=== PATIENT | male | born 1965 | race Caucasian/White ===

== ENCOUNTER 2017-12-11 09:34 | Day surgery (SDC) | payer OTHER, SELFPAY ==
[2017-12-10 17:15] VITALS: BP 102/72; PULSE 84; RESP 22; O2SAT 97
[2017-12-11] VITALS (7 sets, daily range): BP systolic 86–136; BP diastolic 58–89; PULSE 81–88; RESP 18–20; TEMP 36.6; O2SAT 94–97; BMI 26.8
[2017-12-11 11:23] LABS: POC Glucose,Bedside 164 mg/dL
--- NOTE | 2017-12-11 17:07 | XR_ITS ---
XR chest portable HISTORY: ITS.REASON: AICD placement ORDERING PHYSICIAN: Joby Gilman MD PATIENT AGE: 52 years COMPARISON: None available FINDINGS: Status post AICD placement from the left subclavian approach with right atrial lead also present. No evidence of pneumothorax. Lungs are clear of acute infiltrate. There is a small nodular opacity overlying the fourth interspace anteriorly could be due to granuloma or even nipple shadow.. Unremarkable heart size. No acute bony anomalies. IMPRESSION: Status post pacemaker placement as described above with no acute finding
--- NOTE | 2018-01-28 11:21 | HMH.CRT-D ---
[facility] FOOD SERVICE AMBASSADOR-D - FOOD SERVICE AMBASSADOR-D Date of Procedure:: 12/11/17 Procedures:: 1. Pocket formation for biventricular pacemaker generator with cardiac resynchronization/defibrillator therapy. 2. Placement atrial sensing and pacing lead into the right atrial appendage. 3. Placement of right ventricular sensing pacing and shocking lead in the right ventricular apex. 4. Placement of left ventricular sensing pacing lead via the coronary sinus. 5. Permanent cardiac resynchronization therapy with AICD implantation/biventricular pacemaker. Indication for test:: Systolic Congestive Heart Failure, ejection less than 35% Wide QRS greater than 120 ms [place] Heart Association Class 3-4 Congestion heart failure. Informed consent:: Obtained prior to procedure. Complications:: None EBL:: Less than 10 ml. Technique:: 1% Lidocaine with epinephrine used to anesthetize the left anterior aspect of the chest.Scalpel was used to make the initial cutaneous incision while electrocautery was used to dissect down into the fascia. The fascia was lifted off the pectoralis muscle and digitally manipulated creating a pocket for the pacemaker. The patient was then placed in Trendelenburg position and the subclavian vein was accessed via the Selinger technique on 3 separate occasions. 3 wires were left into the subclavian vein. The right ventricular pacing shocking coil sheath was placed into the subclavian vein and under fluoroscopic guidance the right ventricular sensing pacing shocking lead was placed into the right ventricular apex and secured into place with a distal screw. After achieving excellent numbers the lead was then secured into place using 3-0 silk. The lead was secured to the fascia also with a heavy silk. Prior to the right ventricular lead being secured into place, the sheath was pealed away from the subclavian vein. Under fluoroscopic guidance the coronary sinus was cannulated and confirmed with an injection of contrast. An .014 wire was then placed distally in the inferior posterior swgment of the left ventricle via the coronary sinus and the left ventricular lead was advanced. After achieving eexcellent thresholds and interrogation numbers the sheath was then peeled away and the lead was then secured into place using silk suture. Following this, the left ventricular coil was secured in place using heavy silk and also secured to the fascia. An additional 7 [place] sheath was then placed over the existing wire and an atrial sensing placing coil was placed in the right atrial appendage. After achieving excellent thresholds the sheath was peeled away and the lead was secured to the fascia using heavy silk. After achieving hemostasis, Ancef was used to flush the pocket and the 3 leads were attached to the FOOD SERVICE AMBASSADOR-D generator. The generator was then secured into place via heavy silk suture. Monocryl was used to close the subcutaneous layers while fartun were used to close the cutaneous layer. A pressure dressing was placed and the patient was transferred to the post-op holding area in stable condition. Impression:: 1. Successful pocket formation for biventricular pacemaker generator with cardiac resynchronization/defibrillator therapy. 2. Successful placement of right atrial sensing and pacing lead into the right atrial appendage. 3. Successful placement of a right ventricular sensing, pacing, and shocking lead in the right ventricular apex. 4. Successful placement of left ventricular sensing pacing lead via the coronary sinus. 5. Successful permanent cardiac resynchronization plus AICD generator device. Interrogation:: Generator model number [id number] serial number [id number] Atrial lead model number serial number [id number] model number [id number] Right Ventricular lead model number [id number] serial number [id number] Left Ventricular lead model number 1458QL/86 serial number [id number] RA: P wave 3.5 mV Threshold .75 V Impedance 480 ohms pulse width .5 ms RVA: R wav
--- NOTE | 2018-01-28 11:25 | P.PCN_ITS ---
[facility] USED CAR MAKE READY WORKER-D - USED CAR MAKE READY WORKER-D Date of Procedure:: 12/11/17 Procedures:: 1. Pocket formation for biventricular pacemaker generator with cardiac resynchronization/defibrillator therapy. 2. Placement atrial sensing and pacing lead into the right atrial appendage. 3. Placement of right ventricular sensing pacing and shocking lead in the right ventricular apex. 4. Placement of left ventricular sensing pacing lead via the coronary sinus. 5. Permanent cardiac resynchronization therapy with AICD implantation/ biventricular pacemaker. Indication for test:: Systolic Congestive Heart Failure, ejection less than 35% Wide QRS greater than 120 ms [place] Heart Association Class 3-4 Congestion heart failure. Informed consent:: Obtained prior to procedure. Complications:: None EBL:: Less than 10 ml. Technique:: 1% Lidocaine with epinephrine used to anesthetize the left anterior aspect of the chest.Scalpel was used to make the initial cutaneous incision while electrocautery was used to dissect down into the fascia. The fascia was lifted off the pectoralis muscle and digitally manipulated creating a pocket for the pacemaker. The patient was then placed in Trendelenburg position and the subclavian vein was accessed via the Selinger technique on 3 separate occasions. 3 wires were left into the subclavian vein. The right ventricular pacing shocking coil sheath was placed into the subclavian vein and under fluoroscopic guidance the right ventricular sensing pacing shocking lead was placed into the right ventricular apex and secured into place with a distal screw. After achieving excellent numbers the lead was then secured into place using 3-0 silk. The lead was secured to the fascia also with a heavy silk. Prior to the right ventricular lead being secured into place, the sheath was pealed away from the subclavian vein. Under fluoroscopic guidance the coronary sinus was cannulated and confirmed with an injection of contrast. An .014 wire was then placed distally in the inferior posterior swgment of the left ventricle via the coronary sinus and the left ventricular lead was advanced. After achieving eexcellent thresholds and interrogation numbers the sheath was then peeled away and the lead was then secured into place using silk suture. Following this, the left ventricular coil was secured in place using heavy silk and also secured to the fascia. An additional 7 Vincentian sheath was then placed over the existing wire and an atrial sensing placing coil was placed in the right atrial appendage. After achieving excellent thresholds the sheath was peeled away and the lead was secured to the fascia using heavy silk. After achieving hemostasis, Ancef was used to flush the pocket and the 3 leads were attached to the USED CAR MAKE READY WORKER-D generator. The generator was then secured into place via heavy silk suture. Monocryl was used to close the subcutaneous layers while fartun were used to close the cutaneous layer. A pressure dressing was placed and the patient was transferred to the post-op holding area in stable condition. Impression:: 1. Successful pocket formation for biventricular pacemaker generator with cardiac resynchronization/defibrillator therapy. 2. Successful placement of right atrial sensing and pacing lead into the right atrial appendage. 3. Successful placement of a right ventricular sensing, pacing, and shocking lead in the right ventricular apex. 4. Successful placement of left ventricular sensing pacing lead via the coronary sinus. 5. Successful permanent cardiac resynchronization plus AICD generator device. Interrogation:: Generator model number [id number] serial number [id number] Atrial lead model carlos
== END 2017-12-11 18:30 | disposition home or self-care (01) ==
LOC: OR 09:36
PROVIDERS: PCP Family Medicine; Visit Provider Internal Medicine
PROC: 0JH608Z Insertion of Defibrillator Generator into Chest Subcutaneous Tissue and Fascia, Open Approach (ICD-10-PCS; CPT 33249; principal; 2017-12-11 13:15)
DX: Z45.02 Encounter for adjustment and management of automatic implantable cardiac defibrillator (principal); I50.20 Unspecified systolic (congestive) heart failure
CPT/HCPCS: 33225; 33249; 71045; 82962; 96374; C1769; C1777; C1882; C1894; C1898; J2704

== ENCOUNTER → 2018-02-01 14:31 | Outpatient (POV) | payer OTHER, SELFPAY ==
[2018-02-01 14:39] VITALS: BP 120/66; PULSE 90; RESP 18; TEMP 36.6; O2SAT 100; BMI 28.0
--- NOTE | 2018-02-01 16:27 | HMH.PMCON ---
Assessment and Plan (1) Diabetic neuropathy Current visit: Yes Status: Chronic Category: Medical Code(s): E11.40 - Type 2 diabetes mellitus with diabetic neuropathy, unspecified - Assessment and plan all Dx Assessment and Plan for all problems:: I discussed with the patient our options of Neurontin and Lyrica. Patient had side effects to the gabapentin. We will start him on a trial dose of Lyrica 75 mg 1 p.o. twice daily for 2 weeks and see if this is helped with his symptoms. I discussed with the patient that Percocet was not the treatment indicated for his type of pain. We also discussed and neurostimulator he uninterested in this. I will follow-up with this patient in 1 month and discuss options. This note was dictated using voice recognition software and may contain errors or omissions HPI - Data of Consult Consult date: 02/01/18 Requesting Physician: Anastasia Young APRN Primary Care Provider: Hannah Merritt Family Provider: Rocio velasco - Consult Narrative Reason for consult: Leg pain bilaterally History of present illness: Mr. Milian is a 52 year old male who presents today to discuss his bilateral leg pain. Patient stated the pain started 3 years ago after he was diagnosed with diabetes. Patient states that he stands on a concrete floor while working and this makes the pain worse patient tried and failed gabapentin due to side effects. Patient is currently on a blood thinner after a recent cardiac workup with intervention. Patient is currently not interested in any spinal cord stimulation. Patient is concerned about Lyrica due to cost and his insurance. Patient rates his pain an 8 out of 10 today. Patient states that nothing decreases his pain. He states that he did receive Percocet from his cardiac physician and this dulled the pain. He states that numbness and tingling and shocking all the way from his bilateral hips to the toes on both feet. he does not have any MRI or imaging of his back. CC: Anastasia Young APRN [facility] History I have reviewed the patient's past medical history: Yes Medical History: Reports:: Congestive Heart Failure, Diabetes Mellitus Type 2, Hyperlipidemia, Hypertension, Internal Pacemaker Denies:: Cancer, Diabetes Mellitus Type 1, MRSA, Seizures Other Medical History: Denies: Blood Transfusion Reaction Other Surgeries: Yes: Pacemaker Amputation: No Fractures: No - *Social History Educational Level: Attended Grade School Smoking Status: Former smoker Tobacco Type: cigarettes Alcohol Intake: former Alcohol Intake Frequency:: a few times a week Occupational Status: employed, other Housing: house Household Members: family - Psychiatric History Expresses thoughts of harming self/others: None Suicide Plan Description: No Plan *Family Hx:: Cancer, Coronary Artery Disease, Diabetes, Heart Attack, Hyperlipidemia, Hypertension, Kidney Disease, Stroke Review of Systems - Review of Systems ROS General: no recent weight change, no fever, no sleep disturbances Respiratory: no cough, no shortness of air, no recurring pulmonary infections Cardiovascular/Peripheral Vascular: No chest pain, No palpitations, no edema, no shortness of breath. Gastrointestinal: no incontinence, normal bowel movements reported Genitourinary: no incontinence Musculoskeletal: Bilateral leg pain Psychiatric: normal mood/ affect, Neurological: [denies weakness in extremities], [denies balance issues] Meds Home Medications Medication Instructions Recorded Confirmed Type aspirin 81 mg tablet,delayed 81 mg PO QDAY 12/04/17 02/01/18 History release atorvastatin 20 mg tablet 20 mg PO QDAY 12/04/17 02/01/18 History carvedilol 12.5 mg tablet 6.25 mg PO BID 12/04/17 02/01/18 History clopidogrel 75 mg tablet 75 mg PO QDAY 12/04/17 02/01/18 History famotidine 40 mg tablet 40 mg PO BID 12/04/17 02/01/18 History furosemide 80 mg tablet 80 mg PO BID tab 12/04/17 02/01/18 History
--- NOTE | 2018-02-01 16:32 | P.CONS_ITS ---
Assessment and Plan (1) Diabetic neuropathy Current visit: Yes Status: Chronic Category: Medical Code(s): E11.40 - Type 2 diabetes mellitus with diabetic neuropathy, unspecified - Assessment and plan all Dx Assessment and Plan for all problems:: I discussed with the patient our options of Neurontin and Lyrica. Patient had side effects to the gabapentin. We will start him on a trial dose of Lyrica 75 mg 1 p.o. twice daily for 2 weeks and see if this is helped with his symptoms. I discussed with the patient that Percocet was not the treatment indicated for his type of pain. We also discussed and neurostimulator he uninterested in this. I will follow-up with this patient in 1 month and discuss options. This note was dictated using voice recognition software and may contain errors or omissions HPI - Data of Consult Consult date: 02/01/18 Requesting Physician: Anastasia Young APRN Primary Care Provider: Hannah Merritt Family Provider: Rocio velasco - Consult Narrative Reason for consult: Leg pain bilaterally History of present illness: Mr. Milian is a 52 year old male who presents today to discuss his bilateral leg pain. Patient stated the pain started 3 years ago after he was diagnosed with diabetes. Patient states that he stands on a concrete floor while working and this makes the pain worse patient tried and failed gabapentin due to side effects. Patient is currently on a blood thinner after a recent cardiac workup with intervention. Patient is currently not interested in any spinal cord stimulation. Patient is concerned about Lyrica due to cost and his insurance. Patient rates his pain an 8 out of 10 today. Patient states that nothing decreases his pain. He states that he did receive Percocet from his cardiac physician and this dulled the pain. He states that numbness and tingling and shocking all the way from his bilateral hips to the toes on both feet. he does not have any MRI or imaging of his back. CC: Anastasia Young APRN [facility] History I have reviewed the patient's past medical history: Yes Medical History: Reports:: Congestive Heart Failure, Diabetes Mellitus Type 2, Hyperlipidemia, Hypertension, Internal Pacemaker Denies:: Cancer, Diabetes Mellitus Type 1, MRSA, Seizures Other Medical History: Denies: Blood Transfusion Reaction Other Surgeries: Yes: Pacemaker Amputation: No Fractures: No - *Social History Educational Level: Attended Grade School Smoking Status: Former smoker Tobacco Type: cigarettes Alcohol Intake: former Alcohol Intake Frequency:: a few times a week Occupational Status: employed, other Housing: house Household Members: family - Psychiatric History Expresses thoughts of harming self/others: None Suicide Plan Description: No Plan *Family Hx:: Cancer, Coronary Artery Disease, Diabetes, Heart Attack, Hyperlipidemia, Hypertension, Kidney Disease, Stroke Review of Systems - Review of Systems ROS General: no recent weight change, no fever, no sleep disturbances Respiratory: no cough, no shortness of air, no recurring pulmonary infections Cardiovascular/Peripheral Vascular: No chest pain, No palpitations, no edema, no shortness of breath. Gastrointestinal: no incontinence, normal bowel movements reported Genitourinary: no incontinence Musculoskeletal: Bilateral leg pain Psychiatric: normal mood/ affect, Neurological: [denies weakness in extremities], [denies balance issues] Meds Home Medications Medication Instructions Recorded Con
--- NOTE | 2018-02-01 16:36 | PC.PHONENOTE ---
called in Rx for Lyrica 75mg BID #14 with no refills to [facility] pharmacy in [place]
== END ==
PROVIDERS: PCP Family Medicine; Visit Provider Clinical Nurse Specialist Family Health
DX: E11.40 Type 2 diabetes mellitus with diabetic neuropathy, unspecified (principal)
CPT/HCPCS: 99202

== ENCOUNTER → 2018-03-08 08:43 | Outpatient (POV) | payer OTHER, SELFPAY ==
[2018-03-08 08:57] VITALS: BP 126/75; PULSE 73; RESP 20; O2SAT 98; BMI 29.8
--- NOTE | 2018-03-08 09:44 | HMH.PAINSOAP ---
[facility] Pain Management SOAP Note Subjective:: This patient is a 52-year-old white male who presents today for follow-up. Patient had tried Lyrica for his diabetic neuropathy. Patient states it was too expensive and it did not work. Patient is unable to take Neurontin due to side effects. Patient states most of his pain is in his back and bilateral legs however he has a new onset of neck pain along with lateral arm weakness. Patient does have a pacemaker and a defibrillator. Patient is unable have an MRI. 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 Patient rates his pain a 7 out of 10 today. Patient has taken some Tylenol once in a while to help with the pain. Patient has a history of alcoholism. We have discussed the neurostimulator at his last visit. Patient states he did not look into the information that was given to him. Patient and I had a long discussion about not utilizing narcotic pain medication due to the patient's age, symptomology, history. Patient does want to discuss alternative options like nerve stimulation at this visit. ROS General: no recent weight change, no fever, no sleep disturbances Respiratory: no cough, no shortness of air, no recurring pulmonary infections Cardiovascular/Peripheral Vascular: No chest pain, No palpitations, no edema, no shortness of breath. Gastrointestinal: no incontinence, normal bowel movements reported Genitourinary: no incontinence Musculoskeletal: Back pain, bilateral leg pain, neck pain, bilateral arm pain Psychiatric: normal mood/ affect, Neurological: New weakness in bilateral arms, [denies balance issues] Objective:: Physical Exam General: Alert and oriented x3, no acute distress, pleasant and cooperative, [on room air] Lungs: Resps E/U, Symmetrical chest expansion, Eyes: PERRL Musculoskeletal: Flexion and extension of cervical and lumbar spine somewhat guarded secondary to pain, deep tendon reflexes normal, strength in upper and lower extremities [5/5], normal gait noted Neurological: speech clear, 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 I believe that this would be good in distinguishing pathology of pain. We will also start the patient on Cymbalta 30 mg 1 p.o. daily. Patient states he has no allergies. I explain to the patient that we do not prescribe opioid medications for his symptomology. We will follow-up with the patient after his CT scans. Patient and I did have a longer discussion on neuro stimulation and he may be interested in pursuing this. This note was dictated using voice recognition software and may contain errors or omissions
--- NOTE | 2018-03-08 09:47 | P.CONS_ITS ---
[facility] Pain Management SOAP Note Subjective:: This patient is a 52-year-old white male who presents today for follow-up. Patient had tried Lyrica for his diabetic neuropathy. Patient states it was too expensive and it did not work. Patient is unable to take Neurontin due to side effects. Patient states most of his pain is in his back and bilateral legs however he has a new onset of neck pain along with lateral arm weakness. Patient does have a pacemaker and a defibrillator. Patient is unable have an MRI. 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 Patient rates his pain a 7 out of 10 today. Patient has taken some Tylenol once in a while to help with the pain. Patient has a history of alcoholism. We have discussed the neurostimulator at his last visit. Patient states he did not look into the information that was given to him. Patient and I had a long discussion about not utilizing narcotic pain medication due to the patient's age, symptomology, history. Patient does want to discuss alternative options like nerve stimulation at this visit. ROS General: no recent weight change, no fever, no sleep disturbances Respiratory: no cough, no shortness of air, no recurring pulmonary infections Cardiovascular/Peripheral Vascular: No chest pain, No palpitations, no edema, no shortness of breath. Gastrointestinal: no incontinence, normal bowel movements reported Genitourinary: no incontinence Musculoskeletal: Back pain, bilateral leg pain, neck pain, bilateral arm pain Psychiatric: normal mood/ affect, Neurological: New weakness in bilateral arms, [denies balance issues] Objective:: Physical Exam General: Alert and oriented x3, no acute distress, pleasant and cooperative, [ on room air] Lungs: Resps E/U, Symmetrical chest expansion, Eyes: PERRL Musculoskeletal: Flexion and extension of cervical and lumbar spine somewhat guarded secondary to pain, deep tendon reflexes normal, strength in upper and lower extremities [5/5], normal gait noted 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 I believe that this would be good in distinguishing pathology of pain. We will also start the patient on Cymbalta 30 mg 1 p.o. daily. Patient states he has no allergies. I explain to the patient that we do not prescribe opioid medications for his symptomology. We will follow-up with the patient after his CT scans. Patient and I did have a longer discussion on neuro stimulation and he may be interested in pursuing this. This note was dictated using voice recognition software and may contain errors or omissions
--- NOTE | 2018-03-09 12:52 | PC.PHONENOTE ---
03/08/18-called in RX for Cymbalta 30mg daily with 1 refill to pt's pharmacy
== END ==
PROVIDERS: PCP Family Medicine; Visit Provider Clinical Nurse Specialist Family Health
DX: E11.40 Type 2 diabetes mellitus with diabetic neuropathy, unspecified (principal)
CPT/HCPCS: 99212

== ENCOUNTER → 2018-03-22 14:08 | Outpatient (CLI) | payer OTHER, SELFPAY ==
--- NOTE | 2018-03-22 14:26 | CT_ITS ---
CT lumbar spine wo con INDICATION: Low back pain radiating bilaterally, recent injury ITS.REASON: NECK AND BACK PAIN ORDERING PHYSICIAN: Estuardo Vo MD PATIENT AGE: 52 years TECHNIQUE: Axial images are obtained without contrast. Sagittal and coronal reformatted images are reviewed as well. All CT scans at the facility use one or more dose reduction, viz: automated exposure control; ma/kV adjustment per patient size (including targeted exams where dose is matched to indication; i.e. head); or iterative reconstruction technique. FINDINGS: There is normal alignment. No fracture or dislocation is evident. The disc spaces are well-preserved. No lytic or blastic change Minimal bulging disc L2-L3. L3-L4: Unremarkable. L4-5: Mild concentric bulging disc. L5-S1 mild concentric bulging disc. Mild bilateral foraminal narrowing. IMPRESSION: Mild lumbar spondylosis with mild bulging disc at L2-L3 L4-L5 and L5-S1 with mild bilateral foraminal narrowing at L5-S1. No fracture apparent. No bony canal stenosis
--- NOTE | 2018-03-22 14:26 | CT_ITS ---
CT cervical spine wo con Ordering Physician: Estuardo Vo MD Patient Age: 52 years: Male HISTORY: ITS.REASON: NECK AND BACK PAINthe posterior neck pain. Pain radiates bilateral. Fell 2 weeks ago TECHNIQUE: helical CT scanning performed through the cervical spine with sagittal axial and coronal reconstructions on CT workstation. Dose reduction techniques utilized including CT software exposure reduction COMPARISON :No prior neck studies. Prior FINDINGS No fracture nor subluxation at C-spine. C1-C2 relationships appear normal.. Odontoid intact. The cervical vertebral bodies are intact and the disc spaces are fairly well maintained with only questionable borderline narrowing C5-C6 disc The facets intact with normal relationships. Minor degenerative facet changes to the right before meals to/3 noted mild subchondral cyst here. Very minor degenerative facet changes at other levels for example C6/7 bilateral. Nonspecific straightening cervical spine is likely positional but can be associated with neck pain or neck spasm Prevertebral soft tissues appear normal. Minimal calcification left vertebral artery at C3/4 level. Minimal carotid bifurcation calcification bilaterally [place] of lung no significant findings. Only dense benign calcified granuloma left apex. Pacemaker maker leads noted entering from left IMPRESSION Cervical spine intact with no fracture nor subluxation. Nonspecific straightening. Mild degenerative facet changes noted.
== END ==
PROVIDERS: PCP Family Medicine; Visit Provider Anesthesiology
DX: M54.2 Cervicalgia (principal); M54.5 Low back pain
CPT/HCPCS: 72125; 72131

== ENCOUNTER → 2018-03-30 10:48 | Outpatient (POV) | payer OTHER, SELFPAY ==
[2018-03-30 12:16] VITALS: BP 104/74; PULSE 80; RESP 18; TEMP 36.6; O2SAT 96; BMI 29.4
--- NOTE | 2018-03-30 12:41 | P.CONS_ITS ---
[facility] Pain Management SOAP Note Subjective:: Is a pleasant 52-year-old white male who presents today for follow-up. Patient had a CT scan of his lumbar spine which was fairly benign. Patient is being treated for pain secondary to diabetic neuropathy, neck pain, back pain. Patient and I discussed at last visit how we do not prescribe opioid medications for his symptomology. Patient was started on Cymbalta 30 mg 1 p.o. daily. He states that he did not have any results from this. Patient has tried and failed gabapentin and Lyrica. Patient and I had discussed and neurostimulator in the past however he is not interested in pursuing this at this time. Patient has never tried amitriptyline or any compounding creams. Patient rates his pain a 9 out of 10 today. Patient states that it is worse when he works. Patient states it is burning shooting into both of his legs. ROS General: no recent weight change, no fever, no sleep disturbances Respiratory: no cough, no shortness of air, no recurring pulmonary infections Cardiovascular/Peripheral Vascular: No chest pain, No palpitations, no edema, no shortness of breath. Gastrointestinal: no incontinence, normal bowel movements reported Genitourinary: no incontinence Musculoskeletal: Back pain, bilateral leg pain Psychiatric: normal mood/ affect Neurological: [denies weakness in extremities], [denies balance issues] Objective:: Physical Exam General: Alert and oriented x3, no acute distress, pleasant and cooperative, [ on room air] Lungs: Resps E/U, Symmetrical chest expansion, Eyes: PERRL Musculoskeletal: Flexion and extension of lumbar spine somewhat guarded secondary to pain, deep tendon reflexes normal, strength in upper and lower extremities [5/5], [abnormal gait noted] Neurological: speech clear, 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 We will also start him on amitriptyline 25 mg 1 p.o. nightly. Patient is going to discontinue his Cymbalta. I encouraged the patient to continue to think about a neurostimulator. I will see him back in 1 month and we will see if this combination of medication helps his symptoms. Patient has been told to call the office if he has any side effects to the medications. This note was dictated using voice recognition software and may contain errors or omissions
--- NOTE | 2018-03-30 14:08 | PC.PHONENOTE ---
called in Rx for Amitripyline 25mg po qhs with 1 refill per provider order
== END ==
PROVIDERS: PCP Family Medicine; Visit Provider Clinical Nurse Specialist Family Health
DX: E11.40 Type 2 diabetes mellitus with diabetic neuropathy, unspecified (principal); M51.36 Other intervertebral disc degeneration, lumbar region
CPT/HCPCS: 99212

== ENCOUNTER → 2018-11-03 11:26 | Outpatient (CLI) | payer OTHER, SELFPAY ==
[2018-11-03 14:23] LABS: Anion Gap 14.2 mEq/L (5-15); Blood Urea Nitrogen 29 mg/dL (7-18); Calcium 8.3 mg/dL (8.5-10.1); Carbon Dioxide 26 mmol/L (21.0-32.0); Chloride 97 mmol/L (98-107); Creatinine,Serum 1.78 mg/dL (0.70-1.30); Estimated Glomerular Filt Rate 40 ml/min (>60); GFR (African American) 48 ML/MIN (>60); Glucose 125 mg/dL (74-106); Potassium 4.2 mmoL/L (3.5-5.1); Sodium 133 mmol/L (136-145)
== END ==
PROVIDERS: Nurse Practitioner Family; Visit Provider Internal Medicine
DX: I42.6 Alcoholic cardiomyopathy (principal); I25.10 Atherosclerotic heart disease of native coronary artery without angina pectoris; Z95.810 Presence of automatic (implantable) cardiac defibrillator; R94.31 Abnormal electrocardiogram [ECG] [EKG]; R06.02 Shortness of breath; I50.9 Heart failure, unspecified; I42.8 Other cardiomyopathies
CPT/HCPCS: 36415; 80048; 83880

== ENCOUNTER → 2018-11-24 11:45 | Outpatient (CLI) | payer OTHER, SELFPAY ==
[2018-11-24 12:58] LABS: Blood Urea Nitrogen 25 mg/dL (7-18); Calcium 9.9 mg/dL (8.5-10.1); Carbon Dioxide 33 mmol/L (21.0-32.0); Chloride 92 mmol/L (98-107); Creatinine,Serum 1.83 mg/dL (0.70-1.30); Estimated Glomerular Filt Rate 39 ml/min (>60); GFR (African American) 47 ML/MIN (>60); Glucose 280 mg/dL (74-106); Sodium 134 mmol/L (136-145)
== END ==
PROVIDERS: Visit Provider Urology
DX: I42.6 Alcoholic cardiomyopathy (principal); I25.10 Atherosclerotic heart disease of native coronary artery without angina pectoris; E11.9 Type 2 diabetes mellitus without complications; E78.5 Hyperlipidemia, unspecified; I50.9 Heart failure, unspecified; R00.0 Tachycardia, unspecified; R06.02 Shortness of breath; R42 Dizziness and giddiness; R53.83 Other fatigue; R60.9 Edema, unspecified; R94.31 Abnormal electrocardiogram [ECG] [EKG]; Z95.810 Presence of automatic (implantable) cardiac defibrillator
CPT/HCPCS: 36415; 80048; 83880

== ENCOUNTER → 2019-01-31 10:46 | Outpatient (CLI) | payer OTHER, SELFPAY ==
--- NOTE | 2019-01-31 10:49 | CI_ITS ---
Cerebrovascular Exam Indications: Follow-up carotid 433.10. IMPRESSIONS 1. The bilateral vertebral arteries are patent with normal antegrade flow. 2. Study suggests 50-69% stenosis involving the right internal carotid artery. 3. Study suggests less than 20% stenosis involving the left internal carotid artery. History: Coronary artery disease. Risk factors: Ex tobacco use. Hypertension. Diabetes mellitus. Carotid duplex study. Complete study and Doppler flow study including spectral analysis, color and cooley scale imaging. Height: Height: 182.9cm. Height: 72in. Weight: Weight: 117.9kg. Weight: 259.5lb. Body mass index: BMI: 35.3kg/m^2. Body surface area: BSA: 2.49m^2. Location: Vascular laboratory. Patient status: Outpatient. Tables: Arterial flow: + +--------+--------+ Location V sys V ed + +--------+--------+ Right CCA - proximal 86.4cm/s 18.9cm/s + +--------+--------+ Right CCA - distal 84.9cm/s 24.4cm/s + +--------+--------+ Right ECA 117cm/s 19.9cm/s + +--------+--------+ Right ICA - proximal 204cm/s 64.8cm/s + +--------+--------+ Right ICA - mid 160cm/s 50cm/s + +--------+--------+ Right ICA - distal 158cm/s 42.9cm/s + +--------+--------+ Right vertebral 55.7cm/s 17.8cm/s + +--------+--------+ Left CCA - proximal 136cm/s 35.6cm/s + +--------+--------+ Left CCA - distal 86.6cm/s 24.9cm/s + +--------+--------+ Left ECA 105cm/s 20.8cm/s + +--------+--------+ Left ICA - proximal 72.4cm/s 20.8cm/s + +--------+--------+ Left ICA - mid 64.2cm/s 29cm/s + +--------+--------+ Left ICA - distal 79.6cm/s 29.9cm/s + +--------+--------+ Left vertebral 64.1cm/s 29.7cm/s + +--------+--------+ Velocity ratios: + + + + + + Right, V sys Right, V ed Left, V sys Left, V ed + + + + + + Max ICA/dist CCA 2.4 2.66 0.92 1.2 + + + + + + (Report amended ) Electronically signed by: Bobby Wright [id number]
== END ==
PROVIDERS: PCP Family Medicine; Visit Provider Internal Medicine
DX: I65.23 Occlusion and stenosis of bilateral carotid arteries (principal); E11.42 Type 2 diabetes mellitus with diabetic polyneuropathy; E78.49 Other hyperlipidemia; I11.0 Hypertensive heart disease with heart failure; I25.10 Atherosclerotic heart disease of native coronary artery without angina pectoris; I42.6 Alcoholic cardiomyopathy; I42.8 Other cardiomyopathies; I50.23 Acute on chronic systolic (congestive) heart failure; I50.9 Heart failure, unspecified; R06.02 Shortness of breath; R53.83 Other fatigue; R60.0 Localized edema; R94.31 Abnormal electrocardiogram [ECG] [EKG]; Z95.810 Presence of automatic (implantable) cardiac defibrillator; Z79.4 Long term (current) use of insulin
CPT/HCPCS: 93880

== ENCOUNTER → 2019-02-21 10:42 | Outpatient (CLI) | payer OTHER, SELFPAY ==
--- NOTE | 2019-02-21 10:43 | CA_ITS ---
CA echo doppler complete PROCEDURE: INDICATIONS FOR THE TEST: Chest pain COPD Heart Murmur Tobacco Smoking Palpitations Fatigue Syncope Edema HypertensionXDiabetes MellitusX Rheumatic Fever SOB LANDIS Obesity Hyperlipidemia Family History HD Additional History AICD,CM,CHF,CKD PATIENT INFORMATION HEIGHT: 72 WEIGHT:266 GENDER: Male B/P:136/83 2-D/M-MODE INTERPRETATION: 2-D MEASUREMENTS OBSERVED VALUES IN CMS Right Ventricular Dimension (RVDd) 4.0 Interventricular Septum (Thickness)(IVsd) .9 Left Ventricular Internal Dimensions(LVIDd) 5.6 Left Ventricular Posterior Wall (Thickness)(LVPWd) 1.0 Aortic Root 3.5 Aortic Cusp Separation 2.3 Left Atrial Dimensions (LAD) 4.0 2D 1. Left atrium is mildly enlarged, left ventricle is normal size, mild concentric left ventricular hypertrophy, visually estimated ejection fraction 50% with no regional wall motion abnormality. 2. The right atrium and right ventricle are mildly enlarged with normal contractility, there is an AICD lead seen in the right atrium and right ventricle. 3. The aortic valve is thickened and gastritis leaflet continue to display good mobility. 4. The mitral and tricuspid valvular grossly normal. 5. The pulmonic valve is poorly visualized. 6. No significant pericardial effusion noted. DOPPLER INTERROGATION: Doppler interrogation of the aortic, mitral and tricuspid valvular presence of mild mitral and tricuspid regurgitation, tricuspid regurgitation jet velocity is inadequate for calculation of the right ventricular systolic pressure, grade 1 diastolic dysfunction seen with tissue Doppler evidence of raised left atrial pressure. Inferior vena cava is mildly dilated without significant inspiratory collapse. CONCLUSION: 1. Biatrial enlargement, normal left ventricular size, mild concentric left ventricular hypertrophy, visually estimated ejection fraction of 50% with no regional wall motion abnormality, grade 1 diastolic dysfunction seen with tissue Doppler evidence of raised left atrial pressure. 2. Mildly enlarged right ventricle with normal contractility. 3. Mild mitral and tricuspid regurgitation, inferior vena cava is mildly dilated without significant inspiratory collapse. 4. No significant pericardial effusion noted.
== END ==
PROVIDERS: PCP Family Medicine; Visit Provider Internal Medicine
DX: I11.0 Hypertensive heart disease with heart failure (principal); I25.10 Atherosclerotic heart disease of native coronary artery without angina pectoris; I42.8 Other cardiomyopathies; Z95.810 Presence of automatic (implantable) cardiac defibrillator
CPT/HCPCS: 93306

== ENCOUNTER → 2019-08-15 14:00 | Outpatient (CLI) | payer OTHER, SELFPAY ==
[2019-08-15 15:17] LABS: Anion Gap 13.3 mEq/L (5-15); Blood Urea Nitrogen 15 mg/dL (7-18); Calcium 9.2 mg/dL (8.5-10.1); Carbon Dioxide 32 mmol/L (21.0-32.0); Chloride 96 mmol/L (98-107); Creatinine,Serum 1.19 mg/dL (0.70-1.30); Estimated Glomerular Filt Rate 64 ml/min (>60); GFR (African American) 77 ML/MIN (>60); Glucose 214 mg/dL (74-106); Potassium 4.3 mmoL/L (3.5-5.1); Sodium 137 mmol/L (136-145)
== END ==
PROVIDERS: Visit Provider Urology
DX: E78.5 Hyperlipidemia, unspecified (principal); I11.9 Hypertensive heart disease without heart failure; I25.10 Atherosclerotic heart disease of native coronary artery without angina pectoris; I50.9 Heart failure, unspecified; R06.02 Shortness of breath; R60.9 Edema, unspecified; Z95.810 Presence of automatic (implantable) cardiac defibrillator
CPT/HCPCS: 36415; 80048; 83880

== ENCOUNTER 2019-09-27 12:58 | Outpatient (RCR) | payer OTHER, SELFPAY | END 2019-09-27 12:59 | disposition home or self-care (01) | LOC: PT 12:58 | PROVIDERS: Visit Provider Urology | DX: I25.10 Atherosclerotic heart disease of native coronary artery without angina pectoris (principal); R06.02 Shortness of breath; I50.9 Heart failure, unspecified; Z95.810 Presence of automatic (implantable) cardiac defibrillator | CPT/HCPCS: 93798 ==

== ENCOUNTER → 2020-09-03 11:08 | Outpatient (CLI) | payer MEDICARE, MEDICAID, SELFPAY ==
[2020-09-03 11:26] LABS: Basophils # 0.1 K/mm3 (0-0.2); Basophils % 0.5 % (0.1-2.0); Eosinophils # 0.1 K/mm3 (0.0-0.4); Hematocrit 28.3 % (42.0-52.0); Hemoglobin 8.8 g/dL (14.1-18.0); Lymphocytes # 2.3 K/mm3 (0.7-4.5); Lymphocytes % 18.8 % (10-50); Mean Corpuscular HGB Conc 31.2 g/dL (31.8-35.4); Mean Platelet Volume 7.3 fl (7.4-10.4); Monocytes # 0.9 K/mm3 (0.1-1.0); Monocytes % 7.3 % (1.7-9.3); Neutrophils # 8.7 K/mm3 (1.8-7.8); Neutrophils % 72.3 % (37.0-80.0); Platelet Count 439 K/mm3 (142-424); Red Blood Count 3.05 M/mm3 (4.60-6.20); Red Cell Distribution Width 13.1 % (11.5-17.5); White Blood Count 12.1 K/mm3 (4.8-10.8)
[2020-09-03 11:27] LABS: Chloride 93 mmol/L (98-107)
[2020-09-03 11:28] LABS: Sodium 129 mmol/L (136-145)
[2020-09-03 11:30] LABS: Blood Urea Nitrogen 18 mg/dl (9-20); Estimated Glomerular Filt Rate 35 ml/min (>60); GFR (African American) 42 ML/MIN (>60)
[2020-09-03 11:31] LABS: Calcium 9.3 mg/dl (8.4-10.2); Carbon Dioxide 30 mmol/L (22.0-30.0); Glucose 109 mg/dl (74-100)
== END ==
PROVIDERS: Visit Provider Physician Assistant
DX: E11.9 Type 2 diabetes mellitus without complications (principal); E78.5 Hyperlipidemia, unspecified; I25.10 Atherosclerotic heart disease of native coronary artery without angina pectoris; I42.6 Alcoholic cardiomyopathy; I50.9 Heart failure, unspecified; R06.02 Shortness of breath; R53.83 Other fatigue; R55 Syncope and collapse; R60.9 Edema, unspecified; R94.31 Abnormal electrocardiogram [ECG] [EKG]; Z95.810 Presence of automatic (implantable) cardiac defibrillator
CPT/HCPCS: 36415; 80048; 80162; 85025

== ENCOUNTER 2020-09-04 08:21 | Outpatient (CLI) | payer MEDICARE, MEDICAID, SELFPAY ==
[2020-09-04] VITALS (12 sets, daily range): BP systolic 76–106; BP diastolic 37–71; PULSE 69–76; RESP 20; TEMP 36.2–36.6; O2SAT 96–97; BMI 30.2
[2020-09-04 09:20] LABS: POC Glucose,Bedside 100 (70-110)
[2020-09-04 10:05] LABS: Hematocrit 30.4 % (42.0-52.0); Hemoglobin 9.5 g/dL (14.1-18.0)
--- NOTE | 2020-09-04 10:10 | PC.NURSE ---
lab staff at pt chairside to perform confirmation stick.
--- NOTE | 2020-09-04 14:33 | PC.NURSE ---
lab at pt chairside to draw post h/h.
[2020-09-04 14:37] LABS: Hemoglobin 9.6 g/dL (14.1-18.0)
== END 2020-09-04 14:39 | disposition home or self-care (01) ==
LOC: INF 08:22
PROVIDERS: Visit Provider Internal Medicine
DX: D64.9 Anemia, unspecified (principal); E11.9 Type 2 diabetes mellitus without complications; Z79.4 Long term (current) use of insulin
CPT/HCPCS: 36415; 36430; 82962; 85014; 85018; 86850; P9016

== ENCOUNTER → 2022-12-02 11:46 | Outpatient (CLI) | payer MEDICARE, MEDICAID, SELFPAY ==
--- NOTE | 2022-12-02 11:46 | NM_ITS ---
APPROVED REPORT Exam: Nuclear Stress Test Indication: CAD, H/O VA, HTN, DM, HYPERLIPIDEMIA, TOB USE, FM HX., SOB, SYNCOPE, FATIGUE Patient Location: Outpatient Stress Tech: [facility] Tech:Lizeth Ochoa, ARRT RT (R)(N)(M) Ht: 6 ft 0 in Wt: 230 lbs HR: 70 bpm BP: 128/80 mmHg BSA: 2.26 m2 TID: 1.09 History: CAD, H/O VA, HTN, DM, HYPERLIPIDEMIA, TOB USE, FM HX., SOB, SYNCOPE, FATIGUE Procedure: Patient received a 0.4 mg of intravenous Lexiscan, resting heart rate 70 bpm, resting blood pressure 128/80 mmHg, with Lexiscan maximum heart rate achived was 78 bpm which is Less than 85 % of the maximum predicted heart rate and blood pressure was 135/76 mmHg. With Lexiscan, patient denied any complaint of chest pain. Electrocardiogram Resting electrocardiogram shows electronically paced rhythm, with Lexiscan there is less than 1.[address] segment depression noted from the baseline EKG. The EKG portion of the Lexiscan is nondiagnostic. Cardiac Stress and Resting SPECT Images: Cardiac Stress and Resting SPECT images were obtained using technetium 99m Myoview 31.5 mCi stress and 10.34 mCi at rest. Gated SPECT analysis of segmental wall motion and calculation of the ejection fraction also done. Prone images were also obtained. Cardiac stress and rest SPECT images show partial reversible defect involving the inferolateral wall consistent with mixed ischemia and scar, in addition there is reversible ischemia involving the anterior, apex and anteroseptal wall. Computer derived ejection fraction is 41% with moderate inferolateral wall hypokinesis, right ventricle is normal size and contractility. Conclusion: 1. The EKG portion of the Lexiscan is nondiagnostic. 2. Scintigraphic evidence of mixed ischemia and scar involving the inferolateral wall, in addition there is reversible ischemia involving the anterior, apex and anteroseptal wall, computer derived ejection fraction 41% with segmental wall motion abnormality described above, right ventricle is normal size and contractility. 3. Abnormal Lexiscan Myoview study suggestive of multivessel coronary artery disease. Electronically signed by : Clyde Walker MD 12/03/2022:11:03
--- NOTE | 2022-12-02 11:46 | CA_ITS ---
APPROVED REPORT Exam: Pharmacologic Technologist: Alana James Ht: 6 ft 0 in Wt: 231 lbs BSA: 2.27 m2 HR: 70 bpm BP: 128/80 mmHg Indications: Shortness of Air Medical History Medications: Omeprazole,,,,, Aspirin,,,,, Gabapentin,,,,, Digoxin,,,,, Famotidine,,,,, Centrum Silver,,,,, DulOXETINE,,,,, Magnesium,,,,, BisOPROLOL,,,,, Nitroglycerin,,,,, Vitamin B 12,,,,, MeLATONIN,,,,, Stress Test Details Test: LEXISCAN HR Resting HR: 70 bpm Max Heart Rate (APMHR): 162.059855 bpm Max HR Achieved: 78 bpm Target HR (85% APMHR): 137.231066 bpm % of APMHR: 48.15 Recovery HR: 72 bpm BP Resting BP: 128.0/80.0 mmHg Max BP: 135.0/76.0 mmHg Recovery BP: 135.0/76.0 mmHg ECG Resting ECG: AV sequential paced rhythm. Clinical Exercise duration: 04:00 min Highest Stage Achieved: Exercise capacity: 1.0 METs Stress ECG Conclusion Symptoms: Brief shortness of air, mild nausea, mild head discomfort. No chest pain. Arrhythmias/Ectopy: Transient periods of ione atrial rhythm. ST-T Changes: No significant changes. Conclusion: Non-diagnostic Lexiscan stress. Myoview images reported separately. Test Summary REST . . . . . . . Resting REST 02:54 . . 70 . 128/ 80 . . Stage 1 . . . . . . . Myoview Injected Stage 1 01:00 . . 70 . . . . Stage 2 01:00 . . 74 . 113/ 69 . . Stage 3 01:00 . . 73 . 130/ 75 . . Stage 4 01:00 . . 70 . 124/ 75 . Stop exercise at 04:00 RECOVERY 01:00 . . 73 . . . . RECOVERY 02:00 . . 74 . 127/ 76 . . RECOVERY 03:00 . . 74 . 135/ 76 . . RECOVERY 03:20 . . 70 . 135/ 76 . . Electronically signed by : Clyde Walker MD 12/03/2022 11:07:43
--- NOTE | 2022-12-02 11:48 | CA_ITS ---
APPROVED REPORT EXAM: Comprehensive 2D, Doppler, and color-flow Echocardiogram Carbonator: Delma Dixon RVT Ht: 6 ft 0 in Wt: 231lbs BSA: 2.27 BP: 141/79 mmHg Indications: SOA,A-FLUTTER,TACHYCARDIA,HC CM,CHF,AICD,ETOH USE,HLD,DM,EX SMOKER 2D Dimensions LVOT 2.55 cm (M/F) 1.5-2.5 LA Volume 46.80 mL LA Volume Index 20.62 mL/m2 (M/F) 16-34 M-Mode Dimensions RVDd 3.82 cm (0.9-2.6) LA Diam 4.47 cm (1.9-4.0) LVDd 4.45 cm (3.5-5.7) Ao Diam 3.15 cm (2.0-3.7) LVDs 3.14 cm (3.5-5.7) IVSd 1.78 cm (0.6-1.1) PWd 0.76 cm (0.6-1.1) EF (Teich) 56.60% FS 29.40% EDV (Teich) 90.10 mL TAPSE 2.39 (<1.7) ESV (Teich) 39.10 mL LV Diastology E Decel Time 323.00 (160-240 msec) E/A Ratio 0.9 MED E' 5.30 (< 7 cm/sec) E'/MED E' Ratio 16.60 (>14) LAT E' 4.80 (<10 cm/sec) E/LAT E' Ratio 18.33 (>14) Aortic Valve AO Peak GR. 3.90 mmHg Mitral Valve MV E Max Serg. 88.00 (40-130 cm/s) MV A Velocity 93.00 (40-130 cm/s) E/A Ratio 0.94 MV Decel. Time 323.00 (160-240 ms) MV PHT 95.00 ms Pulmonary Valve PV Peak Velocity 81.00 (50-150 cm/s) Tricuspid Valve TR P. Velocity 166.00 cm/s RAP Estimate 10.00 mmHg RVSP 21.10 mmHg Left Ventricle Left atrium is mildly enlarged, left ventricle is normal size mild concentric left ventricular hypertrophy, estimated ejection fraction 50% with no regional wall motion abnormality, grade 1 diastolic dysfunction seen with tissue Doppler evidence of raise left atrial pressure. Right Ventricle Right atrium and right ventricle are mildly enlarged with normal contractility, and AICD lead seen in right ventricle. Aortic Valve Aortic valve is minimally thickened and fibrosed there is no aortic stenosis aortic insufficiency. Mitral Valve Mitral valve grossly normal, there is trace mitral regurgitation. Tricuspid Valve There is mild tricuspid regurgitation, tricuspid valve is grossly normal, tricuspid regurgitation jet velocity is inadequate for calculation of the right ventricular systolic pressure. Pulmonic Valve Pulmonic valve is poorly visualized. Great Vessels Aortic root is normal size. No significant pericardial effusion. Inferior vena cava is poorly visualized. Conclusion 1. Biatrial enlargement, normal left ventricular size, estimated ejection fraction 50% with no regional wall motion abnormality, grade 1 diastolic dysfunction seen with tissue Doppler evidence of raise left atrial pressure. 2. Mildly enlarged right ventricle with normal contractility. 3. Trace mitral and tricuspid regurgitation. 4. No significant pericardial effusion. 5. Inferior vena cava is poorly visualized. Electronically signed by : Clyde Walker MD 12/03/2022 12:42:20
--- NOTE | 2022-12-02 13:38 | HMH.ITSHM ---
Current Home Medications as stated by this patient Guerrero Milian or escrow representative. []SILDENAFIL SACUBITRIL ROPINIROLE OMEPRAZOLE BISOPROLOL ASA NITRO MULTIVITAMIN METHOCARBAMOL MELATONIN MAGNESIUM LEVOFLOXACIN HYDROCODONE FUROSEMIDE FAMOTIDINE DULOXETINE DOXYCYCLINE DIGOXIN VITAMIN B12
== END ==
PROVIDERS: PCP Family Medicine; Visit Provider Internal Medicine
DX: I25.10 Atherosclerotic heart disease of native coronary artery without angina pectoris (principal); I48.92 Unspecified atrial flutter; I95.9 Hypotension, unspecified; N52.2 Drug-induced erectile dysfunction; R06.00 Dyspnea, unspecified; E78.2 Mixed hyperlipidemia; I42.6 Alcoholic cardiomyopathy; I42.8 Other cardiomyopathies; I50.32 Chronic diastolic (congestive) heart failure
CPT/HCPCS: 78452; 93017; 93306; A9502; J2785

== ENCOUNTER 2022-12-16 08:53 | Day surgery (SDC) | payer MEDICARE, MEDICAID, SELFPAY ==
[2022-12-16] VITALS (11 sets, daily range): BP systolic 123–189; BP diastolic 76–98; PULSE 70–77; RESP 18–19; TEMP 36.8; O2SAT 93–96; BMI 31.3
--- NOTE | 2022-12-16 07:16 | IR_ITS ---
APPROVED REPORT Patient Location: Outpatient Senior Control Systems Engineer: SHARIF Thompson RT (R) PROCEDURES Left heart catheterization Left ventriculogram Selective coronary angiogram INDICATION Abnormal Myoview, Cardiomyopathy, Angina pectoris, Informed consent was obtained prior to the procedure. COMPLICATIONS None Estimated Blood Loss: Less than 10 mls TECHNIQUE One percent lidocaine used to anesthetize the right anterior aspect of the wrist. The right radial artery was accessed via the Seldinger technique. A 6 [place] sheath was placed in the right radial artery. 2.5 mg of verapamil, 800 mcg of nitroglycerin, 1mg Lidocaine and 5000 U Heparin were given through the arterial sheath. The papa catheter was also used to perform left heart catheterization, left ventriculogram and selective coronary angiogram. At the end of the procedure the sheath was removed good hemostasis was achieved using Traclet band, patient was transferred to the postop holding area in stable condition. ANGIOGRAPHIC RESULTS The left main artery Normal The left anterior descending artery Normal The circumflex artery Dominant normal The right coronary artery Normal The MEJIA ventriculogram reveals Dilated ejection fraction 35 to 40% The left ventricular end-diastolic pressure 20 mmHg IMPRESSION Normal coronary arteries Dilated cardiomyopathy with mildly elevated LVEDP PLAN 1. Standard therapy for systolic heart failure Electronically signed by : Joby Gilman MD 12/16/2022 13:18:03
--- NOTE | 2022-12-16 09:19 | CA_ITS ---
FINAL REPORT CLINICAL HISTORY: Rt ICA [id number]%, smoker, ASCVD FINDINGS: RIGHT CAROTID: CCA PSV -63-15 cm/sec ICA PSV 299-122 cm/sec ICA/CCA PSV ratio 4.83 . Comments: Mild plaque disease is noted. LEFTCAROTID: CCA PSV 101 - 28. cm/sec ICA PSV 98- 39. cm/sec ICA/CCA PSV ratio 1.18 . Comments: Plaque disease is noted. Antegrade flow is seen within the vertebral arteries. IMPRESSION: 70-99% right carotid stenosis. Recommend CTA or MRA. Less than 50% left carotid stenosis. Reviewed, Interpreted and Dictated by Merlin Sanchez MD Transcribed by Zay Hernnádez Authenticated and [facility]
[2022-12-16 09:31] LABS: Basophils # 0.1 K/mm3 (0-0.2); Eosinophils # 0.4 K/mm3 (0.0-0.4); Eosinophils % 6.1 % (0.1-12.0); Hematocrit 39.6 % (42.0-52.0); Hemoglobin 12.7 g/dL (14.1-18.0); Lymphocytes # 2.6 K/mm3 (0.7-4.5); Lymphocytes % 43.1 % (10-50); Mean Corpuscular HGB Conc 32.1 g/dL (31.8-35.4); Mean Corpuscular Hemoglobin 30.4 pg (27.0-31.2); Mean Corpuscular Volume 94.8 fl (80-94); Mean Platelet Volume 9.5 fl (7.4-10.4); Monocytes # 0.4 K/mm3 (0.1-1.0); Monocytes % 6.4 % (1.7-9.3); Neutrophils # 2.7 K/mm3 (1.8-7.8); Neutrophils % 43.3 % (37.0-80.0); Platelet Count 173 K/mm3 (142-424); Red Blood Count 4.18 M/mm3 (4.60-6.20); Red Cell Distribution Width 14.9 % (11.5-17.5); White Blood Count 6.1 K/mm3 (4.8-10.8)
[2022-12-16 09:39] LABS: Anion Gap 11.8 mEq/L (5-15); Blood Urea Nitrogen 17 mg/dl (9-20); Calcium 8.6 mg/dl (8.4-10.2); Carbon Dioxide 28 mmol/L (22.0-30.0); Chloride 104 mmol/L (98-107); Creatinine Clearance Estimated 149 mL/min (50-200); Estimated Glomerular Filt Rate 99 ml/min (>60); GFR (African American) 120 ML/MIN (>60); Glucose 121 mg/dl (74-100); Potassium 3.8 mmoL/L (3.5-5.1); Sodium 140 mmol/L (136-145)
== END 2022-12-16 15:03 | disposition home or self-care (01) ==
PROVIDERS: Nurse Practitioner; PCP Family Medicine; Visit Provider Internal Medicine
DX: E11.42 Type 2 diabetes mellitus with diabetic polyneuropathy (principal); E78.2 Mixed hyperlipidemia; I25.118 Atherosclerotic heart disease of native coronary artery with other forms of angina pectoris; I42.6 Alcoholic cardiomyopathy; I48.92 Unspecified atrial flutter; I50.32 Chronic diastolic (congestive) heart failure; Z79.4 Long term (current) use of insulin; I65.23 Occlusion and stenosis of bilateral carotid arteries; Z79.899 Other long term (current) drug therapy; I11.0 Hypertensive heart disease with heart failure
CPT/HCPCS: 36415; 80048; 85025; 93458; 93880; 99152; C1725; C1769; J1644; Q9967

== ENCOUNTER → 2023-01-13 13:11 | Outpatient (CLI) | payer MEDICARE, MEDICAID, SELFPAY ==
--- NOTE | 2023-01-13 13:15 | CT_ITS ---
FINAL REPORT TECHNIQUE: Thin section axial CT with IV contrast supplemented with multiplanar reconstruction under CT angiogram protocol. This study was performed with techniques to keep radiation doses as low as reasonably achievable (ALARA). Individualized dose reduction techniques using automated exposure control or adjustment of mA and/or kV according to the patient's size were employed. NASCET criteria was utilized during interpretation. CLINICAL HISTORY: carotid disease FINDINGS: Aortic arch: Arch shows no significant narrowing. Great vessel origins are widely patent. Right carotid: The common carotid artery is normal. There is a focal stenosis at the level of the right carotid bulb with approximately 60% focal stenosis. The more distal right internal carotid artery is patent without significant stenosis. The external carotid artery is patent. Left carotid: There is mild stenosis in the common carotid artery measuring approximately 30% narrowing. There is calcified plaque at the left carotid bulb without stenosis. Vertebral: Left vertebral artery is dominant. No significant stenosis is present. IMPRESSION: 60% stenosis at the level of the right carotid bulb. 30% stenosis of the left common carotid artery. Reviewed, Interpreted and Dictated by Rob Diggs III, MD Transcribed by Sena Sood Authenticated and . [facility]
== END ==
PROVIDERS: PCP Family Medicine; Visit Provider Nurse Practitioner
DX: I77.9 Disorder of arteries and arterioles, unspecified; I65.23 Occlusion and stenosis of bilateral carotid arteries
CPT/HCPCS: 70498; Q9967

== ENCOUNTER 2023-03-03 23:20 | Emergency (ER) | payer MEDICARE, MEDICAID, SELFPAY ==
[2023-03-03 23:28] VITALS: BP 131/74; PULSE 89; RESP 15; TEMP 37.4; O2SAT 96; BMI 31.8
[2023-03-03 23:30] VITALS: BP 126/76; PULSE 83; O2SAT 98
--- NOTE | 2023-03-03 23:33 | XR_ITS ---
PROCEDURE INFORMATION: Exam: XR Chest Exam date and time: 03/03/2023 11:44 PM Age: 57 years old Clinical indication: Shortness of breath; Additional info: Chest tightness/soa/influenza TECHNIQUE: Imaging protocol: Radiologic exam of the chest. Views: 2 views. COMPARISON: CR [id number] XR chest portable 12/11/2017 5:10 PM FINDINGS: Lungs: Unremarkable. No consolidation. Mild atelectasis in the lung bases. Pleural spaces: Unremarkable. No pleural effusion. No pneumothorax. Heart/Mediastinum: Unremarkable. No cardiomegaly. Dual lead left-sided cardiac pacemaker. Bones/joints: Unremarkable. IMPRESSION: No acute findings.
--- NOTE | 2023-03-03 23:33 | ECG_ITS ---
APPROVED REPORT Exam: Resting ECG HR:81 bpm ECG Measurements Heart Rate 81 AXES GA 147 P 40 QRSd 124 QRS -75 QT 352 T 79 QTc 389 Conclusion ELECTRONIC VENTRICULAR PACEMAKER ABNORMAL RHYTHM ECG UNCONFIRMED REPORT Electronically signed by : Jose Mckee MD 03/06/2023 09:37:15
[2023-03-03 23:49] LABS: Basophils % 0.2 % (0.1-2.0); Eosinophils # 0.1 K/mm3 (0.0-0.4); Eosinophils % 0.9 % (0.1-12.0); Hematocrit 39.5 % (42.0-52.0); Hemoglobin 12.6 g/dL (14.1-18.0); Lymphocytes % 10.2 % (10-50); Mean Corpuscular HGB Conc 31.8 g/dL (31.8-35.4); Mean Corpuscular Volume 97.6 fl (80-94); Mean Platelet Volume 8.7 fl (7.4-10.4); Monocytes # 0.5 K/mm3 (0.1-1.0); Monocytes % 5.2 % (1.7-9.3); Neutrophils # 8.3 K/mm3 (1.8-7.8); Neutrophils % 83.4 % (37.0-80.0); Platelet Count 211 K/mm3 (142-424); Red Blood Count 4.05 M/mm3 (4.60-6.20); Red Cell Distribution Width 13.6 % (11.5-17.5); White Blood Count 9.9 K/mm3 (4.8-10.8)
[2023-03-03 23:53] LABS: Alanine Aminotransferase 19 U/L (12-78); Albumin Level 3.8 g/dl (3.5-5.0); Albumin/Globulin Ratio 1.1 (1.1-1.8); Alkaline Phosphatase 87 U/L (38-126); Anion Gap 5.4 mEq/L (5-15); Aspartate Amino Transferase 28 U/L (17-59); Bilirubin,Total 0.3 mg/dl (0.2-1.3); Blood Urea Nitrogen 13 mg/dl (9-20); Calcium 8.2 mg/dl (8.4-10.2); Carbon Dioxide 34 mmol/L (22.0-30.0); Chloride 94 mmol/L (98-107); Creatinine Clearance Estimated 152 mL/min (50-200); Estimated Glomerular Filt Rate 99 ml/min (>60); GFR (African American) 120 ML/MIN (>60); Globulin 3.5 g/dL (1.3-3.2); Glucose 103 mg/dl (74-100); Potassium 4.4 mmoL/L (3.5-5.1); Sodium 129 mmol/L (136-145); Total Protein,Serum 7.3 g/dl (6.3-8.2)
[2023-03-03 23:58] LABS: C-Reactive Protein 128.3 mg/L (0-4)
[2023-03-04 00:01] VITALS: BP 146/90; PULSE 79; O2SAT 96
[2023-03-04 00:07] LABS: Troponin I 0.02 ng/ml (0.00-0.034)
--- NOTE | 2023-03-04 00:07 | HMH.EDSOB ---
Discharge Plan Disposition Patient Disposition: Home, Self-Care Chief Complaint: Shortness of Breath/Dyspnea Prescriptions Prescriptions: No Action magnesium oxide 400 mg tablet 400 mg PO DAILY famotidine 40 mg tablet 40 mg PO BID cyanocobalamin (vitamin B-12) 1,000 mcg capsule 1,000 mcg PO DAILY Centrum Silver Men 300-600-300 mcg tablet 1 tab PO DAILY gabapentin 300 mg capsule 800 mg PO TID furosemide 40 mg tablet 40 mg PO DAILY PRN (Reason: Fluid) Qty: 30 4RF bisoprolol fumarate 5 mg tablet 2.5 mg PO DAILY Qty: 30 5RF aspirin [Adult Low Dose Aspirin] 81 mg tablet,delayed release (DR/EC) 81 mg PO QDAY Qty: 90 3RF duloxetine 60 mg capsule,delayed release(DR/EC) 60 mg PO DAILY methocarbamol 750 mg tablet 750 mg PO Q8H PRN (Reason: .) nitroglycerin 0.4 mg tablet, sublingual 0.4 mg SUBLINGUAL Q5M PRN (Reason: Chest Pain) Qty: 20 0RF omeprazole 20 mg capsule,delayed release(DR/EC) 20 mg PO DAILY levofloxacin 750 mg tablet 750 mg PO Q12H doxycycline monohydrate 100 mg tablet 100 mg PO DAILY hydrocodone-acetaminophen 7.5-325 mg tablet 1 tab PO DAILY trazodone 50 mg tablet 50 mg PO HS sildenafil 50 mg tablet See Rx Instructions .ROUTE .COMPLEX Qty: 30 1RF Rx Instructions: TAKE 1 TABLET BY MOUTH EVERY 6 HOURS NEEDED FOR SEXUAL ACTIVITY. digoxin 125 mcg (0.125 mg) tablet 125 mcg PO DAILY Entresto 24-26 mg tablet See Rx Instructions .ROUTE .COMPLEX Rx Instructions: TAKE 1 TABLET BY MOUTH 2 TIMES DAILY melatonin 1 mg tablet 5 mg PO HS ropinirole [Requip] 1 mg tablet 1 mg PO TID Rx Instructions: administer 1-3 hours before bedtime Referrals Follow up/Referrals: Hannah Merritt [Primary Care Provider] - See instructions Clinical Impressions Clinical Impression: Reactive airway disease Instructions Patient Instructions: DI for Shortness of Breath Discharge ED Provider: Bryce (ED)Antonio Resp/SOB HPI General Chief Complaint: Shortness of Breath/Dyspnea Stated Complaint: flu positive; chest tightness Time Seen by Provider: 03/04/23 00:08 Mode of Arrival: Family Vehicle Source of Information: Patient and Medical Record Limitations: No Limitations Description of Symptoms (Recalled from ER Triage Doc. by RN): 57 yo male presents on day 3 following flu diagnosis. According to him, he became concerned with increasing inability to 'cough anything up and that his chest felt tight and the only relief he was getting was when he got into a hot shower earlier'. Patient is a&ox4; no audible wheezing/coughing at time of triage. VSS. Afebrile at time of triage but reported an elevated temp from earlier along with some noted tachycardia @ 115-120bpm. History of Present Illness recent flu dx and has cough and chest pain MD Complaint: shortness of breath and pain with inspiration Onset (ago): day(s) Context: recent illness Severity: moderate Associated symptoms: denies other symptoms Related Data Home oxygen amount: none Home Medications Medication Instructions Recorded Confirmed magnesium oxide 400 mg (241.3 mg 400 mg PO DAILY Supplement 12/04/17 12/31/22 magnesium) tablet cyanocobalamin (vitamin B-12) 1,000 mcg PO DAILY Supplement 09/29/18 12/31/22 1,000 mcg capsule famotidine 40 mg tablet 40 mg PO BID GERD 09/29/18 12/31/22 [id number] acid 300 1 tab PO DAILY Supplement 09/29/18 12/31/22 mcg-lycopene 600 mcg-lutein 300 mcg tablet (Centrum Silver Men) duloxetine 60 mg capsule,delayed 60 mg PO DAILY Depression 05/14/20 12/31/22 release gabapentin 300 mg capsule 800 mg PO TID nerve pain 12/31/20 12/31/22 melatonin 1 mg tablet 5 mg PO HS sleep 12/31/20 12/31/22 methocarbamol 750 mg tablet 750 mg PO Q8H PRN . 12/31/20 12/31/22 ropinirole 1 mg tablet (Requip) 1 mg PO TID restless legs 12/31/20 12/31/22 doxycycline monohydrate 100 mg 100 mg PO DAILY
--- NOTE | 2023-03-04 00:11 | CT_ITS ---
PROCEDURE INFORMATION: Exam: CTA Chest With Contrast Exam date and time: 03/04/2023 12:40 AM Age: 57 years old Clinical indication: Shortness of breath; Prior surgery; Additional info: SOA TECHNIQUE: Imaging protocol: Computed tomographic angiography of the chest with contrast. 3D rendering (Not supervised by radiologist): MIP and/or 3D reconstructed images were created by the technologist. Radiation optimization: All CT scans at this facility use at least one of these dose optimization techniques: automated exposure control; mA and/or kV adjustment per patient size (includes targeted exams where dose is matched to clinical indication); or iterative reconstruction. Contrast material: ISOVUE; Contrast volume: 70 ml; Contrast route: INTRAVENOUS (IV); REPORTING DATA: Count of CT and Cardiac NM exams in prior 12 months: This patient has received [address] and 0 known cardiac nuclear medicine studies in the 12 months prior to the current study. COMPARISON: CR XR CHEST 2V 03/03/2023 11:44 PM FINDINGS: Pulmonary arteries: Normal. No pulmonary emboli. Aorta: Unremarkable. No aortic aneurysm. No aortic dissection. Lungs: Unremarkable. No consolidation. No masses. Pleural spaces: Unremarkable. No pneumothorax. No pleural effusion. Heart: Unremarkable. No cardiomegaly. No pericardial effusion. Lymph nodes: Unremarkable. No enlarged lymph nodes. Bones/joints: Unremarkable. No acute fracture. Soft tissues: Unremarkable. IMPRESSION: No acute findings.
[2023-03-04 00:18] LABS: Erythrocyte Sedimentation Rate 98 mm/hr (0-20)
[2023-03-04 01:27] VITALS: BP 138/91; PULSE 82; RESP 16; TEMP 36.5; O2SAT 98
== END 2023-03-04 01:34 | disposition home or self-care (01) ==
PROVIDERS: Emergency Provider Emergency Medicine; PCP Family Medicine
DX: J45.909 Unspecified asthma, uncomplicated (principal); R07.81 Pleurodynia
CPT/HCPCS: 71046; 71275; 80053; 84484; 85025; 85651; 86140; 93005; 96360; 96374; 96375; 99285; J0131; Q9967

== ENCOUNTER 2023-03-11 20:42 | Emergency (ER) | payer MEDICARE, MEDICAID, SELFPAY ==
[2023-03-11 20:53] VITALS: BP 129/77; PULSE 82; RESP 19; TEMP 36.6; O2SAT 99; BMI 31.1
--- NOTE | 2023-03-11 21:54 | ECG_ITS ---
APPROVED REPORT Exam: Resting ECG HR:73 bpm ECG Measurements Heart Rate 73 AXES VA 127 P 72 QRSd 134 QRS -70 QT 375 T 77 QTc 400 Conclusion ELECTRONIC VENTRICULAR PACEMAKER ABNORMAL RHYTHM ECG UNCONFIRMED REPORT Electronically signed by : Jose Mckee MD 03/13/2023 14:23:12
[2023-03-11 22:03] LABS: Basophils # 0.1 K/mm3 (0-0.2); Basophils % 0.4 % (0.1-2.0); Eosinophils # 0.1 K/mm3 (0.0-0.4); Eosinophils % 0.5 % (0.1-12.0); Hematocrit 44.7 % (42.0-52.0); Hemoglobin 14.5 g/dL (14.1-18.0); Lymphocytes # 2.4 K/mm3 (0.7-4.5); Lymphocytes % 12.6 % (10-50); Mean Corpuscular HGB Conc 32.5 g/dL (31.8-35.4); Mean Corpuscular Hemoglobin 30.8 pg (27.0-31.2); Mean Corpuscular Volume 94.9 fl (80-94); Mean Platelet Volume 7.8 fl (7.4-10.4); Monocytes # 1.1 K/mm3 (0.1-1.0); Monocytes % 5.9 % (1.7-9.3); Neutrophils # 15.3 K/mm3 (1.8-7.8); Neutrophils % 80.7 % (37.0-80.0); Platelet Count 366 K/mm3 (142-424); Red Blood Count 4.71 M/mm3 (4.60-6.20); Red Cell Distribution Width 13.3 % (11.5-17.5)
[2023-03-11 22:12] LABS: Alanine Aminotransferase 43 U/L (12-78); Albumin Level 4.4 g/dl (3.5-5.0); Alkaline Phosphatase 147 U/L (38-126); Amylase 79 U/L (30-110); Anion Gap 15.1 mEq/L (5-15); Aspartate Amino Transferase 44 U/L (17-59); Bilirubin,Total 0.5 mg/dl (0.2-1.3); Blood Urea Nitrogen 18 mg/dl (9-20); Calcium 9.3 mg/dl (8.4-10.2); Carbon Dioxide 34 mmol/L (22.0-30.0); Chloride 91 mmol/L (98-107); Creatinine Clearance Estimated 149 mL/min (50-200); Estimated Glomerular Filt Rate 99 ml/min (>60); GFR (African American) 120 ML/MIN (>60); Globulin 4.3 g/dL (1.3-3.2); Glucose 261 mg/dl (74-100); Lipase 183 U/L (23-300); Potassium 4.1 mmoL/L (3.5-5.1); Sodium 136 mmol/L (136-145); Total Protein,Serum 8.7 g/dl (6.3-8.2)
[2023-03-11 22:23] LABS: Troponin I 0.06 ng/ml (0.00-0.034)
[2023-03-11 22:31] LABS: MANUAL DIFFERENTIAL MANUAL DIFFERENTIAL (MANUAL DIFF)
[2023-03-11 22:51] LABS: Lymphocytes % 20 % (10-50); Monocytes % 7 % (2-9); Neutrophils % 73 % (42-76); Total Cells Counted 100
--- NOTE | 2023-03-11 22:52 | HMH.EDBACK ---
Discharge Plan Disposition Patient Disposition: Home, Self-Care Prescriptions Prescriptions: New ketorolac 10 mg tablet 10 mg PO Q8H PRN (Reason: pain) 2 Days Qty: 7 0RF No Action furosemide 40 mg tablet 40 mg PO DAILY ropinirole 1 mg tablet 1 mg PO HS trazodone 50 mg tablet 50 mg PO HS Label Comments: TAKE 1 TABLET BY MOUTH DAILY. pravastatin 40 mg tablet 40 mg PO DAILY Label Comments: TAKE 1 TABLET BY MOUTH DAILY. famotidine 40 mg tablet 40 mg PO BID Label Comments: TAKE 1 TABLET BY MOUTH TWICE DAILY. potassium chloride 10 mEq tablet extended release 10 meq PO BID Label Comments: TAKE 1 TABLET BY MOUTH TWICE DAILY. glimepiride 2 mg tablet 2 mg PO DAILY bisoprolol fumarate 5 mg tablet 2.5 mg PO DAILY Label Comments: TAKE 1/2 TABLET BY MOUTH ONCE DAILY. gabapentin 800 mg tablet 800 mg PO Q8 Label Comments: TAKE 1 TABLET BY MOUTH EVERY 8 HOURS DO NOT FILL BEFORE 01/24/23 baclofen 10 mg tablet 10 mg PO TID Label Comments: TAKE 1 TABLET BY MOUTH THREE TIMES DAILY. hydrocodone-acetaminophen 7.5-325 mg tablet 1 tab PO TIDP PRN (Reason: Pain) Label Comments: TAKE 1 TABLET BY MOUTH 3 TO 4 TIMES A DAY NEEDED FOR SEVERE PAIN DO NOT FILL BEFORE 02/21/23 digoxin 125 mcg (0.125 mg) tablet 125 mcg PO DAILY albuterol sulfate 90 mcg/actuation HFA aerosol inhaler 2 inh INHALATION Q4HP PRN (Reason: Breathing Problems) Label Comments: INHALE 2 PUFFS EVERY 4 HOURS NEEDED. duloxetine 60 mg capsule,delayed release(DR/EC) 60 mg PO DAILY Label Comments: TAKE 1 CAPSULE BY MOUTH DAILY Entresto 24-26 mg tablet 1 tab PO DAILY Referrals Follow up/Referrals: Hannah Merritt [Primary Care Provider] - See instructions Clinical Impressions Clinical Impression: Thoracic back pain Instructions Patient Instructions: DI for Low Back Pain Discharge ED Provider: Bryce MINA)Antonio Back Pain HPI General Chief Complaint: Back Pain/Injury Stated Complaint: RIB PAIN Time Seen by Provider: 03/11/23 22:52 Mode of Arrival: Family Vehicle Source of Information: Patient, Relative and Medical Record Limitations: No Limitations Description of Symptoms (Recalled from ER Triage Doc. by RN): exacerbation of chronic back pain -(3 rd ER visit between [facility] and here); EMS reports he received toradol from them History of Present Illness HPI Narrative: has ongoing rib and back pain w/o rash/fever or trauma - hx of flu illness - MD Complaint: back pain Onset (ago): day(s) Duration: intermittent Similar Symptoms Previously: Yes Location: thoracic spine Severity: moderate Quality: sharp Associated symptoms: denies other symptoms Related Data Home Medications Medication Instructions Recorded Confirmed albuterol sulfate 90 mcg/actuation 2 inh inhalation Q4HP PRN 03/11/23 03/11/23 aerosol inhaler Breathing Problems baclofen 10 mg tablet 10 mg PO TID Pain 03/11/23 03/11/23 bisoprolol fumarate 5 mg tablet 2.5 mg PO DAILY High blood pressure 03/11/23 03/11/23 digoxin 125 mcg (0.125 mg) tablet 125 mcg PO DAILY Heart failure 03/11/23 03/11/23 duloxetine 60 mg capsule,delayed 60 mg PO DAILY Mood 03/11/23 03/11/23 release famotidine 40 mg tablet 40 mg PO BID Acid reflux 03/11/23 03/11/23 furosemide 40 mg tablet 40 mg PO DAILY Edema 03/11/23 03/11/23 gabapentin 800 mg tablet 800 mg PO Q8 Pain 03/11/23 03/11/23 glimepiride 2 mg tablet 2 mg PO DAILY Diabetes 03/11/23 03/11/23 hydrocodone 7.5 mg-acetaminophen 1 tab PO TIDP PRN Pain 03/11/23 03/11/23 325 mg tablet potassium chloride 10 mEq 10 meq PO BID Supplement 03/11/23 03/11/23 tablet,extended release pravastatin 40 mg tablet 40 mg PO DAILY Cholesterol 03/11/23 03/11/23 ropinirole 1 mg tablet 1 mg PO HS Restless legs 03/11/23 03/11/23 sacubitril 24 mg-valsartan 26 mg 1 tab PO DAILY Heart failure 03/11/23 03/11/23 tablet (Entre
--- NOTE | 2023-03-11 22:53 | CT_ITS ---
PROCEDURE INFORMATION: Exam: CT Thoracic Spine With Contrast Exam date and time: 03/11/2023 11:28 PM Age: 57 years old Clinical indication: Pain in thoracic spine TECHNIQUE: Imaging protocol: Computed tomography of the thoracic spine with contrast. Radiation optimization: All CT scans at this facility use at least one of these dose optimization techniques: automated exposure control; mA and/or kV adjustment per patient size (includes targeted exams where dose is matched to clinical indication); or iterative reconstruction. Contrast material: ISOVUE; Contrast volume: 50 ml; Contrast route: IV; REPORTING DATA: Count of CT and Cardiac NM exams in prior 12 months: This patient has received 2 known CTs and 0 known cardiac nuclear medicine studies in the 12 months prior to the current study. COMPARISON: CT CERVICAL SPINE W CON 03/11/2023 11:25 PM FINDINGS: Bones/joints: No acute fracture. Normal alignment. No significant disc bulge or herniation. No severe spinal canal stenosis. No significant neural foraminal narrowing. Multilevel degenerative disc and joint space changes most pronounced T7/T8. Soft tissues: Unremarkable. IMPRESSION: Unremarkable CT Spine. Degenerative changes.
--- NOTE | 2023-03-11 22:53 | CT_ITS ---
PROCEDURE INFORMATION: Exam: CT Cervical Spine With Contrast Exam date and time: 03/11/2023 11:25 PM Age: 57 years old Clinical indication: Neck pain TECHNIQUE: Imaging protocol: Computed tomography of the cervical spine with contrast. Radiation optimization: All CT scans at this facility use at least one of these dose optimization techniques: automated exposure control; mA and/or kV adjustment per patient size (includes targeted exams where dose is matched to clinical indication); or iterative reconstruction. Contrast material: ISOVUE; Contrast volume: 50 ml; Contrast route: IV; REPORTING DATA: Count of CT and Cardiac NM exams in prior 12 months: This patient has received 2 known CTs and 0 known cardiac nuclear medicine studies in the 12 months prior to the current study. COMPARISON: [facility] CT cervical spine wo con 03/22/2018 2:48 PM FINDINGS: Bones/joints: No acute fracture. Normal alignment. No significant disc bulge or herniation. No severe spinal canal stenosis. No significant neural foraminal narrowing. Lungs: Lung apices are normal. Soft tissues: Unremarkable. IMPRESSION: No acute findings.
--- NOTE | 2023-03-11 22:53 | XR_ITS ---
PROCEDURE INFORMATION: Exam: XR Chest Exam date and time: 03/11/2023 11:04 PM Age: 57 years old Clinical indication: Pain; Other: Upper abd TECHNIQUE: Imaging protocol: Radiologic exam of the chest. Views: 2 views. COMPARISON: CR XR CHEST 2V 03/03/2023 11:44 PM FINDINGS: Tubes, catheters and devices: Lead pacemaker grossly in place. Lungs: Unremarkable. No consolidation. Pleural spaces: Unremarkable. No pleural effusion. No pneumothorax. Heart/Mediastinum: Unremarkable. No cardiomegaly. Bones/joints: Unremarkable. IMPRESSION: No acute radiographic findings identified.
--- NOTE | 2023-03-11 22:53 | CT_ITS ---
PROCEDURE INFORMATION: Exam: CT Chest With Contrast; Diagnostic Exam date and time: 03/11/2023 11:20 PM Age: 57 years old Clinical indication: Pain; Other: Upper abd TECHNIQUE: Imaging protocol: Diagnostic computed tomography of the chest with contrast. Radiation optimization: All CT scans at this facility use at least one of these dose optimization techniques: automated exposure control; mA and/or kV adjustment per patient size (includes targeted exams where dose is matched to clinical indication); or iterative reconstruction. Contrast material: ISOVUE; Contrast volume: 75 ml; Contrast route: IV; REPORTING DATA: Count of CT and Cardiac NM exams in prior 12 months: This patient has received 2 known CTs and 0 known cardiac nuclear medicine studies in the 12 months prior to the current study. COMPARISON: CT ANGIO CHEST PE PROTOCOL 03/04/2023 12:40 AM FINDINGS: Tubes, catheters and devices: [address] place. Lungs: Unremarkable. No consolidation. No masses. Pleural spaces: Unremarkable. No pneumothorax. No pleural effusion. Heart: Unremarkable. No cardiomegaly. No pericardial effusion. Lymph nodes: Unremarkable. No enlarged lymph nodes. Vasculature: Mild atherosclerotic calcification of thoracic aorta and coronary arteries. Bones/joints: Unremarkable. No acute fracture. Soft tissues: Unremarkable. IMPRESSION: Unremarkable study.
--- NOTE | 2023-03-11 22:53 | CT_ITS ---
PROCEDURE INFORMATION: Exam: CT Lumbar Spine With Contrast Exam date and time: 03/11/2023 11:32 PM Age: 57 years old Clinical indication: Low back pain TECHNIQUE: Imaging protocol: Computed tomography of the lumbar spine with contrast. Radiation optimization: All CT scans at this facility use at least one of these dose optimization techniques: automated exposure control; mA and/or kV adjustment per patient size (includes targeted exams where dose is matched to clinical indication); or iterative reconstruction. Contrast material: ISOVUE; Contrast volume: 50 ml; Contrast route: IV; REPORTING DATA: Count of CT and Cardiac NM exams in prior 12 months: This patient has received 2 known CTs and 0 known cardiac nuclear medicine studies in the 12 months prior to the current study. COMPARISON: SPL[facility] CT lumbar spine wo con 03/22/2018 2:51 PM FINDINGS: Bones/joints: No acute fracture. Normal alignment. No significant disc bulge or herniation. No severe spinal canal stenosis. No significant neural foraminal narrowing. Soft tissues: Unremarkable. IMPRESSION: No acute findings.
--- NOTE | 2023-03-11 22:55 | CT_ITS ---
PROCEDURE INFORMATION: Exam: CT Abdomen And Pelvis With Contrast Exam date and time: 03/11/2023 11:20 PM Age: 57 years old Clinical indication: Abdominal pain TECHNIQUE: Imaging protocol: Computed tomography of the abdomen and pelvis with contrast. Radiation optimization: All CT scans at this facility use at least one of these dose optimization techniques: automated exposure control; mA and/or kV adjustment per patient size (includes targeted exams where dose is matched to clinical indication); or iterative reconstruction. Contrast material: ISOVUE; Contrast volume: 75 ml; Contrast route: IV; REPORTING DATA: Count of CT and Cardiac NM exams in prior 12 months: This patient has received 2 known CTs and 0 known cardiac nuclear medicine studies in the 12 months prior to the current study. COMPARISON: CT ANGIO CHEST PE PROTOCOL 03/04/2023 12:40 AM FINDINGS: Liver: Normal. No mass. Gallbladder and bile ducts: Normal. No calcified stones. No ductal dilation. Pancreas: Normal. No ductal dilation. Spleen: Normal. No splenomegaly. Adrenal glands: Normal. No mass. Kidneys and ureters: Normal. No hydronephrosis. Stomach and bowel: Least moderate to moderately large amount of retained colonic stool. Nonobstructive bowel gas pattern. Sigmoid colonic diverticula without pericolonic fat stranding. Appendix: No evidence of appendicitis. Intraperitoneal space: Unremarkable. No free air. No significant fluid collection. Vasculature: Mild atherosclerotic calcification of aortoiliac arteries. Lymph nodes: Unremarkable. No enlarged lymph nodes. Urinary bladder: Unremarkable as visualized. Reproductive: Unremarkable as visualized. Bones/joints: Unremarkable. No acute fracture. Soft tissues: Unremarkable. IMPRESSION: 1. Moderate to moderately large colonic stool burden. 2. Colonic diverticulosis.
[2023-03-11 22:56] LABS: Platelet Estimate Normal; RBC Morphology Normal
--- NOTE | 2023-03-11 22:58 | PC.NURSE ---
MEDICAL RECORDS REQUESTED FROM [facility]
[2023-03-11 23:19] LABS: C-Reactive Protein 11.5 mg/L (0-4)
[2023-03-11 23:25] LABS: NT Pro Brain Natriuretic Pep. 680 pg/mL (0-125)
[2023-03-11 23:33] LABS: Procalcitonin 0.079 ng/mL (0.0-2.0)
[2023-03-12 01:08] LABS: Erythrocyte Sedimentation Rate 22 mm/hr (0-20)
[2023-03-12 01:17] VITALS: BP 160/90; PULSE 87; RESP 19; TEMP 36.8; O2SAT 97
[2023-03-12 01:31] LABS: Acetone, Serum (Rapid) None Detected (None Detect)
== END 2023-03-12 01:30 | disposition home or self-care (01) ==
PROVIDERS: Emergency Provider Emergency Medicine; PCP Family Medicine
DX: R07.81 Pleurodynia (principal); M54.6 Pain in thoracic spine; F17.210 Nicotine dependence, cigarettes, uncomplicated
CPT/HCPCS: 71046; 71260; 72126; 72129; 72132; 74177; 80053; 80162; 82009; 82150; 83690; 83880; 84145; 84484; 85007; 85025; 85651; 86140; 93005; 96374; 96375; 99285; J0131; Q9967

== ENCOUNTER 2023-12-02 12:26 | Day surgery (SDC) | payer MEDICARE, MEDICAID, SELFPAY ==
--- NOTE | 2023-12-02 | IR_ITS ---
APPROVED REPORT Patient Location: Outpatient Head Machine Feeder: SHARIF Thompson RT (R) PROCEDURES Pocket Revision Removal of old Cardiac Resynchronization Therapy Device Implant of Cardiac Resynchronization Therapy Devicer INDICATION End of battery life Informed consent was obtained prior to the procedure. COMPLICATIONS None Estimated Blood Loss: Less than 10 mls TECHNIQUE 1% lidocaine with epinephrine used to anesthetize the left anterior aspect of the chest. Scalpel was used to make the initial cutaneous incision and then used to dissect down to the existing pacemaker generator. The generator was removed from the existing pocket. Digital manipulation was required along with intermittent usage of scalpel in order to revise the pocket. The leads were removed from the old generator. The new generator was screwed to the existing leads and secured into place. Electronic interrogation proved acceptable thresholds and voltage within the lead. Antibiotics were used to flush the pocket and the pacemaker was secured using 3-0 silk into the newly revised pocket. Monocryl was used to close the subcutaneous tissue and then fartun were placed on the cutaneous area in order to approximate the incision. Patient was transferred to the postop holding area in stable condition. INTERROGATION Generator Model number: [id number] Generator Serial number: [id number] Atrial lead P-wave: >0.5ms Impedence: 440 OHMS Threshold: 0.75V@0.5MS Right Ventricular R-wave: 11.2mV Impedence: 460 OHMS Threshold: 0.75V@0.5ms Left Ventricular Impedence: 800 ohms Threshold: 1.625@0.5 ms Pacing Parameters: Mode: DDDR Base/Max Track:60 ppm / 130 ppm No diaphragmatic stimulation at 10 volts. IMPRESSION Successful Pocket Revision Successful Removal of old Cardiac Resynchronization Therapy Device Successful Implant of Cardiac Resynchronization Therapy Device PLAN 1. post op wound care, follow up office visit Electronically signed by : Joby Gilman MD 12/07/2023 12:27:03
[2023-12-02 12:31] VITALS: BMI 29.7
[2023-12-02 12:50] VITALS: PULSE 80
[2023-12-02 13:11] LABS: Chloride 107 mmol/L (98-107)
[2023-12-02 13:12] LABS: Potassium 5.3 mmoL/L (3.5-5.1); Sodium 136 mmol/L (136-145)
[2023-12-02 13:15] LABS: Blood Urea Nitrogen 17 mg/dl (9-20); Calcium 8.2 mg/dl (8.4-10.2); Carbon Dioxide 25 mmol/L (22.0-30.0); Creatinine Clearance Estimated 160 mL/min (50-200); Estimated Glomerular Filt Rate 115 ml/min (>60); GFR (African American) 140 ML/MIN (>60); Glucose 110 mg/dl (74-100)
[2023-12-02 13:18] LABS: Anion Gap 9.3 mEq/L (5-15)
[2023-12-02] MEDS: CEFAZOLIN 1GM VIAL 1 GM TP (13:38)
[2023-12-02] MEDS: LIDOCAINE 1% W/EPI 1:100,000 20ML VIAL 20 ML SQ (13:38)
[2023-12-02] MEDS: CEFAZOLIN SODIUM 1 GM in 0.9 % SODIUM CHLORIDE 50 ML IV (13:38)
[2023-12-02] MEDS: 0.9 % SODIUM CHLORIDE 1000ML 1,000 ML 25 ML IV (13:39)
[2023-12-02] MEDS: diphenhydrAMINE 50MG/ML VIAL 50 MG IV (13:39)
[2023-12-02 13:42] LABS: Basophils % 0.8 % (0.1-2.0); Eosinophils # 0.2 K/mm3 (0.0-0.4); Eosinophils % 4.6 % (0.1-12.0); Hematocrit 36.3 % (42.0-52.0); Lymphocytes # 1.8 K/mm3 (0.7-4.5); Lymphocytes % 35.3 % (10-50); Mean Corpuscular HGB Conc 33.1 g/dL (31.8-35.4); Mean Corpuscular Hemoglobin 32.3 pg (27.0-31.2); Mean Corpuscular Volume 97.4 fl (80-94); Mean Platelet Volume 8.9 fl (7.4-10.4); Monocytes # 0.3 K/mm3 (0.1-1.0); Monocytes % 6.6 % (1.7-9.3); Neutrophils # 2.7 K/mm3 (1.8-7.8); Neutrophils % 52.6 % (37.0-80.0); Platelet Count 189 K/mm3 (142-424); Red Blood Count 3.73 M/mm3 (4.60-6.20); Red Cell Distribution Width 13.4 % (11.5-17.5); White Blood Count 5.1 K/mm3 (4.8-10.8)
[2023-12-02] MEDS: MIDAZOLAM HCL 1MG/1ML 5ML VIAL 1 MG IV (14:31)
[2023-12-02] MEDS: FENTANYL 100MCG/2ML VIAL 50 MCG IV (14:32)
[2023-12-02 14:40] VITALS: BP 197/92; PULSE 67; RESP 18; O2SAT 98
[2023-12-02 14:46] VITALS: PULSE 60
[2023-12-02 15:00] VITALS: BP 171/87; PULSE 66; RESP 18; O2SAT 98
[2023-12-02 15:15] VITALS: BP 161/91; PULSE 63; RESP 18; O2SAT 98
[2023-12-02 15:41] VITALS: BP 153/70; PULSE 73; RESP 16; O2SAT 97
== END 2023-12-02 15:50 | disposition home or self-care (01) ==
PROVIDERS: PCP Family Medicine; Visit Provider Internal Medicine
PROC: 0JH609Z Insertion of Cardiac Resynchronization Defibrillator Pulse Generator into Chest Subcutaneous Tissue and Fascia, Open Approach (ICD-10-PCS; CPT 33249; principal; 2023-12-02 13:30)
DX: T82.111A Breakdown (mechanical) of cardiac pulse generator (battery), initial encounter (principal); Z45.02 Encounter for adjustment and management of automatic implantable cardiac defibrillator; I65.23 Occlusion and stenosis of bilateral carotid arteries; F17.210 Nicotine dependence, cigarettes, uncomplicated; Z79.899 Other long term (current) drug therapy; I25.10 Atherosclerotic heart disease of native coronary artery without angina pectoris; I50.32 Chronic diastolic (congestive) heart failure; E11.42 Type 2 diabetes mellitus with diabetic polyneuropathy; I42.6 Alcoholic cardiomyopathy; N18.9 Chronic kidney disease, unspecified; E11.22 Type 2 diabetes mellitus with diabetic chronic kidney disease; I13.0 Hypertensive heart and chronic kidney disease with heart failure and stage 1 through stage 4 chronic kidney disease, or unspecified chronic kidney disease
CPT/HCPCS: 33264; 80048; 85025; 99152; C1882

== ENCOUNTER 2025-07-11 06:34 | Outpatient (CLI) | payer MEDICARE, SELFPAY ==
--- OUTSIDE RECORDS SUMMARY | 2025-05-18 08:16 | XMS_ITS | Encounter Summary ---
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 Humiliation, Afraid, Rape, and Kick questionnair e Answer Date Recorded Within the last year, have y ou been afraid of your partner or ex-partner? No 03/15/2025 Within the last year, have y ou been humiliated or emotionally abused in other ways by your partner or ex-partner? No Within the last year, have y ou been kicked, hit, slapped, or otherwise physically hurt by your partner or ex-partner? No 03/15/2025 Within the last year, have y ou been raped or forced to have any kind of sexual activity by your partner or ex-partner? No 03/15/2025 Social Connection and Isolation Panel Answer Date Recorded Frequency of Communication with Friends and Fami ly Not on file 03/15/2025 Frequency of Social Gatherings with Friends and Family Not on file 03/15/2025 Attends Faith Services Not on file 03/15 Active Member of Clubs or Organizations Not on f ile 03/15/2025 Attends Club or Organization Meetings Not on fox e 03/15/2025 Are you , , di vorced, , never , or living with a partner? 03/15/2025 AUDIT-C Answer Date Recorded Q1: How often do you have a drink containing alc ohol? 2-4 times a month 03/15/2025 Q2: How many drinks containi ng alcohol do you have on a typical day when you are drinking? 1 or 2 03/15/2025 Q3: How often do you have si x or more drinks on one occasion? Never 03/15/2025 PHQ-2 Answer Date Recorded Patient Health Questionnaire-2 Score 0 05/25/2025 Hunger Vital Sign Answer Date Recorded Within the past 12 months, y ou worried that your food would run out before you got the money to buy more. Never true 03/15/20 25 Within the past 12 months, t he food you bought just didn't last and you didn't have money to get more. Never true 03/15/2025 PRAPARE - Transportation Answer Date Re corded In the past 12 months, has l ack of transportation kept you from medical appointments or from getting medications? No 02/22 In the past 12 months, has l ack of transportation kept you from meetings, work, or from getting things needed for daily living? No 03/15/2025 Housing Stability Vital Sign Answer Marcus e Recorded In the last 12 months, was t here a time when you were not able to pay the mortgage or rent on time? No 09/13/2024 In the last 12 months, how many places have you lived? 1 09/13/2024 In the last 12 months, was t here a time when you did not have a steady place to sleep or slept in a senior care (including now)? No 09/13/2024 PHQ-9 Answer Date Recorded Patient Health Questionnaire-9 Score 3 01/26/2025 Housing Stability Vital Sign Answer Marcus e Recorded In the last 12 months, was t here a time when you were not able to pay the mortgage or rent on time? No 03/15/2025 In the past 12 months, how m any times have you moved where you were living? 0 03/15/2025 At any time in the past [address] [facility], were you homeless or living in a senior care (including now)? No 03/15/2025 CAGE ASSESSMENT Answer Date Recorded Cage unable to access Not on file 06/12/2024 Cage max number of drinks Not on file 2023 Cage Beverages a week Not on file 06/12/2024 Have you ever felt you should CUT down on your d rinking? 0 06/12/2024 Have you been ANNOYED by people criticizing your drinking? 0 06/12/2024 Have you felt GUILTY about your drinking? 0 06/12/2024 Have you had a drink first t alyssa in the morning (EYE-DERMATOLOGICAL SURGEON) to steady your nerves or to get rid of a hangover? 0 06/12/2024 CAGE Questionnaire Score 0 024 Utilities Answer Date Recorded In the past 12 months has th e electric, gas, oil, or water company threatened to shut off services in your home? No 03/15/2025 PHQ-2A Answer Date Recorded Depression Risk 0 04/20/2025 PHQ-9A Answer Date Recorded Depression Risk Score 0 04/20/2025 Sex and Gender Information Value Date Recorded Sex Assigned at Male 09/07/2022 10:00 PM EDT Legal Sex Male 7:31 PM EDT Gender Identity Male 09/07/2022 10:00 PM EDT Sexual Orientation Straight 09/07/2022 10 :00 PM EDT documented as of this encounter Medications at Time of Discharge acetaminophen (Tylenol) 500 MG tablet Take 2 tablets by mouth every 6 hours. 04/13/2025 albuterol 108 (90 Base) MCG/ACT inhaler Inhale 2 puffs every 6 (six) hours if needed for wheezing or shortness of breath. 2024 aspirin (Dilip Aspirin EC Low Dose) 81 MG EC tablet Take 1 tablet by mouth. bisoprolol (Zebeta) 5 MG tablet Take 0.5 tablets (2.5 mg) by mouth 1 (one) time each day. 2024 cefepime (Maxipime) 2 g injection 05/17/2025 clopidogrel (Plavix) 75 MG tabletIndication s:Stenosis of right carotid artery without cerebral infarction Take 1 tablet by mouth daily. 04/13/2025 cyanocobalamin (Vitamin B-12) 1000 MCG tablet Take 1 tablet (1,000 mcg) by mouth 1 (one) time each day. 2024 cyclobenzaprine (Flexeril) 10 MG tablet Take 1 tablet (10 mg) by mouth 2 (two) times a day if needed for muscle spasms. 2024 DULoxetine (Cymbalta) [address] capsule Take 1 capsule (60 mg) by mouth 1 (one) time each day. 2024 famotidine (Pepcid) 40 MG tablet Take 1 tablet (40 mg) by mouth 2 (two) times a day. 2024 ferrous sulfate 324 MG tablet delayed-release Take 1 tablet by mouth every other day. Do not crush, chew, or split. 04/14/2025 fluticasone-salm eterol (Advair Diskus) 250-50 MCG/ACT diskus inhaler Inhale 1 puff 2 (two) times a day. Rinse mouth with water after use to reduce aftertaste and incidence of candidiasis. Do not swallow. 2024 furosemide (Lasix) 40 MG tablet Take 1 tablet (40 mg) by mouth 1 (one) time each day. 2024 gabapentin (Neurontin) 800 MG tablet Take 1 tablet (800 mg) by mouth every 6 (six) hours. 42 tablet 12/17/2024 glimepiride (Amaryl) 2 MG tablet Take 1 tablet (2 mg) by mouth 2 (two) times a day. 2024 HYDROcodone-acet aminophen ([place]) 10-325 MG tablet Take 1 tablet by mouth every 4 hours as needed for severe pain. 30 tablet 04/13/2025 ipratropium-albu terol (Duo-Neb) 0.5-2.5 mg/3 mL nebulizer solution Take 3 mL by nebulization every 6 (six) hours if needed for wheezing or shortness of breath. 10/19/2024 magnesium oxide (Mag-Ox) 400 (240 Mg) MG tablet Take 1 tablet (400 mg) by mouth 1 (one) time each day. 2024 multivitamin (Theragran-M) tablet Take 1 tablet by mouth 1 (one) time each day. 2024 mupirocin (Bactroban) 2 % ointment Apply 1 Application topically in the morning and 1 Application before bedtime. Apply to each nostril twice daily for 5 days before surgery. 15 g 02/23/2025 naloxone (Narcan) 4 mg/0.1 mL nasal spray 1. Give 1 spray in nostril for no/slow breathing or cannot wake after opioid use 2. Call 911 3. Repeat in other nostril if symptoms continue 1 each 12/17/2024 omeprazole (PriLOSEC) [address] capsule Take 1 capsule (20 mg) by mouth 1 (one) time each day. 2024 pantoprazole (Protonix) 40 MG EC tablet Take 1 tablet by mouth daily. potassium chloride CR (Klor-Con) 10 MEQ ER tablet every 12 hours. rOPINIRole (Requip) 1 MG tablet Take 1 tablet by mouth in the morning and 1 tablet at noon then take 2 tablets at bedtime 2024 senna-docusate (Natali-Colace) 8.6-50 MG tablet Take 2 tablets by mouth 2 times a day. 04/13/2025 sildenafil (Viagra) 100 MG tablet Take 1 tablet (100 mg) by mouth 1 (one) time each day if needed for erectile dysfunction. 2024 valsartan (Diovan) 160 MG tablet Take 1 tablet by mouth daily. 04/13/2025 White Petrolatum-Bee Raiser al Oil (artificial tears) ophthalmic ointment Apply 1 Application to both eyes every 2 (two) hours as needed for dry eyes. DAPTOmycin (Cubicin) injectionIndicat ions: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, right Infuse 17 mL into a venous catheter 1 (one) time each day at the same time for 24 days. Patient at facility, coordinate delivery once approved / admixed / patient ready for discharge. Mix and deliver per institution/facili ty policy. Through 05/21/25 1 each 04/27/2025 documented as of this encounter Plan of Treatment Upcoming Encounters Date Type Department Care Team (Late st Contact Info) Description 07/27/2025 1:30 PM EDT Office Visit [facility] [address] [facility] [place] [address] Aleksandr Lee MD [address] [place] [address] 08/24/2025 2:30 PM EDT Office Visit [facility] Orthopaedic Surgery & Sports Medicine [address], [address] [place] [address] Eliazar Simmons MD [address] [place] [address] documented as of this encounter Procedures Procedure Name Priority Date/Time Associated Diagnosis Comments XR TIBIA FIBULA RIGHT 2+ VIEWS Routine 05/18/2025 8:36 AM EDT 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 Decreased soft tissue swelling and edema. CRITICAL RESULT: No. COMMUNICATION: Per this written report. By electronically signing this report, I, the attending physician, attest that I have personally reviewed the images/data for the above examination(s) and agree with the final edited report. Drafted by Wayne Roberts MD on 05/18/2025 9:10 AM Final report signed by Daryl Glaser MD on 05/18/2025 11:53 AM Narrative 05/18/2025 11:53 AM EDT CLINICAL INDICATION: pain TECHNIQUE: XR TIBIA FIBULA RIGHT 2+ VIEWS COMPARISON: 04/07/2025, 04/05/2025, 03/30/2025, 12/09/2024, 10/06/2024 radiographs FINDINGS: Redemonstrated intramedullary [place] and nail fixation hardware spanning the tibia with similar appearing proximal tibial osteoplasty and distal tibial docking site. Progression of healing at proximal tibial osteoplasty site. Grossly unchanged distal tibial osteotomy appears. No evidence of hardware malfunction. Similar-appearing old segmental fractures of the fibula. Similar-appearing knee osteoarthrosis and degenerative changes of the ankle. No acute osseous finding. Interval decrease in surrounding soft tissue swelling and edema. Procedure Note Daryl De La Fuente MD - 05/18/2025 CLINICAL INDICATION: pain TECHNIQUE: XR TIBIA FIBULA RIGHT 2+ VIEWS COMPARISON: 04/07/2025, 04/05/2025, 03/30/2025, 12/09/2024, 10/06/2024 radiographs FINDINGS: Redemonstrated intramedullary [place] and nail fixation hardware spanning thetibia with similar appearing proximal tibial osteoplasty and distal tibialdocking site. Progression of healing at proximal tibial osteoplasty site.Grossly unchanged distal tibial osteotomy appears. No evidence of hardwaremalfunction. Similar-appearing old segmental fractures of the fibula.Similar-appearing knee osteoarthrosis and degenerative changes of theankle. No acute osseous finding. Interval decrease in surrounding softtissue swelling and edema. IMPRESSION: No evidence of hardware malfunction or acute osseous findings. Decreasedsoft tissue swelling and edema. CRITICAL RESULT: No. COMMUNICATION: Per this written report. By electronically signing this report, I, the attending physician, rachael I have personally reviewed the images/data for the aboveexamination(s) and agree with the final edited report. 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 documented in this encounter Additional Health Concerns Infection Onset Date Last Indicated Resolved Time MRSA Comment:Positive wound culture 05/21/2020 03/10/2025 Assessment Noted Time PHQ-9 Depression Total Score: 3 01/27/20 10:59 AM EST A fall risk assessment has been complete d for the patient 05/18/2025 8:58 AM EDT A Body Mass Index follow-up plan has been documented for the patient 05/18/2025 10:03 AM EDT documented as of this encounter Care Teams Tap Builder Relationship Specialty Start Date End Date Emmy Houser APRN [address] [place] [phone] PCP - General 02/07/25 Aleksandr Lee MD [address] [place] [phone] Consulting Physician Infectious Diseases 01/06/24 documented as of this encounter
--- OUTSIDE RECORDS SUMMARY | 2025-05-18 08:50 | XMS_ITS | Encounter Summary ---
Author Organization Healthcare Address [address] 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 No 09/13/2024 PHQ-9 Answer Date [...] any time in the past 12 m [facility], were you homeless or living in a custodial (including now)? No 03/15/2025 CAGE ASSESSMENT Answer [...] drink first t alyssa in the morning (EYE-HUMAN RESOURCES TEAM MEMBER) to steady your nerves or to get rid of a hangover? 0 06/12/2024 CAGE Questionnaire Score 0 024 Utilities Answer Date Recorded In the past 12 months has e [employer], gas, oil, or water [employer] threatened to shut off services in your [...] PM EDT documented as of this encounter Last Filed Vital Signs Vital Sign Reading Time Taken Comments Blood Pressure 121/70 05/18/2025 8:58 AM EDT Pulse 93 05/18/2025 8:58 AM EDT Temperature 37.1 C (98.8 F) 05/18/2025 8:58 AM EDT Respiratory Rate - - Oxygen Saturation 97% 05/18/2025 8:58 AM EDT Inhaled Oxygen Concentration - - Weight 107 kg (235 lb) 05/18/2025 8:58 AM EDT Height 182.9 cm (6') 05/18/2025 8:58 AM EDT Body Mass Index 31.87 05/18/2025 8:58 AM EDT documented in this encounter Miscellaneous Notes * Progress Notes - Flor Ram PA - 05/18/2025 8:50 AM EDT Chief complaint: s/p removal of frame with placement of IMN and placement of antibiotic cement DOS:04/07/2025 HPI: Guerrero Milian is a 59 year old male who presents to clinic for follow up 6 weeks s/p the above stated procedure. He has been doing well since his last visit. He is fully weightbearing in the CAM boot, using a cane for ambulation. States that his leg is feeling better overall. Remains on IV abx at this time. He follows up with ID on 05/25. Physical Assessment: Right lower extremity: Well-healed surgical incisions Anterior reveles wounds healing with dry scab and small amount of fibrinous tissue No erythema, ecchymosis Mild edema lower leg Knee ROM 0-90 Ankle ROM 10 dorsiflexion, 20 plantarflexion Strength 5/5 EHL/FHL/GSC/TA SILT s/s/sp/dp/t +2 dp/pt pulses XRAY: 2 views right tib/fib were ordered, reviewed, and interpreted by us, showing interval consolidation of new bone with slight separation at docking site with small amount of interval consolidation, hardware in place, no signs of loosening or failure Assessment: 59 year old male doing well Status Post removal of frame with placement of IMN and placement of antibiotic cement. Patient progressing well and wound healing well at this time. Plan: -Continue WBAT RLE in CAM boot -Continue abx per ID -FU with ID as scheduled -FU 8 weeks with imaging The patients images were discussed with them. The patient was given an opportunity to ask questionsand all their questions were answered to their satisfaction. The patient was seen and evaluated by Dr. Simmons. Flor Ram PA-C Department of Orthopaedic Surgery and Sports Medicine Consult Pager: [phone] Service Pager:[phone] Cosigned by Eliazar Simmons MD at 05/18/2025 10:03 AM EDT Associated attestation - Eliazar Simmons MD - 05/18/2025 10:03 AM EDT I saw the patient with the MALKA and performed and documented the exam. I discussed the case with the MALKA and agree with the findings and plan as documented in the final note. Eliazar Simmons MD documented in this encounter Plan of Treatment Upcoming Encounters Date Type Department Care Team (Late st Contact Info) Description 07/27/2025 1:30 PM EDT Office Visit [facility] [address] [place] [phone] Aleksandr Lee MD [facility] [facility] [address] [place] [phone] 08/24/2025 2:30 PM EDT Office Visit [facility] Orthopaedic Surgery & Sports Medicine [address] [place] [address] Eliazar Simmons MD [address] [place] [phone] Scheduled Orders Name Type Priority Associated Diagnoses Orde r Schedule XR Tibia Fibula Right 2+ Views Imaging Routine 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
--- OUTSIDE RECORDS SUMMARY | 2025-05-25 13:00 | XMS_ITS | Encounter Summary ---
Author Organization Healthcare Address [address] [place] [address] Care Team Providers Care Signal Engineer Name Role Phone Aleksandr Lee MD Unavailable [phone] Emmy Houser APRN Primary Care Provider + Reason for Referral * Consultation (Routine) - Authorized Specialty Diagnoses / Procedures Referred By Angela madden Referred To Contact Diagnoses Chronic osteomyelitis of right tibia (CMS/HCC) 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 (CMS/HCC) Aleksandr Lee MD [address] [place] [phone] Phone: tel: fax: Referral ID Status Reason Start Date Expiration Date V isits Requested Visits Authorized [id number] Authorized 05/25/2025 11/24/2026 1 1 * Consultation (Routine) - Closed Specialty Diagnoses / Procedures Referred By Contkeli madden Referred To Contact Diagnoses Chronic osteomyelitis of right tibia (CMS/HCC) 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 (CMS/HCC) Aleksandr Lee MD [address] [place] [phone] Phone: tel: fax: Referral ID Status Reason Start Date Expiration Date Visits Re quested Visits Authorized [id number] Closed 05/25/2025 11/24/2026 1 1 Reason for Visit * Consultation (Routine) - Closed Specialty Diagnoses / Procedures Referred By Contac t Referred To Contact Diagnoses 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 (CMS/HCC) Chronic osteomyelitis of right tibia (CMS/HCC) Aleksandr Lee MD [address] [place] [phone] Phone: tel: fax: Referral ID Status Reason Start Date Expiration Date Visits Re quested Visits Authorized [id number] Closed 04/20/2025 10/20/2026 1 1 Encounter Details Date Type Department Care Team (Late st Contact Info) Description 05/25/2025 1:00 PM EDT Office Visit [address] [phone] Aleksandr Lee MD [address] [place] [phone] Chronic osteomyelitis of right tibia (CMS/HCC) (Primary Dx); 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 (CMS/HCC) Social History Tobacco Use Types Packs/Day Years [...] and Family Not on file 03/15/2025 Attends [employer] Not on file 03/15 Active Member [...] place to sleep or slept in a mcc (including now)? No 09/13/2024 PHQ-9 Answer Date Recorded Patient Health Questionnaire-9 Score 3 01/26/2025 Housing Stability Vital Sign Answer Marcsu e Recorded In the last 12 months, was t here a time when you were not able to pay the mortgage or rent on time? No 03/15/2025 In the past 12 months, how m any times have you moved where you were living? 0 03/15/2025 At any time in the past 12 m [facility], were you homeless or living in a mcc (including now)? No 03/15/2025 CAGE ASSESSMENT Answer [...] drink first t alyssa in the morning (EYE-ACQUISITIONS ANALYST) to steady your nerves or to get [...] Sign Reading Time Taken Comments Blood Pressure 106/67 05/25/2025 12:43 PM EDT Pulse 75 05/25/2025 12:43 PM EDT Temperature 36.6 C (97.9 F) 05/25/2025 12:43 PM EDT Respiratory Rate - - Oxygen Saturation 97% 05/25/2025 12:43 PM EDT Inhaled Oxygen Concentration - - Weight 101 kg (222 lb 3.6 oz) 05/25/2025 12:43 P M EDT Height 182.9 cm (6') 05/25/2025 12:43 PM EDT Body Mass Index 30.14 05/25/2025 12:43 PM EDT documented in this encounter Functional Status * Over the past 2 weeks, how often have you been bothered by any of the following problems? Question Answer Date of Assessment Author Little interest or pleasure in doing things Not at all 05/25/2025 12:44 PM EDT Yuni Brown Feeling down, depressed, or hopeless Not at all 05/25/2025 12:44 PM EDT Yuni Brown Patient Health Questionnaire -2 Score 0 05/25/2025 12:44 PM EDT Yuni Brown documented as of this encounter Miscellaneous Notes * Karmen Maradiaga RN - 05/25/2025 1:31 PM EDT Images from the original note were not included. 810 After PICC Line Removal How do I care for myself at home? Before you go home. When the PICC is out, we will put pressure at the insertion site. This helps prevent bleeding. We may put antibiotic ointment on the site. We will tape dry, sterile gauze over thesite. Leave this dressing on for 24 hours. Cleaning the site. After the 24 hours is up, you may remove the dressing. The PICC site is very small. A small scab may form at the site. It is okay to wash the site gently with soap and water. Do not remove or pick the scab off. After washing, gently pat the site dry. You do not need to put another dressing on after you wash it. Activity. Avoid hard physical activity for 24 hours. This includes things like: ?? Weight lifting ?? Hard yard work ?? Any physical activity with repeated arm movements When do I call my doctor? Call or see your caregiver if you have any of these problems in the arm that had the PICC: ?? Swelling or puffiness ?? Tenderness or pain that gets worse When should I go to the Emergency Room? Go to the nearest ER if you have any of these problems in the arm that had the PICC: ?? Numbness or tingling in your fingers, hand, or arm ?? Arm has a blue color and feels cold to the touch ?? Redness around the insertion site or a red-streak goes up your arm ?? Any type of drainage from the PICC insertion site - including: o Bleeding - (If so, use a clean towel to put firm, direct pressure to the site.) o Drainage that is yellow or khan in color ?? You have temperature by mouth above 102??F (38.9?? C) that is not helped by medicine * Salome Ladonna - Karmen Morel RN - 05/25/2025 1:31 PM EDT Images from the original note were not included. 810 After PICC Line Removal How do I care for myself at home? Before you go home. When the PICC is out, we will put pressure at the insertion site. This helps prevent bleeding. We may put antibiotic ointment on the site. We will tape dry, sterile gauze over thesite. Leave this dressing on for 24 hours. Cleaning the site. After the 24 hours is up, you may remove the dressing. The PICC site is very small. A small scab may form at the site. It is okay to wash the site gently with soap and water. Do not remove or pick the scab off. After washing, gently pat the site dry. You do not need to put another dressing on after you wash it. Activity. Avoid hard physical activity for 24 hours. This includes things like: ?? Weight lifting ?? Hard yard work ?? Any physical activity with repeated arm movements When do I call my doctor? Call or see your caregiver if you have any of these problems in the arm that had the PICC: ?? Swelling or puffiness ?? Tenderness or pain that gets worse When should I go to the Emergency Room? Go to the nearest ER if you have any of these problems in the arm that had the PICC: ?? Numbness or tingling in your fingers, hand, or arm ?? Arm has a blue color and feels cold to the touch ?? Redness around the insertion site or a red-streak goes up your arm ?? Any type of drainage from the PICC insertion site - including: o Bleeding - (If so, use a clean towel to put firm, direct pressure to the site.) o Drainage that is yellow or khan in color ?? You have temperature by mouth above 102??F (38.9?? C) that is not helped by medicine * Progress Notes - Aleksandr Lee MD - 05/25/2025 1:00 PM EDT INFECTIOUS DISEASE CLINIC FOLLOWUP NOTE Reason for visit: follow up evaluation of chronic osteomyelitis/implant infection of Right tibia HPI : 59 year old male with PMH of DM, CAD s/p CO and stent, a a fib, AICD placement in 2018, chronic osteomyelitis of right tibia s/p multiple I and D's in the past, several course of IV and oral antibiotics who is initially had removal of deep implant, drug implant device, saucerization and diaphysectomy of tibia for chronic osteomyelitis on 10/06/23, cultures with MRSA, s/p treatment with IV and oral antibiotics. 06/14/24: transphalangeal amputation of right great toe for possible osteomyelitis , cultures polymicrobial including MRSA, E coli, Klebsiella, pathology was not sent. He was on Zosyn and Vancomycin , switched to oral Levaquin 750 mg po daily and Linezolid 600 mg po BID for 2-3 weeks from 06/14/24. 07/07/24: seen in clinic, he had some RLE swelling, completed 3 weeks of oral Levaquin 750 mg po daily and Linezolid 600 mg po BID for 3 weeks from 06/14/24- 07/05/24 with close monitoring of Qtc given AICD and cardiac history. Admitted to [facility] from 10/14/24-10/22/24 for scheduled surgery. 10/14/24: Saucerization/Excision of right tibia, placement of antibiotic spacer, intramedullary, application of uniplanar external fixator. Cultures with polymicrobial growth including Klebsiella aerogenes, Enterobacter cloacea, Enterococcus fecalis, Proteus vulgaris, Bacteroides, seen by ID and after discussing risks/versus benefits of IV antibiotics in the setting of chronic right tibial osteomyelitis, recommended Cefepime 6 grams IV continuous, Daptomycin 1 gram daily, and Flagyl 500 mg PO q8 hours for 4 weeks from 10/14/24-11/13/24. 11/02/24: seen by Ortho, Right lower extremity: Well-healing surgical incisions with mid-incision wound 3 cm x 2 cm, with exposed bone,2nd toe with loss of nail plate, exposed nail bed , sutures removed. 11/10/24: seen here follow up evaluation, was getting IV antibiotics at [facility], extended for 2 more weeks until 11/27/24 to complete 6 weeks. 11/30/24: evaluated by , still had some serous drainage, no redness, no purulence. 12/09/24: Removal of ex fix Removal of intramedullary drug delivery device Saucerization of the tibia Application of intramedullary handmixed antibiotic bead delivery device Placement of cable transport external fixator Osteotomy of the tibia, no cultures sent. He was given antibiotics for 1 week prior to surgery Levaquin and Linezolid. 12/21/24: evaluated by , plan was to observe off antibiotics unless any changes in clinical course. Seen in ortho clinic 02/23/25 - anterior pin site with small amt of purulent drainage, prescribed Bactrim x 14 days (end date 03/09/25). 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 03/10/25: Repair of nonunion Adjustment of external fixator Placement of intramedullary antibiotic beads Cultures with MRSA and Enterobacter. 04/07/2025: Removal of external fixator Prophylactic Stabilization of tibia Placement of handmixed antibiotic delivery device No cultures sent. Seen by ID and recommended Daptomycin 10mg/kg IV q24h + Cefepime 6g/day IV continuous infusion therapy + Flagyl 500mg PO TID as Induction therapy x 6-8+ weeks (until 05/02/2025)(may need a longer course of therapy based on clinical response.) He is here for follow up evaluation and states Interval history: released from therapy, Drainage from RLE, dressing changes once a day 04/19/25: seen by Ortho, noted to have well healing surgical incisions with sutures in place, anterior reveles wounds with serous drainage and visible granulation tissue, drainage likely due to antibiotic cement and expected to last 8-10 weeks post-op. He was initially at [facility] in [place] , then discharged home for standard OPAT on 05/05/25. 04/20/25: seen here for follow up, extended IV Cefepime and Daptomycin antibiotics until 05/25 when hewould be seen here with the plan to transition to oral Levaquin and Doxycycline with close monitoring for 2-3 months 05/18/25: seen by Ortho, fully weight bearing on CAM boot, using cane for ambulation, well healed surgical incisions and anterior reveles wounds healing with dry scab and small amount of fibrinous tissue, progressing well. States he is doing well, no issues with IV antibiotics, right leg is getting better, he has some scabs in the surgical site. He has some swelling in RLE and some tenderness but overall improved. No fever or chills, no cough or SOB, no headache, nausea, vomiting, diarrhea, no urinary symptoms or other complaints. ROS: as per HPI, otherwise 14 point ROS negative. PMH, PSH, FH and SH reviewed and unchanged except as per HPI. Allergies: NKDA MEDICATIONS: Current Outpatient Medications Medication Instructions acetaminophen (TYLENOL) 1,000 mg, Oral, Every 6 hours albuterol 108 (90 Base) MCG/ACT inhaler 2 puffs, Inhalation, Every 6 hours PRN aspirin (SUSANA ASPIRIN EC LOW DOSE) 81 mg bisoprolol (ZEBETA) 2.5 mg, Oral, Daily cefepime (Maxipime) 2 g injection clopidogrel (PLAVIX) 75 mg, Oral, Daily cyanocobalamin (VITAMIN B-12) 1,000 mcg, Oral, Daily cyclobenzaprine (FLEXERIL) 10 mg, Oral, 2 times daily PRN DULoxetine (CYMBALTA) 60 mg, Oral, Daily famotidine (PEPCID) 40 mg, Oral, 2 times daily ferrous sulfate 324 mg, Oral, Every other day, Do not crush, chew, or split. fluticasone-salmeterol (Advair Diskus) 250-50 MCG/ACT diskus inhaler 1 puff, Inhalation, 2 times daily, Rinse mouth with water after use to reduce aftertaste and incidence of candidiasis. Do not swallow. furosemide (LASIX) 40 mg, Oral, Daily gabapentin (NEURONTIN) 800 mg, Oral, Every 6 hours glimepiride (AMARYL) 2 mg, Oral, 2 times daily HYDROcodone-acetaminophen (Suffolk) 10-325 MG tablet 10 mg of hydrocodone, Oral, Every 4 hours PRN ipratropium-albuterol (Duo-Neb) 0.5-2.5 mg/3 mL nebulizer solution 3 mL, Nebulization, Every 6 hours PRN magnesium oxide (MAG-OX) 400 mg, Oral, Daily multivitamin (Theragran-M) tablet 1 tablet, Oral, Daily mupirocin (Bactroban) 2 % ointment 1 Application, Topical, 2 times daily, Apply to each nostril twice daily for 5 days before surgery. naloxone (NARCAN) 4 mg, Nasal, As needed omeprazole (PRILOSEC) 20 mg, Oral, Daily pantoprazole (PROTONIX) 40 mg, Daily potassium chloride CR (Klor-Con) 10 MEQ ER tablet Every 12 hours pravastatin (PRAVACHOL) 40 mg, Oral, Nightly, Hold while on daptomycin rOPINIRole (Requip) 1 MG tablet Take 1 tablet by mouth in the morning and 1 tablet at noon then take 2 tablets at bedtime senna-docusate (Natali-Colace) 8.6-50 MG tablet 2 tablets, Oral, 2 times daily sildenafil (VIAGRA) 100 mg, Oral, Daily PRN valsartan (DIOVAN) 160 mg, Oral, Daily White Petrolatum-Mineral Oil (artificial tears) ophthalmic ointment 1 Application, Every 2 hour PRN Vitals: 05/25/25 1243 BP: 106/67 Pulse: 75 Temp: 36.6 ??C (97.9 ??F) SpO2: 97% PHYSICAL EXAM: HEENT: No pallor. Sclera non-icteric. No oral lesions. CVS: S1, S2 present. Pulm: Lungs clear to auscultation bilaterally. Abd: Soft, non-tender, BS present. Musc: RLE with some edema and tenderness laterally, scabs around lower leg surgical incision, no active drainage noted. LABS: reviewed with the patient. 05/22/25 CK 46, creatinine 0.8, CRP 0.54 mg/dl , WBC 7 MICRO: 03/10/25 right leg tissue cultures with MRSA and Enterobacter cloacea 10/14/24: Bone cultures with Klebsiella aerogenes, Enterobacter cloacea, Enterococcus fecalis, Proteus vulgaris, Bacteroides IMAGING: Xray right tib/fib 05/18/25 Redemonstrated intramedullary [place] and nail fixation hardware [...] in surrounding soft tissue swelling and edema. IMPRESSION: No evidence of hardware malfunction or acute osseous findings. Decreased soft tissue swelling and edema. ASSESSMENT/PLAN: 58 year old male with PMH of DM, CAD s/p CO and stent, a a fib, AICD placement in 2018, chronic osteomyelitis of right tibia s/p multiple I and D's in the past, several course of IV and oral antibiotics , initially removal of deep implant, drug implant device, saucerization and diaphysectomy of tibia for chronic osteomyelitis on 10/06/23, cultures with MRSA, s/p treatment with IV and oral antibiotics s/p 10/14/24: Saucerization/Excision of right tibia, placement of antibiotic spacer, intramedullary, application of uniplanar external fixator. S/p 12/09/24: Removal of ex fix, Removal of intramedullary drug delivery device, Saucerization of the tibia, Application of intramedullary handmixed antibiotic bead delivery device, Placement of cabletransport external fixator, Osteotomy of the tibia, no cultures sent. 03/10/25: Repair of nonunion Adjustment of external fixator Placement of intramedullary antibiotic beads Cultures with MRSA and Enterobacter. 04/07/2025: Removal of external fixator Prophylactic Stabilization of tibia Placement of handmixed antibiotic delivery device No cultures sent. 1. Chronic osteomyelitis/implant infection right tibia: s/p 03/10/25: Repair of nonunion Adjustment of external fixator Placement of intramedullary antibiotic beads Cultures with MRSA and Enterobacter and s/p removal of external fixator, prophylactic stabilizationof tibia, placement of handmixed antibiotic delivery device on 04/07/25. He has been on Daptomycin 10mg/kg IV q24h + Cefepime 6g/day IV continuous infusion therapy( 2 gm ivq 8hrs at the [facility]) + Flagyl 500mg PO TID for 6-8 weeks as induction initially until 05/02/25, extended to 05/24/25 to complete. 6 weeks from last surgery on 04/07/25 and . Clinically doing well and CRP trending down, will stop and remove PICC and transition to oral Levaquin 750 mg po daily and Doxycycline 100 mg po bid with close monitoring for 2-3 months. 2. DM: managed by PCP. 3. Dental caries: recommended he see dental, referred to dental. Plan discussed with the patient who stated understanding and was in agreement, he will call with any problems, TH follow up in 1 month Aleksandr Aragon MD * Progress Notes - Karmen Morel RN - 05/25/2025 1:00 PM EDTAssociated Order(s): PICC Removal (Clinic-Performed) Patient ID: Guerrero Milian is a 59 y.o. male. Encounter Diagnoses Name Primary? Chronic osteomyelitis of right tibia (CMS/HCC) Yes 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 (CMS/HCC) PICC Removal (Clinic-Performed) Date/Time: 05/25/2025 1:20 PM Performed by: Karmen Morel RN Authorized by: Aleksandr Lee MD Indications: vascular access Patient position: flat Catheter type: single lumen Post-procedure: dressing applied Patient tolerance: patient tolerated the procedure well with no immediate complications Comments: After 30 minutes, no complaints of pain, dizziness or shortness of air. BP 110/69 HR 72 O2 sats 92%. Patient ambulated independently. documented in this encounter Plan of Treatment Upcoming Encounters Date Type Department Care Team (Late st Contact Info) Description 07/27/2025 1:30 PM EDT Office Visit [facility] [address] [facility] [place] [address] Aleksandr Lee MD [address] [place] [phone] 08/24/2025 2:30 PM EDT Office Visit [facility] Orthopaedic Surgery & Sports Medicine [address] [place] [address] Eliazar Simmons MD [address] [place] [address] Scheduled Referrals Name Type Priority Associated Diagnoses Orde r Schedule Follow Up ID Outpatient Referral Routine Chronic osteomyelitis of right tibia (CMS/HCC) 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 (CMS/HCC) Expected: 06/22/2025, Expires: 06/25/2026 Follow Up ID Outpatient Referral Routine Chronic osteomyelitis of right tibia (CMS/HCC) 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 (CMS/HCC) Expected: 07/26/2025, Expires: 06/25/2026 documented as of this encounter Procedures Procedure Name Priority Date/Time Associated Diagnosis Comments PICC REMOVAL (CLINIC-PERFORMED) Routine 05/25/2025 1:20 PM EDT Chronic osteomyelitis of right tibia (CMS/HCC) 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 (CMS/HCC) C-REACTIVE PROTEIN, PLASMA Routine 05/25/2025 1:14 PM EDT Chronic osteomyelitis of right tibia (CMS/HCC) 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 (CMS/HCC) documented in this encounter Results * Discontinue PICC (05/25/2025 1:36 PM EDT) Narrative Karmen Morel RN - 05/25/2025 1:36 PM EDT Karmen Morel RN 05/25/2025 1:37 PM Discontinue PICC Performed by: Karmen Morel RN Authorized by: Aleksandr Lee MD Aleksandr Aragon MD IV THERAPY ORDERABLES Final Result * PICC Removal (Clinic-Performed) (05/25/2025 1:20 PM EDT) Narrative Karmen Morel RN - 05/25/2025 1:20 PM EDT Karmen Morel RN 05/25/2025 2:05 PM PICC Removal (Clinic-Performed) Date/Time: 05/25/2025 1:20 PM Performed by: Karmen Morel RN Authorized by: Aleksandr Lee MD Indications: vascular access Patient position: flat Catheter type: single lumen Post-procedure: dressing applied Patient tolerance: patient tolerated the procedure well with no immediate complications Comments: After 30 minutes, no complaints of pain, dizziness or shortness of air. BP 110/69 HR 72 O2 sats 92%. Patient ambulated independently. Aleksandr Aragon MD IN CLINIC/BEDSIDE ORDERABLE S Final Result * (ABNORMAL) C-reactive protein (05/25/2025 1:14 PM EDT) CRP, Plasma 14.5(H) <=8.0 mg/L 05/25/2025 3:31 PM EDT [facility] Blood Venous blood specimen / Unknown Venipuncture / Unknown 05/25/2025 1:14 PM EDT 05/25/2025 1:30 PM EDT Narrative [facility] - 05/25/2025 3:31 PM EDT This CRP test is appropriate for assessment of infection, systemic inflammation and/or tissue injury. To assess cardiovascular disease risk order high sensitivity CRP (CRPH). 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 (CMS/HCC) documented in this encounter Additional Health Concerns Infection Onset Date Last Indicated Resolved Time MRSA Comment:Positive wound culture 05/21/2020 03/10/2025 Assessment Noted Time PHQ-9 Depression Total Score: 3 01/27/20 25 10:59 AM EST A fall risk assessment has been complete d for the patient 05/25/2025 12:44 PM EDT A Body Mass Index follow-up plan has been documented for the patient 05/25/2025 2:05 PM EDT documented as of this encounter Care Teams Signal Engineer Relationship Specialty Start Date End Date Emmy Houser APRN [address] [place] [address] PCP - General 02/07/25 Aleksandr Lee MD [address] [place] [address] [address] [place] [address] Consulting Physician Infectious Diseases 01/06/24 documented as of this encounter
--- OUTSIDE RECORDS SUMMARY | 2025-06-22 13:30 | XMS_ITS | Encounter Summary ---
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 (CMS/HCC) Aleksandr Lee MD [address] [place] [phone] Phone: tel: fax: Referral ID Status Reason Start Date Expiration Date Visits Re quested Visits Authorized [id number] Closed 05/25/2025 11/24/2026 1 1 Encounter Details Date Type Department Care Team (Late st Contact Info) Description 06/22/2025 1:30 PM EDT Office Visit [address] [address] Aleksandr Lee MD [address] [place] [phone] Chronic osteomyelitis of right tibia (CMS/HCC) (Primary Dx) Social History Tobacco Use Types [...] and Family Not on file 03/15/2025 Attends [employer] Not on file 03/15 Active Member [...] place to sleep or slept in a [place] facility (including now)? No 09/13/2024 PHQ-9 Answer Date [...] any time in the past 12 m [facility], were you homeless or living in a [place] health [place] facility (including now)? No 03/15/2025 CAGE ASSESSMENT Answer [...] drink first t alyssa in the morning (EYE-CYBER REVERSE ENGINEER) to steady your nerves or to get [...] PM EDT documented as of this encounter Miscellaneous Notes * Progress Notes - Aleksandr Lee MD - 06/22/2025 1:30 PM EDT INFECTIOUS DISEASE CLINIC FOLLOWUP NOTE Telehealth Statement Patient Verification Patient identity has been confirmed using name and date of ? Yes Authorizations and Agreements/Telemedicine Consent sent and consent confirmed? Yes Patient Location: Home/Other Patient confirms they are physically located in [place]? Yes If the patient is not physically located in [place], the provider has confirmed with [facility] thatthe provider is authorized to provide services in patient's stated location? N/A Provider Location: [facility] facility Audio and video or audio only? Audio and video Total visit time: 35 minutes Reason for visit: follow up evaluation of chronic osteomyelitis/implant infection of Right tibia HPI : 59 year old male with PMH of DM, CAD s/p TX and stent, a a fib, AICD placement [...] given AICD and cardiac history. Admitted to [facility] from 10/14/24-10/22/24 for scheduled surgery. 10/14/24: Saucerization/Excision [...] up evaluation, was getting IV antibiotics at [facility], extended for 2 more weeks until 11/27/24 to complete 6 weeks. 11/30/24: evaluated by TH, still had some serous drainage, no redness, [...] (end date 03/09/25). He was admitted to [facility] from 03/10/25-04/13/25 for scheduled surgical intervention for [...] 8-10 weeks post-op. He was initially at [facility] in [place] , then discharged home for standard OPAT [...] small amount of fibrinous tissue, progressing well. 05/25/25: seen in ID clinic for follow up, was doing well, switched to oral Levaquin 750 mg po daily and Doxycycline 100 mg po bid with close monitoring for 2-3 months. He is being evaluated by this afternoon, states he is weight bearing as tolerated in RLE but he has trouble weight bearing, pain when he puts it down and right knee gives away, he has an appointment with Ortho coming up. No fever or chills, no cough or [...] 10 mg, Oral, 2 times daily PRN doxycycline (ADOXA) 100 mg, Oral, 2 times daily, Take with a full glass of water and do not lie down for at least 30 minutes after DULoxetine (CYMBALTA) 60 mg, Oral, Daily famotidine [...] 2 mg, Oral, 2 times daily HYDROcodone-acetaminophen (Kathleen) 10-325 MG tablet 10 mg of hydrocodone, Oral, Every 4 hours PRN ipratropium-albuterol (Duo-Neb) 0.5-2.5 mg/3 mL nebulizer solution 3 mL, Nebulization, Every 6 hours PRN levoFLOXacin (LEVAQUIN) 750 mg, Oral, Daily magnesium oxide (MAG-OX) 400 mg, Oral, Daily [...] ointment 1 Application, Every 2 hour PRN There were no vitals filed for this visit. PHYSICAL EXAM: limited as TH. Gen: Comfortable. Well-appearing Voice: normal. Pulm/Resp: bilateral equal chest rise, unlabored respiration. Psych: Mood and affect appropriate for setting LABS: 05/25/25 CRP 14.5 mg/L 05/22/25 CK 46, creatinine 0.8, CRP 0.54 [...] Decreased soft tissue swelling and edema. ASSESSMENT/PLAN: 59 year old male with PMH of DM, CAD s/p TX and stent, a a fib, AICD placement [...] handmixed antibiotic delivery device on 04/07/25. He was treated with Daptomycin 10mg/kg IV q24h + Cefepime 6g/day IV continuous infusion therapy( 2 gm iv q 8hrs at the [facility]) + Flagyl 500mg PO TID for 6-8 weeks as induction initially until 05/02/25, extended until 05/25/25 and now on oral Levaquin 750 mg po daily and Doxycycline 100 mg po bid with close monitoring for 2-3 months. He will follow with Ortho on 07/10/25 regarding issues with right knee giving our and weight bearingin RLE, labs ordered for that visit. 2. DM: managed by PCP. 3. Dental caries: recommended he see dental, referred to dental. Plan discussed with the patient who stated understanding and was in agreement, he will call with any problems, follow up in 1 month. Aleksandr Aragon MD documented in this encounter Plan of Treatment Upcoming Encounters Date Type Department Care Team (Late st Contact Info) Description 07/27/2025 1:30 PM EDT Office Visit [address] [phone] Aleksandr Lee MD [address] [place] [phone] 08/24/2025 2:30 PM EDT Office Visit [facility] Orthopaedic Surgery & Sports Medicine [address], [address] [place] [phone] Eliazar Simmons MD [address] [place] [address] Scheduled Orders Name Type Priority Associated Diagnoses Orde r Schedule CBC and Differential Lab Routine Chronic osteomyelitis of right tibia (CMS/HCC) Expected: 07/10/2025 (Approximate), Expires: 12/24/2026 Comprehensive Metabolic Panel, Plasma Lab Routine Chronic osteomyelitis of right tibia (CMS/HCC) Expected: 07/10/2025 (Approximate), Expires: 12/24/2026 C-reactive protein Lab Routine Chronic osteomyelitis of right tibia (CMS/HCC) Expected: 07/10/2025 (Approximate), Expires: 12/24/2026 documented as of this encounter Visit Diagnoses Diagnosis Chronic osteomyelitis of right tibia (CMS/HCC)- Primary documented in this encounter Additional Health Concerns Infection Onset Date Last Indicated Resolved Time MRSA Comment:Positive wound culture 05/21/2020 03/10/2025 Assessment Noted Time PHQ-9 Depression Total Score: 3 01/27/20 25 10:59 AM EST A fall risk assessment has been complete d for the patient 05/25/2025 12:44 PM EDT A Body Mass Index follow-up plan has been documented for the patient 06/22/2025 2:07 PM EDT documented as of this encounter Care Teams Reverse Unit Operator Relationship Specialty Start Date End Date Emmy Houser APRN [address] [place] [address] PCP - General 02/07/25 Aleksandr Lee MD [address] [place] [address] [address] [place] [phone] Consulting Physician Infectious Diseases 01/06/24 documented as of this encounter
--- NOTE | 2025-07-11 | CA_ITS ---
APPROVED REPORT Exam: Pharmacologic Technologist: Alana James Ht: 6 ft 0 in Wt: 240 lbs BSA: 2.30 m2 HR: 65 bpm BP: 102/66 mmHg Stress Test Details Test: Lexiscan HR Resting HR: 65 bpm Max Heart Rate (APMHR): 160.149363 bpm Max HR Achieved: 76 bpm Target HR (85% APMHR): 136.575966 bpm % of APMHR: 47.50 Recovery HR: 70 bpm BP Resting BP: 102.0/66.0 mmHg Max BP: 104.0/62.0 mmHg Recovery BP: 119.0/71.0 mmHg ECG Resting ECG: Paced Stress ECG Conclusion Symptoms: Hypotension. Arrhythmias/Ectopy: PVC/ventricular ectopy. ST-T Changes: None observed -paced- Electronically signed by : Phoebe Sargent MD 07/11/2025 13:15:10
--- OUTSIDE RECORDS SUMMARY | 2025-07-11 06:38 | XMS_ITS | Encounter Summary ---
Author Organization Healthcare Address [address] [place] [address] Care Team Providers Care Senior Marketing Associate Name Role Phone Aleksandr Lee MD Unavailable [phone] Emmy Houser APRN Primary Care Provider + Encounter Details Date Type Department Care Team (Latest Contact Info) Description 05/25/2025 Travel Social History Tobacco Use Types Packs/Day Years [...] and Family Not on file 03/15/2025 Attends [employer] Not on file 03/15 Active Member [...] place to sleep or slept in a nursing home (including now)? No 09/13/2024 PHQ-9 Answer Date [...] any time in the past 12 m [facility], were you homeless or living in a nursing home (including now)? No 03/15/2025 CAGE ASSESSMENT Answer [...] drink first t alyssa in the morning (EYE-FEDERAL DISTRICT CLERK) to steady your nerves or to get rid of a hangover? 0 06/12/2024 CAGE Questionnaire Score 0 024 Utilities Answer Date Recorded In the past 12 months has th [employer], gas, oil, or water [employer] threatened to shut off services in your [...] PM EDT documented as of this encounter Functional Status * Over the [...] Yuni Brown documented as of this encounter Plan of Treatment Upcoming Encounters Date Type Department Care Team (Late st Contact Info) Description 07/27/2025 1:30 PM EDT Office Visit [facility] [address] [place] [address] Aleksandr Lee MD [address] [facility] [address] [place] [address] 08/24/2025 2:30 PM EDT Office Visit [facility] Orthopaedic Surgery & Sports Medicine [address], [address] [place] [address] Eliazar Simmons MD [address] [place] [address] documented as of this encounter Visit Diagnoses Not on filedocumented in this encounter Additional Health Concerns Infection [...] documented as of this encounter Care Teams Senior Marketing Associate Relationship Specialty Start Date End Date Emmy Houser APRN [address] [place] [id number] PCP - General 02/07/25 Aleksandr Lee MD [address] [place] [address] [address] [place] [address] Consulting Physician Infectious Diseases 01/06/24 documented as of this encounter
--- OUTSIDE RECORDS SUMMARY | 2025-07-11 06:38 | XMS_ITS | Patient Health Record ---
Author Organization [facility] [place] Address [address] [place] [address] Care Team Providers Care Laboratory Equipment Installer Name Role Phone Hannah Merritt M.D. Primary Care Provider Unavail able Reason For Referral No Information Medications Medication SIG (Take, Route, Frequency, Duration) Notes Start Date End Date Status Magnesium Oxide 400 (241.3 Mg) MG 1 tablet with food Orally Twice a day; Duration: 30 day(s) Active Centrum Silver - 1 tablet Orally Once a day Active Clopidogrel Bisulfate 75 MG 1 tablet Orally Once a day; Duration: 30 day(s) Active rOPINIRole HCl 1 mg 1 tablet orally Thre e times a day; Duration: 30 day(s) Active Vitamin B12 1000 MCG 1 tablet Orally Onc e a day; Duration: 30 day(s) 5000 MG Active Potassium Chloride ER 10 MEQ 1 tablet with food Orally Twice a day; Duration: 30 day(s) Active Melatonin 5 MG 1 tablet in the evening Orally Once a day; Duration: 30 day(s) Active Gabapentin 300 MG 1 to 2 capsules Oral ly Three times a day as needed; Duration: 30 day(s) Active Digoxin 125 MCG 1 tablet Orally Once a day Active Glimepiride 1 MG 1 tablet Orally Twic e a day; Duration: 30 day(s) Active Amitriptyline HCl 50 MG 1 to 2 tablets a t bedtime Orally Once a day; Duration: 30 day(s) Active Dilip Aspirin EC Low Dose 81 MG 1 tablet Orally Once a day; Duration: 30 day(s) Active Azithromycin 500 MG 1 tablet Orally as directed; Duration: 10 day(s) Not-Taking Famotidine 40 MG 1 tablet Orally Twic e a day; Duration: 30 day(s) Active Furosemide 40 MG 1 tablet Orally Twic e a day; Duration: 30 day(s) Active Diclofenac Sodium 1 % 2 grams to affecte d area Transdermal Four times a day Active Bisoprolol Fumarate 10 MG 1 tablet Orally Once a day; Duration: 30 day(s) Active Cetirizine HCl 10 MG 1 tablet Orally Onc e a day; Duration: 30 day(s) Active Mupirocin 2 % 1 application Externally Once a day to left heal; Duration: 5 day(s) Active Entresto 49-51 MG 1 tablet Orally Twic e a day; Duration: 30 day(s) Active Basaglar KwikPen 100 UNIT/ML 40 units Subcutaneous Once a day Active Problems Problem Type SNOMED Code ICD Code Onset Dates Problem Status W/U Status Risk Notes Problem Essential hypertension (31689722) Essential (primary) hypertension (I10) Active confirmed Problem Chronic combined systolic and diastolic heart failure (610033786268993 ) Chronic combined systolic (congestive) and diastolic (congestive) heart failure (I50.42) Active confirmed Problem Vitamin D deficiency (77776711) Vitamin D deficiency (E55.9) Active confirmed Problem Chronic kidney disease due to hypertension (223948732503879 ) Nephrosclerosis, stage 1 through stage 4 or unspecified chronic kidney disease (I12.9) Active confirmed Problem 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 Metabolic Panel (14) 01/09/2020 Insurance Providers Payer Name Payer Address Payer Phone Subscriber Number Group Number Insured Name Patient Relationship to Insured Coverage Start Date Coverage End Date [employer] [place] [address] [address] [place] [address] [id number] MARY ANN POOLE Self - patient is the insured Medical (General) History Medical History History ICD Code Diabetes Renal Failure Congestive Heart Failure Hypertension AFib Pacemaker Surgical History Surgery Date(Month/Year) 2 stints 2017 & 2018 Pacemaker DeFib 2018 Boil on neck 2019 Kidney Stones/Surgery
--- OUTSIDE RECORDS SUMMARY | 2025-07-11 06:38 | XMS_ITS | Encounter Summary ---
Author Organization Healthcare Address [address] [place] [address] Care Team Providers Care Materials Clerk Name Role Phone Aleksandr Lee MD Unavailable [phone] Emmy Houser APRN Primary Care Provider + Encounter Details Date Type Department Care Team (Latest Contact Info) Description 06/22/2025 Travel Social History Tobacco Use Types Packs/Day [...] and Family Not on file 03/15/2025 Attends [employer] Not on file 03/15 Active Member [...] place to sleep or slept in a halfway (including now)? No 09/13/2024 PHQ-9 Answer Date [...] any time in the past 12 m [facility], were you homeless or living in a halfway (including now)? No 03/15/2025 CAGE ASSESSMENT Answer [...] drink first t alyssa in the morning (EYE-BENZOL STILL OPERATOR) to steady your nerves or to get rid of a hangover? 0 06/12/2024 CAGE Questionnaire Score 0 024 Utilities Answer Date Recorded In the past 12 months has th [employer], gas, oil, or water [employer] threatened to shut off services in your [...] PM EDT documented as of this encounter Plan of Treatment Upcoming Encounters Date Type Department Care Team (Late st Contact Info) Description 07/27/2025 1:30 PM EDT Office Visit [address] [phone] Aleksandr Lee MD [address] [place] [address] [address] [place] [address] 08/24/2025 2:30 PM EDT Office Visit [facility] Orthopaedic Surgery & Sports Medicine [address], [address] [place] [phone] Eliazar Simmons MD [address] [place] [address] documented as of this encounter [...] documented as of this encounter Care Teams Materials Clerk Relationship Specialty Start Date End Date Emmy Houser APRN [address] [place] [id number] PCP - General 02/07/25 Aleksandr Lee MD [address] [place] [address] [address] [place] [address] Consulting Physician Infectious Diseases 01/06/24 documented as of this encounter
--- OUTSIDE RECORDS SUMMARY | 2025-07-11 06:38 | XMS_ITS | Encounter Summary ---
Author Organization Healthcare Address [address] [place] [address] Care Team Providers Care Electronic Imager Name Role Phone Aleksandr Lee MD Unavailable Emmy Houser APRN Primary Care Provider + Encounter Details Date Type Department Care Team (Late st Contact Info) Description 06/12/2025 Telephone [facility] Orthopaedic Surgery & Sports Medicine [address], [address] [place] [address] Eliazar Simmons MD [address] [place] [address] Social History Tobacco Use Types Packs/Day Years [...] and Family Not on file 03/15/2025 Attends [employer] Not on file 03/15 Active Member [...] place to sleep or slept in a residential (including now)? No 09/13/2024 PHQ-9 Answer Date [...] any time in the past 12 m [facility], were you homeless or living in a residential (including now)? No 03/15/2025 CAGE ASSESSMENT Answer [...] drink first t alyssa in the morning (EYE-RDA) to steady your nerves or to get rid of a hangover? 0 06/12/2024 CAGE Questionnaire Score 0 024 Utilities Answer Date Recorded In the past 12 months has e electric, gas, oil, or water company [...] as of this encounter Miscellaneous Notes * Telephone Encounter - Sandra Aguirre - 06/12/2025 11:26 AM EDT Left a voicemail about appt 07/10/25 at 1030 documented in this encounter Plan of Treatment Upcoming Encounters Date Type Department Care Team (Late st Contact Info) Description 07/27/2025 1:30 PM EDT Office Visit [facility] [address] [place] [address] Aleksandr Lee MD [address] [place] [address] [address] [place] [address] 08/24/2025 2:30 PM EDT Office Visit [facility] Orthopaedic Surgery & Sports Medicine [address], [address] [place] [address] Eliazar Simmons MD [address] [place] [address] documented as of this encounter [...] documented as of this encounter Care Teams Electronic Imager Relationship Specialty Start Date End Date Emmy Houser APRN [address] [place] [address] PCP - General 02/07/25 Aleksandr Lee MD [address] [place] [address] [address] [place] [address] Consulting Physician Infectious Diseases 01/06/24 documented as of this encounter
--- OUTSIDE RECORDS SUMMARY | 2025-07-11 06:38 | XMS_ITS | Clinical Summary ---
Author Organization Healthcare Address [address] [place] [address] Care Team Providers Care Accounting Manager Controller Name Role Phone Aleksandr Lee MD Unavailable [phone] Emmy Houser APRN Primary Care Provider + Allergies Active Allergy Reactions Criticality Noted Date Comments Trazodone Other - please document in the comment field Low 03/14/2025 Dizzy drowsy and sleep hangover Also noted caused him to have ticks where he would jerk his limbs and could accidentally throw things across the room Medications * This document contains information received from the source organization and may not represent a complete record from that organization. ipratropium-albut colin (Duo-Neb) 0.5-2.5 mg/3 mL nebulizer solution Take 3 mL by nebulization every 6 (six) hours if needed for wheezing or shortness of breath. 10/19/20 24 Active cyanocobalamin (Vitamin B-12) 1000 MCG tablet Take 1 tablet (1,000 mcg) by mouth 1 (one) time each day. 10/22/20 24 Active cyclobenzaprine (Flexeril) 10 MG tablet Take 1 tablet (10 mg) by mouth 2 (two) times a day if needed for muscle spasms. 10/22/20 24 Active glimepiride (Amaryl) 2 MG tablet Take 1 tablet (2 mg) by mouth 2 (two) times a day. 10/22/20 24 Active magnesium oxide (Mag-Ox) 400 (240 Mg) MG tablet Take 1 tablet (400 mg) by mouth 1 (one) time each day. 10/22/20 Active omeprazole (PriLOSEC) [address] capsule Take 1 capsule (20 mg) by mouth 1 (one) time each day. 10/22/20 Active sildenafil (Viagra) 100 MG tablet Take 1 tablet (100 mg) by mouth 1 (one) time each day if needed for erectile dysfunction. 10/22/20 Active albuterol 108 (90 Base) MCG/ACT inhaler Inhale 2 puffs every 6 (six) hours if needed for wheezing or shortness of breath. 10/22/20 Active bisoprolol (Zebeta) 5 MG tablet Take 0.5 tablets (2.5 mg) by mouth 1 (one) time each day. 10/22/20 Active DULoxetine (Cymbalta) [address] capsule Take 1 capsule (60 mg) by mouth 1 (one) time each day. 10/22/20 Active famotidine (Pepcid) 40 MG tablet Take 1 tablet (40 mg) by mouth 2 (two) times a day. 10/22/20 Active fluticasone-salme terol (Advair Diskus) 250-50 MCG/ACT diskus inhaler Inhale 1 puff 2 (two) times a day. Rinse mouth with water after use to reduce aftertaste and incidence of candidiasis. Do not swallow. 10/22/20 Active furosemide (Lasix) 40 MG tablet Take 1 tablet (40 mg) by mouth 1 (one) time each day. 10/22/20 Active multivitamin (Theragran-M) tablet Take 1 tablet by mouth 1 (one) time each day. 10/22/20 Active pravastatin (Pravachol) 40 MG tablet Take 1 tablet (40 mg) by mouth every night. Hold while on daptomycin 10/22/20 Active rOPINIRole (Requip) 1 MG tablet Take 1 tablet by mouth in the morning and 1 tablet at noon then take 2 tablets at bedtime 10/22/20 Active gabapentin (Neurontin) 800 MG tablet Take 1 tablet (800 mg) by mouth every 6 (six) hours. 42 tablet 12/17/19 Active naloxone (Narcan) 4 mg/0.1 mL nasal spray 1. Give 1 spray in nostril for no/slow breathing or cannot wake after opioid use 2. Call 911 3. Repeat in other nostril if symptoms continue 1 each 12/17/19 25 Active Additional Information Patient not taking.Reported on 05/18/2025 mupirocin (Bactroban) 2 % ointment Apply 1 Application topically in the morning and 1 Application before bedtime. Apply to each nostril twice daily for 5 days before surgery. 15 g 02/24/20 25 Active White Petrolatum-Minera l Oil (artificial tears) ophthalmic ointment Apply 1 Application to both eyes every 2 (two) hours as needed for dry eyes. Active HYDROcodone-aceta minophen (Newbury) 10-325 MG tablet Take 1 tablet by mouth every 4 hours as needed for severe pain. 30 tablet 04/13/20 25 Active acetaminophen (Tylenol) 500 MG tablet Take 2 tablets by mouth every 6 hours. 04/13/20 25 Active senna-docusate (Natali-Colace) 8.6-50 MG tablet Take 2 tablets by mouth 2 times a day. 04/13/20 25 Active clopidogrel (Plavix) 75 MG tabletIndications :Stenosis of right carotid artery without cerebral infarction Take 1 tablet by mouth daily. 04/13/20 25 Active ferrous sulfate 324 MG tablet delayed-release Take 1 tablet by mouth every other day. Do not crush, chew, or split. 04/14/20 25 Active valsartan (Diovan) 160 MG tablet Take 1 tablet by mouth daily. 04/13/20 25 Active aspirin (Dilip Aspirin EC Low Dose) 81 MG EC tablet Take 1 tablet by mouth. Active cefepime (Maxipime) 2 g injection 05/17/20 25 Active potassium chloride CR (Klor-Con) 10 MEQ ER tablet every 12 hours. Acti ve pantoprazole (Protonix) 40 MG EC tablet Take 1 tablet by mouth daily. Active levoFLOXacin (Levaquin) 750 MG tabletIndications :Chronic osteomyelitis of right tibia (CMS/HCC),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 (CMS/HCC) Take 1 tablet by mouth daily. 30 tablet 2 05/25/20 25 Active doxycycline (Adoxa) 100 MG tabletIndications :Chronic osteomyelitis of right tibia (CMS/HCC),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 (CMS/HCC) Take 1 tablet by mouth 2 times a day. 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, right 12/09/2024 Closed disp comminuted fract ure of shaft of right tibia with nonunion 12/01/2024 Acute kidney injury 11/29/2024 Open fracture of right tibia and fibula, type I or II, with nonunion, subsequent encounter 10/14/2024 Chronic osteomyelitis of right tibia with draini ng sinus 10/06/2024 Acute osteomyelitis of right lower leg Complication of toe amputation stump 07/13/2024 Cellulitis of toe 07/06/2024 Cellulitis of great toe of right foot 06/12/2024 Spasm of back muscles 05/03/2024 Influenza A 12/23/2023 Overview (12/23/2023): Positive for influenza A 12/23; POD 2 Symptoms include cough, low grade temp (100F max) Continue to monitor while inpatient Education regarding when to seek urgent/emergent care after discharge Restless legs 12/22/2023 Overview (12/22/2023): Continue home ropinorole HLD (hyperlipidemia) 12/22/2023 Overview (12/22/2023): Continue statin Follow up PCP Smoker 12/22/2023 Overview (12/22/2023): Admits to smoking 1 pack per 3 days Complicates all aspects of care and recovery Tobacco cessation education and counseling provided Postoperative pain 12/22/2023 Overview (12/22/2023): Continue oxycodone Hold home Newbury Continue acetaminophen 1 g q6h Continue methocarbamol 500 mg TID PRN Anemia 12/22/2023 Overview (12/22/2023): H/H = Secondary to acute blood loss from surgery Hemodynamically stable Continue serial lab assessment. May require iron, folate, B12 supplementation as appropriate. Transfuse as appropriate to target hgb > 7 Stenosis of right carotid ar paige without cerebral infarction 01/30/2023 Overview (12/23/2023): Carotid duplex: September 2023 Right: Severe, irregular, calcific and homogenous plaque is demonstrated in the proximal ICA. Flow is present in the CCA, ICA, and ECA. ICA velocities are elevated and turbulent with an ICA/CCA ratio of 4.9 demonstrating evidence of a hemodynamically significant stenosis (>70%). Patient s/p elective right TCAR on 12/21/[address] Covington Continue ASA and Plavix Continue statin Right neck incision and left groin perc surgical site: Wash with soap and water daily. Pat to dry. Keep wound dry. Do not place any creams/ ointments/ oils/ lotions on surgical incisions. No heavy lifting >10 lbs x 2 weeks Please shower daily. No tub baths, do not submerge incisions in water Follow up with Dr Covington in 1 month with carotid duplex Pain of right tibia 02/19/2022 Overview (02/19/2022): Added automatically from request for surgery [id number] Diabetes mellitus, type 2 01/31/2022 Overview (12/23/2023): A1c 6.4 > 1 year ago A1c 12/22/23 pending SSI while inpatient if necessary Plan to resume glimepiride PO at discharge and follow up with PCP CHF (congestive heart failure) 01/31/2022 Overview (12/23/2023): (hx Alcoholic cardiomyopathy s/p AICD, [place], PCI x 2 in 2017) ECHO 11/2022 (media): Biatrial enlargement, normal left ventricular size, estimated EF 50% with no regional wall motion abnormalities. Grade 1 diastolic dysfunction. Mild enlarged right ventricle with normal contractility. Trace mitral and tricuspid regurgitation. No pericardial effusion. Continue home bisoprolol 2.5 mg BID, continue home Entresto, continue home digoxin, continue home ASA and PLAVIX POD 2 resume furosemide 40 mg PO daily Follow up with racecourse barrier attendant CAD (coronary artery disease) 01/31/2022 Overview (12/23/2023): Hx CAD s/p coronary stent x2 in 11/2016, On ASA, plavix), (hx Alcoholic cardiomyopathy s/p AICD. last echo 11/2022 with EF 50%.), hyperlipidemia, pacemaker (Abbjosephine AICD, placed 2017. No fires. Generator change 12/09/2023, last interrogated early 12/09/2023 at Cardiology office (in media).) and past [place]. ECHO 11/2022 (media): Biatrial enlargement, normal left ventricular size, estimated EF 50% with no regional wall motion abnormalities. Grade 1 diastolic dysfunction. Mild enlarged right ventricle with normal contractility. Trace mitral and tricuspid regurgitation. No pericardial effusion. Continue home bisoprolol 2.5 mg BID, continue home Entresto, continue home digoxin, continue home ASA and PLAVIX Resumed home furosemide 40 mg daily Follow up with racecourse barrier attendant Atrial fibrillation 01/31/2022 Overview (12/23/2023): Hx AFIB 100 % V paced this admission Continue home bisoprolol and follow up with home racecourse barrier attendant Pacemaker 01/31/2022 Overview (12/23/2023): ( AICD, placed 2017. No fires. Generator change 12/09/2023, last interrogated early 12/09/2023 at Cardiology office (in media). HTN (hypertension) 01/31/2022 Overview (12/23/2023): SBP goal <140 s/p right TCAR Continue home bisoprolol 2.5 mg BID, continue home Entresto, continue home digoxin, continue home ASA and PLAVIX Resumed furosemide 40 mg daily (home dose) on POD 2 Follow up with racecourse barrier attendant [place] (myocardial infarction) 01/31/2022 Overview (12/22/2023): See CAD Chronic obstructive pulmonary disease 01/31/2022 Overview (12/23/2023): No recent PFTs, per medical chart review, patient with hx COPD SPO2 appropriate on room air Hold home advair diskus Continue Dulera inhaler Antiplatelet or antithrombotic long-term use 09/2022 Overview (12/22/2023): Continue ASA and Plavix at discharge Follow up with Dr Covington in Vascular Clinic Alcoholic cardiomyopathy 01/31/2022 Overview (12/22/2023): See CHF Chronic osteomyelit w draining sinus, unsp tibia and fibula 01/30/2022 Overview (12/22/2023): History of right tibia traumatic fracture, now with chronic osteo s/p Ortho procedure 10/06/2023 Removal of deep implant (medullary nail) 2. Removal of drug implant device (cement spacer) 3. Saucerization and diaphysectomy of tibia for chronic osteomyelitis Surgeons: * Bryon Kumar - Primary ID following patient with October 2023 visit recs including: - completed Daptomycin 1000 mg q 24 hrs for 6 weeks from 10/06/23-11/20/23 - start Doxycycline 100 mg po bid for atleast 6 weeks and will re-evaluate given the mind ongoing drainage from - follow back on 01/06/24. Aleksandr Aragon MD Rheumatoid arthritis 10/11/2021 Overview (12/23/2023): Per medical chart review Diabetic peripheral neuropathy 05/21/2020 Overview (12/23/2023): Continue home gabapentin See T2DM Alcoholism 10/26/2017 Overview (12/22/2023): History of per medical chart review No c/f alcohol withdrawals postoperatively Continue to montior Resolved Problems Problem Noted Date Diagnosed Date Resolved Date Abnormal cardiovascular stress test 12/22/2023 12/22/2023 Osteomyelitis of right ankle 12/22/2023 12/22/2023 Atrial flutter, paroxysmal 12/22/2023 0 12/22/2023 Open fracture of shaft of fi bula with tibia, right, type I or II, with nonunion, subsequent encounter 10/06/2023 12/22/2023 Infection and inflammatory r eaction due to internal fixation device of right tibia, initial encounter 10/06/2023 12/22/2023 Open fracture of right tibia and fibula, type I or II, with nonunion, subsequent encounter 09/16/2023 12/23/2023 Overview (12/22/2023): Per medical chart review, patient with history of open fx right tibia and fibula Occlusion and stenosis of ri ght carotid artery 01/30/2023 12/22/2023 Atherosclerosis of coronary artery without angina pectoris 08/07/2022 12/22/2023 Thyroid antibody positive 06/16/2022 Chronic fatigue 06/16/2022 12/22/2023 Dry mouth 06/16/2022 12/22/2023 Pharyngoesophageal dysphagia 06/16/2022 12/22/2023 Anastacia's disease 06/16/2022 12/23/19 24 Sleep disturbance 06/16/2022 12/22/2023 Nocturia 06/16/2022 12/22/2023 Chronic renal insufficiency 01/31/2022 12/22/2023 Fair tolerance for activity 01/31/2022 12/22/2023 Acute osteomyelitis of tibia 01/15/2022 12/22/2023 Overview (01/15/2022): Added automatically from request for surgery [id number] Hardware complicating wound infection 10/31/2020 12/22/2023 Chronic ulcer of toe of left foot with necrosis of muscle 08/20/2020 12/22/2023 Tibia/fibula fracture 07/27/20202023 Open wound of foot excluding toes without complication, left, initial encounter 07/02/2020 Acute osteomyelitis involvin g ankle and foot, right 06/04/2020 12/22/2023 Diabetic foot ulcer 05/21/2020 12/22/19 24 Chronic foot ulcer 05/21/2020 Pulmonary hypertension 10/26/201712/22 Encounters Date Type Department Care Team Description 06/22/2025 1:30 PM EDT Office Visit [address] [address] Aleksandr Lee MD Chronic osteomyelitis of right tibia (CMS/HCC) (Primary Dx) 06/22/2025 Travel 06/12/2025 Telephone [facility] Orthopaedic Surgery & Sports Medicine [address] [place] [address] Eliazar Simmons MD 05/25/2025 1:00 PM EDT Office Visit [address] [address] Aleksandr Lee MD Chronic osteomyelitis of right tibia (CMS/HCC) (Primary Dx); 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 (CMS/HCC) 05/25/2025 Travel 05/22/2025 Clinical Support [address] [address] Ugo Santiago, PharmD 05/18/2025 8:50 AM EDT Office Visit [facility] Orthopaedic Surgery & Sports Medicine [address] [place] [address] Eliazar Simmons MD 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 (Primary Dx) 05/18/2025 8:16 AM EDT - 05/18/2025 11:59 PM EDT Hospital Encounter [facility] Radiology [address] [place] [address] 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 Discharge Disposition: Home or Self Care 05/18/2025 Travel 05/05/2025 Clinical Support [address] [address] Ugo Santiago, PharmD 04/27/2025 Clinical [place] [address] Ugo Santiago, PharmD Chronic osteomyelitis of right tibia ([facility]/HCC) (Primary Dx); 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, right 04/27/2025 [place] [address] Johanna Richard, RN 04/26/2025 [place] [address] Johanna Richard, RN 04/26/[address] [address] Smita Trivedi RN 04/25/[address] [address] Smita Trivedi RN 04/21/2025 Telephone [facility] Orthopaedic Surgery & Sports Medicine [address] [place] [address] Eliazar Simmons MD [facility] Status Update Call #2 04/20/2025 1:30 PM EDT Office Visit [address] [address] Aleksandr Lee MD 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 ([facility]/HCC) (Primary Dx); Chronic osteomyelitis of right tibia (CMS/HCC) 04/20/2025 Travel 04/19/2025 11:50 AM EDT Office Visit [facility] Orthopaedic Surgery & Sports Medicine [address] [place] [address] Flor Ram PA 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 (Primary Dx) 04/19/2025 Travel 04/14/2025 Clinical Support [address] [place] [address] Lindsay Rome, PharmD 04/10/2025 Travel 03/10/2025 7:26 AM EDT - 04/13/2025 11:43 AM EDT Hospital Encounter [facility] [address] [place] [address] Eliazar Simmons MD 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, right (Primary Dx); 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; Stenosis of right carotid artery without cerebral infarction Discharge Disposition: [facility] from Last 3 Months Immunizations Immunization Administration Dates Next Due Influenza, injectable, quadrivalent 09/08/2023,1 12/11/2020,08/23/2018 Influenza, injectable, quadr ivalent, preservative free 09/30/2020,09/05/2019 Influenza, seasonal, injectable 12/22/2024 Moderna COVID-19 Vaccine (Re d Cap) 12+ years 03/07/2021,02/07/2021 Pneumococcal Conjugate PCV 13 03/02/2018 Pneumococcal Polysaccharide PPV23 09/05/2019 Tdap 03/02/2018 Family History Medical History Relation Name Comments Alcohol abuse Brother NA Arthritis Brother NA defects Brother NA Diabetes Brother NA Heart disease Brother NA MRSA Brother NA Recurrent Infections Brother NA Vision loss Brother NA Diabetes Father NA Hearing loss Father NA Heart disease Father NA Vision loss Father NA Conversions - Other Mother NA cardiac pacemaker Diabetes Mother NA Diabetes type II Mother NA Hearing loss Mother NA Vision loss Mother NA Cancer Sister NA Depression Sister NA Diabetes Sister NA Hearing loss Sister NA Kidney disease Sister NA Miscarriages / Stillbirths Sister NA Obesity Sister NA Skin Infections Sister NA Stroke Sister NA Vision loss Sister NA Anesthesia problems Neg Hx Malig Hyperthermia Neg Hx Relation Name Status Comments Brother NA Father NA Mother NA Sister NA Social History Tobacco Use Types Packs/Day Years Used Date Smoking Tobacco: Some Days Cigarettes 0.3 30 Last attempted to quit: 11/23/2017 Passive Smoke Exposure: Past Smokeless Tobacco: Never Tobacco Cessation:Ready to Q uit: Not Asked; Counseling Given: Not Answered Comments:1 pack every 4 days Alcohol Use [...] and Family Not on file 03/15/2025 Attends [employer] Services Not on file 03/15 Active Member [...] place to sleep or slept in a penitentiary (including now)? No 09/13/2024 PHQ-9 Answer Date [...] were you homeless or living in a penitentiary (including now)? No 03/15/2025 CAGE ASSESSMENT Answer [...] drink first t alyssa in the morning ([employer]ER) to steady your nerves or to get [...] Orientation Straight 09/07/2022 10 :00 PM EDT Last Filed Vital Signs Vital Sign Reading Time Taken Comments Blood Pressure 106/67 05/25/2025 12:43 PM EDT Pulse 75 05/25/2025 12:43 PM EDT Temperature 36.6 C (97.9 F) 05/25/2025 12:43 PM EDT Respiratory Rate 18 04/13/2025 8:50 AM EDT Oxygen Saturation 97% 05/25/2025 12:43 PM EDT Inhaled Oxygen Concentration - - Weight 101 kg (222 lb 3.6 oz) 05/25/2025 12:43 P M EDT Height 182.9 cm (6') 05/25/2025 12:43 PM EDT Body Mass Index 30.14 05/25/2025 12:43 PM EDT Plan of Treatment Upcoming Encounters Date Type Department Care Team (Late st Contact Info) Description 07/27/2025 1:30 PM EDT Office Visit [facility] [address] [place] [address] Aleksandr Lee MD [address] [facility] [address] [place] [address] 08/24/2025 2:30 PM EDT Office Visit [facility] Orthopaedic Surgery & Sports Medicine [address] [place] [address] Eliazar Simmons MD [address] [place] [address] Health Maintenance Due Date Last Done Comments [facility]-Medicare Annual Wellness (AWV) 1965 [facility]-/Child/Adol SDOH Screenings 1965 Diabetes: Dental Exam 1974 [facility]-Zoster Vaccines (1 of 2) 2014 [id number] Vaccine ( season) 2024 03/20/2022, 03/07/2021, 02/07/2021 [facility]-Pneumococcal Vaccine: 50+ Years (3 of 3 - PCV20 or PCV21) 09/05/2024 09/05/2019, 03/02/2018 [facility]-RSV Vaccine: 60+ Years or (1 - Risk 60-74 years 1-dose series) 2024 [facility]-Influenza Vaccine (#1) 07/24/202512/22, 09/08/2023, 10/11/2021, Additional history exists [facility]- SDOH Screenings 09/14/2025 [facility]-Adult SDOH Screenings 09/14/2025 03/15/2025 [facility]-Diabetes: Hemoglobin A1C 09/25/2025 03/28/2025, 09/15/2024, 06/12/2024, Additional history exists [facility]-Depression Screening 05/25/2026 025, 04/20/2025, 04/20/2025, Additional history exists [facility]-DTaP,Tdap,and Td Vaccines (2 - Td or Tdap) 03/02/2028 03/02/2018 [facility]-HIV Screening Completed 06/11/2024 [facility]-Hepatitis C Screening Completed 06/11/2024 [facility]-Obesity Intervention Completed 025, 05/25/2025, 05/22/2025, Additional history exists HPV Vaccines Aged Out No longer eligi ble based on patient's age to complete this topic [facility]-HIB Vaccines Aged Out No longer e ligible based on patient's age to complete this topic [facility]-Hepatitis A Vaccines Aged Out No longer eligible based on patient's age to complete this topic [facility]-IPV Vaccines Aged Out No longer e ligible based on patient's age to complete this topic [facility]-Rotavirus Vaccines Aged Out No lo nger eligible based on patient's age to complete this topic Medical Devices Implanted Type Area Fulfillment Associate Device Identifier Shelf Expiration Date Model / Serial / Lot Cable Iliamyrov 1.8 X 1200mm - [id number] Implanted:Qty: 1 on 12/09/2024 by Eliazar Simmons MD at [facility] Cable Right: [id number] 12/09/2025 [id number] / / Cement Bone Simplex - [id number] Implanted:Qty: 2 on 02/04/2022 by Bryon Kumar MD at [facility] Cement [place] [facility]169658 05/22/2024 6191-1-010 / / [id number] Description:Given to sterile field with 160mg/4mL gentamycin, 2.4 g Tobramycin and 4 g Vancomycin methylene blue to make cement antibiotic beads and Given to sterile field with 160mg/4mL gentamycin, 2.4 g Tobramycin and 4 g Vancomycin and methylene blue to make an antibiotic coated jhon Cement Bone Simplex - [id number] Implanted:Qty: 3 on 02/04/2022 by Bryon Kumar MD at [facility] Cement [id number] 01/21/2024 6191-1-010 / / [id number] Description:Given to sterile field with 160mg/4mL gentamycin, 2.4 g Tobramycin and 4 g Vancomycin methylene blue to make cement antibiotic beads and Given to sterile field with 160mg/4mL gentamycin, 2.4 g Tobramycin and 4 g Vancomycin and methylene blue to make an antibiotic coated jhon Cement With Tobramycin - [id number] Implanted:Qty: 1 on 02/04/2022 by Bryon Kumar MD at [facility] Cement [place] [id number] 03/22/2023 [id number] / / [id number] Description:Given to sterile field with 160mg/4mL gentamycin, 2.4 g Tobramycin and 4 g Vancomycin methylene blue to make cement antibiotic beads and Given to sterile field with 160mg/4mL gentamycin, 2.4 g Tobramycin and 4 g Vancomycin and methylene blue to make an antibiotic coated jhon Cement With Tobramycin - [id number] Implanted:Qty: 1 on 02/04/2022 by Bryon Kumar MD at [facility] Cement [id number] 04/22/2023 [id number] / / [id number] Description:Given to sterile field with 160mg/4mL gentamycin, 2.4 g Tobramycin and 4 g Vancomycin methylene blue to make cement antibiotic beads AND Given to sterile field with 160mg/4mL gentamycin, 2.4 g Tobramycin and 4 g Vancomycin and methylene blue to make an antibiotic coated jhon Synthecure Synthetic Calcium Sulfate 10cc - S. - [id number] Implanted:Qty: 2 on 10/06/2023 by Bryon Kumar MD at [facility] Cement Right: Leg [facility]-[id number] 07/07/2025 50-010 / . / [id number] Synthecure Synthetic Calcium Sulfate 10cc - [id number] Implanted:Qty: 1 on 04/07/2025 by Eliazar Simmons MD at [facility] Cement Right: Tibia De[employer] [facility]-[id number] 10/31/2027 50-010 / / [id number] Synthecure Synthetic Calcium Sulfate 10cc - [id number] Implanted:Qty: 1 on 04/07/2025 by Eliazar Simmons MD at [facility] Cement Right: Tibia DeYapa [facility]-[id number] 12/28/2027 50-010 / / [id number] Synthecure Synthetic Calcium Sulfate 10cc - [id number] Implanted:Qty: 1 on 04/07/2025 by Eliazar Simmons MD at [facility] Cement Right: Tibia DeYapa [facility]-614507 08/10/2026 50-010 / / [id number] Pellets, 2 Bead 25cc - [id number] Implanted:Qty: 1 on 02/04/2022 by Bryon Kumar MD at [facility] Implant Semetric-1 85945 10/14/2029 6692-1040 / / [id number] Pellets, 2 Bead 25cc - [id number] Implanted:Qty: 1 on 02/04/2022 by Bryon Kumar MD at [facility] Implant Semetric-1 55441 02/25/2029 6043-6090 / / [id number] Pellets, 2 Bead 25cc - [id number] Implanted:Qty: 1 on 02/04/2022 by Bryon Kumar MD at [facility] Implantable Loop Recorder Semetric-1 63562 01/15/2029 9846-3293 / / [id number] Nail 10mm Ti Saul Tbl Ex W/Prx Bnd 360mm - [id number] Implanted:Qty: 1 on 02/25/2022 by Bryon Kumar MD at [facility] Nail Right: Tibia [employer] [facility]-487920 2030 04.034.452 S / / [id number] Icd Implanted:12/02 (Quantity not on file) Pacemaker Left: Chest [employer] [id number] / / Description:Generator: CDHFA 500Q (Implanted on 12/02/2023) RA Lead: [id number] (All leads implanted on 12/11/2017) RV Lead: [id number] LV Lead: [id number] Per Rep - 1.5T Full Body Conditional Pin, Tip Threaded Guide - [id number] Implanted:Qty: 1 on 02/04/2022 by Bryon Kumar MD at [facility] Pin [employer]-261034 12/13/2031 [id number] / / [id number] Pin Twisted 65 X 150mm - [id number] Implanted:Qty: 1 on 03/10/2025 by Eliazar Simmons MD at [facility] Pin [employer] 06/18/2032 [id number] / / Pin Twisted 65 X 150mm - [id number] Implanted:Qty: 1 on 03/10/2025 by Eliazar Simmons MD at [facility] Pin [employer] 03/10/2026 [id number] / / Jhon X-Fix Circ Thrd 350mm - [id number] Implanted:Qty: 5 on 12/09/2024 by Eliazar Simmons MD at [facility] Jhon Right: Tibia [employer]-397189 12/09/2025 [id number] / / Screw 5.0mm Ti T25 Star Lock For Im Nail 46mm - [id number] Implanted:Qty: 3 on 02/25/2022 by Bryon Kumar MD at [facility] Screw Right: Tibia [employer] [facility]-568755 02/25/2023 04.005.536 / / Screw 5.0mm Ti T25 Star Lock For Im Nail 50mm - [id number] Implanted:Qty: 1 on 02/25/2022 by Bryon Kumar MD at [facility] Screw Right: Tibia [employer]-081053 02/25/2023 04.005.540 / / Screw 5.0mm Ti T25 Star Lock For Im Nail 62mm - [id number] Implanted:Qty: 1 on 02/25/2022 by Bryon Kumar MD at [facility] Screw Right: Tibia [employer] [facility]-528965 02/25/2023 04.005.552 / / Screw 5.0mm Ti T25 Star Lock For Im Nail 54mm - [id number] Implanted:Qty: 1 on 02/25/2022 by Bryon Kumar MD at [facility] Screw Right: Tibia [employer] [facility]-545164 02/25/2023 04.005.544 / / Screw 5.0mm Ti Dual Core Lock 75mm - [id number] Implanted:Qty: 2 on 02/25/2022 by Bryon Kumar MD at [facility] Screw Right: Tibia [employer] [facility]-358385 02/25/2023 04.015.565 / / Screw Trigen 5.0mm Internal Capture 35mm - [id number] Implanted:Qty: 1 on 12/09/2024 by Eliazar Simmons MD at [facility] Screw Right: Tibia [employer]-351139 09/15/2033 [id number] / / Screw Trigen 5.0mm Internal Capture 60mm - [id number] Implanted:Qty: 1 on 04/07/2025 by Eliazar Simmons MD at [facility] Screw Right: Tibia [employer]-723471 05/15/2034 [id number] / / [id number] Screw Trigen 5.0mm Internal Capture 60mm - [id number] Implanted:Qty: 1 on 04/07/2025 by Eliazar Simmons MD at [facility] Screw Right: Tibia [employer]-432779 10/20/2033 [id number] / / [id number] Screw Cortex 3.5mm 34mm Implanted:Qty: 1 on 04/07/2025 by Eliazar Simmons MD at [facility] Screw Right: Tibia [employer] 04/07/2026 204.034 / / Screw Trigen 5.0mm For Metanail 52.5mm - [id number] Implanted:Qty: 1 on 04/07/2025 by Eliazar Simmons MD at [facility] Screw Right: Tibia [employer]-027839 07/27/2032 [id number] / / [id number] Screw Trigen 5.0mm Internal Capture 70mm - [id number] Implanted:Qty: 1 on 04/07/2025 by Eliazar Simmons MD at [facility] Screw Right: Tibia [employer]-378822 07/03/2034 [id number] / / [id number] Screw Trigen 5.0mm Internal Capture 55mm - [id number] Implanted:Qty: 1 on 04/07/2025 by Eliazar Simmons MD at [facility] Screw Right: Tibia [employer]-928309 06/28/2034 [id number] / / [id number] Wire X-Fix Cmp 1.5mm X 300mm - [id number] Implanted:Qty: 4 on 04/07/2025 by Eliazar Simmons MD at [facility] Wire Right: Tibia [employer]-299463 04/07/2026 459311 / / Wire X-Fix Cmp With Stop 1.5mm X 300mm - [id number] Implanted:Qty: 2 on 04/07/2025 by Eliazar Simmons MD at [facility] Wire Right: Tibia [employer]-482078 04/07/2026 784681 / / Cement Bone Simplex - [id number] Implanted:Qty: 1 on 02/25/2022 by Bryon Kumar MD at [facility] Right: Tibia [facility] [place]-564606 04/22/2024 6191-1-010 / / [id number] Cement With Tobramycin - [id number] Implanted:Qty: 1 on 02/25/2022 by Bryon Kumar MD at [facility] Right: Tibia [facility] [place]-996260 05/22/2023 [id number] / / [id number] Cement With Tobramycin - [id number] Implanted:Qty: 1 on 02/25/2022 by Bryon Kumar MD at [facility] Right: Tibia [facility] [place]-396578 05/22/2023 [id number] / / [id number] Pin, Tip Threaded Guide - [id number] Implanted:Qty: 1 on 02/25/2022 by Bryon Kumar MD at [facility] Right: Tibia [employer]-086204 12/05/2031 [id number] / / [id number] Stent Transcarotid System 9mm X 40mm - [id number] Implanted:Qty: 1 on 12/21/2023 by Mio Covington MD at [facility] [employer] [facility]-423960 05/22/2026 -0940-CS / / [id number] Pin 0h456is Blunt - [id number] Implanted:Qty: 4 on 10/14/2024 by Eliazar Simmons MD at [facility] [employer] ([employer])-13 9168 5020-3-150 / / Synthecure Synthetic Calcium Sulfate 10cc - [id number] Implanted:Qty: 3 on 10/14/2024 by Eliazar Simmons MD at [facility] [employer] [facility]753012 08/10/2026 50-010 / / Cement With Tobramycin - [id number] Implanted:Qty: 1 on 10/14/2024 by Eliazar Simmons MD at [facility] [employer] [place] [facility]967627 02/20/2025 [id number] / / [id number] Synthecure Synthetic Calcium Sulfate 10cc - [id number] Implanted:Qty: 1 on 12/09/2024 by Eliazar Simmons MD at [facility] Right: Tibia DeYapa [facility]-781044 08/10/2026 50-010 / / [id number] Cap Half Pin 6mm - [id number] Implanted:Qty: 12 on 12/09/2024 by Eliazar Simmons MD at [facility] Right: Tibia [employer]-336820 [id number] / / Sponge Ilizarov - S. - [id number] Implanted:Qty: 60 on 12/09/2024 by Eliazar Simmons MD at [facility] Right: Tibia [employer]-120083 [id number] / . / Pin Twisted 65 X 150mm - [id number] Implanted:Qty: 3 on 12/09/2024 by Eliazar Simmons MD at [facility] Right: Tibia [employer]-822742 07/13/2029 [id number] / / Jhon X-Fix Circ Thrd 400mm - [id number] Implanted:Qty: 2 on 12/09/2024 by Eliazar Simmons MD at [facility] Right: Tibia [employer]-170294 [id number] / / Hinge X-Fix Cmp Hi Prof Circ - [id number] Implanted:Qty: 2 on 12/09/2024 by Eliazar Simmons MD at [facility] Right: Tibia [employer]-167933 585248 / / Plate Conn Sh 3h 45mm - [id number] Implanted:Qty: 2 on 12/09/2024 by Eliazar Simmons MD at [facility] Right: Tibia [employer]-155973 993751 / / Pully Ilizarov 20mm - [id number] Implanted:Qty: 2 on 12/09/2024 by Eliazar Simmons MD at [facility] Right: Tibia [employer]-633498 12/09/2025 [id number] / / Post Male 2 Hole - [id number] Implanted:Qty: 2 on 12/09/2024 by Eliazar Simmons MD at [facility] Right: Tibia [employer]-755412 557053 / / Ring 2/3 Smart Tsf 180mm Blue - [id number] Implanted:Qty: 1 on 12/09/2024 by Eliazar Simmons MD at [facility] Right: Tibia [employer]-782789 12/09/2025 [id number] / / Ring Full Smart Tsf 180mm Blue - [id number] Implanted:Qty: 3 on 12/09/2024 by Eliazar Simmons MD at [facility] Right: Tibia [employer] [facility]-824408 [id number] / / Wire X-Fix Cmp 1.8mm X 370mm - [id number] Implanted:Qty: 4 on 12/09/2024 by Eliazar Simmons MD at [facility] [employer] [facility]773277 523897 / / Wire With Stopper 1.8mm X 400mm - [id number] Implanted:Qty: 2 on 12/09/2024 by Eliazar Simmons MD at [facility] [employer] [facility]874986 991551 / / Washer Slot 4mm - [id number] Implanted:Qty: 2 on 12/09/2024 by Eliazar Simmons MD at [facility] [employer] [facility]711630 [id number] / / Washer Fix Paradise 2mm - [id number] Implanted:Qty: 2 on 12/09/2024 by Eliazar Simmons MD at [facility] [employer] [facility]980409 976300 / / Strut Smart Tsf Long Transport 0-108mm - [id number] Implanted:Qty: 2 on 12/09/2024 by Eliazar Simmons MD at [facility] [employer] [facility]128493 [id number] / / Sleeve Centering 6mm - [id number] Implanted:Qty: 3 on 12/09/2024 by Eliazar Simmons MD at [facility] [employer]ke[employer] [facility]613192 295755 / / Nut 6 X 10mm - [id number] Implanted:Qty: 50 on 12/09/2024 by Eliazar Simmons MD at [facility] [employer] [facility]510618 564138 / / Cube Cmpnt Rancho Sys 3h - [id number] Implanted:Qty: 1 on 12/09/2024 by Eliazar Simmons MD at [facility] - [id number] 691159 / / Cube Cmpnt Rancho Sys 2h - [id number] Implanted:Qty: 3 on 12/09/2024 by Eliazar Simmons MD at [facility] - [id number] 950599 / / Paradise X-Fix Wire Circ Slotted - [id number] Implanted:Qty: 7 on 12/09/2024 by Eliazar Simmons MD at [facility] - Powell786938 077034 / / Paradise X-Fix Conctn 20mm - [id number] Implanted:Qty: 4 on 12/09/2024 by Eliazar Simmons MD at [facility] - [id number] 430529 / / Paradise X-Fix Circ 16mm - [id number] Implanted:Qty: 7 on 12/09/2024 by Eliazar Simmons MD at [facility] - [id number] / / Paradise Tsf Smart Wire Combi Slot/Saul 5/Pk - [id number] Implanted:Qty: 4 on 12/09/2024 by Eliazar Simmons MD at [facility] - [id number] / / Paradise Conctn 8mm - [id number] Implanted:Qty: 4 on 12/09/2024 by Eliazar Simmons MD at [facility] - [id number] 269429 / / Ankle Foot Iliz Paradise 30mm - [id number] Implanted:Qty: 4 on 12/09/2024 by Eliazar Simmons MD at [facility] - [id number] / / Ankle Foot Iliz Paradise 10mm Nylon Ins - [id number] Implanted:Qty: 2 on 12/09/2024 by Eliazar Simmons MD at [facility] - [id number] 034072 / / Washer Star Paradise - [id number] Implanted:Qty: 2 on 12/09/2024 by Eliazar Simmons MD at [facility] Right: Tibia [employer]ancock [employer]-554044 051769 / / Washer Split Lock 2mm - [id number] Implanted:Qty: 2 on 12/09/2024 by Eliazar Simmons MD at [facility] Right: Tibia [employer]ancock [employer] Ne[employer]Star[employer] Inc-938092 371098 / / Pin Half Fixation Paradise 6 Mm - [id number] Implanted:Qty: 1 on 12/09/2024 by Eliazar Simmons MD at [facility] Right: Tibia Hancock [employer] Inc-213448 12/07/2025 [id number] / / Synthecure Synthetic Calcium Sulfate 10cc - [id number] Implanted:Qty: 1 on 03/10/2025 by Eliazar Simmons MD at [facility] [employer]-010746 10/31/2027 50-010 / / Pin Twisted 65 X 150mm - [id number] Implanted:Qty: 1 on 03/10/2025 by Eliazar Simmons MD at [facility] 08/21/2031 [id number] / / Nut 6 X 10mm - [id number] Implanted:Qty: 10 on 03/10/2025 by Eliazar Simmons MD at [facility] & [employer] [facility]-486781 03/10/2026 [id number] / / Paradise Conctn 8mm - [id number] Implanted:Qty: 3 on 03/10/2025 by Eliazar Simmons MD at [facility] [employer] [facility]-483231 03/10/2026 535180 / / Paradise X-Fix Wire Circ Slotted - [id number] Implanted:Qty: 4 on 03/10/2025 by Eliazar Simmons MD at [facility] [employer] Fritz [facility]-298605 03/10/2026 521925 / / Wire X-Fix Cmp 1.8mm X 370mm - [id number] Implanted:Qty: 2 on 03/10/2025 by Eliazar Simmons MD at [facility] [employer]-758555 03/10/2026 368139 / / Wire With Stopper 1.8mm X 400mm - [id number] Implanted:Qty: 1 on 03/10/2025 by Eliazar Simmons MD at [facility] [employer]-570159 03/10/2026 610449 / / Cube Cmpnt Rancho Sys 3h - [id number] Implanted:Qty: 1 on 03/10/2025 by Eliazar Simmons MD at [facility] [employer]-861362 03/10/2026 933948 / / Cube Twisted 1w 1hole - [id number] Implanted:Qty: 1 on 03/10/2025 by Eliazar Simmons MD at [facility] [employer]-076603 03/10/2026 [id number] / / Cube Twisted 2w 2hole - [id number] Implanted:Qty: 1 on 03/10/2025 by Eliazar Simmons MD at [facility] [employer]-091084 03/10/2026 [id number] / / Cap Half Pin 6mm - [id number] Implanted:Qty: 12 on 03/10/2025 by Eliazar Simmons MD at [facility] [employer]-946546 03/10/2026 [id number] / / Sleeve Centering 6mm - [id number] Implanted:Qty: 3 on 03/10/2025 by Eliazar Simmons MD at [facility] [employer]-719918 03/10/2026 772292 / / Christiana-Nail Tibial 10mm X 35cm - [id number] Implanted:Qty: 1 on 04/07/2025 by Eliazar Simmons MD at [facility] Right: Tibia [employer]ancock & [employer]-639735 10/03/2032 [id number] / / [id number] Paradise X-Fix Wire Circ Slotted - [id number] Implanted:Qty: 8 on 04/07/2025 by Eliazar Simmons MD at [facility] Right: Tibia [employer]-155704 [id number] / / Paradise Tsf Smart Wire Combi Slot/Saul 5/Pk - [id number] Implanted:Qty: 1 on 04/07/2025 by Eliazar Simmons MD at [facility] Right: Tibia [employer]-713182 [id number] / / Nut 6 X 10mm - [id number] Implanted:Qty: 8 on 04/07/2025 by Eliazar Simmons MD at [facility] Right: Tibia [employer]-913251 449397 / / Post Male 2 Hole - [id number] Implanted:Qty: 1 on 04/07/2025 by Eliazar Simmons MD at [facility] Right: Tibia [employer]-809613 573419 / / Pin Fixation Threaded Post X-Fix Cmp Circ 3h - [id number] Implanted:Qty: 1 on 04/07/2025 by Elaizar Simmons MD at [facility] Right: Tibia [employer]-563582 800133 / / Procedures Procedure Name Priority Date/Time Associated Diagnosis Comments DISCONTINUE PICC Routine 05/25/2025 1:36 PM EDT Chronic osteomyelitis of right tibia (CMS/HCC) 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 (CMS/HCC) PICC REMOVAL (CLINIC-PERFORMED) Routine 05/25/2025 1:20 PM EDT Chronic osteomyelitis of right tibia (CMS/HCC) 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 (CMS/HCC) C-REACTIVE PROTEIN, PLASMA Routine 05/25/2025 1:14 PM EDT Chronic osteomyelitis of right tibia (CMS/HCC) 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 (CMS/HCC) HEPATIC FUNCTION PANEL Routine 05/22/2025 CK Routine 05/22/2025 CBC WITH AUTO DIFFERENTIAL Routine 05/22/2025 C-REACTIVE PROTEIN, PLASMA Routine 05/22/2025 UREA NITROGEN, PLASMA Routine 05/22/2025 CREATININE, PLASMA Routine 05/22/2025 XR TIBIA FIBULA RIGHT 2+ VIEWS Routine 05/18/2025 8:36 AM EDT 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 CK Routine 05/15/2025 CBC WITH AUTO DIFFERENTIAL Routine 05/15/2025 C-REACTIVE PROTEIN, PLASMA Routine 05/15/2025 UREA NITROGEN, PLASMA Routine 05/15/2025 CREATININE, PLASMA Routine 05/15/2025 CK Routine 05/08/2025 CBC WITH AUTO DIFFERENTIAL Routine 05/08/2025 C-REACTIVE PROTEIN, PLASMA Routine 05/08/2025 UREA NITROGEN, PLASMA Routine 05/08/2025 CREATININE, PLASMA Routine 05/08/2025 CK Routine 05/01/2025 COMPREHENSIVE METABOLIC PANEL, PLASMA Routine 05/01/2025 C-REACTIVE PROTEIN, PLASMA Routine 05/01/2025 CBC WITH AUTO DIFFERENTIAL Routine 05/01/2025 CK Routine 05/01/2025 CBC WITH AUTO DIFFERENTIAL Routine 05/01/2025 C-REACTIVE PROTEIN, PLASMA Routine 05/01/2025 UREA NITROGEN, PLASMA Routine 05/01/2025 CREATININE, PLASMA Routine 05/01/2025 HEPATIC FUNCTION PANEL Routine 05/01/2025 CK Routine 04/18/2025 CBC WITH AUTO DIFFERENTIAL Routine 04/18/2025 C-REACTIVE PROTEIN, PLASMA Routine 04/18/2025 UREA NITROGEN, PLASMA Routine 04/18/2025 CREATININE, PLASMA Routine 04/18/2025 HEPATIC FUNCTION PANEL Routine 04/18/2025 POCT GLUCOSE METER UNSOLICITED RESULTS Routine 04/13/2025 8:46 AM EDT C-REACTIVE PROTEIN, PLASMA Timed 04/13/2025 2:09 AM EDT COMPREHENSIVE METABOLIC PANEL, PLASMA Timed 04/13/2025 2:09 AM EDT CBC WITH AUTO DIFFERENTIAL Timed 04/13/2025 2:09 AM EDT POCT GLUCOSE METER UNSOLICITED RESULTS Routine 04/12/2025 8:49 PM EDT POCT GLUCOSE METER UNSOLICITED RESULTS Routine 04/12/2025 5:33 PM EDT POCT GLUCOSE METER UNSOLICITED RESULTS Routine 04/12/2025 11:45 AM EDT POCT GLUCOSE METER UNSOLICITED RESULTS Routine 04/12/2025 7:32 AM EDT POCT GLUCOSE METER UNSOLICITED RESULTS Routine 04/11/2025 8:08 PM EDT POCT GLUCOSE METER UNSOLICITED RESULTS Routine 04/11/2025 5:57 PM EDT POCT GLUCOSE METER UNSOLICITED RESULTS Routine 04/11/2025 11:36 AM EDT POCT GLUCOSE METER UNSOLICITED RESULTS Routine 04/11/2025 7:46 AM EDT POCT GLUCOSE METER UNSOLICITED RESULTS Routine 04/10/2025 8:32 PM EDT POCT GLUCOSE METER UNSOLICITED RESULTS Routine 04/10/2025 4:47 PM EDT XR CHEST 1 VIEW STAT 04/10/2025 3:43 PM EDT POCT GLUCOSE METER UNSOLICITED RESULTS Routine 04/10/2025 11:44 AM EDT POCT GLUCOSE METER UNSOLICITED RESULTS Routine 04/10/2025 7:23 AM EDT C-REACTIVE PROTEIN, PLASMA Timed 04/10/2025 6:21 AM EDT COMPREHENSIVE METABOLIC PANEL, PLASMA Timed 04/10/2025 6:21 AM EDT CBC WITH AUTO DIFFERENTIAL Timed 04/10/2025 6:21 AM EDT POCT GLUCOSE METER UNSOLICITED RESULTS Routine 04/10/2025 5:07 AM EDT POCT GLUCOSE METER UNSOLICITED RESULTS Routine 04/10/2025 12:44 AM EDT HEMOGLOBIN A1C Routine 03/28/2025 2:28 AM EDT HEPATITIS C ANTIBODY - ED W/REFLEX TO HCV QUANT PCR STAT 06/11/2024 10:54 PM EDT ED HIV 1/2 ANTIBODY/ANTIGEN SCREEN WITH REFLEX TO HIV I/II DIFFERENTIATION STAT 06/11/2024 10:54 PM EDT from Last 3 Months or Most Recently Relevant to Health Maintenance Results * Discontinue PICC (05/25/2025 1:36 PM EDT) Karmen Osman RN - 05/25/2025 1:36 PM EDT Karmen Morel RN 05/25/2025 1:37 PM Discontinue PICC Performed by: Karmen Morel RN Authorized by: Aleksandr Lee MD Aleksandr Aragon MD IV THERAPY ORDERABLES Final Result * PICC Removal (Clinic-Performed) (05/25/2025 1:20 PM EDT) Karmen Osman RN - 05/25/2025 1:20 PM EDT Karmen [...] (ABNORMAL) C-reactive protein (05/25/2025 1:14 PM EDT) Only the most recent of9 resultswithin the time period is included. CRP, Plasma 14.5(H) <=8.0 mg/L 05/25/2025 3:31 PM EDT [facility] Blood Venous blood specimen / Unknown Venipuncture / Unknown 05/25/2025 1:14 PM EDT 05/25/2025 1:30 PM EDT [facility] - 05/25/2025 3:31 PM EDT This CRP test is appropriate for assessment of infection, systemic inflammation and/or tissue injury. To assess cardiovascular disease risk order high sensitivity CRP (CRPH). Mitu Sandra Maskey MD LAB BLOOD ORDERABLES Final Result [facility] [address] [place] [address] * Creatinine, Plasma (05/22/2025) Only the most recent of5 resultswithin the time period is included. External Creatinine Blood 0.8 mg/dL Blood Venous blood specimen / Unknown [facility]2025 [facility] BLOOD ORDERABLES F inal Result * CBC and Differential (05/22/2025) Only the most recent of8 resultswithin the time period is included. External WBC 7.0 4.5 - 11.5 10^3/uL External Red Blood Cell (RBC) 4.06 External Hemoglobin (Hgb) 11.00 External Hematocrit (Hct) 35.0 External Platelet Count (Plt) 226 External Neutrophil Abs 3.8 External Lymphocyte-Absol chiquis 2.2 External Monocyte Absolute 0.7 External Eos-Absolute 0.2 0.0 - 0.7 K/uL Blood Venous blood specimen / Unknown 05/22/2025 [facility] Provider LAB BLOOD ORDERABLES F inal Result * Urea Nitrogen, Plasma (05/22/2025) Only the most recent of5 resultswithin the time period is included. Pathologist [facility] External BUN 12 Blood Venous blood specimen / Unknown [facility]/22/2025 [facility] BLOOD ORDERABLES F inal Result * CK (05/22/2025) Only the most recent of6 resultswithin the time period is included. External Creatine Kinase 46 26 - 308 U/L Blood Venous blood specimen / Unknown 05/22/2025 [facility] Provider MD LAB BLOOD ORDERABLES E dited Result - Final * Hepatic Function Panel (05/22/2025) Only the most recent of3 resultswithin the time period is included. External Alkaline Phosphatase 189 External Bilirubin Total 0.2 mg/dL External ALT (SGPT) 22 External AST (SGOT) 19 Blood Venous blood specimen / Unknown 05/22/2025 [facility] Provider LAB BLOOD ORDERABLES F inal Result * XR Tibia Fibula Right 2+ Views [...] 03/30/2025, 12/09/2024, 10/06/2024 radiographs FINDINGS: Redemonstrated intramedullary jhon and nail fixation hardware spanning the tibia [...] and edema. Procedure Note Daryl De La Feunte MD - 05/18/2025 CLINICAL INDICATION: pain TECHNIQUE: XR TIBIA FIBULA RIGHT 2+ VIEWS COMPARISON: 04/07/2025, 04/05/2025, 03/30/2025, 12/09/2024, 10/06/2024 radiographs FINDINGS: Redemonstrated intramedullary jhon and nail fixation hardware spanning thetibia with [...] signing this report, I, the attending physician, attyanetthat I have personally reviewed the images/data for the aboveexamination(s) and agree with the final edited report. Drafted by Wayne Roberts MD on 05/18/2025 9:10 AM Final report signed by Daryl Glaser MD on 511:53 AM Flor [facility] XR PROCEDURES Final Resul t * Comprehensive Metabolic Panel, Plasma (05/01/2025) Only the most recent of3 resultswithin the time period is included. External BUN 18 External Creatinine Blood 0.76 mg/dL External AST (SGOT) 14 External ALT (SGPT) 8 External Alkaline Phosphatase 152 External Bilirubin Total <0.2 mg/dL Blood Venous blood specimen / Unknown 05/01/2025 [facility] Provider LAB BLOOD ORDERABLES F inal Result * (ABNORMAL) POCT glucose meter (04/13/2025 8:46 AM EDT) Only the most recent of15 resultswithin the time period is included. POCT Glucose 203(H) 74 - 99 mg/dL 04/13/2025 8:49 AM EDT [facility] Comment:Accuracy of a glucos e result obtained from a capillary whole blood specimen relies upon adequate, non-compromised capillary blood flow. If the capillary glucose result is not consistent with the patient's clinical signs and symptoms, glucose testing should be repeated with either an arterial or venous sample on the glucometer or sent to the main labortory for testing. Comment 04/13/2025 8:49 AM EDT [facility] Coremaking Machine Setter ID Miguelito Ash 04/13/2025 8:49 AM EDT [facility] Device ID [id number] 04/13/2025 8:49 AM EDT [facility] Specimen Type POC Capillary 04/13/2025 8:49 AM EDT [facility] Blood Capillary blood specimen / Unknown 04/13/2025 8:46 AM EDT 04/13/2025 8:49 AM EDT Eliazar Simmons MD LAB POINT OF CARE TEST DOCKED DEVICE UNSOLICITED RESULTS Final Result Performing Organization Address City/State/[facility] Co de Phone Number [facility] [address] [place] [address] * XR Chest 1 View (04/10/2025 3:43 PM EDT) Anatomical Region Laterality Modality Chest Digital Radiogra phy Impressions 04/10/2025 4:07 PM EDT Right upper extremity PICC tip overlies superior vena cava. CRITICAL RESULT: No COMMUNICATION: Per this written report. Drafted by Joe Jones MD on 04/10/2025 4:07 PM Final report signed by Joe Jones MD on 04/10/2025 4:07 PM Narrative 04/10/2025 4:07 PM EDT CLINICAL INDICATION: PICC line placement TECHNIQUE: XR CHEST 1 VIEW COMPARISON: 10/19/2024 FINDINGS: The cardiomediastinal silhouette is stable. Right upper extremity PICC tip overlies superior vena cava. Stable position of the left chest ICD. The lungs are clear focal consolidation or pleural effusion. No pneumothorax. The visualized osseous structures are intact. Degenerative change in the spine. Procedure Note Joe Jones MD - 04/10/2025 CLINICAL INDICATION: PICC line placement TECHNIQUE: XR CHEST 1 VIEW COMPARISON: 10/19/2024 FINDINGS: The cardiomediastinal silhouette is stable. Right upper extremity PICC tipoverlies superior vena cava. Stable position of the left chest ICD. Thelungs are clear focal consolidation or pleural effusion. No pneumothorax.The visualized osseous structures are intact. Degenerative change in thespine. IMPRESSION: Right upper extremity PICC tip overlies superior vena cava. CRITICAL RESULT: No COMMUNICATION: Per this written report. Drafted by Joe Jones MD on 04/10/2025 4:07 PM Final report signed by Joe Jones MD on 04/10/2025 4:07 PM us Eliazar Simmons MD IMG XR PROCEDURES Final Re sult * (ABNORMAL) Hemoglobin A1c (03/28/2025 2:28 AM EDT) Hemoglobin A1c 6.8(H) <5.7 % 03/28/2025 6:09 AM EDT [facility] Blood Venous blood specimen / Unknown Venipuncture / Unknown 03/28/2025 2:28 AM EDT 03/28/2025 2:45 AM EDT Narrative [facility] - 03/28/2025 6:09 AM EDT HA1C Interpretive Data: Diagnosis of Diabetes: Diabetic > or = 6.5% Pre-diabetic 5.7 to 6.4% Non-diabetic < or = 5.6% Glycemic Targets for Type I and Type II Diabetics: Non- Adults <7.0% Adults <6.0% Children and Adolescents <7.5% Source: [place] [employer]. Standards of medical care in diabetes,2017. Diabetes Care.2017:40 (suppl 1):S1-S135. us Kandace Mckinley APRN, DNP LAB BLOOD ORDERABLES Final Result [facility] [address] [place] [address] * ED HIV 1/2 Antibody/Antigen Screen w/Reflex to HIV 1/2 Differentiation (06/11/2024 10:54 PM EDT) HIV 1 & 2 Antibody/Antigen Screen Non Reactive Non Reactive 06/11/2024 11:36 PM EDT [facility] Comment:Screening for HIV 1 & 2 antibodies, and P24 antigen is NONREACTIVE. No confirmatory testing is required. Blood Venous blood specimen / Unknown Venipuncture / Unknown 06/11/2024 10:54 PM EDT 06/11/2024 11:00 PM EDT us Chuy Ridley MD LAB BLOOD ORDERABLES Final Re sult Performing Organization Address City/[facility]/ZIP Co de Phone Number HEALTHCARE [facility] [address] [place] [address] * Hepatitis C Antibody - ED (06/11/2024 10:54 PM EDT) Pathologist [facility] Hepatitis C Antibody Negative Negative 06/11/2024 11:31 PM EDT [facility] Blood Venous blood specimen / Unknown Venipuncture / Unknown 06/11/2024 10:54 PM EDT 06/11/2024 10:59 PM EDT us Chuy Ridley MD LAB BLOOD ORDERABLES Final Re sult Performing Organization Address City/[facility] Co de Phone Number HEALTHCARE LAB [address] [place] [address] from Last 3 Months or Most Recently Relevant to Health Maintenance Additional Health Concerns Infection Onset Date Last Indicated MRSA Comment:Positive wound culture 05/21/2020 03/10/2025 Insurance [facility] MEDICARE Advance Directives * Full Code (Latest Code Status on File) Date Activated Date Inactivated Comments 04/07/2025 12:06 PM 04/13/2025 1:49 PM Question Answer Comments I have reviewed the capacity from the link above and, if needed, have updated to appropriate status: Yes * Full Code Date Activated Date Inactivated Comments 03/10/2025 6:15 PM 04/07/2025 12:06 PM Question Answer Comments I have reviewed the capacity from the link above and, if needed, have updated to appropriate status: Yes * Full Code Date Activated Date Inactivated Comments 12/09/2024 8:16 PM 12/18/2024 2:39 PM Question Answer Comments Patient has decision-making capacity? Yes * Full Code Date Activated Date Inactivated Comments 10/21/2024 1:53 PM 2024 12:58 PM Question Answer Comments Patient has decision-making capacity? Yes * Full Code Date Activated Date Inactivated Comments 09/13/2024 5:47 AM 09/22/2024 4:36 PM Question Answer Comments Patient has decision-making capacity? Yes Care Teams Accounting Manager Controller Relationship Specialty Start Date End Date Emmy Houser APRN [address] [place] [id number] PCP - General 02/07/25 Aleksandr Lee MD [address] [place] [address] [address] [place] [address] Consulting Physician Infectious Diseases 01/06/24
--- OUTSIDE RECORDS SUMMARY | 2025-07-11 06:39 | XMS_ITS | Encounter Summary ---
Author Organization Healthcare Address [address] [place] [address] Care Team Providers Care L Tacker Name Role Phone Aleksandr Lee MD Unavailable [phone] Emmy Houser APRN Primary Care Provider + Encounter Details Date Type Department Care Team (Latest Contact Info) Description 05/18/2025 Travel Social History Tobacco Use Types Packs/Day [...] and Family Not on file 03/15/2025 Attends Jehovah'S Witness Services Not on file 03/15 Active Member [...] place to sleep or slept in a intermediate (including now)? No 09/13/2024 PHQ-9 Answer Date [...] any time in the past 12 m [facility], were you homeless or living in a intermediate (including now)? No 03/15/2025 CAGE ASSESSMENT Answer [...] drink first t alyssa in the morning (EYE-HELP DESK SUPPORT) to steady your nerves or to get rid of a hangover? 0 06/12/2024 CAGE Questionnaire Score 0 024 Utilities Answer Date Recorded In the past 12 months has th [employer], gas, oil, or water [employer] threatened to shut off services in your [...] 07/27/2025 1:30 PM EDT Office Visit [address] [address] Aleksandr Lee MD [address] [place] [address] [address] [place] [address] 08/24/2025 2:30 PM EDT Office Visit [facility] Orthopaedic Surgery & Sports Medicine [address] [place] [phone] Eliazar Simmons MD [address] [place] [address] documented as of this encounter [...] documented as of this encounter Care Teams L Tacker Relationship Specialty Start Date End Date Emmy Houser APRN [address] [place] [id number] PCP - General 02/07/25 Aleksandr Lee MD [address] [place] [address] [address] [place] [address] Consulting Physician Infectious Diseases 01/06/24 documented as of this encounter
--- OUTSIDE RECORDS SUMMARY | 2025-07-11 06:39 | XMS_ITS | Encounter Summary ---
Author Organization Healthcare Address [address] [place] [address] Care Team Providers Care Attending Pathologist Name Role Phone Aleksandr Lee MD Unavailable [phone] Emmy Houser APRN Primary Care Provider + Encounter Details Date Type Department Care Team (Late st Contact Info) Description 05/22/2025 Clinical Support [facility] [address] [place] [address] Ugo Santiago, PharmD [address] [facility] [address] [place] [address] Social History Tobacco Use Types Packs/Day Years [...] and Family Not on file 03/15/2025 Attends [employer] Services Not on file 03/15 Active Member [...] place to sleep or slept in a snf (including now)? No 09/13/2024 PHQ-9 Answer Date [...] any time in the past 12 m [facility], were you homeless or living in a snf (including now)? 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 Orthopaedic Surgery & Sports Medicine [address] [place] [address] Eliazar Simmons MD [address] [place] [address] documented as of this encounter [...] plan has been documented for the patient 05/22/2025 9:16 AM EDT documented as of this encounter Care Teams Attending Pathologist Relationship Specialty Start Date End Date Emmy Houser APRN [address] [place] [id number] PCP - General 02/07/25 Aleksandr Lee MD [address] [place] [address] [address] [place] [address] Consulting Physician Infectious Diseases 01/06/24 documented as of this encounter
--- OUTSIDE RECORDS SUMMARY | 2025-07-11 06:39 | XMS_ITS | Encounter Summary ---
Author Organization Healthcare Address [address] [place] [address] Care Team Providers Care Tire Repairer Name Role Phone Aleksandr Lee MD Unavailable [phone] Emmy Houser APRN Primary Care Provider + Reason for Visit * Reason Onset Date Comments HCN Status Update Call #2 04/21/2025 Encounter Details Date Type Department Care Team (Late st Contact Info) Description 04/21/2025 Telephone [facility] Orthopaedic Surgery & Sports Medicine [address] [place] [address] Eliazar Simmons MD [address] [place] [address] HCN Status Update Call #2 Social History Tobacco Use Types Packs/Day Years Used Date Smoking Tobacco: Some Days Cigarettes 0.3 30 Last attempted to quit: 11/23/2017 Passive Smoke Exposure: Past Smokeless Tobacco: Never Comments:1 pack every 4 days Alcohol Use Standard Drinks/Week Comments Not Currently 0 (1 standard drink = 0.6 oz [...] and Family Not on file 03/15/2025 Attends [employer] Not on file 03/15 Active Member [...] place to sleep or slept in a mcfp (including now)? No 09/13/2024 PHQ-9 Answer Date [...] any time in the past 12 m [facility], were you homeless or living in a mcfp (including now)? No 03/15/2025 CAGE ASSESSMENT Answer [...] drink first t alyssa in the morning (EYE-MANAGER MASSAGE DEPARTMENT) to steady your nerves or to get rid of a hangover? 0 06/12/2024 CAGE Questionnaire Score 0 024 Utilities Answer Date Recorded In the past 12 months has th e [employer], gas, oil, or water company threatened to [...] encounter Miscellaneous Notes * Telephone Encounter - Pennie Thomas - 04/25/2025 9:54 AM EDT Status Update Call #2 2nd call regarding the status of the initial request. Best contact number: [phone] ext [phone] Optimal time of day to reach caller: anytime Additional comments/information from caller: Linda Ojeda is requesting call back regarding prescription Daptomycin and cefepime please call Note: Please do not reply to this message. Follow-up communication and further actions as a result of this message need to be communicated with the patient directly, if the patient is not active onMyChart. If the patient is active on MyChart, they will receive notification of the communication/outcome via MyChart. * Telephone Encounter - Fanta Kamara - 04/24/2025 12:14 PM EDT Clinical Concern/Question Reason for Call: Linda with [facility] is calling back stating she did not receive anything and would like us to fax it to [phone] Best contact number: Other: [phone] Optimal time of day to reach caller: ANYTIME Additional comments/information from caller: None Note: Please do not reply to this message. Follow-up communication and further actions as a result of this message need to be communicated with the patient directly, if the patient is not active onMyChart. If the patient is active on MyChart, they will receive notification of the communication/outcome via MyChart. * Telephone Encounter - Delma Gómez LPN - 04/21/2025 3:55 PM EDT Faxed [facility] NN note and Dr Aragon office note to [facility]. -confirmation page received. * Telephone Encounter - Pennie Thomas - 04/21/2025 1:29 PM EDT Clinical Concern/Question Reason for Call: Linda Ojeda is calling from [facility] is requesting call back regarding antibiotics please call to advise Best contact number: [phone] A side Optimal time of day to reach caller: ANYTIME Additional comments/information from caller: None Note: Please do not reply to this message. Follow-up communication and further actions as a result of this message need to be communicated with the patient directly, if the patient is not active onMyChart. If the patient is active on MyChart, they will receive notification of the communication/outcome via [facility]. documented in this encounter Plan of Treatment Upcoming Encounters Date Type Department Care Team (Late st Contact Info) Description 07/27/2025 1:30 PM EDT Office Visit [facility] [address] [place] [address] Aleksandr Lee MD [address] [facility] [address] [place] [address] 08/24/2025 2:30 PM EDT Office Visit [facility] Orthopaedic Surgery & Sports Medicine [address] [place] [address] Eliazar Simmons MD [address] [place] [address] documented as of this encounter Visit Diagnoses Not on filedocumented in this encounter Additional Health Concerns Infection Onset Date Last Indicated Resolved Time MRSA Comment:Positive wound culture 05/21/2020 03/10/2025 Assessment Noted Time PHQ-9 Depression Total Score: 3 01/27/20 25 10:59 AM EST A fall risk assessment has been complete d for the patient 04/19/2025 11:33 AM EDT A Body Mass Index follow-up plan has been documented for the patient 04/20/2025 4:11 PM EDT documented as of this encounter Care Teams Tire Repairer Relationship Specialty Start Date End Date Emmy Houser APRN [address] [place] [address] PCP - General 02/07/25 Aleksandr Lee MD [address] [place] [address] Consulting Physician Infectious Diseases 01/06/24 documented as of this encounter
--- NOTE | 2025-07-11 07:00 | NM_ITS ---
APPROVED REPORT Exam: Nuclear Stress Test Indication: soa Patient Location: Outpatient Stress Tech: Alana James [place] Tech:Hilary Roberts MYAAndres RT(R)(N) Ht: 6 ft 0 in Wt: 235 lbs HR: 65 bpm BP: 102/66 mmHg BSA: 2.28 m2 TID: 1.33 History: soa Procedure: Patient received 0.4 mg of intravenous Lexiscan, resting heart rate 65 bpm, resting blood pressure 102/66 mmHg, with Lexiscan maximum heart rate achieved was 74 bpm which is 85 % of the maximum predicted heart rate and blood pressure was 91/51 mmHg. With Lexiscan, patient denied any complaint of chest pain. The patient was not able to lay on his belly for prone images. Cardiac Stress and Resting SPECT Images: Cardiac Stress and Resting SPECT images were obtained using technetium 99m Myoview 28.9 mCi stress and 9.97 mCi at rest. Resting and stress imaging in supine positions demonstrate medium sized, moderate, predominantly reversible perfusion defect in the inferior and lateral LV stratton. There is also increase in transient ischemic dilatation ratio (TID 1.33), which may be suggestive of possible multivessel disease or balanced ischemia. Gated imaging demonstrates mild reduction global LV systolic function. LVEF is calculated at 43%. Conclusion: Medium sized, moderate, predominantly reversible perfusion defect in the inferior and lateral LV stratton. Findings are suggestive of reversible ischemia. There is also increase in transient ischemic dilatation ratio (TID 1.33), which may be suggestive of possible multivessel disease or balanced ischemia. Gated imaging demonstrates mild reduction global LV systolic function. LVEF is calculated at 43%. Electronically signed by : Phoebe Sargent MD 07/11/2025 13:13:31
--- NOTE | 2025-07-11 09:30 | CA_ITS ---
APPROVED REPORT EXAM: Comprehensive 2D, Doppler, and color-flow Echocardiogram Broach Operator: July Coleman, RCS, RVS Ht: 6 ft 0 in Wt: 240lbs BSA: 2.30 BP: 98/55 mmHg Indications: LVF,AICD,CM 2D Dimensions Left Atrium 3.41 cm LA Volume 44.30 mL LA Volume Index 19.353596 mL/m2 (M/F) 16-34 M-Mode Dimensions RVDd 2.78 cm (0.9-2.6) LA Diam 3.91 cm (1.9-4.0) LVDd 5.81 cm (3.5-5.7) LVDs 4.12 cm (3.5-5.7) IVSd 1.17 cm (0.6-1.1) PWd 1.21 cm (0.6-1.1) EF (Teich) 55.10% EPSs 1.17 cm FS 29.10% EDV (Teich) 167.20 mL ESV (Teich) 75.10 mL LV Diastology E Decel Time 397 (160-240 msec) E/A Ratio 0.78 MED A' 10.00 cm/s LAT A' 10.20 cm/s Aortic Valve ZEB Index 1.25 cm2/m2 AoV Peak Serg. 129.0 (50-130 cm/s) AO Peak GR. 6.70 mmHg AO Mean GR. 3.40 (<5 mmHg) AO VTI 23.3 (18-25 cm) ZEB (VTI) 2.95 (2.5-4.5 cm2) Mitral Valve MV A Velocity 78.0 (40-130 cm/s) E/A Ratio 0.78 Left Ventricle The left ventricle is normal size. Left ventricular systolic function is normal. The left ventricular ejection fraction is within the normal range. There is increased left ventricular wall thickness. There is normal LV segmental wall motion. Transmitral Doppler flow pattern suggests impaired LV relaxation. LVEF is 55% Right Ventricle The right ventricle is normal size. The right ventricular systolic function is normal. A device lead is present in the right ventricle. Atria The left atrium size is normal. The right atrium size is normal. There is no color Doppler evidence of interatrial shunt. Aortic Valve The aortic valve is mildly thickened. There is no hemodynamically significant aortic valvular stenosis. No aortic regurgitation is present. Mitral Valve The mitral valve is normal in structure. No evidence of mitral valve stenosis. Trace mitral regurgitation is present. Tricuspid Valve The tricuspid valve leaflets are thin and pliable. Trace tricuspid regurgitation. There is insufficient TR jet to estimate RVSP. Pulmonic Valve The pulmonary valve is grossly normal in structure. Trace pulmonic valve regurgitation is present. Great Vessels The aortic root is normal in size. IVC is normal in size and collapses >50% with inspiration. Pericardium There is no pericardial effusion. Other Information Study Quality: Fair Conclusion Normal biventricular systolic function. No significant valvular stenosis or regurgitation. Electronically signed by : Phoebe Sargent MD 07/12/2025 13:42:49
[2025-07-11] MEDS: SODIUM CHLORIDE 0.9% 10ML SYR (RAD ONLY) 10 ML IV ×2 (09:44)
[2025-07-11] MEDS: ISOTOPE MYOVIEW (PER STUDY) 1 DOSE IV (09:44)
== END 2025-07-11 23:59 | disposition home or self-care (01) ==
LOC: RAD 06:36
PROVIDERS: Visit Provider Nurse Practitioner Family
DX: I49.3 Ventricular premature depolarization (principal); I25.119 Atherosclerotic heart disease of native coronary artery with unspecified angina pectoris; I48.92 Unspecified atrial flutter; I42.9 Cardiomyopathy, unspecified; Z95.810 Presence of automatic (implantable) cardiac defibrillator; R94.39 Abnormal result of other cardiovascular function study
CPT/HCPCS: 78452; 93016; 93017; 93018; 93306; A9502; J2785

== ENCOUNTER 2025-07-25 08:09 | Outpatient (CLI) | payer MEDICARE, SELFPAY ==
--- NOTE | 2025-07-25 08:45 | CA_ITS ---
FINAL REPORT TECHNIQUE: Ortiz scale, color and spectral doppler images of the bilateral carotid arteries were obtained. CLINICAL HISTORY: VAISHALI,HX RIGHT CARTOID STENTING,SMOKER FINDINGS: A stent is present in the right carotid artery. Peak systolic velocity in the right internal carotid artery is 82 cm/sec. The internal carotid to common carotid artery ratio is 1.0. There is no significant carotid artery stenosis and minimal plaque formation. The right vertebral artery is normal in direction. Peak systolic velocity in the left internal carotid artery is 100 cm/sec. The internal carotid to common carotid artery ratio is 1.1. There is no significant carotid artery stenosis and minimal plaque formation. The left vertebral artery is normal in direction. IMPRESSION: No ultrasound evidence of hemodynamically significant carotid artery stenosis. The right carotid artery stent is patent without evidence of significant stenosis. Normal peak systolic velocities and normal internal to common carotid artery ratios bilaterally. Reviewed, Interpreted and Dictated by Ashkan Hutton MD Transcribed by Jolynn Queen Authenticated and [facility]
== END 2025-07-25 23:59 | disposition home or self-care (01) ==
LOC: RT 08:10
PROVIDERS: PCP Nurse Practitioner Adult Health; Visit Provider Nurse Practitioner Family
DX: I65.23 Occlusion and stenosis of bilateral carotid arteries (principal); R94.39 Abnormal result of other cardiovascular function study; I48.92 Unspecified atrial flutter; I42.6 Alcoholic cardiomyopathy; I25.118 Atherosclerotic heart disease of native coronary artery with other forms of angina pectoris; E78.5 Hyperlipidemia, unspecified; I11.9 Hypertensive heart disease without heart failure; F17.200 Nicotine dependence, unspecified, uncomplicated; Z95.828 Presence of other vascular implants and grafts
CPT/HCPCS: 93880

== ENCOUNTER 2025-07-28 08:25 | Day surgery (SDC) | payer MEDICARE, SELFPAY ==
[2025-07-28] VITALS (11 sets, daily range): BP systolic 105–141; BP diastolic 60–83; PULSE 67–89; RESP 16–20; TEMP 36.6; O2SAT 94–97; BMI 30.5
--- NOTE | 2025-07-28 07:07 | IR_ITS ---
APPROVED REPORT Patient Location: Outpatient PROCEDURES Left heart catheterization Left ventriculogram Selective coronary angiogram Drug-eluting stent deployment to the mid LAD INDICATION Coronary artery disease, Angina pectoris, Normal Myoview Informed consent was obtained prior to the procedure. COMPLICATIONS NONE Estimated Blood Loss: LESS THAN 10 ML TECHNIQUE One percent lidocaine used to anesthetize the right anterior aspect of the wrist. The right radial artery was accessed via the Seldinger technique. A 6 Tuvaluan sheath was placed in the right radial artery. 2.5 mg of Verapamil, 800 mcg of nitroglycerin, 1mg Lidocaine and 5000 U Heparin were given through the arterial sheath. The JL3 catheter was also used to perform left heart catheterization, left ventriculogram and selective coronary angiogram. At the end the diagnostic angiogram therapeutic heparin was administered giving a therapeutic ACT and the guide catheter was placed in left main artery followed by Choice PT extra-support wire. A 3.5 x 22 mm Alex frontier stent was deployed at 20 joaquin reducing the severe stenosis to 0%. RONAK-3 flow was present before and after the procedure. At the end the procedure the apparatus was removed the sheath was removed and hemostasis was achieved using TR banding patient was transferred to the postop boarding in stable condition ANGIOGRAPHIC RESULTS The left main artery Short and normal The left anterior descending artery Is proximally normal followed by concentric 70% stenosis immediately distal to the large first diagonal artery and septal hospice nurse practitioner. There are additional 30% mid vessel stenoses. The first diagonal artery is large and has an ostial 20% stenosis The circumflex artery Large dominant with mild 10% luminal regularities The right coronary artery Nondominant with diffuse 20 and 30% stenosis The MEJIA ventriculogram reveals Reduced at 40 to 45% The left ventricular end-diastolic pressure 15 mmHg IMPRESSION Severe mid LAD disease as described above Successful stenting the mid LAD severe disease distally 0% with 1 drug-eluting stent Reduced ejection fraction PLAN 1. Dual antiplatelet therapy 2. Cardiac rehabilitation 3. Avoidance of tobacco products 4. Risk factor modification 5. LDL less than 55 to be achieved with high intensity statin Electronically signed by : Joby Gilman MD 07/28/2025 16:31:35
[2025-07-28 09:16] LABS: Hematocrit 36.7 % (42.0-52.0); Hemoglobin 12.0 g/dL (14.1-18.0); Immature Granulocytes % 0.9 %; Mean Corpuscular HGB Conc 32.7 g/dL (31.8-35.4); Mean Corpuscular Hemoglobin 29.7 pg (27.0-31.2); Mean Corpuscular Volume 90.8 fl (80-94); Nucleated Red Blood Cells % 0 %; Platelet Count 182 K/mm3 (142-424); Red Blood Count 4.04 M/mm3 (4.60-6.20); Red Cell Distribution Width-SD 51.3 fL; White Blood Count 7.5 K/mm3 (4.8-10.8)
[2025-07-28 09:26] LABS: Anion Gap 11.6 mEq/L (5-15); Blood Urea Nitrogen 12 mg/dl (9-20); Calcium 8.8 mg/dl (8.4-10.2); Carbon Dioxide 27 mmol/L (22.0-30.0); Chloride 105 mmol/L (98-107); Creatinine Clearance Estimated 162 mL/min (50-200); Creatinine,Serum 0.70 mg/dl (0.66-1.25); Estimated Glomerular Filt Rate 115 ml/min (>60); GFR (African American) 139 ML/MIN (>60); Glucose 136 mg/dl (74-100); Potassium 3.6 mmoL/L (3.5-5.1); Sodium 140 mmol/L (136-145)
[2025-07-28] MEDS: HEPARIN 1,000 UNITS/500ML NS (CATH LAB) 3000 UNIT IV (11:16)
[2025-07-28] MEDS: NITROGLYCERIN 800MCG/8ML SYR (CATH LAB) 800 MCG IA (11:16)
[2025-07-28] MEDS: VERAPAMIL 2.5MG/ML 2ML VIAL 2.5 MG IV (11:17)
[2025-07-28] MEDS: HEPARIN 1,000 UNITS/ML 10ML VIAL (CATH LAB) 5000 UNIT IV (11:17)
[2025-07-28] MEDS: LIDOCAINE 1% 10ML MDV 10 ML IJ (11:17)
[2025-07-28] MEDS: 0.9 % SODIUM CHLORIDE 500 ML 25 ML IV (11:17)
[2025-07-28] MEDS: MIDAZOLAM HCL 1MG/ML 5ML VIAL 1 MG IV (11:51)
[2025-07-28] MEDS: FENTANYL 100MCG/2ML VIAL 50 MCG IV (11:52)
[2025-07-28] MEDS: CLOPIDOGREL 75MG TAB 75 MG PO (11:52)
[2025-07-28] MEDS: IOPAMIDOL-370 (76%);100ML BOTTLE 90 ML IV (13:36)
[2025-07-28 13:38] LABS: CATHL Activated Clotting Time 297 SEC (74-125)
== END 2025-07-28 15:00 | disposition home or self-care (01) ==
PROVIDERS: PCP Nurse Practitioner Adult Health; Visit Provider Internal Medicine
PROC: 4A023N7 Measurement of Cardiac Sampling and Pressure, Left Heart, Percutaneous Approach (ICD-10-PCS; CPT 93452; principal; 2025-07-28 09:30)
DX: I25.118 Atherosclerotic heart disease of native coronary artery with other forms of angina pectoris (principal); I65.23 Occlusion and stenosis of bilateral carotid arteries; R94.39 Abnormal result of other cardiovascular function study; R94.31 Abnormal electrocardiogram [ECG] [EKG]; I48.92 Unspecified atrial flutter; E78.2 Mixed hyperlipidemia; I42.6 Alcoholic cardiomyopathy; I13.0 Hypertensive heart and chronic kidney disease with heart failure and stage 1 through stage 4 chronic kidney disease, or unspecified chronic kidney disease; I50.32 Chronic diastolic (congestive) heart failure; N18.9 Chronic kidney disease, unspecified; E11.40 Type 2 diabetes mellitus with diabetic neuropathy, unspecified; F17.210 Nicotine dependence, cigarettes, uncomplicated; Z79.899 Other long term (current) drug therapy; Z79.82 Long term (current) use of aspirin; Z79.02 Long term (current) use of antithrombotics/antiplatelets; Z79.4 Long term (current) use of insulin; Z79.84 Long term (current) use of oral hypoglycemic drugs; Z95.828 Presence of other vascular implants and grafts; Z95.810 Presence of automatic (implantable) cardiac defibrillator; Z95.5 Presence of coronary angioplasty implant and graft
CPT/HCPCS: 80048; 85025; 85347; 92928; 93458; 99152; C1725; C1769; C1874; C9600; J1200; J1644; J2003; J3010; J7040; Q9967

== ENCOUNTER 2025-11-21 14:14 | Outpatient (CLI) | payer MEDICARE, SELFPAY ==
--- OUTSIDE RECORDS SUMMARY | 2025-09-28 13:00 | XMS_ITS | Encounter Summary ---
Author Organization Healthcare Address [address] 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 Aleksandr Lee MD [address] [place] [phone] Phone: tel: fax: Referral ID Status Reason Start Date Expiration Date Visits Re quested Visits Authorized [id number] Closed 07/27/2025 01/26/2027 1 1 Encounter Details Date Type Department Care Team (Late st Contact Info) Description 09/28/2025 1:00 PM EST Office Visit [address] [phone] Aleksandr Lee MD [address] [place] [phone] Chronic osteomyelitis of right tibia (CMS/HCC) (Primary Dx) Social History Tobacco Use Types Packs/Day Years Used Date Smoking Tobacco: Every Day Cigarettes 0.3 30.2 Started: 08/24/1995 Passive Smoke Exposure: Past Smokeless Tobacco: Never Comments:1 pack every 4 days Alcohol Use Standard Drinks/Week Comments Not Currently 0 (1 standard drink = 0.6 oz pure alcohol) last use of beer 2 weeks, former heavy etoh use Social Connection and Isolation Panel Answer Date Recorded Frequency of Communication with Friends and Fami ly Not on file 03/15/2025 Frequency of Social Gatherings with Friends and Family Not on file 03/15/2025 Attends Taoism Services Not on file 03/15 Active Member [...] Date Recorded Patient Health Questionnaire-2 Score 0 07/27/2025 PHQ-9 Answer Date Recorded Patient Health Questionnaire-9 Score 3 01/26/2025 Humiliation, Afraid, Rape, and Kick questionnair e Answer Date Recorded Within the last year, have y ou been afraid of your partner or ex-partner? No 09/02/2025 Within the last year, have y ou been humiliated or emotionally abused in other ways by your partner or ex-partner? No Within the last year, have y ou been kicked, hit, slapped, or otherwise physically hurt by your partner or ex-partner? No 09/02/2025 Within the last year, have y ou been raped or forced to have any kind of sexual activity by your partner or ex-partner? No 09/02/2025 Hunger Vital Sign Answer Date Recorded Within the past 12 months, y ou worried that your food would run out before you got the money to buy more. Never true 09/02/20 25 Within the past 12 months, t he food you bought just didn't last and you didn't have money to get more. Never true 09/02/2025 PRAPARE - Transportation Answer Date Re corded In the past 12 months, has l ack of transportation kept you from medical appointments or from getting medications? No 08/23 In the past 12 months, has l ack of transportation kept you from meetings, work, or from getting things needed for daily living? No 09/02/2025 Housing Stability Vital Sign Answer Marcus e Recorded In the last 12 months, was t here a time when you were not able to pay the mortgage or rent on time? No 09/02/2025 Number of Times Moved in the Last Year Not on fi le 09/02/2025 At any time in the past [address] [facility], were you homeless or living in a skilled nursing (including now)? No 09/02/2025 [facility] Utilities Answer Date Recorded In the past 12 months has th e electric, gas, oil, or water company threatened to shut off services in your home? No 09/02/2025 CAGE ASSESSMENT Answer Date Recorded Cage unable [...] drink first t alyssa in the morning ([employer]PLICATION[employer] SPECIALIST) to steady your nerves or to get rid of a hangover? 0 06/12/2024 CAGE Questionnaire Score 0 024 PHQ-2A Answer Date Recorded Depression Risk 0 [...] encounter Miscellaneous Notes * Progress Notes - Brneda Cannon MD - 09/28/2025 1:00 PM EST INFECTIOUS DISEASE CLINIC FOLLOWUP NOTE Telehealth Statement Patient Verification Patient identity has been confirmed using name and date of ? Yes Authorizations and Agreements/Telemedicine Consent sent and consent confirmed? Yes Patient Location: Home/Other- rehab Patient confirms they are physically located in [place]? Yes If the patient is not physically located in [place], the provider has confirmed with [facility] thatthe provider is authorized to provide services in patient's stated location? N/A Provider Location: [facility] facility Audio and video or audio only? Audio and video Total visit time: 35 minutes Reason for visit: follow up evaluation of Right tibia chronic osteomyelitis on OPAT HPI: Guerrero Milian is a 59 y.o. male with history of non-insulin dependent T2DM, dental caries, and chronic osteomyelitis of the right tibia s/p multiple I&D's as well as courses of PO/IV antibiotic therapy. He presents for a follow-up visit today via TeleHealth and his last visit with Dr. Aragon was on 07/27/25. In the interim, he underwent removal of right knee hardware and insertion of intramedullary [place] with placement of antibiotic cement in August with the Orthopedic Surgery service. Prior to this procedure, he was on a PO regimen of levofloxacin and doxycycline. After the procedure, he has been receiving IV ertepenem and daptomycin through a PICC line at a subacute rehab facility. Today, he is on TeleHealth and accompanied by one of his nurses at the rehab facility. He endorses that he feels well but still experiences intermittent swelling of his RLE that improves with elevation. He notes leaking of serous fluid particularly at his right ankle and has been applying dailybandages to the affected site. He feels that working with physical therapy at the rehab facility has been beneficial in regaining his LE strength. He notes that he has not yet scheduled a dentist appointment for his dental caries discussed in previous ID clinic visit given his recent surgical procedure with the Orthopedics service. Summary of Pt's Chronic Osteomyelitis Course Per Chart Review: -06/14/24: transphalangeal amputation of right great toe for possible osteomyelitis , cultures polymicrobial including MRSA, E coli, Klebsiella, pathology was not sent. -He was on Zosyn and Vancomycin , switched to oral Levaquin 750 mg po daily and Linezolid 600 mg poBID for 2-3 weeks from 06/14/24. 07/07/24: seen in clinic, he had some RLE swelling, completed 3 weeks of oral Levaquin 750 mg po daily and Linezolid 600 mg po BID for 3 weeks from 06/14/24- 07/05/24 with close monitoring of Qtc given AICD and cardiac history. -Admitted to [facility] from 10/14/24-10/22/24 for scheduled surgery. 10/14/24: Saucerization/Excision [...] q8 hours for 4 weeks from 10/14/24-11/13/24. -11/02/24: seen by Ortho, Right lower extremity: Well-healing surgical incisions with mid-incision wound 3 cm x 2 cm, with exposed bone,2nd toe with loss of nail plate, exposed nail bed , sutures removed. -11/10/24: seen here follow up evaluation, was getting IV antibiotics at [facility], extended for 2 more weeks until 11/27/24 to complete 6 weeks. -11/30/24: evaluated by , still had some serous drainage, no redness, no purulence. -12/09/24: Removal of ex fix Removal of intramedullary drug delivery device Saucerization of the tibia Application of intramedullary handmixed antibiotic bead delivery device Placement of cable transport external fixator Osteotomy of the tibia, no cultures sent. He was given antibiotics for 1 week prior to surgery Levaquin and Linezolid. -12/21/24: evaluated by , plan was to observe off antibiotics unless any changes in clinical course. Seen in ortho clinic 02/23/25 - anterior pin site with small amt of purulent drainage, prescribed Bactrim x 14 days (end date 03/09/25). He was admitted to [facility] from 03/10/25-04/13/25 for scheduled surgical intervention for management of right tibial nonunion s/p cable transport frame for limb slavage. -03/10/25: Repair of nonunion Adjustment of external fixator Placement of intramedullary antibiotic beads Cultures with MRSA and Enterobacter. -04/07/2025: Removal of external fixator Prophylactic Stabilization of tibia Placement of handmixed antibiotic delivery device No cultures sent. Seen by ID and recommended Daptomycin 10mg/kg IV q24h + Cefepime 6g/day IV continuous infusion therapy + Flagyl 500mg PO TID as Induction therapy x 6-8+ weeks (until 05/02/2025)(may need a longer course of therapy based on clinical response.) -04/19/25: seen by Ortho, noted to have well healing surgical incisions with sutures in place, anterior reveles wounds with serous drainage and visible granulation tissue, drainage likely due to antibiotic cement and expected to last 8-10 weeks post-op. He was initially at [facility] in [place] , then discharged home for standard OPAT on 05/05/25. -04/20/25: seen here for follow up, extended IV Cefepime and Daptomycin antibiotics until 05/25 when he would be seen here with the plan to transition to oral Levaquin and Doxycycline with close monitoring for 2-3 months -05/18/25: seen by Ortho, fully weight bearing on CAM boot, using cane for ambulation, well healed surgical incisions and anterior reveles wounds healing with dry scab and small amount of fibrinous tissue, progressing well. -05/25/25: seen in ID clinic for follow up, was doing well, switched to oral Levaquin 750 mg po dailyand Doxycycline 100 mg po bid with close monitoring for 2-3 months. -06/22/25: seen for TH evaluation, had issues with weight bearing in RLE and right knee sometimes giving away, was supposed to see Ortho but could not get to the appointment and next appointment is [id number]. -09/01-09/08/25: Admitted to hospital for operative management given signs of hardware failure and concern for surgical site infection at 08/24 Orthopedic Surgery clinic appointment; underwent removalof hardware and placement of antibiotic cement in right tibia on 09/01/25; discharged to subacute rehab facility on 09/08 to complete PT and a 6-week course of IV antibiotic therapy with Ertepenem and Daptomycin ROS: He does not report any fevers, chills, nausea, vomiting, or diarrhea MEDICATIONS: Current Outpatient Medications Medication Instructions albuterol 108 (90 Base) MCG/ACT inhaler 2 puffs, Inhalation, Every 6 hours PRN aspirin (SUSANA ASPIRIN EC LOW DOSE) 81 mg, Daily bisoprolol (ZEBETA) 2.5 mg, Oral, Daily buPROPion XL (WELLBUTRIN XL) 150 mg, Daily cholecalciferol (VITAMIN D-3) 50,000 Units, Weekly clopidogrel (PLAVIX) 75 mg, Oral, Daily cyanocobalamin (VITAMIN B-12) 1,000 mcg, Oral, Daily cyclobenzaprine (FLEXERIL) 10 mg, Oral, 2 times daily PRN DULoxetine (CYMBALTA) 60 mg, Oral, Daily empagliflozin (JARDIANCE) 10 mg, Daily famotidine (PEPCID) 40 mg, Oral, 2 times daily ferrous sulfate 324 mg, Oral, Every other day, Do not crush, chew, or split. fluticasone-salmeterol (Advair Diskus) 250-50 MCG/ACT diskus inhaler 1 puff, Inhalation, Daily, Rinse mouth with water after use to reduce aftertaste and incidence of candidiasis. Do not swallow. furosemide (LASIX) 40 mg, Oral, Daily PRN [Paused] gabapentin (NEURONTIN) 800 mg, Oral, Every 6 hours gabapentin (NEURONTIN) 800 mg, Oral, 4 times daily glimepiride (AMARYL) 2 mg, Oral, 2 times daily [Paused] HYDROcodone-acetaminophen (Bartley) 10-325 MG tablet 10 mg of hydrocodone, Oral, Every 4 hours PRN [Paused] HYDROcodone-acetaminophen (Bartley) 10-325 MG tablet 10 mg of hydrocodone, 4 times daily HYDROcodone-acetaminophen (Bartley) 5-325 MG tablet 10 mg of hydrocodone, Oral, Every 4 hours PRN magnesium oxide (MAG-OX) 400 mg, Oral, Daily multivitamin (Theragran-M) tablet 1 tablet, Oral, Daily pantoprazole (PROTONIX) 40 mg, Daily pravastatin (PRAVACHOL) 40 mg, Nightly rOPINIRole (Requip) 1 MG tablet Take 1 tablet by mouth in the morning and 1 tablet at noon then take 2 tablets at bedtime sildenafil (VIAGRA) 100 mg, Oral, Daily PRN sodium chloride 0.9 % solution 100 mL with DAPTOmycin 500 MG reconstituted solution 900 mg 10 mg/kg, Intravenous, Every 24 hours sodium chloride 0.9% solution 100 mL with ertapenem 1 g reconstituted solution 1 g 1 g, Intravenous, Every 24 hours [MAR Hold] valsartan (DIOVAN) 160 mg, Oral, Daily There were no vitals filed for this visit. PHYSICAL EXAM: (Performed on TeleHealth Visit) Gen: NAD and voice normal HEENT: Moist mucus membranes present CV: Appears well-perfused during TeleHealth visit Pulm: No increased WOB Neuro: AAOx3 Psych: Mood and affect appropriate for setting LABS: Obtained on 09/25/25 WBC: 6.7 Plt: 299 ALT: 14 AST: 21 CK: 67 CRP: 10.8 MICRO: -09/01/25 Tissue and Gram Stain: No culture growth with gram stain negative -03/10/25 right leg tissue cultures with MRSA and Enterobacter cloacea -10/14/24: Bone cultures with Klebsiella aerogenes, Enterobacter cloacea, Enterococcus fecalis, Proteus vulgaris, Bacteroides IMAGING: -09/01 CXR: No acute pulmonary process -09/01 Right Tibia Fibula 2+ Views XR: Demonstrated expected recent postoperative changes from revision of tibial nail placement ASSESSMENT/PLAN: Mr. Guerrero Milian is a 59 y.o. male with PMH of non-insulin dependent T2DM, CAD s/p AR and stent placement, atrial fibrillation, and 2018 AICD placement. He presents to clinic for continued follow-up regarding chronic osteomyelitis of the right tibia (diagnosed in 2022) s/p several courses of PO and IV antibiotics with removal of deep implant and drug implant device as well as saucerization and diaphysectomy of right tibia. He had initially underwent transphalangeal amputation of the right great toe for possible osteomyelitis in May 2024. Since his last appointment in ID clinic, he underwent removal of right knee hardware and insertion of an intramedullary bro[place] with placement of antibioticcement with Orthopedic Surgery. During his TeleHealth visit today, Mr. Milian appears clinically stable and is adhering to his IV antibiotic regimen with Ertepenem and Daptomycin. He is recovering well post-operatively and engaging in physical therapy sessions at the rehab facility, but endorses serous drainage from the post-operative site associated with intermittent RLE swelling. 1.) Chronic osteomyelitis of the right tibia -Diagnosed in 2022 s/p multiple I&D procedures in the past -In 2019, experienced a comminuted fracture of the right tibia -In May 2024, underwent transphalangeal amputation of right great toe for possible osteomyelitis; cultures at the time were polymicrobial including MRSA, E coli, and Klebsiella; s/p Zosyn and Vancomycin therapy and transitioned to PO Levaquin and Linezolid to complete additional 3-weeks of antibiotic therapy -Admitted to [facility] from 10/14-10/22/24 for saucerization/excision of right tibia, placement of antibiotic spacer intramedullary, and application of uniplanar external fixator; cultures significant forpolymicrobial growth including Klebsiella aerogenes, Enterobacter cloacea, Enterococcus fecalis, Proteus vulgaris, and Bacteroides; in the setting of chronic right tibial osteomyelitis, completed antibiotic course during 10/16-11/13/24 consisting of IV cefepime, IV daptomycin, and PO Flagyl -12/09/24: Removal of ex fix and intramedullary drug delivery device with osteotomy of the right tibia -Admitted from 03/10-04/13/25 for surgical management of right tibial nonunion s/p cable transport frame for limb salvage; completed a course of IV Daptomycin, IV Cefepime, and PO Flagyl until 05/25/25 -Transitioned to course of PO Levoquin and Doxycycline before subsequent August hospitalization -Hospitalized recently from 09/01-09/08 for operative management of RLE hardware failure and suspected surgical site infection; discharged to subacute rehab facility to complete a 6-week course of IVantibiotics (Ertepenem and Daptomycin) with stop date of 10/12/25 -On the TeleHealth visit today, Mr. Milian appears clinically stable and is recovering well post-operatively; he continues to work with physical therapy at subacute rehab and receives daily IV antibiotics through the PICC line PLAN: -Continue IV Ertepenem and Daptomycin daily through PICC line at subacute rehab facility to complete a 6-week course; stop date planned for 10/12/25 with plan for likely transition to PO antibiotic therapy -Continue weekly labs (eg. BUN, sCr, LFTs, CK, CBC, and CRP) given current IV antibiotic therapy regimen -Please follow-up for an in-person clinic appointment with Dr. Aragon scheduled for 10/12/25 for further management of chronic antibiotic therapy -Recommend following up with Orthopedic Surgery service regarding the serous drainage from post-operative site 2.) Non-insulin dependent T2DM c/b diabetic foot ulcerations and peripheral neuropathy: -Per pt, takes home regimen of empagliflozin and glimepiride PLAN: -Continue current diabetic medication regimen (empagliflozin and glimepiride) as per PCP -Continue regular follow-up with primary care provider to maintain glycemic control 3.) Dental Caries: -Per pt, has not been able to schedule a dentist visit given recent procedural intervention PLAN: -Recommend scheduling dental appointment at pt's earliest convenience to manage dental caries Plan discussed with the patient who stated understanding and was in agreement, recommendations discussed with primary team, ID will follow Brenda Cannon MD Internal medicine PGY-1 documented in this encounter Plan of Treatment Upcoming Encounters Date Type Department Care Team (Late st Contact Info) Description 12/14/2025 2:30 PM EST Office Visit [id number] [place] [phone] Aleksandr Lee MD [address] [facility] [address] [place] [address] 01/25/2026 9:50 AM EST Office Visit [facility] Orthopaedic Surgery & Sports Medicine [address] [place] [address] Eliazar Simmons MD [address] [place] [address] documented as of this encounter Goals Goal Patient Goal Type Associated Problems Recent Progress Patient-Stated? Author Autogenerat ed Goal Care Plan Autogenerated Problem No Ariana Marshall PA documented as of this encounter Visit Diagnoses Diagnosis Chronic osteomyelitis of right tibia (CMS/HCC)- Primary documented in this encounter Additional Health Concerns Active Problems Noted Date Diagnosed Date Autogenerated Problem 08/24/2025 Infection Onset Date Last Indicated Resolved Time MRSA Comment:Positive wound culture 05/21/2020 03/10/2025 Assessment Noted Time PHQ-9 Depression Total Score: 3 01/27/20 25 10:59 AM EST A fall risk assessment has been complete d for the patient 09/20/2025 10:12 AM EDT A Body Mass Index follow-up plan has been documented for the patient 09/28/2025 4:05 PM EST documented as of this encounter Care Teams Cco Relationship Specialty Start Date End Date Emmy Houser APRN [address] [place] [address] PCP - General 02/07/25 Aleksandr Lee MD [address] [place] [phone] Consulting Physician Infectious Diseases 01/06/24 documented as of this encounter
--- OUTSIDE RECORDS SUMMARY | 2025-10-12 14:00 | XMS_ITS | Encounter Summary ---
Author Organization Healthcare Address [address] [place] [address] Care Team Providers Care Teacher Of The Visually Impaired Name Role Phone Aleksandr Lee MD Unavailable [phone] Emmy Houser APRN Primary Care Provider + Reason for Referral * Consultation (Routine) - Authorized Specialty Diagnoses / Procedures Referred By Contac t Referred To Contact Diagnoses Chronic osteomyelitis of right tibia (CMS/HCC) Aleksandr Lee MD [address] [place] [phone] Phone: tel: fax: Referral ID Status Reason Start Date Expiration Date V isits Requested Visits Authorized [id number] Authorized 10/12/2025 04/13/2027 1 1 Encounter Details Date Type Department Care Team (Late st Contact Info) Description 10/12/2025 2:00 PM EST Office Visit [address] [phone] Aleksandr Lee MD [address] [place] [phone] Chronic osteomyelitis of right tibia (CMS/HCC) (Primary Dx) Social History Tobacco Use Types Packs/Day Years Used Date Smoking Tobacco: Some Days Cigarettes 0.3 45.3 Started: 08/24/1995 Passive Smoke Exposure: Past Smokeless [...] and Family Not on file 03/15/2025 Attends [employer] Not on file 03/15 Active Member [...] Date Recorded Patient Health Questionnaire-2 Score 0 10/12/2025 PHQ-9 Answer Date Recorded Patient Health Questionnaire-9 Score 0 10/12/2025 Humiliation, Afraid, Rape, and Kick questionnair e [...] time in the past 12 m [facility], were you homeless or living in a [facility] (including now)? No 09/02/2025 [facility] Utilities Answer Date Recorded In the past 12 months has e [email or web address], gas, oil, or water [employer] threatened to shut off services in your [...] drink first t alyssa in the morning (EYE-FREELANCE INTERPRETER/TRANSLATOR) to steady your nerves or to get [...] Sign Reading Time Taken Comments Blood Pressure 121/76 10/12/2025 1:51 PM EST Pulse 76 10/12/2025 1:51 PM EST Temperature 36.9 C (98.4 F) 10/12/2025 1:51 PM EST Respiratory Rate - - Oxygen Saturation 99% 10/12/2025 1:51 PM EST Inhaled Oxygen Concentration - - Weight 107 kg (234 lb 12.6 oz) 10/12/2025 1:51 P M EST Height 177.8 cm (5' 10 ) 10/12/2025 1:51 PM EST Body Mass Index 33.69 10/12/2025 1:51 PM EST documented in this encounter Functional Status * BP Answer Date of Assessment Author 121/76 10/12/2025 1:51 PM EST Brando K eyonia N * Temp Answer Date of Assessment Author 98.4 10/12/2025 1:51 PM EST Brando K eyonia N * Temp src Answer Date of Assessment Author Oral 10/12/2025 1:51 PM EST Brando K eyonia N * Pulse Answer Date of Assessment Author 76 10/12/2025 1:51 PM EST Brando K eyonia N * SpO2 Answer Date of Assessment Author 99 10/12/2025 1:51 PM EST Brando K eyonia N * Height Answer Date of Assessment Author 70 10/12/2025 1:51 PM EST Brando K eyonia N * Weight Answer Date of Assessment Author 3756.64 10/12/2025 1:51 PM EST Brando K eyonia N * BMI (Calculated) Answer Date of Assessment Author 33.8 10/12/2025 1:51 PM EST Brando K eyonia N * Percent Excess Weight Loss Answer Date of Assessment Author 0 10/12/2025 1:51 PM EST Brando K eyonia N * Total Weight Change Percent Answer Date of Assessment Author 22210/12/2025 1:51 PM EST Brando K eyonia N * Weight Change Since Preop Answer Date of Assessment Author 106.48 10/12/2025 1:51 PM EST Brando K eyonia N * Initial Excess Weight Answer Date of Assessment Author -75.3 10/12/2025 1:51 PM EST Majors, K eyonia N * IBW in lbs (Bariatric) Answer Date of Assessment Author 166 10/12/2025 1:51 PM EST Majorvickie K eyonia N * Weight Change Since Last Visit Answer Date of Assessment Author 106.48 10/12/2025 1:51 PM EST Majors K eyonia N * IBW in kg (Bariatric) Answer Date of Assessment Author 75.3 10/12/2025 1:51 PM EST Brando K eyonia N * Percent of IBW Answer Date of Assessment Author 4,988.9 10/12/2025 1:51 PM EST Majors K eyonia N * EBW (kg) Answer Date of Assessment Author 3,754.51 10/12/2025 1:51 PM EST Majorvickie K eyonia N * EBW (lbs) Answer Date of Assessment Author 3,746.27 10/12/2025 1:51 PM AMAURI Michaels K eyonia N * Weight Change 24 hrs Answer Date of Assessment Author -1.6 10/12/2025 1:51 PM EST Brando K eyonia N * Depression Screening Question Answer Date of Assessment Author Will the patient answer the depression risk questions? Yes 10/12/2025 1:50 PM Mao Newman N * BSA (Calculated - sq m) Answer Date of Assessment Author 2.29 10/12/2025 1:51 PM EST Brando K eyonia N * BMI (Calculated) Answer Date of Assessment Author 33.69 10/12/2025 1:51 PM AMAURI Michaels K eyonia N * IBW/kg (Calculated) Male Answer Date of Assessment Author 73 10/12/2025 1:51 PM EST Majors, K eyonia N * IBW/kg (Calculated) Female Answer Date of Assessment Author 68.5 10/12/2025 1:51 PM AMAURI Michaels K eyonia N * Central/PICC Line Removal Question Answer Date of Assessment Author Time-out Dual Sign Off 2nd Educational Therapy Teacher M Maskey 10/12/2025 3:00 PM Karmen Cardona RN Supplies Present Suture removal kit;Petroleum gauze;Sterile gauze;Occlusive dressing 10/12/2025 3:00 PM Karmen Cardona RN Central/PICC Line Removal Safety Precautions Patient instructed to hold breath/Valsalva;Patient in Trendelenburg position 10/12/2025 3:00 PM Karmen Cardona, RN * IBW/kg (Calculated) Answer Date of Assessment Author 73 10/12/2025 1:51 PM Kayode Newman * Over the past 2 weeks, how often have you been bothered by any of the following problems? Question Answer Date of Assessment Author Little interest or pleasure in doing things Not at all 10/12/2025 1:50 PM Sandro Newman Feeling down, depressed, or hopeless Not at all 10/12/2025 1:50 PM Sandro Newman Patient Health Questionnaire -2 Score 0 10/12/2025 1:50 PM Sandro Newman * Over the past 2 weeks, how often have you been bothered by any of the following problems? Question Answer Date of Assessment Author Trouble falling or staying asleep, or sleeping too much Not at all 10/12/2025 1:50 PM Sandro Newman Feeling tired or having ricky le energy Not at all 10/12/2025 1:50 PM Sandro Newman Poor appetite or overeating Not at all 10/12/2025 1: 50 PM Sandro Newman Feeling bad about yourself - or that you are a failure or have let yourself or your family down Not at all 10/12/2025 1:50 PM Sandro Mcfadden Trouble concentrating on thi ngs, such as reading the newspaper or watching television Not at all 10/12/2025 1:50 PM Sandro Newman Moving or speaking so slowly that other people could have noticed. Or the opposite - being so fidgety or restless that you have been moving around a lot more than usual Not at all 10/12/2025 1:50 PM Sandro Newman Thoughts that you would be b yamile off or hurting yourself in some way Not at all 10/12/2025 1:50 PM Sandro Newman Patient Health Questionnaire -9 Score 0 10/12/2025 1:50 PM Sandro Newman * How difficult have these problems made it for you to do your work, take care of things at home, or get along with other people? Answer Date of Assessment Author Not difficult at all 10/12/2025 1:50 PM EST Sandro Bradford N * Weight in (lb) to have BMI = 25 Answer Date of Assessment Author 173.9 10/12/2025 1:51 PM EST Majors, K eyonia N * BMI (Calculated) Answer Date of Assessment Author 33.8 10/12/2025 1:51 PM EST Majors, K eyonia N * Percent Excess Weight Loss Answer Date of Assessment Author 0 10/12/2025 1:51 PM EST Majors, K eyonia N * Weight Change Since Preop Answer Date of Assessment Author 106.5 10/12/2025 1:51 PM EST Majors, K eyonia N * Initial Excess Weight Answer Date of Assessment Author -75.3 10/12/2025 1:51 PM EST Majors, K eyonia N * IBW in kg (Bariatric) Answer Date of Assessment Author 75.3 10/12/2025 1:51 PM EST Majors, K eyonia N * IBW in lb (Bariatric) Answer Date of Assessment Author 166 10/12/2025 1:51 PM EST Majors, K eyonia N * Weight Change Since Last Visit Answer Date of Assessment Author 106.5 10/12/2025 1:51 PM EST Majors, K eyonia N * Percent of IBW Answer Date of Assessment Author 141.44 10/12/2025 1:51 PM EST Majors, K eyonia N * EBW (kg) Answer Date of Assessment Author 31.18 10/12/2025 1:51 PM EST Majors, K eyonia N * EBW (lb) Answer Date of Assessment Author 68.79 10/12/2025 1:51 PM EST Majors, K eyonia N * Difference in Weight Since Last Visit Answer Date of Assessment Author -1.6 10/12/2025 1:51 PM EST Majors, K eyonia N * Temp (in Celsius) for [place] IV Answer Date of Assessment Author 36.9 10/12/2025 1:51 PM EST Majors, K eyonia N * Time-Out Question Answer Date of Assessment Author Correct Patient Yes 10/12/2025 3:00 PM EST Karmen Singh, DYLAN Correct Site Yes 10/12/2025 3:00 PM Karmen Cardona RN Site Marked Yes 10/12/2025 3:00 PM Karmen Cardona RN Correct Side Yes 10/12/2025 3:00 PM Karmen Cardona RN Correct Patient Position Yes 10/12/2025 3:00 PM Karmen Cardona, R N What Procedure? Central/PICC line removal 10/12/2025 3:00 PM Karmen Cardona, RN Correct Procedure Yes 10/12/2025 3:00 PM Karmen Cardona, RN * IBW/kg (Calculated) Answer Date of Assessment Author 73 10/12/2025 1:51 PM EST Brando K eyonia N * Adult Low Range Vt 6mL/kg Answer Date of Assessment Author 438 10/12/2025 1:51 PM EST Brando K eyonia N * Adult Moderate Range Vt 8mL/kg Answer Date of Assessment Author 584 10/12/2025 1:51 PM EST Brando K eyonia N * Adult High Range Vt 10mL/kg Answer Date of Assessment Author 730 10/12/2025 1:51 PM EST Brando K eyonia N * Pain Score Answer Date of Assessment Author 0 10/12/2025 1:46 PM EST Majorvcikie K eyonia N * Pain Screening/Additional Assessments Question Answer Date of Assessment Author Pain Screening/Assessments Pain Screening 10/12/2025 1 :46 PM AMAURI Michaels Key[place] N * Pain Screening Answer Date of Assessment Author 0-10 10/12/2025 1:46 PM EST Brando K eyonia N * BP Answer Date of Assessment Author 121/76 10/12/2025 1:51 PM EST Brando K eyonia N * Temp Answer Date of Assessment Author 98.4 10/12/2025 1:51 PM EST Brando K eyonia N * Temp src Answer Date of Assessment Author Oral 10/12/2025 1:51 PM EST Brando K eyonia N * Pulse Answer Date of Assessment Author 76 10/12/2025 1:51 PM EST Brando K eyonia N * SpO2 Answer Date of Assessment Author 99 10/12/2025 1:51 PM Kayode Newman N * Height Answer Date of Assessment Author 70 10/12/2025 1:51 PM Kayode Newman N * Weight Answer Date of Assessment Author 3756.64 10/12/2025 1:51 PM Kayode Newman N * BSA (Calculated - sq m) Answer Date of Assessment Author 2.29 10/12/2025 1:51 PM Kayode Newman N * BMI (Calculated) Answer Date of Assessment Author 33.69 10/12/2025 1:51 PM Kayode Newman N * Over the past 2 weeks, how often have you been bothered by any of the following problems? Question Answer Date of Assessment Author Little interest or pleasure in doing things Not at all 10/12/2025 1:50 PM Sandro Newman Feeling down, depressed, or hopeless Not at all 10/12/2025 1:50 PM Sandro Newman Patient Health Questionnaire -2 Score 0 10/12/2025 1:50 PM Sandro Newman * Over the past 2 weeks, how often have you been bothered by any of the following problems? Question Answer Date of Assessment Author Trouble falling or staying asleep, or sleeping too much Not at all 10/12/2025 1:50 PM Sandro Newman Feeling tired or having ricky le energy Not at all 10/12/2025 1:50 PM Sandro Newman Poor appetite or overeating Not at all 10/12/2025 1: 50 PM Sandro Newman Feeling bad about yourself - or that you are a failure or have let yourself or your family down Not at all 10/12/2025 1:50 PM Sandro Mcfadden Trouble concentrating on thi ngs, such as reading the newspaper or watching television Not at all 10/12/2025 1:50 PM Sandro Newman Moving or speaking so slowly that other people could have noticed. Or the opposite - being so fidgety or restless that you have been moving around a lot more than usual Not at all 10/12/2025 1:50 PM Sandro Newman Thoughts that you would be b yamile off or hurting yourself in some way Not at all 10/12/2025 1:50 PM Sandro Newman N Patient Health Questionnaire -9 Score 0 10/12/2025 1:50 PM Sandro Newman N * How difficult have these problems made it for you to do your work, take care of things at home, or get along with other people? Answer Date of Assessment Author Not difficult at all 10/12/2025 1:50 PM Sandro Mcfadden N * Weight in (lb) to have BMI = 25 Answer Date of Assessment Author 173.9 10/12/2025 1:51 PM Kayode Newmanonia N * Pain Score Answer Date of Assessment Author 0 10/12/2025 1:46 PM Kayode Newmanonia N documented as of this encounter Mental Status * BP Answer Entry Date Author 121/76 10/12/2025 1:51 PM Kayode Newman eyonia N * Temp Answer Entry Date Author 98.4 10/12/2025 1:51 PM Kayode Newman eyonia N * Temp src Answer Entry Date Author Oral 10/12/2025 1:51 PM Kayode Newman eyonia N * Pulse Answer Entry Date Author 76 10/12/2025 1:51 PM Kayode Newman eyonia N * SpO2 Answer Entry Date Author 99 10/12/2025 1:51 PM EST Kayode Michaels eyonia N * Height Answer Entry Date Author 70 10/12/2025 1:51 PM EST Kayode Michaels eyonia N * Weight Answer Entry Date Author 3756.64 10/12/2025 1:51 PM EST Kayode Michaels eyonia N * BMI (Calculated) Answer Entry Date Author 33.8 10/12/2025 1:51 PM EST Brando K eyonia N * Percent Excess Weight Loss Answer Entry Date Author 0 10/12/2025 1:51 PM EST Kayode Michaels eyonia N * Total Weight Change Percent Answer Entry Date Author 222110/12/2025 1:51 PM EST Brando K eyonia N * Weight Change Since Preop Answer Entry Date Author 106.48 10/12/2025 1:51 PM AMAURI Michaels K eyonia N * Initial Excess Weight Answer Entry Date Author -75.3 10/12/2025 1:51 PM EST MajorKayode johnston eyonia N * IBW in lbs (Bariatric) Answer Entry Date Author 166 10/12/2025 1:51 PM EST MajorsKayode eyonia N * Weight Change Since Last Visit Answer Entry Date Author 106.48 10/12/2025 1:51 PM EST Majors K eyonia N * IBW in kg (Bariatric) Answer Entry Date Author 75.3 10/12/2025 1:51 PM EST Vasquezs K eyonia N * Percent of IBW Answer Entry Date Author 4,988.9 10/12/2025 1:51 PM EST Majors, K eyonia N * EBW (kg) Answer Entry Date Author 3,754.51 10/12/2025 1:51 PM EST Majors K eyonia N * EBW (lbs) Answer Entry Date Author 3,746.27 10/12/2025 1:51 PM EST Majors K eyonia N * Weight Change 24 hrs Answer Entry Date Author -1.6 10/12/2025 1:51 PM EST Majors K eyonia N * Depression Screening Question Answer Entry Date Author Will the patient answer the depression risk questions? Yes 10/12/2025 1:50 PM Mao Newman N * BSA (Calculated - sq m) Answer Entry Date Author 2.29 10/12/2025 1:51 PM EST MajorKayode johnston eyonia N * BMI (Calculated) Answer Entry Date Author 33.69 10/12/2025 1:51 PM EST Majors K eyonia N * IBW/kg (Calculated) Male Answer Entry Date Author 73 10/12/2025 1:51 PM EST Majors K eyonia N * IBW/kg (Calculated) Female Answer Entry Date Author 68.5 10/12/2025 1:51 PM EST Majors K eyonia N * IBW/kg (Calculated) Answer Entry Date Author 73 10/12/2025 1:51 PM EST Kayode Michaels eyonia N * Over the past 2 weeks, how often have you been bothered by any of the following problems? Question Answer Entry Date Author Little interest or pleasure in doing things Not at all 10/12/2025 1:50 PM Sandro Newman N Feeling down, depressed, or hopeless Not at all 10/12/2025 1:50 PM Sandro Newman Patient Health Questionnaire -2 Score 0 10/12/2025 1:50 PM Sandro Newman * Over the past 2 weeks, how often have you been bothered by any of the following problems? Question Answer Entry Date Author Trouble falling or staying asleep, or sleeping too much Not at all 10/12/2025 1:50 PM Sandro Newman Feeling tired or having ricky le energy Not at all 10/12/2025 1:50 PM Sandro Newman Poor appetite or overeating Not at all 10/12/2025 1: 50 PM Sandro Newman Feeling bad about yourself - or that you are a failure or have let yourself or your family down Not at all 10/12/2025 1:50 PM Sandro Mcfadden Trouble concentrating on thi ngs, such as reading the newspaper or watching television Not at all 10/12/2025 1:50 PM Sandro Newman Moving or speaking so slowly that other people could have noticed. Or the opposite - being so fidgety or restless that you have been moving around a lot more than usual Not at all 10/12/2025 1:50 PM Sandro Newman Thoughts that you would be b yamile off or hurting yourself in some way Not at all 10/12/2025 1:50 PM Sandro Newman Patient Health Questionnaire -9 Score 0 10/12/2025 1:50 PM Sandro Newman * [facility] HRSN Mental Health Concern Calculation Answer Entry Date Author 3 10/12/2025 1:50 PM Kayode Newman * How difficult have these problems made it for you to do your work, take care of things at home, or get along with other people? Answer Entry Date Author Not difficult at all 10/12/2025 1:50 PM Sandro Mcfadden * Restart Pain Assessment Timer Answer Entry Date Author Yes 10/12/2025 1:46 PM Kayode Newman * Weight in (lb) to have BMI = 25 Answer Entry Date Author 173.9 10/12/2025 1:51 PM Kayode Newmanonia N * BMI (Calculated) Answer Entry Date Author 33.8 10/12/2025 1:51 PM Kayode Newman eyonia N * Percent Excess Weight Loss Answer Entry Date Author 0 10/12/2025 1:51 PM Sandro Newman N * Weight Change Since Preop Answer Entry Date Author 106.5 10/12/2025 1:51 PM Kayode Newman eyonia N * Initial Excess Weight Answer Entry Date Author -75.3 10/12/2025 1:51 PM Kayode Newman eyonia N * IBW in kg (Bariatric) Answer Entry Date Author 75.3 10/12/2025 1:51 PM EST Kayode Michaels eyonia N * IBW in lb (Bariatric) Answer Entry Date Author 166 10/12/2025 1:51 PM Kayode Newman eyonia N * Weight Change Since Last Visit Answer Entry Date Author 106.5 10/12/2025 1:51 PM Kayode Newman eyonia N * Percent of IBW Answer Entry Date Author 141.44 10/12/2025 1:51 PM AMAURI Michaels K eyonia N * EBW (kg) Answer Entry Date Author 31.18 10/12/2025 1:51 PM EST Brando K eyonia N * EBW (lb) Answer Entry Date Author 68.79 10/12/2025 1:51 PM Kayode Newman eyonia N * Difference in Weight Since Last Visit Answer Entry Date Author -1.6 10/12/2025 1:51 PM Kayode Newman eyonia N * Temp (in Celsius) for [place] IV Answer Entry Date Author 36.9 10/12/2025 1:51 PM Kayode Newman eyonia N * Time-Out Question Answer Entry Date Author Correct Patient Yes 10/12/2025 3:00 PM Karmen Cardona RN Correct Site Yes 10/12/2025 3:00 PM Karmen Cardona RN Site Marked Yes 10/12/2025 3:00 PM Karmen Cardona, RN Correct Side Yes 10/12/2025 3:00 PM Karmen Cardona RN Correct Patient Position Yes 025 3:00 PM Karmen Cardona RN What Procedure? Central/PICC line removal 10/12/2025 3:00 PM Karmen Cardona RN Correct Procedure Yes 10/12/2025 3:0 0 PM Karmen Cardona RN * IBW/kg (Calculated) Answer Entry Date Author 73 10/12/2025 1:51 PM EST Majors, K eyonia N * Adult Low Range Vt 6mL/kg Answer Entry Date Author 438 10/12/2025 1:51 PM EST Majors, K eyonia N * Adult Moderate Range Vt 8mL/kg Answer Entry Date Author 584 10/12/2025 1:51 PM EST Majors, K eyonia N * Adult High Range Vt 10mL/kg Answer Entry Date Author 730 10/12/2025 1:51 PM EST Majors, K eyonia N * Pain Score Answer Entry Date Author 0 10/12/2025 1:46 PM EST Majors, K eyonia N * Pain Screening Answer Entry Date Author 0-10 10/12/2025 1:46 PM EST Majors, K eyonia N documented in this encounter Miscellaneous Notes * Salome KimbroughWILLIAM - Karmen Morel RN - 10/12/2025 3:02 PM EST Images from the original note were not [...] for 24 hours. This includes things like: ? Weight lifting ? Hard yard work ? Any physical activity with repeated arm movements When do I call my doctor? Call or see your caregiver if you have any of these problems in the arm that had the PICC: ? Swelling or puffiness ? Tenderness or pain that gets worse When should I go to the Emergency Room? Go to the nearest ER if you have any of these problems in the arm that had the PICC: ? Numbness or tingling in your fingers, hand, or arm ? Arm has a blue color and feels cold to the touch ? Redness around the insertion site or a red-streak goes up your arm ? Any type of drainage from the PICC insertion site - including: o Bleeding - (If so, use a clean towel to put firm, direct pressure to the site.) o Drainage that is yellow or khan in color ? You have temperature by mouth above 102??F (38.9?? C) that is not helped by medicine * Salome OnPALLAVIIR - Karmen Morel RN - 10/12/2025 3:02 PM EST Images from the original note were not [...] for 24 hours. This includes things like: ? Weight lifting ? Hard yard work ? Any physical activity with repeated arm movements When do I call my doctor? Call or see your caregiver if you have any of these problems in the arm that had the PICC: ? Swelling or puffiness ? Tenderness or pain that gets worse When should I go to the Emergency Room? Go to the nearest ER if you have any of these problems in the arm that had the PICC: ? Numbness or tingling in your fingers, hand, or arm ? Arm has a blue color and feels cold to the touch ? Redness around the insertion site or a red-streak goes up your arm ? Any type of drainage from the PICC insertion site - including: o Bleeding - (If so, use a clean towel to put firm, direct pressure to the site.) o Drainage that is yellow or khan in color ? You have temperature by mouth above 102??F (38.9?? C) that is not helped by medicine * Progress Notes - Brenda Cannon MD - 10/12/2025 2:00 PM EST INFECTIOUS DISEASE CLINIC FOLLOWUP NOTE Reason for [...] a subacute rehab facility. Today, he is accompanied by one of his subacute rehab nurses to clinic. He has no acute concerns for Dr. Aragon and notes that he feels his right leg is doing better with regards to both pain and drainage. He notes that today (10/12) is his final day on IV ertepenem and daptomycin. He has not experienced any infectious symptoms (fevers, chills, nausea, and vomiting) but continues to have 6/10 pain when weight is applied to his RLE. He had been working daily with PT at the subacute rehab facility with 1 hr sessions and saw improvement but his last session was 2 days ago. He endorses mild swelling of his RLE and reduced serous drainage present involving the medial side of his right ankle. He notes that he has plans to see his PCP in [place], [place] next week and will schedule a dentist appointment afterwards. Summary of Pt's Chronic Osteomyelitis Course Per [...] given AICD and cardiac history. -Admitted to [facility] from 10/14/24-10/22/24 for scheduled surgery. 10/14/24: [...] up evaluation, was getting IV antibiotics at [facility], extended for 2 more weeks until 11/27/24 to complete 6 weeks. -11/30/24: evaluated by [facility], still had some serous [...] (end date 03/09/25). He was admitted to [facility] from 03/10/25-04/13/25 for scheduled surgical intervention [...] 8-10 weeks post-op. He was initially at [facility] in [place] , then discharged home for standard OPAT [...] to the appointment and next appointment is [email or web address]. -09/01-09/08/25: Admitted to hospital for operative management given signs of hardware failure and concern for surgical site infection at 08/24 Orthopedic Surgery clinic appointment; underwent removalof hardware and placement of antibiotic cement in right tibia on 09/01/25; discharged to subacute rehab facility on 09/08 to complete PT and a 6-week course of IV antibiotic therapy with Ertepenem and Daptomycin 10/12/25: Completed course of IV ertepenem and daptomycin administered through PICC line; PICC lineremoved in clinic and transitioned to a 2-month course of PO doxycycline. ROS: He does not report any fevers, [...] mg, Oral, 2 times daily [Paused] HYDROcodone-acetaminophen ([place]) 10-325 MG tablet 10 mg of hydrocodone, Oral, Every 4 hours PRN [Paused] HYDROcodone-acetaminophen ([place]) 10-325 MG tablet 10 mg of hydrocodone, 4 times daily HYDROcodone-acetaminophen ([place]) 5-325 MG tablet 10 mg of hydrocodone, [...] Hold] valsartan (DIOVAN) 160 mg, Oral, Daily Vitals: 10/12/25 1351 BP: 121/76 Pulse: 76 Temp: 36.9 ??C (98.4 ??F) SpO2: 99% PHYSICAL EXAM: Physical Exam Constitutional: General: He is not in acute distress. Appearance: He is not toxic-appearing. HENT: Head: Normocephalic. Mouth/Throat: Mouth: Mucous membranes are moist. Cardiovascular: Rate and Rhythm: Normal rate and regular rhythm. Pulses: Normal pulses. Comments: 2+ radial pulses bilaterally Pulmonary: Effort: Pulmonary effort is normal. No respiratory distress. Abdominal: General: Bowel sounds are normal. There is no distension. Palpations: Abdomen is soft. Tenderness: There is no abdominal tenderness. Musculoskeletal: Right lower leg: Edema (Trace) present. Left lower leg: Edema (Trace) present. Skin: Comments: Chronic venous stasis changes present; RLE appears improved from prior imaging with no active serous drainage from medial right ankle site Neurological: Mental Status: He is alert. LABS: Obtained on 10/09/25 WBC: 9.1 Plt: 344 ALT: 10 AST: 14 CRP: 15.2 MICRO: -09/01/25 Tissue and Gram Stain: No [...] PMH of non-insulin dependent T2DM, CAD s/p MN and stent placement, atrial fibrillation, and 2018 [...] of antibioticcement with Orthopedic Surgery. During his clinic visit today, Mr. Milian appears clinically stable and completed his IV antibiotic regimen with Ertepenem and Daptomycin. He continues to recover well post-operatively and has completed his course of physical therapy sessions at the rehab facility.He has planned Orthopedic Surgery follow-up in October for further evaluation. 1.) Chronic osteomyelitis of the right tibia [...] additional 3-weeks of antibiotic therapy -Admitted to [facility] from 10/14-10/22/24 for saucerization/excision of right tibia, [...] and Daptomycin) with stop date of 10/12/25 -At 10/12/25 appointment, course of IV antibiotic therapy was completed today; PICC line removed inclinic PLAN: -Ordered PO doxycycline 100 mg BID for a 2-month duration -Ordered repeat CRP level as 10/09 was mildly elevated (approximately 15) -Please follow-up with Dr. Aragon on 12/14/25 for further management of chronic antibiotic therapy -Pt has scheduled follow-up with Orthopedic Surgery service regarding the serous drainage from post-operative site on 10/26/25 2.) Non-insulin dependent T2DM c/b diabetic foot ulcerations and peripheral neuropathy: -Per pt, takes home regimen of empagliflozin and glimepiride PLAN: -Continue current diabetic medication regimen (empagliflozin and glimepiride) as per PCP -Continue regular follow-up with primary care provider to maintain glycemic control; per pt, has follow-up next week in [place], [place] 3.) Dental Caries: -Per pt, has not been able to schedule a dentist visit given recent procedural intervention PLAN: -Recommend scheduling dental appointment at pt's earliest convenience to manage dental caries; pt plans to schedule appointment following next week's PCP appointment Plan discussed with the patient who stated understanding and was in agreement, recommendations discussed with primary team, ID will follow Brenda Cannon MD Internal Medicine PGY-1 Cosigned by Aleksandr Lee MD at 10/12/2025 4:22 PM EST Associated attestation - Aleksandr Lee MD - 10/12/2025 4:22 PM EST I saw and evaluated the patient with the resident. I discussed the case with the resident and agreewith the findings and plan as documented. Patient seen and examined, he completed 6 weeks of Daptomycin and Ertapenem as recommended and is doing well, RLE surgical site healed, small open wound on right ankle with no active drainage, CRP trended down and minimally elevated. Since last surgical cultures with no growth, will stop IV antibiotics and start Doxycycline for suppression for 2 months and re-evaluate. Repeat CRP and PICC removalin clinic today, patient states understanding and is in agreement with the plan, he will call with any problems, follow up in 2 months. documented in this encounter Plan of Treatment Upcoming Encounters Date Type Department Care Team (Late st Contact Info) Description 12/14/2025 2:30 PM EST Office Visit [facility] [address] [place] [address] Aleksandr Lee MD [address] [facility] [address] [place] [address] 01/25/2026 9:50 AM EST Office Visit [facility] Orthopaedic Surgery & Sports Medicine [address] [place] [address] Eliazar Simmons MD [address] [place] [phone] Scheduled Referrals Name Type Priority Associated Diagnoses Orde r Schedule Follow Up ID Outpatient Referral Routine Chronic osteomyelitis of right tibia (CMS/HCC) Expected: 12/12/2025, Expires: 11/11/2026 documented as of this encounter Goals Goal Patient Goal Type Associated Problems Recent Progress Patient-Stated? Author Autogenerat ed Goal Care Plan Autogenerated Problem No Ariana Marshall PA documented as of this encounter Procedures Procedure Name Priority Date/Time Associated Diagnosis Comments C-REACTIVE PROTEIN, PLASMA Routine 10/12/2025 2:50 PM EST Chronic osteomyelitis of right tibia (CMS/HCC) documented in this encounter Results * C-reactive protein (10/12/2025 2:50 PM EST) CRP, Plasma <3.0 <=8.0 mg/L 10/12/2025 7:09 PM EST [facility] Blood Venous blood specimen / Unknown Venipuncture / Unknown 10/12/2025 2:50 PM EST 10/12/2025 3:01 PM EST Narrative [facility] - 10/12/2025 7:09 PM EST This CRP test is appropriate for assessment of infection, systemic inflammation and/or tissue injury. To assess cardiovascular disease risk order high sensitivity CRP (CRPH). Aleksandr Aragon MD LAB BLOOD ORDERABLES Final Result [facility] [address] [place] [address] documented in this encounter Visit Diagnoses Diagnosis Chronic osteomyelitis of right tibia (CMS/HCC)- Primary documented in this encounter Additional Health Concerns Active Problems Noted Date Diagnosed Date Autogenerated Problem 08/24/2025 Infection Onset Date Last Indicated Resolved Time MRSA Comment:Positive wound culture 05/21/2020 03/10/2025 Assessment Noted Time PHQ-9 Depression Total Score: 0 10/12/20 1:50 PM EST A fall risk assessment has been complete d for the patient 09/20/2025 10:12 AM EDT A Body Mass Index follow-up plan has been documented for the patient 10/12/2025 4:27 PM EST documented as of this encounter Care Teams Teacher Of The Visually Impaired Relationship Specialty Start Date End Date Emmy Houser APRN [address] [place] [address] PCP - General 02/07/25 Aleksandr Lee MD [facility] [address] [phone] Consulting Physician Infectious Diseases 01/06/24 documented as of this encounter
--- OUTSIDE RECORDS SUMMARY | 2025-10-26 09:16 | XMS_ITS | Encounter Summary ---
Author Organization Healthcare Address [address] [place] [address] Care Team Providers Care Twister Operator Name Role Phone Aleksandr Lee MD Unavailable [phone] Emmy Houser APRN Primary Care Provider + Encounter Details Date Type Department Care Team (Latest Contact Info) Description 10/26/2025 9:16 AM EST - 10/26/2025 11:59 PM [facility] [address] [place] [phone] Tibia/fibula fracture, left, closed, with nonunion, subsequent encounter Discharge Disposition: Home or Self Care Social [...] and Family Not on file 03/15/2025 Attends Orthodoxy Services Not on file 03/15 Active Member [...] any time in the past 12 m [facility] [place], were you homeless or living in a half-way (including now)? No 09/02/2025 [facility] Utilities Answer Date Recorded In the past [...] drink first t alyssa in the morning ([employer] SAL[employer]ENT) to steady your nerves or to get [...] this encounter Medications at Time of Discharge albuterol 108 (90 Base) MCG/ACT inhaler Inhale 2 puffs every 6 (six) hours if needed for wheezing or shortness of breath. 2024 aspirin (Dilip Aspirin EC Low Dose) 81 MG EC tablet Take 1 tablet by mouth daily. bisoprolol (Zebeta) 5 MG tablet Take 0.5 tablets (2.5 mg) by mouth 1 (one) time each day. 2024 buPROPion XL (Wellbutrin XL) 150 MG 24 hr tablet Take 1 tablet by mouth daily. Do not crush, chew, or split. cholecalciferol (Vitamin D3) 1.25 MG (36164 UT) capsule Take 1 capsule by mouth 1 time per week. Mondays clopidogrel (Plavix) 75 MG tabletIndications:S tenosis of right carotid artery without cerebral infarction [...] mouth 1 (one) time each day. 2024 empagliflozin (Jardiance) 10 MG Take 1 tablet by mouth daily. famotidine (Pepcid) 40 MG tablet Take 1 tablet (40 mg) by mouth 2 (two) times a day. 2024 ferrous sulfate 324 MG tablet delayed-release Take 1 tablet by mouth every other day. Do not crush, chew, or split. 04/14/2025 fluticasone-salmete rol (Advair Diskus) 250-50 MCG/ACT diskus inhaler Inhale 1 puff daily. Rinse mouth with water after use to reduce aftertaste and incidence of candidiasis. Do not swallow. 09/08/2025 furosemide (Lasix) 40 MG tablet Take 1 tablet by mouth daily as needed (edema). 09/08/2025 gabapentin (Neurontin) 400 MG capsule Take 2 capsules by mouth 4 times a day. 100 capsule 09/08/2025 gabapentin (Neurontin) 800 MG tablet Take 1 tablet (800 mg) by mouth every 6 (six) hours. 42 tablet 12/17/2024 glimepiride (Amaryl) 2 MG tablet Take 1 tablet (2 mg) by mouth 2 (two) times a day. 2024 HYDROcodone-acetami nophen (Lloyd) 10-325 MG tablet Take 1 tablet by mouth every 4 hours as needed for severe pain. 30 tablet 04/13/2025 HYDROcodone-acetami nophen (Lloyd) 10-325 MG tablet Take 1 tablet by mouth 4 times a day. HYDROcodone-acetami nophen (Lloyd) 5-325 MG tablet Take 2 tablets by mouth every 4 hours as needed for severe pain. 30 tablet 09/08/2025 magnesium oxide (Mag-Ox) 400 (240 Mg) MG tablet Take 1 tablet (400 mg) by mouth 1 (one) time each day. 2024 multivitamin (Theragran-M) tablet Take 1 tablet by mouth 1 (one) time each day. 2024 pantoprazole (Protonix) 40 MG EC tablet Take 1 tablet by mouth daily. pravastatin (Pravachol) 40 MG tablet Take 1 tablet by mouth nightly. rOPINIRole (Requip) 1 MG tablet Take 1 tablet by mouth in the morning and 1 tablet at noon then take 2 tablets at bedtime 2024 sildenafil (Viagra) 100 MG tablet Take 1 tablet (100 mg) by mouth 1 (one) time each day if needed for erectile dysfunction. 2024 valsartan (Diovan) 160 MG tablet Take 1 tablet by mouth daily. 04/13/2025 doxycycline (Adoxa) 100 MG tabletIndications:C hronic osteomyelitis of right tibia (CMS/HCC) Take 1 tablet by mouth 2 times a day. Take with a full glass of water and do not lie down for at least 30 minutes after 60 tablet 1 10/12/2025 documented as of this encounter Plan of Treatment Upcoming Encounters Date Type Department Care Team (Late st Contact Info) Description 12/14/2025 2:30 PM EST Office Visit [facility] [id number] [place] [address] Aleksandr Lee MD [address] [facility] [address] [place] [address] 01/25/2026 9:50 AM EST Office Visit [facility] Orthopaedic Surgery & Sports Medicine [address] [place] [address] Eliazar Simmons MD [address] [place] [address] documented as of this encounter Goals Goal Patient Goal Type Associated Problems Recent Progress Patient-Stated? Author Autogenerat ed Goal Care Plan Autogenerated Problem No Ariana Marshall PA documented as of this encounter Procedures Procedure Name Priority Date/Time Associated Diagnosis Comments XR TIBIA FIBULA RIGHT 2+ VIEWS Routine 10/26/2025 9:27 AM EST Tibia/fibula fracture, left, closed, with nonunion, subsequent encounter documented in this encounter Results * XR Tibia Fibula Right 2+ Views (10/26/2025 9:27 AM EST) Anatomical Region Laterality Modality Lower Extremities, Lower Leg Right Dig ital Radiography Impressions 10/26/2025 3:53 PM EST Redemonstration of intramedullary nail and screw fixation of the tibia without evidence of hardware complication. Similar alignment of osteotomy deformities of the mid tibia and fibula with some healing changes of the distal tibia as described. CRITICAL RESULT: No. COMMUNICATION: Per this written report. By electronically signing this report, I, the attending physician, attest that I have personally reviewed the images/data for the above examination(s) and agree with the final edited report. Drafted by Haleigh Obando MD on 10/26/2025 9:35 AM Final report signed by Santos Monae MD on 10/26/2025 3:53 PM Narrative 10/26/2025 3:53 PM EST CLINICAL INDICATION: pain TECHNIQUE: XR TIBIA FIBULA RIGHT 2+ VIEWS COMPARISON: 09/01/2025 FINDINGS: Redemonstration of intramedullary nail and screw fixation of the tibia without evidence of hardware loosening or failure. Similar alignment of osteotomy deformities of the mid tibia and fibula. There is progressive bony bridging at the distal tibial osteotomy site posteriorly. Mildly improved, but persistent diffuse soft tissue edema. Procedure Note Santos Monae MD - 10/26/2025 CLINICAL INDICATION: pain TECHNIQUE: XR TIBIA FIBULA RIGHT 2+ VIEWS COMPARISON: 09/01/2025 FINDINGS: Redemonstration of intramedullary nail and screw fixation of the tibiawithout evidence of hardware loosening or failure. Similar alignment ofosteotomy deformities of the mid tibia and fibula. There is progressivebony bridging at the distal tibial osteotomy site posteriorly. Mildlyimproved, but persistent diffuse soft tissue edema. IMPRESSION: Redemonstration of intramedullary nail and screw fixation of the tibiawithout evidence of hardware complication. Similar alignment of osteotomy deformities of the mid tibia and fibulawith some healing changes of the distal tibia as described. CRITICAL RESULT: No. COMMUNICATION: Per this written report. By electronically signing this report, I, the attending physician, attestthat I have personally reviewed the images/data for the aboveexamination(s) and agree with the final edited report. Drafted by Haleigh Obando MD on 10/26/2025 9:35 AM Final report signed by Santos Monae MD on 10/26/2025 3:53 PM us [facility] IM[facility] XR PROCEDURES Final Resul t documented in this encounter Visit Diagnoses Diagnosis Tibia/fibula fracture, left, closed, with nonunion, subsequent encounter documented in this encounter Additional Health Concerns Active Problems Noted Date Diagnosed Date Autogenerated Problem 08/24/2025 Infection Onset Date Last Indicated Resolved Time MRSA Comment:Positive wound culture 05/21/2020 03/10/2025 Assessment Noted Time PHQ-9 Depression Total Score: 0 10/12/20 25 1:50 PM EST A fall risk assessment has been complete d for the patient 10/26/2025 10:28 AM EST A Body Mass Index follow-up plan has been documented for the patient 11/04/2025 10:57 PM EST documented as of this encounter Care Teams Twister Operator Relationship Specialty Start Date End Date Emmy Houser APRN [address] [place] [id number] PCP - General 02/07/25 Aleksandr Lee MD [address] [place] [phone] Consulting Physician Infectious Diseases 01/06/24 documented as of this encounter
--- OUTSIDE RECORDS SUMMARY | 2025-10-26 10:20 | XMS_ITS | Encounter Summary ---
Author Organization Healthcare Address [address] [place] [address] Care Team Providers Care Cosmetic Sales Advisor Name Role Phone Aleksandr Lee MD Unavailable [phone] Emmy Houser APRN Primary Care Provider + Reason for Visit * Reason Comments Follow-up Encounter Details Date Type Department Care Team (Late st Contact Info) Description 10/26/2025 10:20 AM EST Office Visit [facility] [address] [place] [address] Eliazar Simmons MD [address] [place] [address] Tibia/fibula fracture, left, closed, with nonunion, subsequent encounter (Primary Dx) Social History Tobacco Use Types [...] and Family Not on file 03/15/2025 Attends Church Services Not on file 03/15 Active Member [...] money to buy more. Never true 09/02/20 Within the past 12 months, t he [...] time in the past 12 m [facility], were you homeless or living in a fci (including now)? 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) to steady your nerves or to [...] Sign Reading Time Taken Comments Blood Pressure 113/75 10/26/2025 10:29 AM EST Pulse 76 10/26/2025 10:29 AM EST Temperature 36.6 C (97.8 F) 10/26/2025 10:29 AM EST Respiratory Rate - - Oxygen Saturation 97% 10/26/2025 10:29 AM EST Inhaled Oxygen Concentration - - Weight 105 kg (231 lb) 10/26/2025 10:29 AM EST Height 182.9 cm (6') 10/26/2025 10:29 AM EST Body Mass Index 31.33 10/26/2025 10:29 AM EST documented in this encounter Functional Status * BP Answer Date of Assessment Author 113/75 10/26/2025 10:29 AM EST Amari, Br dipesh * Temp Answer Date of Assessment Author 97.8 10/26/2025 10:29 AM EST Amari, Br dipesh * Pulse Answer Date of Assessment Author 76 10/26/2025 10:29 AM EST Amari, Br dipesh * SpO2 Answer Date of Assessment Author 97 10/26/2025 10:29 AM EST Amari, Br dipesh * Height Answer Date of Assessment Author 72 10/26/2025 10:29 AM EST Amari, Br dipesh * Weight Answer Date of Assessment Author 3696 10/26/2025 10:29 AM EST Amari, Br dipesh * BMI (Calculated) Answer Date of Assessment Author 31.4 10/26/2025 10:29 AM EST Amari, Br dipesh * Percent Excess Weight Loss Answer Date of Assessment Author 0 10/26/2025 10:29 AM EST Amari, Br dipesh * Total Weight Change Percent Answer Date of Assessment Author 2222 10/26/2025 10:29 AM EST Amari, Br dipesh * Weight Change Since Preop Answer Date of Assessment Author 104.76 10/26/2025 10:29 AM EST Amari, Br dipesh * Initial Excess Weight Answer Date of Assessment Author -80.74 10/26/2025 10:29 AM EST Amari, Br dipesh * IBW in lbs (Bariatric) Answer Date of Assessment Author 178 10/26/2025 10:29 AM EST Amari, Br dipesh * Weight Change Since Last Visit Answer Date of Assessment Author 104.76 10/26/2025 10:29 AM EST Amari, Br dipesh * IBW in kg (Bariatric) Answer Date of Assessment Author 80.74 10/26/2025 10:29 AM EST Amari, Br dipesh * Percent of IBW Answer Date of Assessment Author 4,577.66 10/26/2025 10:29 AM EST Amari, Br dipesh * EBW (kg) Answer Date of Assessment Author 3,693.71 10/26/2025 10:29 AM EST Amari, Br dipesh * EBW (lbs) Answer Date of Assessment Author 3,684.88 10/26/2025 10:29 AM EST Amari, Br dipesh * Weight Change 24 hrs Answer Date of Assessment Author -1.719 10/26/2025 10:29 AM EST Amari, Br dipesh * BSA (Calculated - sq m) Answer Date of Assessment Author 2.31 10/26/2025 10:29 AM EST Amari, Br dipesh * BMI (Calculated) Answer Date of Assessment Author 31.32 10/26/2025 10:29 AM EST Amari, Br dipesh * IBW/kg (Calculated) Male Answer Date of Assessment Author 77.6 10/26/2025 10:29 AM EST Amari, Br dipesh * IBW/kg (Calculated) Female Answer Date of Assessment Author 73.1 10/26/2025 10:29 AM EST Amari, Br dipesh * IBW/kg (Calculated) Answer Date of Assessment Author 77.6 10/26/2025 10:29 AM EST Amari, Br dipesh * Weight in (lb) to have BMI = 25 Answer Date of Assessment Author 183.9 10/26/2025 10:29 AM EST Amari, Br dipesh * BMI (Calculated) Answer Date of Assessment Author 31.4 10/26/2025 10:29 AM EST Amari, Br dipesh * Percent Excess Weight Loss Answer Date of Assessment Author 0 10/26/2025 10:29 AM EST Amari, Br dipesh * Weight Change Since Preop Answer Date of Assessment Author 104.78 10/26/2025 10:29 AM EST Amari, Br dipesh * Initial Excess Weight Answer Date of Assessment Author -80.74 10/26/2025 10:29 AM EST Amari, Br dipesh * IBW in kg (Bariatric) Answer Date of Assessment Author 80.74 10/26/2025 10:29 AM EST Amari, Br dipesh * IBW in lb (Bariatric) Answer Date of Assessment Author 178 10/26/2025 10:29 AM EST Amari, Br dipesh * Weight Change Since Last Visit Answer Date of Assessment Author 104.78 10/26/2025 10:29 AM EST Amari, Br dipesh * Percent of IBW Answer Date of Assessment Author 129.78 10/26/2025 10:29 AM EST Amari, Br dipesh * EBW (kg) Answer Date of Assessment Author 24.02 10/26/2025 10:29 AM EST Amari, Br dipesh * EBW (lb) Answer Date of Assessment Author 53 10/26/2025 10:29 AM EST Amari, Br dipesh * Difference in Weight Since Last Visit Answer Date of Assessment Author -1.72 10/26/2025 10:29 AM EST Amari, Br dipesh * Temp (in Celsius) for [place] IV Answer Date of Assessment Author 36.6 10/26/2025 10:29 AM EST Amari, Br dipesh * IBW/kg (Calculated) Answer Date of Assessment Author 77.6 10/26/2025 10:29 AM EST Amari, Br dipesh * Adult Low Range Vt 6mL/kg Answer Date of Assessment Author 465.6 10/26/2025 10:29 AM EST Amari, Br dipesh * Adult Moderate Range Vt 8mL/kg Answer Date of Assessment Author 620.8 10/26/2025 10:29 AM EST Amari, Br dipesh * Adult High Range Vt 10mL/kg Answer Date of Assessment Author 776 10/26/2025 10:29 AM EST Amari, Br dipesh * Pain Assessment Question Answer Date of Assessment Author Pain Location Leg 10/26/2025 10:27 AM EST Cong Hannon Pain Orientation Right 10/26/2025 10:27 AM EST Cong Fitzpatrick Pain Descriptors Sharp 10/26/2025 10:27 AM EST Cong Fitzpatrick Pain Frequency Constant/continuous 10/26/2025 10:27 AM Cong Tubbs Pain Assessment 0-10 10/26/2025 10:27 AM Cong Daigle Pain Score 8 10/26/2025 10:27 AM EST Cong Fitzpatrick * BP Answer Date of Assessment Author 113/75 10/26/2025 10:29 AM EST Amari, Br dipesh * Temp Answer Date of Assessment Author 97.8 10/26/2025 10:29 AM EST Amari, Br dipesh * Pulse Answer Date of Assessment Author 76 10/26/2025 10:29 AM EST Amari, Br dipesh * SpO2 Answer Date of Assessment Author 97 10/26/2025 10:29 AM EST Amari, Br dipesh * Height Answer Date of Assessment Author 72 10/26/2025 10:29 AM EST Amari, Br dipesh * Weight Answer Date of Assessment Author 3696 10/26/2025 10:29 AM Kathrin Tubbs * BSA (Calculated - sq m) Answer Date of Assessment Author 2.31 10/26/2025 10:29 AM Kathrin Tubbs * BMI (Calculated) Answer Date of Assessment Author 31.32 10/26/2025 10:29 AM Kathrin Tubbs dipesh * Weight in (lb) to have BMI = 25 Answer Date of Assessment Author 183.9 10/26/2025 10:29 AM Kathrin Tubbs * Pain Assessment Question Answer Date of Assessment Author Pain Location Leg 10/26/2025 10:27 AM Cong Cisse Pain Orientation Right 10/26/2025 10:27 AM Cong Tubbs Pain Descriptors Sharp 10/26/2025 10:27 AM Cong Tubbs Pain Frequency Constant/continuous 10/26/2025 10:27 AM Cong Tubbs Pain Score 8 10/26/2025 10:27 AM Cong Tubbs documented as of this encounter Mental Status * BP Answer Entry Date Author 113/75 10/26/2025 10:29 AM Kathrin Tubbs * Temp Answer Entry Date Author 97.8 10/26/2025 10:29 AM Kathrin Tubbs * Pulse Answer Entry Date Author 76 10/26/2025 10:29 AM Kathrin Tubbs dipesh * SpO2 Answer Entry Date Author 97 10/26/2025 10:29 AM Kathrni Tubbs dipesh * Height Answer Entry Date Author 72 10/26/2025 10:29 AM AMAURI Fitzpatrick Br dipesh * Weight Answer Entry Date Author 3696 10/26/2025 10:29 AM EST Amari Br dipesh * BMI (Calculated) Answer Entry Date Author 31.4 10/26/2025 10:29 AM EST Amari Br dipesh * Percent Excess Weight Loss Answer Entry Date Author 0 10/26/2025 10:29 AM AMAURI Fitzpatrick Br dipesh * Total Weight Change Percent Answer Entry Date Author 2222 10/26/2025 10:29 AM EST Amari Br dipesh * Weight Change Since Preop Answer Entry Date Author 104.76 10/26/2025 10:29 AM EST Amari Br dipesh * Initial Excess Weight Answer Entry Date Author -80.74 10/26/2025 10:29 AM EST Amari, Br dipesh * IBW in lbs (Bariatric) Answer Entry Date Author 178 10/26/2025 10:29 AM EST Amari, Br dipesh * Weight Change Since Last Visit Answer Entry Date Author 104.76 10/26/2025 10:29 AM EST Amari, Br dipesh * IBW in kg (Bariatric) Answer Entry Date Author 80.74 10/26/2025 10:29 AM EST Amari, Br dipesh * Percent of IBW Answer Entry Date Author 4,577.66 10/26/2025 10:29 AM EST Amari, Br dipesh * EBW (kg) Answer Entry Date Author 3,693.71 10/26/2025 10:29 AM EST Amari, Br dipesh * EBW (lbs) Answer Entry Date Author 3,684.88 10/26/2025 10:29 AM EST Amari, Br dipesh * Weight Change 24 hrs Answer Entry Date Author -1.719 10/26/2025 10:29 AM EST Amari, Br dipesh * BSA (Calculated - sq m) Answer Entry Date Author 2.31 10/26/2025 10:29 AM EST Amari, Br dipesh * BMI (Calculated) Answer Entry Date Author 31.32 10/26/2025 10:29 AM EST Amari, Br dipesh * IBW/kg (Calculated) Male Answer Entry Date Author 77.6 10/26/2025 10:29 AM EST Amari, Br dipesh * IBW/kg (Calculated) Female Answer Entry Date Author 73.1 10/26/2025 10:29 AM EST Amari, Br dipesh * IBW/kg (Calculated) Answer Entry Date Author 77.6 10/26/2025 10:29 AM EST Amari, Br dipesh * Restart Pain Assessment Timer Answer Entry Date Author Yes 10/26/2025 10:27 AM EST Amari, Br dipesh * Weight in (lb) to have BMI = 25 Answer Entry Date Author 183.9 10/26/2025 10:29 AM EST Amari, Br dipesh * BMI (Calculated) Answer Entry Date Author 31.4 10/26/2025 10:29 AM EST Amari, Br dipesh * Percent Excess Weight Loss Answer Entry Date Author 0 10/26/2025 10:29 AM EST Amari, Br dipesh * Weight Change Since Preop Answer Entry Date Author 104.78 10/26/2025 10:29 AM EST Amari, Br dipesh * Initial Excess Weight Answer Entry Date Author -80.74 10/26/2025 10:29 AM EST Amari, Br dipesh * IBW in kg (Bariatric) Answer Entry Date Author 80.74 10/26/2025 10:29 AM EST Amari, Br dipesh * IBW in lb (Bariatric) Answer Entry Date Author 178 10/26/2025 10:29 AM EST Amari, Br dipesh * Weight Change Since Last Visit Answer Entry Date Author 104.78 10/26/2025 10:29 AM EST Amari, Br dipesh * Percent of IBW Answer Entry Date Author 129.78 10/26/2025 10:29 AM EST Amari, Br dipesh * EBW (kg) Answer Entry Date Author 24.02 10/26/2025 10:29 AM EST Amari, Br dipesh * EBW (lb) Answer Entry Date Author 53 10/26/2025 10:29 AM EST Amari, Br dipesh * Difference in Weight Since Last Visit Answer Entry Date Author -1.72 10/26/2025 10:29 AM EST Amari, Br dipesh * Temp (in Celsius) for [place] IV Answer Entry Date Author 36.6 10/26/2025 10:29 AM EST Amrai, Br dipesh * IBW/kg (Calculated) Answer Entry Date Author 77.6 10/26/2025 10:29 AM EST Amari, Br dipesh * Adult Low Range Vt 6mL/kg Answer Entry Date Author 465.6 10/26/2025 10:29 AM EST Amari, Br dipesh * Adult Moderate Range Vt 8mL/kg Answer Entry Date Author 620.8 10/26/2025 10:29 AM EST Amari, Br dipesh * Adult High Range Vt 10mL/kg Answer Entry Date Author 776 10/26/2025 10:29 AM EST Amari, Br dipesh * Pain Assessment Question Answer Entry Date Author Pain Location Leg 10/26/2025 10:27 AM Cong Cisse Pain Orientation Right 10/26/2025 10:27 AM Cong Tubbs Pain Descriptors Sharp 10/26/2025 10:27 AM Cong Tubbs Pain Frequency Constant/continuous 10/26/2025 10:27 AM Cong Tubbs Pain Score 8 10/26/2025 10:27 AM Cong Tubbs documented in this encounter Miscellaneous Notes * Progress Notes - Flor Ram PA - 10/26/2025 10:20 AM EST Chief complaint: 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 Patient has been doing well since his last visit. He completed hisIV abx and is now on PO doxycycline. He denies any issues. States all drainage has stopped. Has occa sional pain at his docking site. Has occasional pain in his knee and sometimes feels like it is giving out . Denies any numbness, tingling. Denies any further trauma or injury. Physical Assessment: Right lower extremity: Well-healed surgical incisions No erythema, ecchymosis Mild edema lower leg Knee ROM 0-120 Ankle ROM 10 dorsiflexion, 20 plantarflexion Strength 5/5 GSC/TA 4/5 KF/KE SILT L2-S1 +2 pt pulses XRAY: 2 views right tib/fib were ordered, reviewed, and interpreted by us, showing Interval consolidation at docking site with hardware in place no signs of loosening or failure Assessment: 60 year old male doing well Status Post removal of hardware and placement of antibioticcoated IMN Plan: -Continue WBAT RLE -Continue abx per ID -FU with ID as scheduled -FU 3 months with imaging The patients images were discussed with them. The patient was given an opportunity to ask questionsand all their questions were answered to their satisfaction. The patient was seen and evaluated by Dr. Simmons. Cosigned by Eliazar Simmons MD at 11/04/2025 10:57 PM EST Associated attestation - Eliazar Simmons MD - 11/04/2025 10:57 PM EST I saw the patient with the MALKA and performed and documented the exam. I discussed the case with the PAKarl and agree with the findings and plan as documented in the final note. I attest to being involved in providing substantive part of the medical decision making in patient care. Eliazar Simmons MD documented in this encounter Plan of Treatment Upcoming Encounters Date Type Department Care Team (Late st Contact Info) Description 12/14/2025 2:30 PM EST Office Visit [facility] [address] [place] [address] Aleksandr Lee MD [address] [place] [address] 01/25/2026 9:50 AM EST Office Visit [facility] [address] [place] [address] Eliazar Simmons MD [address] [place] [address] Scheduled Orders Name Type Priority Associated Diagnoses Orde r Schedule XR Tibia Fibula Right 2+ Views Imaging Routine Tibia/fibula fracture, left, closed, with nonunion, subsequent encounter 1 Occurrences starting 10/26/2025 until 04/29/2027 documented as of this encounter Goals Goal Patient Goal Type Associated Problems Recent Progress Patient-Stated? Author Autogenerat ed Goal Care Plan Autogenerated Problem No Ariana Marshall PA documented as of this encounter Visit Diagnoses Diagnosis Tibia/fibula fracture, left, closed, with nonunion, subsequent encounter- Primary documented in this encounter Additional Health [...] documented as of this encounter Care Teams Cosmetic Sales Advisor Relationship Specialty Start Date End Date Emmy Houser APRN [address] [place] [address] PCP - General 02/07/25 Aleksandr Lee MD [address] [place] [phone] Consulting Physician Infectious Diseases 01/06/24 documented as of this encounter
--- OUTSIDE RECORDS SUMMARY | 2025-11-21 14:26 | XMS_ITS | Data Portability ---
Author Organization [facility] Address [address] [place] [address] Care Team Providers Care Documentation Writer Name Role Phone CRYSTAL MENDEZ Button Maker Assessment Encounter Date Assessment Date Assessment LastModified by Organization Details LastModified Time 07/06/2024 07/06/2024 -Medications were reviewed and any necessary updates and renewals were made, patient instructed to complete as prescribed. -The potential side effects of medications were discussed. -Counseling was done on care goals and ways to prevent future hospitalizatio ns. -Further treatment per orders listed below. Not available 07/06/2024 08:23:10 12/22/2024 12/22/2024 -Medications were reviewed and any necessary updates and renewals were made, patient instructed to complete as prescribed. -The potential side effects of medications were discussed. -Counseling was done on care goals and ways to prevent future hospitalizatio ns. -Further treatment per orders listed below. [email or web address] Not available 12/21/2024 14:51:49 06/13/2025 06/13/2025 -Medications were reviewed and any necessary updates and renewals were made, patient instructed to complete as prescribed. -The potential side effects of medications were discussed. -Counseling was done on care goals and ways to prevent future hospitalizatio ns. -Further treatment per orders listed below. [email or web address] Not available 06/13/2025 15:03:55 10/24/2025 10/24/2025 -Medications were reviewed and any necessary updates and renewals were made, patient instructed to complete as prescribed. -The potential side effects of medications were discussed. -Counseling was done on care goals and ways to prevent future hospitalizatio ns. -Further treatment per orders listed below. Not available 10/24/2025 14:17:26 Plan of Treatment Reminders Order Date Submit Date Provider Last Modified By Organization Details Last Modified Time Details Appointments None recorded. Lab iron + total iron-bindin g capacity (TIBC), serum 2024 025 JANIE [facility], [address], [address] [address], [place], [address], 09:27:13 CBC w/ auto diff 2024 025 JANIE [facility], [address], [place] [address], [place], [address], 09:27:11 HbA1c (hemoglobin A1c), blood 2024 025 JANIE [facility], [address], [place] [address], [place], [address], 09:27:14 CMP, serum or plasma 2024 025 JANIE [facility], [address], [place] [address], [place], [address], 09:27:13 vitamin D, 25-hydroxy, total, serum 2024 025 JANIE [facility], [address], [place], [place], [address], 09:27:15 ferritin, serum or plasma 2024 025 JANIE [facility], [address], [place], [place], [address], 5 04:03:52 iron + total iron-bindin g capacity (TIBC), serum 2024 025 JANIE [facility], [address], [place] [address], [place], [address], 5 04:03:52 CBC w/ auto diff 2024 025 JANIE [facility], [address], [place] [address], [place], [address], 5 04:03:52 HbA1c (hemoglobin A1c), blood 2024 025 JANIE [facility], [address], [place], [place], [address], 5 09:13:47 CMP, serum or plasma 2024 025 JANIE [facility], [address], [place], [place], [address], 5 09:13:45 microalbumi n/creatinin e, mass ratio, urine 2024 025 [facility], [address] [place] [address], [place], [address], 15:41:59 vitamin D, 25-hydroxy, total, serum 2024 025 JANIE [facility], [address], [place] [address], [place], [address], 5 09:13:48 iron + total iron-bindin g capacity (TIBC), serum 2024 025 JANIE [facility], [address], [place] [address], [place], [address], 5 09:13:46 cobalamin and folate panel, serum 2024 025 JANIE [facility], [address], [place] [address], [place], [address], 5 09:13:47 CBC w/ auto diff 2024 025 JANIE [facility], [address], [place] [address], [place], [address], 5 09:13:44 TSH + free T4, serum 2024 025 JANIE [facility], [address], [place], [place], [address], 5 09:13:43 microalbumi n, urine 2023 024 JANIE [facility], [address], [place], [place], [address], 4 10:12:54 Referral None recorded. Procedures None recorded. Surgeries None recorded. Imaging None recorded. Medication Orders benzonatate 200 mg capsule 2024 025 [facility], [address] [place], [address], 5 13:23:55 Bromfed DM 2 mg-30 mg-10 mg/5 mL oral syrup 2024 025 [facility], [address] [place], [address], 5 13:25:41 Medrol (Richard) 4 mg tablets in a dose pack 2024 025 [facility], [address] [place], [address], 5 05:01:16 Probiotic 10 billion cell capsule 2024 025 [facility], [address] [place], [address], 5 10:46:17 melatonin 10 mg tablet 2024 025 [facility], [address] [place], [address], 5 09:06:37 bupropion HCl XL 150 mg 24 hr tablet, extended release 2024 025 [facility], [address] [place], [address], 5 13:04:52 ropinirole 1 mg tablet 2024 025 [facility], [address] [place], [address], 5 14:49:22 furosemide 40 mg tablet 2024 025 [facility], [address] [place], [address], 5 14:50:02 bupropion HCl XL 150 mg 24 hr tablet, extended release 2024 025 [facility], [address] [place], [address], 5 15:49:50 Jardiance 10 mg tablet 2024 025 [facility], [address] [place], [address], 5 15:19:04 aspirin 81 mg tablet,eloina yed release 2024 025 [facility], [address] [place], [address], 5 15:48:29 Iron (ferrous sulfate) 325 mg (65 mg iron) tablet 2024 025 [facility], [address] [place], [address], 5 16:34:30 Patient TargetsNo targets recorded. Patient Instructions Encounter Date Encounter Id Patient Instructions Last Modified By Organization Details Last Modified Time 07/06/2024 [id number] insomnia: care instructions Not available 07/06/2024 10:19:04 I've asked that he show his left foot at his appointment tomorrow. Continue current medications. Follow up as needed. The patient will report any new or worsening symptoms. The patient will return to clinic if new or worsening symptoms are noted, or if if the symptoms do not resolve. If marked worsening of the symptoms is noted the patient will go to the emergency department of their choice. Not available 07/06/2024 10:18:49 12/22/2024 [id number] anemia: care instructions Not available 12/22/2024 14:12:08 Keep ongoing appointments with ID and Ortho. Will try to get him a Freestyle scar. RTC in 3 months or sooner prn. Not available 12/22/2024 16:31:09 06/13/2025 [id number] Reviewed importa nce of maintaining compliance with medications, additional recommendations for psychotherapy, and medical management for any identified medical concerns. Encouraged to follow medical recommendations for appropriate diet, exercise, weight management, and sleep hygiene. Discussed the benefits and risks of medication, including precautions and potential side effects and/or adverse reactions. Instructed will take 4-6 weeks for full therapeutic effect. Medication risks and side effects discussed with patient. Discussed that there is a black box warning that medications used to treat depression may cause new or an increase in suicidal thoughts or behaviors in people under age 25. We discussed that if the patient, family, or other individuals notice any onset of new or worsening suicidal thoughts, especially if there are overwhelming thoughts or development of a plan of self-harm, the patient needs to notify the clinic, crisis line, or present to any emergency department for immediate treatment. Not available 06/13/2025 15:31:52 Stop digoxin and see Dr. Gilman. LV function was normal at . Add Wellbutrin for depression. Discussed using out pharmacy which may help reduce his cost for medications. Will call with lab results. to send a list of his medications, will review. Follow up in a month or as needed. The patient will report any new or worsening symptoms. The patient will return to clinic if new or worsening symptoms are noted, or if if the symptoms do not resolve. If marked worsening of the symptoms is noted the patient will go to the emergency department of their choice. Not available 06/13/2025 15:35:56 07/17/2025 [id number] smoking cessatio n counseling, greater than 3 minutes up to 10 minutes Not available 07/17/2025 14:34:08 Learning About Benefits of Quitting Smoking Not available 07/17/2025 14:34:07 Quitting Tobacco : Care Instructions Not available 07/17/2025 14:34:07 body mass index: care instructions Not available 07/17/2025 14:34:08 learning about healthy weight Not available 07/17/2025 14:34:08 Knows that he is due for eye exam. He plans to go when his finances have improved. Follow up in 3 months or as needed. The patient will report any new or worsening symptoms. The patient will return to clinic if new or worsening symptoms are noted, or if if the symptoms do not resolve. If marked worsening of the symptoms is noted the patient will go to the emergency department of their choice. Not available 07/17/2025 17:21:08 10/24/2025 [id number] bronchitis: care instructions Not available 10/24/2025 13:16:58 learning about t ype 2 diabetes Not available 10/24/2025 13:25:01 type 2 diabetes: care instructions Not available 10/24/2025 13:25:02 insomnia: care instructions Not available 10/24/2025 13:23:18 Will call with l abs and further recommendations. RTC in 3 months or sooner as needed. [email or web address] Not available 10/24/2025 16:00:52 Reason for Referral None Reported. Results Created Date Observation Date Name Description Value Unit Range Abnormal Flag Note LastModifiedBy Organization Detail LastModifiedTime 07/06/20 24 07/07/2024 ALBUM IN, RANDO M URINE albumin, urine 9.8 ug/mL not estab. Not Available [facility] ([facility]) [address], [place], [address], 07/07/2024 10:12:54 06/13/20 25 06/14/2025 TSH+F REE T4 TSH 1.640 uIU/m L 0.450- 4.500 normal Not Available [facility] ([facility]) [address] [place], [address], 06/14/2025 09:13:43 06/13/2006/14/2025 TSH+F REE T4 T4,free(dire ct) 1.02 NG/dL 0.82-1 .77 normal Not Available [facility] ([facility]) [address] [place], [address], 06/14/2025 09:13:43 06/13/2006/14/2025 CBC WITH DIFFE RENTI AL/PL ATELE T WBC 8.5 x10e3 /uL 3.4-10 .8 normal Not Available [facility] ([facility]) [address] [place], [address], 06/14/2025 09:13:44 06/13/20 25 06/14/2025 CBC WITH DIFFE RENTI AL/PL ATELE T RBC 4.33 x10e6 /uL 4.14-5 .80 normal Not Available [facility] ([facility]) [address] [place], [address], 06/14/2025 09:13:44 06/13/2006/14/2025 CBC WITH DIFFE RENTI AL/PL ATELE T hemoglobin 12.5 g/dL 13.0-1 7.7 below low normal Not Available [facility] ([facility]) [address] [place], [address], 06/14/2025 09:13:44 06/13/20 25 06/14/2025 CBC WITH DIFFE RENTI AL/PL ATELE T hematocrit 39.5 % 37.5-5 1.0 normal Not Available [facility] ([facility]) [address] [place], [address], 06/14/2025 09:13:44 06/13/20 25 06/14/2025 CBC WITH DIFFE RENTI AL/PL ATELE T MCV 91 fL 79-97 normal Not Available [facility] ([facility]) [address] [facility], [place], [address], 06/14/2025 09:13:44 06/13/20 25 06/14/2025 CBC WITH DIFFE RENTI AL/PL ATELE T MCH 28.9 pg 26.6-3 3.0 normal Not Available [facility] ([facility]) [address] [facility], [place], [address], 06/14/2025 09:13:44 06/13/20 25 06/14/2025 CBC WITH DIFFE RENTI AL/PL ATELE T MCHC 31.6 g/dL 31.5-3 5.7 normal Not Available [facility] ([facility]) [address] [facility], [place], [address], 06/14/2025 09:13:44 06/13/20 25 06/14/2025 CBC WITH DIFFE RENTI AL/PL ATELE T RDW 13.9 % 11.6-1 5.4 Not Available [facility] ([facility]) [address] [facility], [place], [address], 06/14/2025 09:13:44 06/13/20 25 06/14/2025 CBC WITH DIFFE RENTI AL/PL ATELE T platelets 271 x10e3 /uL 150-45 0 normal Not Available [facility] ([facility]) [address] [facility], [place], [address], 06/14/2025 09:13:44 06/13/20 25 06/14/2025 CBC WITH DIFFE RENTI AL/PL ATELE T neutrophils 63 % not estab. normal Not Available [facility] ([facility]) [address] [facility], [place], [address], 06/14/2025 09:13:44 06/13/20 25 06/14/2025 CBC WITH DIFFE RENTI AL/PL ATELE T lymphs 25 % not estab. normal Not Available [facility] ([facility]) [address] [facility], [place], [address], 06/14/2025 09:13:44 06/13/20 25 06/14/2025 CBC WITH DIFFE RENTI AL/PL ATELE T monocytes 9 % not estab. normal Not Available [facility] ([facility]) [address] [facility], [place], [address], 06/14/2025 09:13:44 06/13/20 25 06/14/2025 CBC WITH DIFFE RENTI AL/PL ATELE T eos 2 % not estab. normal Not Available [facility] ([facility]) [address] [place], [address], 06/14/2025 09:13:44 06/13/20 25 06/14/2025 CBC WITH DIFFE RENTI AL/PL ATELE T basos 0 % not estab. normal Not Available [facility] ([facility]) [address] [place], [address], 06/14/2025 09:13:44 06/13/20 25 06/14/2025 CBC WITH DIFFE RENTI AL/PL ATELE T immature cells SWINE NUTRITIONIST Not Available [facility] ([facility]) [address] [place], [address], 06/14/2025 09:13:44 06/13/20 25 06/14/2025 CBC WITH DIFFE RENTI AL/PL ATELE T neutrophils (absolute) 5.3 x10e3 /uL 1.4-7. 0 normal Not Available [facility] ([facility]) [address] [place], [address], 06/14/2025 09:13:44 06/13/20 25 06/14/2025 CBC WITH DIFFE RENTI AL/PL ATELE T lymphs (absolute) 2.1 x10e3 /uL 0.7-3. 1 normal Not Available [facility] ([facility]) [address] [facility], [place], [address], 06/14/2025 09:13:44 06/13/20 25 06/14/2025 CBC WITH DIFFE RENTI AL/PL ATELE T monocytes(ab solute) 0.7 x10e3 /uL 0.1-0. 9 normal Not Available [facility] ([facility]) [address] [facility], [place], [address], 06/14/2025 09:13:44 06/13/20 25 06/14/2025 CBC WITH DIFFE RENTI AL/PL ATELE T eos (absolute) 0.2 x10e3 /uL 0.0-0. 4 normal Not Available [facility] ([facility]) [address] [facility], [place], [address], 06/14/2025 09:13:44 06/13/20 25 06/14/2025 CBC WITH DIFFE RENTI AL/PL ATELE T baso (absolute) 0.0 x10e3 /uL 0.0-0. 2 normal Not Available [facility] ([facility]) [address] [facility], [place], [address], 06/14/2025 09:13:44 06/13/20 25 06/14/2025 CBC WITH DIFFE RENTI AL/PL ATELE T immature granulocytes 1 % not estab. Not Available [facility] ([facility]) [address] [place], [address], 06/14/2025 09:13:44 06/13/20 25 06/14/2025 CBC WITH DIFFE RENTI AL/PL ATELE T immature grans (abs) 0.1 x10e3 /uL 0.0-0. 1 Not Available [facility] ([facility]) [address] [place], [address], 06/14/2025 09:13:44 06/13/20 25 06/14/2025 CBC WITH DIFFE RENTI AL/PL ATELE T NRBC SWINE NUTRITIONIST Not Available [facility] ([facility]) [address] [facility], [place], [address], 06/14/2025 09:13:44 06/13/20 25 06/14/2025 CBC WITH DIFFE RENTI AL/PL ATELE T hematology comments: SWINE NUTRITIONIST Not Available [facility] ([facility]) [address] [facility], [place], [address], 06/14/2025 09:13:44 06/13/20 25 06/14/2025 COMP. METAB OLIC PANEL (14) glucose 283 mg/dL 70-99 above high normal Not Available [facility] ([facility]) [address] [facility], [address], 06/14/2025 09:13:45 06/13/20 25 06/14/2025 COMP. METAB OLIC PANEL (14) BUN 14 mg/dL 8-27 normal Not Available [facility] ([facility]) [address] [facility], [address], 06/14/2025 09:13:45 06/13/20 25 06/14/2025 COMP. METAB OLIC PANEL (14) creatinine 0.84 mg/dL 0.76-1 .27 normal Not Available [facility] ([facility]) [address] [facility], [place], [address], 06/14/2025 09:13:45 06/13/20 25 06/14/2025 COMP. METAB OLIC PANEL (14) eGFR 100 mL/mi n/1.7 3 >59 normal Not Available [facility] ([facility]) [address] [facility], [address], 06/14/2025 09:13:45 06/13/20 25 06/14/2025 COMP. METAB OLIC PANEL (14) BUN/creatini ne ratio 17 10-24 normal Not Available [facility] ([facility]) [address] [facility], [address], 06/14/2025 09:13:45 06/13/20 25 06/14/2025 COMP. METAB OLIC PANEL (14) sodium 135 mmol/ L 134-14 4 normal Not Available [facility] ([facility]) [address] [facility], [address], 06/14/2025 09:13:45 06/13/20 25 06/14/2025 COMP. METAB OLIC PANEL (14) potassium 4.5 mmol/ L 3.5-5. 2 normal Not Available [facility] ([facility]) [address] [facility], [address], 06/14/2025 09:13:45 06/13/20 25 06/14/2025 COMP. METAB OLIC PANEL (14) chloride 99 mmol/ L 96-106 normal Not Available [facility] ([facility]) [address] [facility], [address], 06/14/2025 09:13:45 06/13/20 25 06/14/2025 COMP. METAB OLIC PANEL (14) carbon dioxide, total 18 mmol/ L 20-29 below low normal Not Available [facility] ([facility]) [address] [place], [address], 06/14/2025 09:13:45 06/13/20 25 06/14/2025 COMP. METAB OLIC PANEL (14) calcium 9.6 mg/dL 8.6-10 .2 normal Not Available [facility] ([facility]) [address] [place], [address], 06/14/2025 09:13:45 06/13/20 25 06/14/2025 COMP. METAB OLIC PANEL (14) protein, total 7.5 g/dL 6.0-8. 5 normal Not Available [facility] ([facility]) [address] [place], [address], 06/14/2025 09:13:45 06/13/20 25 06/14/2025 COMP. METAB OLIC PANEL (14) albumin 4.0 g/dL 3.8-4. 9 normal Not Available [facility] ([facility]) [address] [facility], [address], 06/14/2025 09:13:45 06/13/20 25 06/14/2025 COMP. METAB OLIC PANEL (14) globulin, total 3.5 g/dL 1.5-4. 5 Not Available [facility] ([facility]) [address] [facility], [address], 06/14/2025 09:13:45 06/13/20 25 06/14/2025 COMP. METAB OLIC PANEL (14) bilirubin, total <0.2 mg/dL 0.0-1. 2 Not Available [facility] ([facility]) [address] [place], [address], 06/14/2025 09:13:45 06/13/20 25 06/14/2025 COMP. METAB OLIC PANEL (14) alkaline phosphatase 235 IU/L 44-121 above high normal Not Available [facility] ([facility]) [address] [place], [address], 06/14/2025 09:13:45 06/13/20 25 06/14/2025 COMP. METAB OLIC PANEL (14) AST (SGOT) 18 IU/L 0-40 normal Not Available [facility] ([facility]) [address] [place], [address], 06/14/2025 09:13:45 06/13/20 25 06/14/2025 COMP. METAB OLIC PANEL (14) ALT (SGPT) 11 IU/L 0-44 normal Not Available [facility] ([facility]) [address] [place], [address], 06/14/2025 09:13:45 06/13/20 25 06/14/2025 IRON AND TIBC iron bind.cap.(TI BC) 339 ug/dL 250-45 0 normal Not Available [facility] ([facility]) [address] [place], [address], 06/14/2025 09:13:46 06/13/20 25 06/14/2025 IRON AND TIBC UIBC 31 ug/dL 111-34 3 below low normal Not Available [facility] ([facility]) [address] [place], [address], 06/14/2025 09:13:46 06/13/20 25 06/14/2025 IRON AND TIBC iron 308 ug/dL 38-169 alert high Not Available [facility] ([facility]) [address] [place], [address], 06/14/2025 09:13:46 06/13/20 25 06/14/2025 IRON AND TIBC iron saturation 91 % 15-55 alert high Not Available [facility] ([facility]) [address] [place], [address], 06/14/2025 09:13:46 06/13/20 25 06/14/2025 VITAM IN B12 AND FOLAT E vitamin B12 1253 pg/mL 232-12 45 above high normal Not Available [facility] ([facility]) [address] [place], [address], 06/14/2025 09:13:46 06/13/20 25 06/14/2025 VITAM IN B12 AND FOLAT E folate (folic acid), serum 16.2 NG/mL >3.0 normal A serum folat e richar ntrat ion of less than 3.1 ng/mL is consi dered to repre sent clini aleja defic iency . Not Available [facility] ([facility]) [address] [place], [address], 06/14/2025 09:13:46 06/13/20 25 06/14/2025 HEMOG LOBIN A1C hemoglobin A1C 7.5 % 4.8-5. 6 above high normal Predi abete s: 5.7 - 6.4 Diabe woodrow: >6.4 Glyce hi contr ol for adult s with diabe woodrow: <7.0 Not Available [facility] ([facility]) [address] [facility], [place], [address], 06/14/2025 09:13:47 06/13/20 25 06/14/2025 VITAM IN D, 25-HY DROXY vitamin D, 25-hydroxy 26.9 NG/mL 30.0-1 00.0 below low normal Vitam in D defic iency has been defin ed by the Insti tute of Medic ine and an Endoc rine Socie ty pract ice guide line as a level of serum 25-OH vitam in D less than 20 ng/mL (1,2) . The Endoc rine Socie ty went on to furth er defin e vitam in D insuf ficie ncy as a level betwe en 21 and 29 ng/mL (2). 1. IOM (Inst itute of Medic ine). 2009. Dieta ry refer ence intak es for calci um and D. Urmila rodriguez [place]: The [facility] . 2. Ish law [place], Enrrique garcia [place], Luiza off-F errar i BLANCO, et al. Evalu ation , treat ment, and preve ntion of vitam in D defic iency : an Endoc rine Socie ty clini aleja pract ice guide line. JCEM. 2010; 96(7) :1911 -30. Not Available [facility] ([facility]) [address] [facility], [place], [address], 06/14/2025 09:13:48 06/13/20 25 06/13/2025 micro album in/cr eatin ine, mass ratio , urine Microalbumin 150 Not Available [facility] [address], [place], [address], 06/13/2025 15:21:33 06/13/20 25 06/13/2025 micro album in/cr eatin ine, mass ratio , urine Creatinine 50 Not Available [facility] [address], [place], [address], 06/13/2025 15:21:33 06/13/20 25 06/13/2025 micro album in/cr eatin ine, mass ratio , urine Ratio >[address] [facility] [address], [place], [address], 06/13/2025 15:21:33 10/24/20 25 10/25/2025 CBC WITH DIFFE RENTI AL/PL ATELE T WBC 8.6 x10e3 /uL 3.4-10 .8 normal Not Available [facility] ([facility]) [address] [place], [address], 10/25/2025 09:27:11 10/24/20 25 10/25/2025 CBC WITH DIFFE RENTI AL/PL ATELE T RBC 4.33 x10e6 /uL 4.14-5 .80 normal Not Available [facility] ([facility]) [address] [place], [address], 10/25/2025 09:27:11 10/24/20 25 10/25/2025 CBC WITH DIFFE RENTI AL/PL ATELE T hemoglobin 12.8 g/dL 13.0-1 7.7 below low normal Not Available [facility] ([facility]) [address] [place], [address], 10/25/2025 09:27:11 10/24/20 25 10/25/2025 CBC WITH DIFFE RENTI AL/PL ATELE T hematocrit 40.5 % 37.5-5 1.0 normal Not Available [facility] ([facility]) [address] [facility], [place], [address], 10/25/2025 09:27:11 10/24/20 25 10/25/2025 CBC WITH DIFFE RENTI AL/PL ATELE T MCV 94 fL 79-97 normal Not Available [facility] ([facility]) [address] [facility], [place], [address], 10/25/2025 09:27:11 10/24/20 25 10/25/2025 CBC WITH DIFFE RENTI AL/PL ATELE T MCH 29.6 pg 26.6-3 3.0 normal Not Available [facility] ([facility]) [address] [facility], [place], [address], 10/25/2025 09:27:11 10/24/20 25 10/25/2025 CBC WITH DIFFE RENTI AL/PL ATELE T MCHC 31.6 g/dL 31.5-3 5.7 normal Not Available [facility] ([facility]) [address] [facility], [place], [address], 10/25/2025 09:27:11 10/24/20 25 10/25/2025 CBC WITH DIFFE RENTI AL/PL ATELE T RDW 14.0 % 11.6-1 5.4 Not Available [facility] ([facility]) [address] [place], [address], 10/25/2025 09:27:11 10/24/20 25 10/25/2025 CBC WITH DIFFE RENTI AL/PL ATELE T platelets 286 x10e3 /uL 150-45 0 normal Not Available [facility] ([facility]) [address] [place], [address], 10/25/2025 09:27:11 10/24/20 25 10/25/2025 CBC WITH DIFFE RENTI AL/PL ATELE T neutrophils 60 % not estab. normal Not Available [facility] ([facility]) [address] [place], [address], 10/25/2025 09:27:11 10/24/20 25 10/25/2025 CBC WITH DIFFE RENTI AL/PL ATELE T lymphs 25 % not estab. normal Not Available [facility] ([facility]) [address] [facility], [place], [address], 10/25/2025 09:27:11 10/24/20 25 10/25/2025 CBC WITH DIFFE RENTI AL/PL ATELE T monocytes 9 % not estab. normal Not Available [facility] ([facility]) [address] [facility], [place], [address], 10/25/2025 09:27:11 10/24/20 25 10/25/2025 CBC WITH DIFFE RENTI AL/PL ATELE T eos 4 % not estab. normal Not Available [facility] ([facility]) [address] [facility], [place], [address], 10/25/2025 09:27:11 10/24/20 25 10/25/2025 CBC WITH DIFFE RENTI AL/PL ATELE T basos 1 % not estab. normal Not Available [facility] ([facility]) [address] [facility], [place], [address], 10/25/2025 09:27:11 10/24/20 25 10/25/2025 CBC WITH DIFFE RENTI AL/PL ATELE T immature cells SWINE NUTRITIONIST Not Available [facility] ([facility]) [address] [facility], [place], [address], 10/25/2025 09:27:11 10/24/20 25 10/25/2025 CBC WITH DIFFE RENTI AL/PL ATELE T neutrophils (absolute) 5.3 x10e3 /uL 1.4-7. 0 normal Not Available [facility] ([facility]) [address] [facility], [place], [address], 10/25/2025 09:27:11 10/24/20 25 10/25/2025 CBC WITH DIFFE RENTI AL/PL ATELE T lymphs (absolute) 2.1 x10e3 /uL 0.7-3. 1 normal Not Available [facility] ([facility]) [address] [place], [address], 10/25/2025 09:27:11 10/24/20 25 10/25/2025 CBC WITH DIFFE RENTI AL/PL ATELE T monocytes(ab solute) 0.8 x10e3 /uL 0.1-0. 9 normal Not Available [facility] ([facility]) [address] [place], [address], 10/25/2025 09:27:11 10/24/20 25 10/25/2025 CBC WITH DIFFE RENTI AL/PL ATELE T eos (absolute) 0.3 x10e3 /uL 0.0-0. 4 normal Not Available [facility] ([facility]) [address] [place], [address], 10/25/2025 09:27:11 10/24/20 25 10/25/2025 CBC WITH DIFFE RENTI AL/PL ATELE T baso (absolute) 0.1 x10e3 /uL 0.0-0. 2 normal Not Available [facility] ([facility]) [address] [place], [address], 10/25/2025 09:27:11 10/24/20 25 10/25/2025 CBC WITH DIFFE RENTI AL/PL ATELE T immature granulocytes 1 % not estab. Not Available [facility] ([facility]) [address] [place], [address], 10/25/2025 09:27:11 10/24/20 25 10/25/2025 CBC WITH DIFFE RENTI AL/PL ATELE T immature grans (abs) 0.1 x10e3 /uL 0.0-0. 1 Not Available [facility] ([facility]) [address] [place], [address], 10/25/2025 09:27:11 10/24/20 25 10/25/2025 CBC WITH DIFFE RENTI AL/PL ATELE T NRBC SWINE NUTRITIONIST Not Available [facility] ([facility]) [address] [place], [place], [address], 10/25/2025 09:27:11 10/24/20 25 10/25/2025 CBC WITH DIFFE RENTI AL/PL ATELE T hematology comments: SWINE NUTRITIONIST Not Available [facility] ([facility]) [address] [place], [place], [address], 10/25/2025 09:27:11 10/24/20 25 10/25/2025 COMP. METAB OLIC PANEL (14) glucose 200 mg/dL 70-99 above high normal Not Available [facility] ([facility]) [address] [place], [place], [address], 10/25/2025 09:27:12 10/24/20 25 10/25/2025 COMP. METAB OLIC PANEL (14) BUN 12 mg/dL 8-27 normal Not Available [facility] ([facility]) [address] [place], [place], [address], 10/25/2025 09:27:12 10/24/20 25 10/25/2025 COMP. METAB OLIC PANEL (14) creatinine 1.13 mg/dL 0.76-1 .27 normal Not Available [facility] ([facility]) [address], [place], [address], 10/25/2025 09:27:12 10/24/20 25 10/25/2025 COMP. METAB OLIC PANEL (14) eGFR 74 mL/mi n/1.7 3 >59 normal Not Available [facility] ([facility]) [address], [place], [address], 10/25/2025 09:27:12 10/24/20 25 10/25/2025 COMP. METAB OLIC PANEL (14) BUN/creatini ne ratio 11 10-24 normal Not Available [facility] ([facility]) [address] [place], [address], 10/25/2025 09:27:12 10/24/20 25 10/25/2025 COMP. METAB OLIC PANEL (14) sodium 140 mmol/ L 134-14 4 normal Not Available [facility] ([facility]) [address] [facility], [address], 10/25/2025 09:27:12 10/24/20 25 10/25/2025 COMP. METAB OLIC PANEL (14) potassium 4.9 mmol/ L 3.5-5. 2 normal Not Available [facility] ([facility]) [address] [facility], [address], 10/25/2025 09:27:12 10/24/20 25 10/25/2025 COMP. METAB OLIC PANEL (14) chloride 101 mmol/ L 96-106 normal Not Available [facility] ([facility]) [address] [place], [address], 10/25/2025 09:27:12 10/24/20 25 10/25/2025 COMP. METAB OLIC PANEL (14) carbon dioxide, total 25 mmol/ L 20-29 normal Not Available [facility] ([facility]) [address] [place], [address], 10/25/2025 09:27:12 10/24/20 25 10/25/2025 COMP. METAB OLIC PANEL (14) calcium 9.7 mg/dL 8.6-10 .2 normal Not Available [facility] ([facility]) [address] [place], [address], 10/25/2025 09:27:12 10/24/20 25 10/25/2025 COMP. METAB OLIC PANEL (14) protein, total 7.3 g/dL 6.0-8. 5 normal Not Available [facility] ([facility]) [address] [place], [address], 10/25/2025 09:27:12 10/24/20 25 10/25/2025 COMP. METAB OLIC PANEL (14) albumin 4.2 g/dL 3.9-4. 9 normal Not Available [facility] ([facility]) [address] [place], [address], 10/25/2025 09:27:12 10/24/20 25 10/25/2025 COMP. METAB OLIC PANEL (14) globulin, total 3.1 g/dL 1.5-4. 5 Not Available [facility] ([facility]) [address] [place], [address], 10/25/2025 09:27:12 10/24/20 25 10/25/2025 COMP. METAB OLIC PANEL (14) bilirubin, total 0.2 mg/dL 0.0-1. 2 normal Not Available [facility] ([facility]) [address] [place], [address], 10/25/2025 09:27:12 10/24/20 25 10/25/2025 COMP. METAB OLIC PANEL (14) alkaline phosphatase 152 IU/L 47-123 above high normal Not Available [facility] ([facility]) [address] [place], [address], 10/25/2025 09:27:12 10/24/20 25 10/25/2025 COMP. METAB OLIC PANEL (14) AST (SGOT) 21 IU/L 0-40 normal Not Available [facility] ([facility]) [address] [place], [address], 10/25/2025 09:27:12 10/24/20 25 10/25/2025 COMP. METAB OLIC PANEL (14) ALT (SGPT) 19 IU/L 0-44 normal Not Available [facility] ([facility]) [address] [facility], [place], [address], 10/25/2025 09:27:12 10/24/20 25 10/25/2025 IRON AND TIBC iron bind.cap.(TI BC) 383 ug/dL 250-45 0 normal Not Available [facility] ([facility]) [address] [place], [address], 10/25/2025 09:27:13 10/24/20 25 10/25/2025 IRON AND TIBC UIBC 269 ug/dL 111-34 3 normal Not Available [facility] ([facility]) [address] [place], [address], 10/25/2025 09:27:13 10/24/20 25 10/25/2025 IRON AND TIBC iron 114 ug/dL 38-169 normal Not Available [facility] ([facility]) [address] [place], [address], 10/25/2025 09:27:13 10/24/20 25 10/25/2025 IRON AND TIBC iron saturation 30 % 15-55 normal Not Available [facility] ([facility]) [address] [place], [address], 10/25/2025 09:27:13 10/24/20 25 10/25/2025 HEMOG LOBIN A1C hemoglobin A1C 7.3 % 4.8-5. 6 above high normal Predi abete s: 5.7 - 6.4 Diabe woodrow: >6.4 Glyce hi contr ol for adult s with diabe woodrow: <7.0 Not Available [facility] ([facility]) [address] [place], [address], 10/25/2025 09:27:14 10/24/20 25 10/25/2025 VITAM IN D, 25-HY DROXY vitamin D, 25-hydroxy 48.9 NG/mL 30.0-1 00.0 Vitam in D defic iency has been defin ed by the Insti tute of Medic ine and an Endoc rine Socie ty pract ice guide line as a level of serum 25-OH vitam in D less than 20 ng/mL (1,2) . The Endoc rine Socie ty went on to furth er defin e vitam in D insuf ficie ncy as a level betwe en 21 and 29 ng/mL (2). 1. IOM (Inst itute of Medic ine). 2010. Dieta ry refer ence intak es for calci um and D. Urmila rodriguez [place]: The [facility] Press . 2. Ish law MF, Enrrique garcia [place], Luiza off-F errar i BLANCO, et al. Evalu ation , treat ment, and preve ntion of vitam in D defic iency : an Endoc rine Socie ty clini aleja pract ice guide line. JCEM. 2010; 96(7) :1911 -30. Not Available [facility] ([facility]) [address] [facility], [place], [address], 10/25/2025 09:27:15 06/11/20 24 06/11/2024 XR, tibia + fibul a No observ ation record ed. [address] (Central Scheduling) [address] [place], [address], 06/14/2024 07:28:42 06/11/20 24 06/11/2024 XR, foot, 3 or more view No observ ation record ed. [address] (Central Scheduling) [address] [place], [address], 06/14/2024 07:28:31 06/11/20 24 06/11/2024 XR, chest , 1 view No observ ation record ed. [address] (Central Scheduling) [address] [place], [address], 06/14/2024 07:28:17 09/12/20 24 09/12/2024 XR, tibia + fibul a No observ ation record ed. [email or web address] [facility] (Central Scheduling) [address] [place], [address], 09/19/2024 17:04:42 09/12/20 24 09/12/2024 XR, foot, 3 or more view No observ ation record ed. [email or web address] [facility] (Central Scheduling) [address] [place], [address], 09/19/2024 17:03:23 01/10/20 25 01/10/2025 US, doppl er, venou s No observ [email or web address] [address] [place], [address], 01/12/2025 14:57:47 07/25/20 25 07/25/2025 US, juve x, jenny id arter y No observ ation record ed. [facility] [address], [place], [address], 07/25/2025 11:26:30 Result Notes None recorded. Problems Name Problem SNOMED Code Status Onset Date Resolution Date Notes Provider Name and Address Organization Details Recorded Time Acute kidney injury 62282437 Active Esha Stone null, [facility] 16:56:58 Acute congesti ve heart failure 32344435 Active Esha Stone null, [facility] 4 16:56:58 Pneumoni a 099550713 Active Esha Stone null, [facility] 16:56:58 Abscess of right lower limb 88359483938 175702 Active Esha Stone null, [facility] 16:56:58 Cellulit is of lower limb 261985557 Active Esha Stone null, [facility] 16:56:58 Open wound of right lower leg 62946009411 966444 Active Esha Stone null, [facility] 16:56:58 Acute nontraum atic kidney injury 97551094195 9103 Active Esha Stone null, [place] - [facility] 4 16:56:58 Sepsis 16122430 Active Esha Stone null, [place] - [facility] 4 16:56:58 Osteomye litis of tibia 825880623 Active Esha Stone null, [place] - [facility] 4 16:56:58 Altered mental status 458517035 Active Esha Stone null, - [facility] 4 16:56:58 Osteomye litis of right ankle 03050762431 81108 Active Seha Stone null, [place] - [facility] 4 16:56:58 Smoker 35471107 Active Not Available [facility] 3 07:11:38 Fissure in skin 44542467 Active Esha Stone null, [place] - [facility] 4 16:56:58 Peripher al neuropat hy due to type 2 diabetes mellitus 98030543775 07 Active Esha Stone null, [place] - [facility] 4 16:56:58 Diabetes mellitus 17435524 Active 2016 Esha Stone null, [place] - [facility] 4 16:56:58 Myocardi al infarcti on 78842215 Active 2016 Esha [place] [facility] 4 16:56:58 Alcoholi sm 2276689 Active 2016 Esha [place], [place] - [facility] 4 16:56:58 Congesti ve heart failure 76346133 Active 2016 systolic Esha Stone null, [place] - [facility] 4 16:56:58 Pulmonar y hyperten [place] 08936545 Active 2016 Esha [place] [facility] 4 16:56:58 Diabetic foot ulcer 256841928 Completed 201702/04/2019 Ratna Samano RN [address], [place], [address] , [place] - [facility] 9 14:08:41 Hypovole hi shock 96476386 Active 2017 Esha Stone null[place] - [facility] 4 16:56:58 Neuropat hy due to diabetes mellitus 768754056 Active 2019 Esha Stone [place] - [facility] 4 16:56:58 Insomnia 522748701 Active 2019 Emmy Houser, VIDEO [employer] MECHANIC [address], [place], [address] , [place] [facility] 5 13:22:17 Diabetic peripher al neuropat hy 613015810 Active 2019 Esha Stone null, [place] [facility] 4 16:56:58 Hypomagn esemia 438643677 Active 2019 Esha [place] [facility] 4 16:56:58 Chronic obstruct samantha pulmonar y disease 61663076 Active 2019 Esha Stone [place] [facility] 4 16:56:58 Rheumato id arthriti s 70415238 Active 2020 Esha Stone [place] [facility] 4 16:56:58 Anemia 390644781 Active 2020 Esha Stone [place] [facility] 4 16:56:58 Abnormal sexual function 00869137 Active 2023 Emmy Houser, VIDEO RECORDER MECHANIC [address], [place], [address] , [place] - [facility] 4 08:24:37 Spasm of back muscles 714066579 Active 2023 Emmy Houser APRN [address], [place], [address] , [place] - [facility] 4 09:49:39 Cellulit is of toe 20801469 Active 2023 Emmy Houser, VIDEO RECORDER MECHANIC [address], [place], [address] , [place] - [facility] 4 10:16:12 Hypoglyc emia due to type 2 diabetes mellitus 63667855185 9103 Active 2024 Emmy Houser VIDEO [employer] MECHANIC [address], [place], [address] , [place] - [facility] 5 14:15:36 Dyslipid emia 928870220 Active 2024 Emmy Houser, VIDEO RECORDER MECHANIC [address], [place], [address] , [place] [facility] 5 10:20:37 Moderate depressi on 562162543 Active 2024 Emmy Houser, VIDEO RECORDER MECHANIC [address], [place], [address] , [place] [facility] 5 15:24:41 Fatigue 59157520 Active 2024 Emmy Houser, VIDEO RECORDER MECHANIC [address], [place], [address] , [place] - [facility] 5 15:29:00 Chronic osteomye litis of right tibia 18432697960 75444 Active 2024 Emmy Houser, VIDEO RECORDER MECHANIC [address], [place], [address] , [place] [facility] 5 16:43:48 Vitamin D deficien cy 55007480 Active 2024 Emmy Houser, VIDEO [employer] MECHANIC [address], [place], [address] , [place] [facility] 5 09:40:04 Iron overload 96895227 Active 2024 Emmy Houser, VIDEO [employer]ORDER MECHANIC [address], [place], [address] , [place] [facility] 5 09:40:46 Cobalami n deficien cy 813334078 Active 2024 Emmy Houser, VIDEO [employer]ORDER MECHANIC [address], [place], [address] , [place] [facility] 5 09:41:25 Alkaline phosphat ase above referenc e range 894954716 Active 2024 Emmy Houser, VIDEO RECORDER MECHANIC [address], [place], [address] , [place] - [facility] 5 09:42:42 Candidia sis of mouth 07851138 Active 2024 Emmy Houser, VIDEO RECORDER MECHANIC [address], [place], [address] , [place] [facility] 08:20:37 Restless legs syndrome 62469519 Active 2024 Emmy Mik, VIDEO [employer] MECHANIC [address], [place], [address] , [place] - [facility] 14:32:12 Coronary arterios clerosis 10135121 Active 2024 Mid LAD stent by Dr. Mukul Houser, VIDEO [employer]ORDER MECHANIC [address], [place], [address] , [place] - [facility] 20:29:41 Bronchit is 59840556 Active 2024 Emmyroberta Houser, VIDEO RECORDER MECHANIC [address], [place], [address] , [place] [facility] 13:15:03 Persiste nt cough 126507872 Active 2024 Emmy Houser, VIDEO RECORDER MECHANIC [address], [place], [address] , [place] [facility] 13:15:35 Type 2 diabetes mellitus 98114414 Active 2024 Emmy Houser, VIDEO [employer] MECHANIC [address], [place], [address] , [place] - [facility] 13:24:46 Notes:Some problems listed i n Documents: #[id number], #[id number] could not be added to this patient's chart. Please review these documents and add these problems to the patient's chart manually as needed. Problem Notes None recorded. Procedures Surgical History Date Name Laterality Status Provider Name and Address Organization Details Recorded Time 10/24/20 25 Medication Reconcilliation completed Kamala Maicol [place] - [facility] 10/24/2025 12:49:55 06/13/20 25 Medication Reconcilliation completed Kamala Milian [place] - [facility] 06/13/2025 15:03:55 12/22/19 25 Medication Reconcilliation completed Kamala Milian [place] [facility] 12/21/2024 14:51:50 12/08/19 25 Medication Reconcilliation cancelled Kamala Milian [place] [facility] 12/05/2024 13:31:22 07/06/20 24 Medication Reconcilliation completed Dina Ortega [place] [facility] 07/06/2024 08:23:10 09/08/20 23 Advance Care Planning completed Effie Cabral [place] - [facility] 09/08/2023 15:23:34 09/08/20 23 Functional Status Assessed completed Effie Ernandezcy [place] - [facility] 09/08/2023 15:23:34 04/10/20 23 Medication Reconcilliation completed Effie [place] [facility] 04/10/2023 10:39:46 03/09/20 23 Medication Reconcilliation completed Effie Ernandezcy [place] [facility] 03/09/2023 14:30:22 03/20/20 22 Medication Reconcilliation completed Effie [place] [facility] 03/20/2022 13:08:42 02/07/20 22 Unlisted px femur/knee completed Effie [place]ral [place] [facility] 03/20/2022 13:16:18 12/26/19 22 Advance Care Planning cancelled Karla Higginbotham [place] - [facility] 12/25/2021 10:34:24 12/26/19 22 Functional Status Assessed cancelled Karla Higginbotham [place] - [facility] 12/25/2021 10:34:24 12/10/19 22 Medication Reconcilliation completed Effie Cabral [place] [facility] 12/10/2021 13:02:27 11/28/19 22 Medication Reconcilliation completed Effie [place] [facility] 11/28/2021 11:08:08 09/26/20 21 colonoscopy completed Effie [place]ral [place] [facility] 10/11/2021 09:43:07 05/23/20 20 leg repair completed Effie [place]ral [place] [facility] 07/19/2020 15:49:35 03/27/20 20 Medication Reconcilliation completed Effie [place]ral [place] [facility] 03/27/2020 09:49:07 02/22/20 20 amputation of toe completed Effie Cabral [place] [facility] 07/19/2020 15:48:59 09/05/20 19 Diastolic B/P 80-89 mm Hg completed Zaria Quezada [place] - [facility] 09/05/2019 09:02:29 09/05/20 19 Systolic B/P 130-139 mm Hg completed Zaria Quezada [place] [facility] 09/05/2019 09:02:32 05/11/20 19 Systolic B/P less than 130 mm Hg completed Elieser Small [place] - [facility] 05/11/2019 15:11:32 05/11/20 19 Diastolic B/P 80-89 mm Hg completed Elieser Small [place] - [facility] 05/11/2019 15:11:35 05/11/20 19 Medication Reconcilliation completed Elieser Small [place] [facility] 05/11/2019 15:07:39 03/18/20 19 Systolic B/P less than 130 mm Hg completed Elieser Small [place] - [facility] 03/18/2019 09:56:36 03/18/20 19 Diastolic B/P less than 80 mm Hg completed Elieser Small [place] - [facility] 03/18/2019 09:56:39 01/10/20 19 Medication Reconcilliation completed Elieser Small [place] [facility] 01/10/2019 09:53:17 12/30/19 19 Systolic B/P less than 130 mm Hg completed Karla Higginbotham [place] [facility] 12/30/2018 10:24:04 12/30/19 19 Diastolic B/P less than 80 mm Hg completed Karla [place]ginbotham [place] [facility] 12/30/2018 10:24:07 12/30/19 19 Medication Reconcilliation completed Karla [place]ginbotham [place] [facility] 12/30/2018 10:05:26 10/19/20 18 Medication Reconcilliation completed Effie Marianna [place] - [facility] 10/19/2018 11:16:04 12/11/19 18 Pacemaker Placement completed Effie Cabral [place] - [facility] 12/17/2017 08:26:16 10/17/20 17 Cardiac Cath completed Effie Cabral [place] - [facility] 10/26/2017 09:55:59 replacement of pulse generator of automatic cardioverter/defibr illator completed Emmy Houser APRN [address], [place], [address], [place] - [facility] 05/03/2024 09:50:37 insertion of carotid artery stent completed Emmy Houser APRN [address], [place], [address], [place] - [facility] 05/03/2024 09:50:57 Fragmenting of kidney stone completed Effie Cabral [place] - [facility] 10/26/2017 09:55:35 excision of lesion of skin completed Micheline Dom [place] - [facility] 06/30/2019 15:40:25 Imaging Results None recorded. Procedure Notes None recorded. Medical Equipment None Reported. Allergies Allergen ID Allergen Name Allergen Category Reaction Reaction Severity Criticality Documentation Date Start Date Code Code System Note Provider Name and Address Organization Details Recorded Time 282762 No known allergy (situatio n) Not available Not available Not available Not available 12/04/2021 24262 6003 SNOMED Effie Marianna null, [place] - [facility] 3 14:35:01 705927 trazodone medicatio n other Not available low 10/09/20252024 12256 RxNorm Dizzy drows y and sleep hango zana Also noted cause d him to have tick s where he would jerk his limbs and could accid ental ly throw thing s acros s the room Not Available janie - External Data Service - prod 5 11:43:32 Medications Name Sig Start Date Stop Date Status Note LastModified by Organization Details LastModified Time diabetic shoes 01/20 completed Not Available Not Available Not Available Prescript ion - Clarifica tion 10/24 completed Not Available Not Available Not Available quetiapin e 25 mg tablet Take 1 tablet every day by oral route. 05/01 completed Not Available Not Available Not Available Santyl 250 unit/gram topical ointment AD PRN 11/12 completed Not Available Not Available Not Available cyclobenz aprine 10 mg tablet TAKE 1 TABLET BY MOUTH 2 TIMES DAILY active Not Available Not Available No t Available amoxicill in 500 mg capsule Take 1 capsule every 8 hours by oral route for 10 days. 01/20 completed Not Available Not Available Not Available furosemid e 40 mg tablet TAKE 1-2 TABLETS BY MOUTH DAILY NEEDED active Not Available Not Available No t Available metolazon e 2.5 mg tablet 10/19 completed Not Available Not Available Not Available Mapap Extra Strength 500 mg tablet 500 mg by oral route. 12/02 completed Not Available Not Available Not Available methocarb cookie 500 mg tablet TAKE 1 TABLET BY MOUTH 3 TIMES DAILY. 06/13 completed Not Available Not Available Not Available Bromfed DM 2 mg-30 mg-10 mg/5 mL oral syrup Take 10 mL every 4 hours by oral route. 12/02/ 2025 active Not Available Not Available Not Avai lable fluticaso ne 250 mcg-salme terol 50 mcg/dose blistr powdr for inhalatio n INHALE 1 PUFF BY MOUTH TWICE DAILY. active Not Available Not Available No t Available nystatin 100,000 unit/mL oral suspensio n TAKE 5 ML BY MOUTH 4 TIMES A DAY active Not Available Not Available No t Available dextromet horphan polistire x ER 30 mg/5 mL oral susp ext.relea se 12hr Take 10 mL by oral route. 09/08 completed Not Available Not Available Not Available carvedilo l 6.25 mg tablet Take 1 tablet twice a day by oral route for 30 days. 01/08 completed Not Available Not Available Not Available gabapenti n 600 mg tablet TAKE 1 TABLET BY MOUTH 3 TIMES DAILY 01/04 completed Not Available Not Available Not Available doxycycli ne hyclate 100 mg capsule TAKE 1 CAPSULE BY MOUTH TWICE A DAY 05/03 completed Not Available Not Available Not Available atorvasta tin 20 mg tablet Take 1 tablet every day by oral route for 30 days. 01/08 completed D/c per Mukul due to leg pain Not Available Not Available Not Available carvedilo l 12.5 mg tablet TAKE 1/2 TABLET BY MOUTH ONCE DAILY. 03/02 completed Not Available Not Available Not Available ropinirol e 1 mg tablet TAKE 1 TABLET BY MOUTH EACH MORNING AND AFTERNOO N AND 2 AT NIGHT active Not Available Not Available No t Available nicotine 14 mg/24 hr daily transderm al patch 14 mg by transder m. route. 12/03 completed Not Available Not Available Not Available ipratropi um 0.5 mg-albute rol 3 mg (2.5 mg base)/3 mL nebulizat ion soln 10/24 completed Not Available Not Available Not Available clindamyc in HCl 300 mg capsule TAKE 1 CAPSULE ORAL ROUTE EVERY 6 HOURS FOR 10 DAYS 06/13 completed Not Available Not Available Not Available albuterol sulfate 2.5 mg/3 mL (0.083 %) solution for nebulizat ion 2.5 mg by inhalati on route. 04/04 completed Not Available Not Available Not Available Vitamin C 500 mg tablet Take 1 tablet every day by oral route. active Not Available Not Available No t Available trazodone 50 mg tablet TAKE 1 TABLET BY MOUTH DAILY. 06/13 completed Not Available Not Available Not Available polyethyl ella glycol 3350 17 gram oral powder packet 1 pkt by oral route. active Not Available Not Available No t Available cetirizin e 10 mg tablet 1 PO QD 01/04 completed Not Available Not Available Not Available Iron (ferrous sulfate) 325 mg (65 mg iron) tablet Take 1 tablet every day by oral route. 06/13 completed Not Available Not Available Not Available azithromy cori 250 mg tablet TAKE 2 TABLETS BY MOUTH THE FIRST DAYS DOSE THEN TAKE 1 TABLET EACH DAY FOR 4 MORE DAYS. 03/20 completed Not Available Not Available Not Available pravastat in 40 mg tablet TAKE 1 TABLET BY MOUTH DAILY. active Not Available Not Available No t Available benzonata te 200 mg capsule TAKE 1 CAPSULE BY MOUTH 3 TIMES DAILY NEEDED. active Not Available Not Available No t Available Senna Lax 8.6 mg tablet 17.2 mg by oral route. 11/22 completed Not Available Not Available Not Available hydrocodo ne 5 mg-acetam inophen 325 mg tablet TAKE 1 TABLET BY MOUTH 3 TIMES DAILY NEEDED. 08/08 completed Not Available Not Available Not Available FreeStyle Lancets 28 gauge test 3 times a day 03/28 completed Not Available Not Available Not Available cefepime 2 gram solution for injection 06/13 completed Not Available Not Available Not Available famotidin e 40 mg tablet TAKE 1 TABLET BY MOUTH TWICE DAILY. active Not Available Not Available No t Available Medrol (Rihcard) 4 mg tablets in a dose pack Take 1 dose pk by oral route for 6 days. 11/06 completed Not Available Not Available Not Available prednison e 20 mg tablet TAKE 3 TABLETS BY MOUTH ONCE DAILY FOR 5 DAYS 03/20 completed Not Available Not Available Not Available Viagra 50 mg tablet Take 50 mg by oral route. 05/03 completed Not Available Not Available Not Available gabapenti n 400 mg capsule 800 mg by oral route. 02/032 completed Not Available Not Available Not Available metronida zole 250 mg tablet Take 500 mg by oral route. 06/13 completed Not Available Not Available Not Available Milk of Magnesia 400 mg/5 mL oral suspensio n Take 10 mL by oral route. 10/24 completed Not Available Not Available Not Available clindamyc in HCl 150 mg capsule 1 PO BID 08/23 completed Not Available Not Available Not Available cyanocoba megan (vit B-12) 1,000 mcg tablet Take 1000 microgra ms every day by oral route. 2024 active Not Available Not Available Not Avai lable Accu-Chek Softclix Lancets USE DIRECTED 3 TIMES DAILY active Not Available Not Available No t Available valsartan 80 mg tablet TAKE 1 TABLET BY MOUTH ONCE DAILY. 06/13 completed Not Available Not Available Not Available Vitamin B-12 500 mcg tablet 250 microgra ms by oral route. 12/06 completed Not Available Not Available Not Available potassium chloride ER 10 mEq tablet,ex tended release TAKE 1 TABLET BY MOUTH DAILY. 07/06 completed Not Available Not Available Not Available metronida zole 500 mg tablet TAKE 1 TABLET (500 MG) BY MOUTH 3 (THREE) TIMES A DAY FOR 7 DAYS. 06/13 completed Not Available Not Available Not Available melatonin 3 mg tablet Take 10 mg by oral route. 06/13 completed Not Available Not Available Not Available clopidogr el 75 mg tablet TAKE 1 TABLET BY MOUTH ONCE DAILY. active Not Available Not Available No t Available ciproflox acin 500 mg tablet Take 1 tablet every 12 hours by oral route for 10 days. active Not Available Not Available No t Available sulfameth oxazole 800 mg-trimet hoprim 160 mg tablet TAKE 1 TABLET BY MOUTH EACH MORNING AND 1 TABLET BEFORE BEDTIME FOR 14 DAYS. 06/13 completed Not Available Not Available Not Available hydrocodo ne 10 mg-acetam inophen 325 mg tablet TAKE 1 TABLET BY MOUTH FOUR TIMES DAILY. DO NOT FILL UNTIL 10/26/25 active Not Available Not Available No t Available aspirin 81 mg tablet,de layed release Take 1 tablet every day by oral route. 2024 active Not Available Not Available Not Avai lable doxycycli ne monohydra te 100 mg tablet TAKE 1 TABLET BY MOUTH 2 TIMES A DAY. TAKE WITH A FULL GLASS OF WATER AND DO NOT LIE DOWN FOR AT LEAST 30 MINUTES AFTER active Not Available Not Available No t Available tramadol 50 mg tablet TAKE 1 TABLET BY MOUTH EVERY 12 HOURS NEEDED FOR PAIN 08/08 completed Not Available Not Available Not Available vancomyci n 1,000 mg intraveno us injection 1750 mg by intraven . route. 12/03 completed Not Available Not Available Not Available quetiapin e 100 mg tablet TAKE 1-2 TABLETS BY MOUTH EVERY NIGHT AT BEDTIME 12/15 completed dizzines s Not Available Not Available Not Available amitripty line 50 mg tablet TAKE 1-2 TABLETS BY MOUTH AT BEDTIME NEEDED FOR SLEEP. 05/01 completed Not Available Not Available Not Available sildenafi l 100 mg tablet TAKE 1 TABLET BY MOUTH DAILY NEEDED. 2024 active Not Available Not Available Not Avai lable glimepiri de 2 mg tablet TAKE 1 TABLET BY MOUTH TWICE DAILY. active Not Available Not Available No t Available bisoprolo l fumarate 10 mg tablet TAKE 1 TABLET BY MOUTH DAILY. 07/12 completed Not Available Not Available Not Available glimepiri de 1 mg tablet Take 1 mg by oral route. 02/10 completed Duplicat e med in chart Not Available Not Available Not Available ketorolac 10 mg tablet TAKE 1 TABLET BY MOUTH EVERY 8 HOURS NEEDED FOR PAIN. 09/08 completed Not Available Not Available Not Available bisoprolo l fumarate 5 mg tablet TAKE 1/2 TABLET BY MOUTH ONCE DAILY active Not Available Not Available No t Available carbamaze pine 200 mg tablet 200 mg by oral route. 02/03 completed Not Available Not Available Not Available oxycodone -acetamin ophen 5 mg-325 mg tablet 1 PO Q4-6H PRN 03/02 completed Not Available Not Available Not Available famotidin e 20 mg tablet Take 40 mg by oral route. 10/24 completed Not Available Not Available Not Available amitripty line 25 mg tablet Take 50 mg by oral route. 03/20 completed Not Available Not Available Not Available magnesium oxide 400 mg (241.3 mg magnesium ) tablet TAKE 1 TABLET BY MOUTH TWICE DAILY. 06/13 completed Not Available Not Available Not Available methocarb cookie 750 mg tablet Take 750 mg by oral route. 06/13 completed Not Available Not Available Not Available chlordiaz epoxide 25 mg capsule Take 1 capsule 3 times a day by oral route. 03/02 completed Not Available Not Available Not Available oxycodone -acetamin ophen 10 mg-325 mg tablet TAKE 1 TABLET BY MOUTH EVERY 8 HOURS NEEDED FOR PAIN 05/03 completed Not Available Not Available Not Available gabapenti n 800 mg tablet TAKE 1 TABLET BY MOUTH 4 TIMES DAILY DO NOT FILL BEFORE 09/09 AND 10/09 active Not Available Not Available No t Available linezolid 600 mg tablet TAKE 1 TABLET (600 MG) BY MOUTH 2 (TWO) TIMES A DAY FOR 7 DAYS. 06/13 completed Not Available Not Available Not Available furosemid e 80 mg tablet Take 0.5 tablets every day by oral route for 30 days. 10/19 completed Not Available Not Available Not Available piperacil kathrin-tazob actam 3.375 gram intraveno us solution 3.375 g by intraven . route. 12/03 completed Not Available Not Available Not Available baclofen 10 mg tablet TAKE 1 TABLET BY MOUTH THREE TIMES DAILY 06/13 completed Not Available Not Available Not Available hydrocodo ne 7.5 mg-acetam inophen 325 mg tablet TAKE 1 TABLET BY MOUTH 4 TIMES DAILY FOR 7 DAYS. DO NOT FILL BEFORE 12/25/2305/03 completed Not Available Not Available Not Available cephalexi n 500 mg capsule TAKE 2 CAPSULES BY MOUTH THREE TIMES DAILY FOR 7 DAYS. 09/08 completed Not Available Not Available Not Available piperacil kathrin-tazob actam 4.5 gram intraveno us solution 4.5 g by intraven . route. 12/03 completed Not Available Not Available Not Available pantopraz ole 40 mg tablet,de layed release Take 1 tablet every day by oral route. active Not Available Not Available No t Available cyanocoba megan (vit B-12) 1,000 mcg/mL injection solution Inject 1 mL every month by intramus cular route. 11/12 completed Not Available Not Available Not Available glimepiri de 4 mg tablet 1 mg by oral route. 02/03 completed Not Available Not Available Not Available prednison e 50 mg tablet TAKE 1 TABLET BY MOUTH DAILY. 09/08 completed Not Available Not Available Not Available ibuprofen 400 mg tablet 400 mg by oral route. active Not Available Not Available No t Available nitroglyc henri 0.4 mg sublingua l tablet AD PRN active Not Available Not Available Not Available gabapenti n 300 mg capsule 600 mg by oral route. 11/21 completed Not Available Not Available Not Available omeprazol e 20 mg capsule,d elayed release TAKE 1 CAPSULE BY MOUTH DAILY active Not Available Not Available No t Available aspirin 81 mg chewable tablet 81 mg by oral route. 12/06 completed Not Available Not Available Not Available Tylenol 325 mg tablet 650 mg by oral route. 02/03 completed Not Available Not Available Not Available cephalexi n 500 mg tablet Take 2 tablets by oral route. 09/08 completed Not Available Not Available Not Available bisacodyl 5 mg tablet,de layed release 5 mg by oral route. 02/03 completed Not Available Not Available Not Available pravastat in 20 mg tablet Take 40 mg by oral route. 06/13 completed takes 40 mg. Not Available Not Available Not Available mupirocin 2 % topical ointment APPLY 1 APPLICAT ION TOPICALL Y 2 TIMES A DAY. APPLY TO EACH NOSTRIL TWICE DAILY FOR 5 DAYS BEFORE SURGERY. 09/24 completed Not Available Not Available Not Available digoxin 125 mcg (0.125 mg) tablet TAKE 1 TABLET BY MOUTH ONCE DAILY. active Not Available Not Available No t Available furosemid e 20 mg tablet 1 PO QD per [facility] Dr. Hooper 11/12 completed Not Available Not Available Not Available gabapenti n 100 mg capsule 07/19 completed Not Available Not Available Not Available sodium chloride 0.9 % intraveno us solution 1000 mL by intraven . route. 02/03 completed Not Available Not Available Not Available vancomyci n 10 gram intraveno us solution 01/13 completed Not Available Not Available Not Available levofloxa cori 500 mg tablet TAKE 1 TABLET BY MOUTH DAILY. 04/10 completed Not Available Not Available Not Available levofloxa cori 750 mg tablet TAKE 1 TABLET BY MOUTH DAILY. 10/24 completed Not Available Not Available Not Available albuterol sulfate HFA 90 mcg/actua tion aerosol inhaler INHALE 2 PUFFS EVERY 6 HOURS NEEDED FOR SHORTNES S OF BREATH OR WHEEZING active Not Available Not Available No t Available ondansetr on 4 mg disintegr ating tablet 4 mg by oral route. 02/03 completed Not Available Not Available Not Available cefdinir 300 mg capsule Take 1 capsule every 12 hours by oral route for 10 days. active Not Available Not Available No t Available doxycycli ne hyclate 100 mg tablet 07/19 completed Not Available Not Available Not Available naproxen 500 mg tablet 1 PO BID 01/04 completed Not Available Not Available Not Available spironola ctone 50 mg tablet TAKE 1 TABLET BY MOUTH 2 TIMES DAILY. 05/11 completed Not Available Not Available Not Available amoxicill in 875 mg-potass ium clavulana te 125 mg tablet TAKE 1 TABLET BY MOUTH EVERY 12 HOURS FOR 10 DAYS. 04/10 completed Not Available Not Available Not Available amoxicill in 500 mg-potass ium clavulana te 125 mg tablet TAKE 1 TABLET BY MOUTH EVERY 12 HOURS 12/15 completed Not Available Not Available Not Available oxycodone 5 mg tablet TAKE 1 TABLET BY MOUTH EVERY 6 HOURS NEEDED FOR MODERATE PAIN FOR UP TO 40 DOSES. 06/13 completed Not Available Not Available Not Available valsartan 160 mg tablet TAKE 1 TABLET BY MOUTH ONCE DAILY active Not Available Not Available No t Available ertapenem 1 gram solution for injection 1 gram q24h IV 05/01 completed Not Available Not Available Not Available enoxapari n 40 mg/0.4 mL subcutane ous syringe 40 mg by sub-q route. 12/06 completed Not Available Not Available Not Available dextrose 50 % in water (D50W) intraveno us syringe 50 mL by intraven . route. 02/03 completed Not Available Not Available Not Available dextrose 5 % in water (D5W) intraveno us solution 500 mL by intraven . route. 12/06 completed Not Available Not Available Not Available morphine 2 mg/mL injection syringe 2 mg by injectio n route. 11/19 completed Not Available Not Available Not Available bupropion HCl XL 150 mg 24 hr tablet, extended release TAKE 1 TABLET BY MOUTH ONCE DAILY. active Not Available Not Available No t Available daptomyci n 500 mg intraveno us solution 900 mg q24h IV 06/13 completed Not Available Not Available Not Available duloxetin e 30 mg capsule,d elayed release Take 60 mg by oral route. 05/03 completed Not Available Not Available Not Available duloxetin e 60 mg capsule,d elayed release TAKE 1 CAPSULE BY MOUTH DAILY. active Not Available Not Available No t Available carbamaze pine ER 200 mg capsule,e xtended release [id number] Take 200 mg by oral route. 03/20 completed Not Available Not Available Not Available Novofine Autocover 30 gauge x 1/3 needle USE DAILY DIRECTED . 10/11 completed Not Available Not Available Not Available sodium chloride 0.9 % intraveno us piggyback 100 mL by intraven . route. 12/03 completed Not Available Not Available Not Available cyanocoba megan (vitamin B-12) 1 PO QD 05/01 completed Not Available Not Available Not Available Aspir-81 1 po qd 11/10 completed Not Available Not Available Not Available Centrum Silver 1 PO QD 01/04 completed Not Available Not Available Not Available quetiapin e 50 mg tablet TAKE 1-2 TABLET BY MOUTH EVERY NIGHT AT BEDTIME 10/11 completed Not Available Not Available Not Available Januvia 50 mg tablet Take 1 tablet twice a day by oral route. 02/11 completed Not Available Not Available Not Available Januvia 100 mg tablet Take 1 tablet every day by oral route for 30 days. 02/12 completed Not Available Not Available Not Available NovoFine 30 30 gauge x 1/3 needle AD 08/03 completed Not Available Not Available Not Available ondansetr on HCl (PF) 4 mg/2 mL injection solution 4 mg by injectio n route. 02/03 completed Not Available Not Available Not Available Senna with Docusate Sodium 8.6 mg-50 mg tablet Take 2 tablets by oral route. 10/24 completed Not Available Not Available Not Available cholecalc iferol (vitamin D3) 1,250 mcg (50,000 unit) capsule TAKE 1 CAPSULE BY MOUTH ONCE WEEKLY 10/25 completed Not Available Not Available Not Available ferrous sulfate 324 mg (65 mg iron) tablet,de layed release TAKE 1 TABLET BY MOUTH EVERY OTHER DAY 10/24 completed Not Available Not Available Not Available BD PosiFlush Normal Saline 0.9 % injection syringe 10 mL by injectio n route. 02/03 completed Not Available Not Available Not Available Humalog KwikPen (U-100) Insulin 100 unit/mL subcutane ous 1 unt by sub-q route. 02/03 completed Not Available Not Available Not Available oxycodone 10 mg tablet TAKE 1 TABLET BY MOUTH EVERY 6 HOURS NEEDED FOR BREAKTHR OUGH PAIN, MODERATE PAIN 06/13 completed Not Available Not Available Not Available diclofena c 1 % topical gel APPLY 2 GRAMS TOPICALL Y ONCE DAILY. active Not Available Not Available No t Available melatonin 5 mg tablet Take 1 tablet every day by oral route at bedtime. 10/24 completed Not Available Not Available Not Available Floranex 1 million cell tablet 1 tablet by oral route. 2022 active Not Available Not Available Not Avai lable Dulera 200 mcg-5 mcg/actua tion HFA aerosol inhaler Inhale 2 pufs by inhalati on route. 06/13 completed Not Available Not Available Not Available mometason e-formote rol HFA 100 mcg-5 mcg/actua tion aerosol inhaler Inhale 2 puffs twice a day by inhalati on route. active Not Available Not Available No t Available Probiotic 10 billion cell capsule Take 1 capsule every day by oral route. 2024 active Not Available Not Available Not Avai lable multivit- mn-folic 300 mcg-K 60 mcg-lycop 600 mcg-lutei n 300 mcg tablet Take 1 tablet every day by oral route as directed . 01/04 completed Not Available Not Available Not Available melatonin 10 mg tablet Take 1 tablet every day by oral route as needed. 2024 active Not Available Not Available Not Avai lable melatonin 10 mg capsule Take 1 capsule every day by oral route. 06/13 completed Not Available Not Available Not Available TRUEplus Lancets 26 gauge test glucose BID 10/19 completed Not Available Not Available Not Available Levemir FlexTouch U-100 Insulin 100 unit/mL (3 mL) subcutane ous pen Inject 20 units every day by subcutan eous route for 30 days. 02/11 completed Not Available Not Available Not Available Jardiance 10 mg tablet TAKE 1 TABLET BY MOUTH DAILY active Not Available Not Available No t Available True Metrix Glucose Test Strip Test glucose TID active Not Available Not Available No t Available NovoFine Plus 32 gauge x 1/6 needle USE DAILY DIRECTED . 03/20 completed Not Available Not Available Not Available Spiriva Respimat 2.5 mcg/actua tion solution for inhalatio n 10/24 completed Not Available Not Available Not Available True Metrix Air Glucose Meter Test Glucose TID active Not Available Not Available No t Available Entresto 97 mg-103 mg tablet Take 1 tablet twice a day by oral route. 12/30 completed Not Available Not Available Not Available Entresto 49 mg-51 mg tablet TAKE 1 TABLET BY MOUTH 2 TIMES DAILY 12/27 completed Not Available Not Available Not Available Entresto 24 mg-26 mg tablet TAKE 1 TABLET BY MOUTH TWICE DAILY 06/13 completed Not Available Not Available Not Available Basaglar KwikPen U-100 Insulin 100 unit/mL (3 mL) subcutane ous INJECT 40 UNITS SUBCUTAN EOUSLY ONCE DAILY. 03/20 completed on hold due to hypoglyc emia Not Available Not Available Not Available magnesium 400 mg (as magnesium oxide) tablet Take 1 tablet twice a day by oral route. 03/20 completed Not Available Not Available Not Available Tab-A-Vit e 400 mcg tablet 1 tablet by oral route. 12/06 completed Not Available Not Available Not Available Kloxxado 8 mg/actuat ion nasal spray Take 1 spray as needed by nasal route. active Not Available Not Available No t Available DropSafe Alcohol Prep Pads use prior testing glucose TID active Not Available Not Available No t Available daptomyci n 1,000 mg/100 mL in 0.9 % sodium chlor intraveno us piggyback Inject 100 mL by intraven . route. 05/03 completed Not Available Not Available Not Available Vitals Date Recorded Body height Body temperature Respiratory rate Pain severity - 0-10 verbal numeric rating [Score] - Reported Systolic And Diastolic Provider Name and Address Organization Details Last Updated DateTime 5 182.88 cm 97.8 [degF] 18 /min 8 110/60 mm[Hg] Martyritesh Milian [place] - [facility] 5 13:58:05 Date Recorded Body height Body mass index (BMI) Body weight Heart rate Oxygen saturation Respiratory rate Body temperature Pain severity - 0-10 verbal numeric rating [Score] - Reported Systolic And Diastolic Provider Name and Address Organization Details Last Updated DateTime 5 182.88 cm 31.1 kg/m2 125694. 65 g 102 /min 97 % 18 /min 97.8 [degF] 8 126/84 mm[Hg] Kamala Milian [place] - [facility] 5 15:05:44 Date Recorded Body height Body mass index (BMI) Body weight Body temperature Oxygen saturation Respiratory rate Heart rate Systolic And Diastolic Provider Name and Address Organization Details Last Updated DateTime 4 182.88 cm 30.4 kg/m2 265543. 69 g 98.2 [degF] 95 % 18 /min 75 /min 108/64 mm[Hg] Dina Ortega [place] - [facility] 4 08:30:13 Date Recorded Body height Body mass index (BMI) Body weight Heart rate Oxygen saturation Respiratory rate Systolic And Diastolic Provider Name and Address Organization Details Last Updated DateTime 5 182.88 cm 31.2 kg/m2 754882. 25 g 92 /min 99 % 18 /min 132/80 mm[Hg] Martyritesh Milian [place] - [facility] 5 14:24:08 Date Recorded Heart rate Oxygen saturation Provider Name and Address Organization Details Last Updated DateTime 10/24/2025 97 /min 98 % Emmy Houser, [employer] [address], [place], [address], [place] - [facility] 10/24/2025 15:51:36 Date Recorded Body height Body mass index (BMI) Body weight Body temperature Respiratory rate Pain severity - 0-10 verbal numeric rating [Score] - Reported Systolic And Diastolic Provider Name and Address Organization Details Last Updated DateTime 5 182.88 cm 32.7 kg/m2 616351. 76 g 98.7 [degF] 18 /min 0 128/68 mm[Hg] Kamala Milian [place] - [facility] 5 13:02:25 Social History Question Answer Notes LastModified by [employer] ion Details LastModified Time Tobacco Smoking Status Current Every Day Smoker Effie Cabral [place], [place] - [facility] 09/08/2023 15:37:01 Do You Have An Advance Directive? No Information not available 10/26/2017 Are You Blind Or Do You Have Difficulty Seeing? No Information not available 11/10/2017 What Is Your Level Of Caffeine Consumption? Moderate Tea, Coffee Information not available 10/26/2017 How Much Tobacco Do You Chew? None Information not available 10/26/2017 Are You Deaf Or Do You Have Serious Difficulty Hearing? Yes Information not available 11/10/2017 What Type Of Diet Are You Following? DIABETIC Information not available 10/26/2017 Which Illicit Or Recreational Drugs Have You Used? None Information not available 10/26/2017 What Is The Highest Grade Or Level Of School You Have Completed Or The Highest Degree You Have Received? [id number] Information not available 05/11/2018 How Hard Is It For You To Pay For The Very Basics Like Food, Housing, Medical Care, And Heating? [id number] Information not available 05/11/2018 Hard Of Hearing Or Deaf In One Or Both Ears? No Information not available 10/26/2017 Legally Blind In One Or Both Eyes? No Information not available 10/26/2017 Live Alone Or With Others? With Others Information not available 10/26/2017 What Was The Date Of Your Most Recent Tobacco Screening? 07/17/2025 Information not available 07/17/2025 How Many Children Do You Have? 4 Information not available 10/26/2017 What Is Your Relationship Status? Information not available 10/26/2017 Seat Belts Used Routinely Yes Information not available 10/26/2017 Smoke Alarm In Home Yes Information not available 10/26/2017 Are You Passively Exposed To Smoke? No Information not available 10/26/2017 How Much Tobacco Do You Smoke? 0.25 PPD Information not available 09/08/2023 Do You Use Sunscreen Routinely? Yes Information not available 10/26/2017 Has Tobacco Cessation Counseling Been Provided? Yes Information not available 09/08/2023 On What Date Was Tobacco Cessation Counseling Provided? 07/17/2025 Information not available 07/17/2025 How Many Years Have You Smoked Tobacco? 35 Information not available 10/26/2017 Do You Have Difficulty Walking Or Climbing Stairs? No Information not available 11/10/2017 Sex: Male Functional Status Question Answer Note LastModified by Organizat ion Details LastModified Time Do you use any illicit or recreational drugs? No [email or web address] Information not available 05/03/2024 What is your level of alcohol consumption? Heavy drank a pint per day/ quit 2 weeks 10/18/2017 Information not available 10/26/2017 Do you or have you ever used smokeless tobacco? Never used smokeless tobacco Information not available 01/20/2020 Are you currently employed? Yes Information not available 10/26/2017 Are you able to walk independently without assistance or assistive devices? YESWOREST Information not available 10/26/2017 Do you have difficulty doing errands alone? No Information not available 11/10/2017 Are you able to care for yourself independently? 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 No Information not available 11/10/2017 Do you or have you ever used e-cigarettes or vape? Never used electronic cigarettes Information not available 01/20/2020 What is your exercise level? Occasional walking 1/2 mile per day Information not available 10/26/2017 Mental Status Question Answer Note LastModified by Organizat ion Details LastModified Time Do you feel stressed (tense, restless, nervous, or anxious, or unable to sleep at night)? [id number] Information not available 05/11/2018 Do you have difficulty concentrating, remembering or making decisions? No Information no t available 11/10/2017 Family History Relationship Description Onset Age of this Age Resolved Age Notes LastModified by Organization Details LastModified Time Mother Heart disease mstacy Not available 2016 09:49:56 Mother Diabetes mellitus mstacy Not available 2016 09:50:16 Father Heart disease mstacy Not available 2016 09:49:56 Father Diabetes mellitus mstacy Not available 2016 09:50:16 Brother Diabetes mellitus mstacy Not available 2016 09:50:16 Brother Chronic obstructive pulmonary disease mstacy Not available 2016 09:51:50 Sister Diabetes mellitus mstacy Not available 2016 09:50:16 Sister Malignant neoplasm of lung mstacy Not available 2016 09:50:43 Sister Malignant neoplasm of breast mstacy Not available 2016 09:50:53 Sister Kidney disease mstacy Not available 2016 09:51:34 Unspecified Relation Malignant neoplastic disease mstacy Not available 2016 09:51:08 Medical History Condition Response Diabetes Y Hypertension Y Immunizations Vaccine Type Date Status Note Provider Name and Address Organization Details Recorded Time COVID-19, mRNA, LNP-S, PF, 100 mcg/0.5mL dose or 50 mcg/0.25mL dose 021 completed Emmy Houser APRN [address], [address], [place] [facility] 12/22/2024 14:08:34 COVID-19, mRNA, LNP-S, PF, 100 mcg/0.5mL dose or 50 mcg/0.25mL dose 021 completed Emmy Houser APRN [address], [address], [place] [facility] 12/22/2024 14:08:34 Influenza, split virus, quadrivalent, PF 020 tessy Houser APRN [address], [place], [address], [place] [facility] 12/22/2024 14:08:34 Influenza, split virus, quadrivalent, preservative 021 completed Effie Cabral null, [place] - [facility] 10/11/2021 12:14:27 COVID-19, mRNA, LNP-S, PF, 100 mcg/0.5mL dose or 50 mcg/0.25mL dose 022 completed Zaria Quezada null, [place] - [facility] 03/20/2022 14:09:51 Influenza, split virus, quadrivalent, preservative 017 cancelled patient objection Not Available [facility] 12/10/2019 03:54:49 Influenza, split virus, quadrivalent, preservative 023 completed Effie Cabral null, [facility] 09/08/2023 16:22:20 Tdap 018 completed Not Available [facility] 12/10/2019 03:54:59 Pneumococcal conjugate PCV 13 018 completed Not Available [facility] 12/10/2019 03:55:00 Influenza, split virus, trivalent, preservative 025 completed Emmy Houser, [employer] [address], [place], [address], [place] [facility] 12/22/2024 16:29:18 Influenza, split virus, quadrivalent, preservative 018 completed Not Available [facility] 12/10/2019 03:55:13 COVID-19, mRNA, LNP-S, PF, 100 mcg/0.5mL dose or 50 mcg/0.25mL dose 021 completed Emmy Houser, [employer] REC[employer]IC [address], [place], [address], [place] [facility] 12/22/2024 14:08:34 COVID-19, mRNA, LNP-S, PF, 100 mcg/0.5mL dose or 50 mcg/0.25mL dose 021 completed Emmy Houser, [employer]IDEO REC[employer] MECH[employer]IC [address], [place], [address], [place] [facility] 12/22/2024 14:08:34 pneumococcal polysaccharide PPV23 019 completed Not Available [facility] 12/10/2019 03:56:04 Influenza, split virus, quadrivalent, PF 019 completed Not Available [facility] 12/10/2019 03:56:04 Past Encounters Encounter ID Performer Location Encounter Start Date Encounter Closed Date Diagnosis/Indication Diagnosis SNOMED-CT Code Diagnosis ICD10 Code Diagnosis IMO Codes Diagnosis Note [id number] MD Michael Ibarrajeremías [place] [address] [place] [address] 10/26/2017 08:59:38 10/26/2017 10:36:14 Uncontrolled type 2 diabetes mellitus 291187093 E11.65 Restless l egs syndrome 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 [id number] MD [facility] [place] [address] [address] 11/10/2017 09:35:56 11/10/2017 11:05:18 Diabetes mellitus 83963882 E11.9 Congestive heart failure 37777698 I50.9 Immunization refused 275 328227 Z28.20 Neuropathy due to diabetes mellitus 611647180 E11.40 Intermitte nt claudication 46989933 I73.9 Renewal of prescription 209748752 Z76.0 Body mass index 30+ - obesity 445555465 Z68.30 [id number] MD Loreto Ibarra [place] [address] [place] [address] 12/03/2017 08:26:23 12/03/2017 09:36:27 Neuropathic pain 623192446 M79.2 Low blood pressure 84302 003 I95.9 Congestive heart failure 78857644 I50.9 decrease the lasix 80 bid to 40 daily Renewal of prescription 894570939 Z76.0 half the dosage of carvedilol [id number] MD Loreto Ibarra [place] [address] [place] [facility] [place] [facility] [place] [address] 12/17/2017 08:12:45 12/17/2017 09:03:40 Neuropathy due to diabetes mellitus 164012684 E11.40 Body mass index 30+ - obesity 762870418 Z68.30 Diabetes mellitus 625717 09 E11.9 [id number] Hannah Merritt MD [facility] [address] [place] [address] 01/08/2018 14:28:14 01/08/2018 15:42:41 Syncopal vertigo 586084929 H81.8X9 stop the gabapentin ---wean back down to nightly and then stop it. Neuropathy due to diabetes mellitus 827563413 E11.40 [id number] MD Loreto Ibarra [facility] [address] [place] [facility] [place] [place] [address] 03/02/2018 08:12:06 03/02/2018 09:57:32 General examination of patient 557333810 Z00.00 Hyperlipid emia screening 900610411 Z13.220 Endocrine/ metabolic screening 104502213 Z13.228 Body mass index 30+ - obesity 780207303 Z68.30 Active or passive immunization 553180835 Z23 Screening for malignant neoplasm of colon 066337555 Z12.11 Diabetic p eripheral neuropathy 056904043 E11.40 qualifies for diabetic shoes if he decides to get them Screening for malignant neoplasm of prostate 580243679 Z12.5 Diabetes mellitus 888746 09 E11.40 [id number] [facility] Merritt [facility] [address] [place] [facility] [place] [place] [address] 05/11/2018 10:20:37 05/11/2018 10:53:29 Renewal of prescription 762853720 Z76.0 Congestive heart failure 75685092 I50.9 Acute bronchitis 9614145 2 J20.9 [id number] MD Michael Ibarrajeremías [facility] [address] [place] [facility] [place] [place] [address] 08/03/2018 10:10:08/03/2018 12:00:39 Diabetic foot ulcer 214420752 E11.40 has appt with podiatry in two days; continue current wound care; watch for any worsening and seek tx if occurs Congestive heart failure 62124489 I50.9 appears to currently be stable; keep upcoming cardiology appointmen t [id number] MD Loreto Ibarra [place] [address] [place] [address] 08/23/2018 09:21:45 08/23/2018 10:40:34 Diabetes mellitus 76978622 E11.40 Body mass index 30+ - obesity 813421357 Z68.32 Insomnia 255771274 G47.0 0 Cobalamin deficiency 190 759853 E53.8 Administra tion of influenza vaccine 34148251 Z23 [id number] MD Loreto Ibarra [place] [address] [place] [address] 10/19/2018 11:04:24 10/19/2018 11:55:40 Renal insufficiency 496076202 N28.9 [id number] MD Loreto Ibarra [place] [address] [place] [address] 11/12/2018 14:55:06 11/12/2018 16:28:45 Diabetic peripheral neuropathy 670541036 E11.40 Chronic re nal insufficiency 348600415 N18.9 given recent syncopal episodes and hx of chronic chf with renal failure, he needs to go to the hospital to be evaluated/ treated. We are unable to get lab results/pe rform acute treatments here in the office; he understand s and will go to the ER when he leaves here. Call will be placed to the emergency dept. Syncope 801959986 R55 [id number] Lu Comer APRN Sofiyajeremías lalito [place] [address] [place] [address] 12/30/2018 10:01:36 12/30/2018 10:48:43 Cough 63443324 R05 Dizziness 899627730 R42 Dyspnea 507643048 R06.00 Pain in left knee 113861 2848 01119 M25.562 Diabetic p eripheral neuropathy 932210576 E11.40 Congestive heart failure 10301179 I50.9 Intermitte nt claudication 24202362 I73.9 Diabetes mellitus 216785 09 E11.9 [id number] MD Loreto Ibarra [place] [address] [place] [address] 01/10/2019 09:44:56 01/10/2019 10:39:51 Body mass index 30+ - obesity 792607974 Z68.36 Congestive heart failure 06666930 I50.9 appears to currently be stable; keep upcoming cardiology appointmen t Hypokalemia 31800419 E87 .6 [id number] Hannah Merritt MD [facility] [address] [place] [address] 01/20/2019 13:20:07 01/20/2019 14:41:52 Diabetes mellitus 25649942 E11.40 [id number] MD Loreto Ibrara [facility] [address] [place] [address] 03/18/2019 09:50:38 03/18/2019 11:33:07 Body mass index 30+ - obesity 955816477 Z68.36 Diabetes mellitus 695607 09 E11.40 Diabetic p eripheral neuropathy 086141073 E11.40 ekasper updated and appropriat e Congestive heart failure 70426845 I50.9 appears to currently be stable; keep upcoming cardiology appointmen t Insomnia 982609857 G47.0 0 [id number] Lu [facility]N [facility] [address] [place] [address] 05/11/2019 14:57:13 05/11/2019 16:47:22 Pain in left knee 9403420339 41422 M25.562 Acute kidney injury 1466 9001 N17.9 Congestive heart failure 26411178 I50.9 [id number] Antonio Landeros MD [facility] [address] [place] [address] 06/30/2019 15:23:47 06/30/2019 16:10:54 Puncture wound of foot 36550310 S91.332A [id number] Hannah Merritt MD [facility] [address] [place] [address] 09/05/2019 08:53:34 09/05/2019 10:07:02 Diabetes mellitus 26307576 E11.40 Diabetic p eripheral neuropathy 302954876 E11.40 ekasper updated and appropriat e Acute sinusitis 36301778 J01.90 Administra tion of influenza vaccine 40564798 Z23 Administra tion of pneumococcal vaccine 61917156 Z23 [id number] MD [facility] [place] [address] [place] [address] 01/20/2020 09:54:39 01/20/2020 10:33:09 Diabetic peripheral neuropathy 495771636 E11.40 ekasper updated and appropriat e Acute kidney injury 1466 9001 N17.9 Diabetes mellitus 750423 09 E11.40 [id number] MD Michael Ibarrajeremías [place] [address] [place] [place] [address] 02/24/2020 15:43:12 02/24/2020 16:06:55 Cellulitis of foot 863093458 L03.119 possible early diabetic ulceration ; will tx with antibiotic s; bactroban; warm soaks; elevation of the leg; tylenol for pain. Will need to consider wound care referral-- --st wheeler is taking patients at this time as needed for acute management ; will re-evaluat e early next week [id number] Lu Comer APRN [place] [address] [address] [place] [address] 02/27/2020 10:52:31 02/27/2020 11:25:42 Pain in lower limb 25942106 M79.908 [id number] MD Loreto Ibarra [place] [address] [address] 03/13/2020 12:58:51 03/13/2020 13:40:11 Hypoxia 951754811 R09.02 Dyspnea 176569664 R06.00 Congestive heart failure 38464144 I50.9 history of. [id number] MD Michael Ibarrajeremías [place] [address] [place] [address] 03/27/2020 09:53:25 03/27/2020 12:11:08 Congestive heart failure 75907797 I50.9 Acute kidney injury 1466 9001 N17.9 Insomnia 297858031 G47.0 0 Diabetic p eripheral neuropathy 022575032 E11.40 ekasper up to date and appropriat e (01-20-2020 ) Hypomagnesemia 919015322 E83.42 [id number] MD Loreto Ibarra [facility] [address] [place] [address] 07/19/2020 15:42:27 07/19/2020 16:24:44 Diabetic peripheral neuropathy 664098032 E11.40 ekasper up to date and appropriat e; reviewed today Hypomagnesemia 296192068 E83.42 [id number] MD Michael Ibarrajeremías [place] [address] [place] [address] 12/27/2020 13:42:42 12/27/2020 15:09:30 Diabetes mellitus 67297913 E11.40 Diabetic p eripheral neuropathy 833894523 E11.40 ekasper up to date and appropriat e; reviewed today [id number] MD Michael Ibarrajeremías [place] [address] [place] [address] 01/04/2021 12:54:06 01/04/2021 13:48:01 Neuropathy due to diabetes mellitus 782667475 E11.40 [id number] MD [facility] [place] [address] [facility] [place] [address] 03/28/2021 13:55:25 03/28/2021 14:59:44 Diabetic peripheral neuropathy 781725851 E11.40 ekasper up to date and appropriat e; reviewed today Gastroesop hageal reflux disease 169231713 K21.9 Restless l egs syndrome 28069411 G25.81 Chronic ob structive pulmonary disease 19476935 J44.9 Diabetes mellitus 354458 09 E11.40 [id number] MD Loreto Ibarra [place] [address] [place] [address] 07/12/2021 09:23:49 07/12/2021 10:57:14 Neuropathy due to diabetes mellitus 614772344 E11.40 [id number] MD Loreto Ibarra [place] [address] [place] [place] [address] 10/11/2021 09:17:57 10/11/2021 10:33:40 Diabetic peripheral neuropathy 928071130 E11.40 ekasper up to date and appropriat e; reviewed today Gastroesop hageal reflux disease 571249632 K21.9 Cellulitis of lower limb 926339854 L03.119 Administra tion of influenza vaccine 53638620 Z23 [id number] MD Loreto Ibarra [place] [address] [address] CALL[place] [place] [address] 11/28/2021 10:54:21 11/28/2021 12:49:46 Abscess of skin and/or subcutaneous tissue 45488221 L02.91 he has had previous orthopedic surgery/blanco rdware placed in the right lower extremity [id number] MD Michael Ibarrajeremías [place] [address] [place]ías [place] [address] 12/10/2021 12:52:02 12/10/2021 13:36:49 Pain in right lower limb 070070824 M79.604 Osteomyelitis 65076420 M 86.9 finish antibiotic s (IV) through the ER; has orthopedic followup scheduled. Is supposed to be having ID followup scheduled as well. [id number] MD Loreto Ibarra [place] [address] RODRIGUEZYashJeremías [place] [address] 01/13/2022 10:45:22 01/13/2022 12:25:10 Diabetic peripheral neuropathy 371833173 E11.40 ekasper up to date and appropriat e; reviewed today Diabetic foot ulcer 3710 57603 E11.40 has appt with ortho and with plastics this week to have surgery scheduled [id number] MD Loreto Ibarra [place] [address] S[place]ACHRISTOPHERJeremías [place] [address] 03/20/2022 12:56:23 03/20/2022 13:54:43 Peripheral neuropathy due to type 2 diabetes mellitus 3546783672 107 E11.42 Administra tion of SARS-CoV-2 antigen vaccine 157302376 Z23 [id number] Hannah Merritt MD [place] [address] [place] [address] 05/01/2022 09:18:44 05/01/2022 10:00:38 Diabetic peripheral neuropathy 620317983 E11.40 ekasper up to date and appropriat e; reviewed today [id number] MD Michael Ibarrajeremías [place] [address] [place] [facility] [place] [address] 06/09/2022 13:13:41 06/09/2022 13:48:24 Neuropathy due to diabetes mellitus 218883591 E11.40 last dose of gabapentin was last night; tramadol dose was 2-3 days ago; hydrocodon e last dose was today. Renewal of prescription 372305616 Z76.0 Diabetic p eripheral neuropathy 454542381 E11.40 ekasper up to date and appropriat e; reviewed today Long-term drug therapy 438940439 Z79.793 [id number] MD [place] [address] [place] [address] 08/08/2022 14:16:13 08/08/2022 15:19:27 Diabetes mellitus 78927158 E11.40 Cellulitis of lower limb 105980792 L03.637 [id number] Hannah Merritt MD [place] [address] [place] [address] 12/15/2022 14:38:31 12/15/2022 15:24:12 Diabetes mellitus 86752406 E11.40 Spasm of back muscles 20 6732733 M62.830 Restless l egs syndrome 79558812 G25.81 some help noted with ropinirole Insomnia 473950002 G47.0 0 [id number] MD Michael Ibarrajeremías [place] [address] [place] [address] 03/09/2023 14:19:07 03/09/2023 15:11:19 Insomnia 828497525 G47.00 Bronchitis 66063108 J40 [id number] Hannah Merritt MD [facility] [place] [address] [place] [address] 03/20/2023 10:13:40 03/20/2023 11:56:15 Chest discomfort 786942836 R07.89 worse with cough/move ment, more consistent with chest wall pain/tende rness; has had a negative recent cardiac workup Hypoxia 837137860 R09.02 Dysuria 74753113 R30.0 Acute exac erbation of chronic obstructive pulmonary disease 086591028 J44.1 [id number] Hannah Merritt MD [facility] [place] [address] [place] [address] 03/30/2023 11:39:02 03/30/2023 12:21:01 Diabetes mellitus 90232870 E11.40 uncontroll ed Cellulitis of lower limb 054799628 L03.191 [id number] MD Loreto Ibarra [place] [address] [place] [address] 04/10/2023 10:37:29 04/10/2023 11:08:25 Osteomyelitis 20034832 M86.9 had a dose of antibiotic s (IV) through the ER; has been taking cephalexin and has two more days of this---kendell gresham send a refill as it seems to have at least stabilized at this point; has orthopedic followup scheduled. Is supposed to be having ID followup scheduled as well---kendell gresham try to assist. Will continue the cephalexin (try to avoid multiple different abx and induction of resistant organisms) . [id number] MD Loreto Ibarra [place] [address] [facility] [place] [address] 09/08/2023 15:14:55 09/08/2023 16:20:18 Adult health examination 498485050 Z00.00 Depression screening 171 312333 Z13.31 Examinatio n of blood pressure 636668781 Z01.30 Diet education 54431771 Z71.3 Counseling 267367470 Z71 .82 Exercise counseling . Patient encouraged to exercise 30 minutes 5 days a week. At [facility] ed risk for falls 387032290 Z91.81 STEADI FAST screening score of ___7__. Advance care planning 71 8911084 Z71.89 Finding of body mass index 081235812 Z68.30 Body mass index 30+ - obesity 962401097 Z68.30 Obesity 514296214 E66.9 Diabetic p eripheral neuropathy 450232593 E11.40 ekasper up to date and appropriat e; reviewed today Gastroesop hageal reflux disease 037614400 K21.9 Spasm of back muscles 20 8731577 M62.830 Osteoarthritis 891360394 M19.90 Osteomyelitis 83289603 M 86.9 Diabetes mellitus 174673 09 E11.40 uncontroll ed Screening for malignant neoplasm of prostate 511347434 Z12.5 Thyroid fu nction tests abnormal 908920984 R94.6 Influenza vaccine needed 0190038072 106 Z23 [id number] [facility] [place] [address] 05/03/2024 07:46:31 05/03/2024 09:14:06 Diabetes mellitus 48691353 E11.9 Diabetic p eripheral neuropathy 360325637 E11.40 Spasm of back muscles 20 1582734 M62.830 controlled on medication s. Abnormal s exual function 39743735 R37 He wonders about low T. Also reports that he needs a prostate exam. Will send to urology Acute taylor estive heart failure 57781047 I50.[address] Gilman. Hepatitis C screening 41 5964453 Z11.59 [id number] JANICE Mancia [facility] [place] [address] 07/06/2024 08:17:49 07/06/2024 09:57:41 Diabetes mellitus 44370400 E11.9 Cellulitis of toe 439990 04 L03.031 s/p I &D. Remains on antibiotic s for 21 days. To see I & D tomorrow. Chronic ob structive pulmonary disease 68428272 J44.9 stable. Diabetic p eripheral neuropathy 546935526 E11.40 controlled on neurontin. Insomnia 456838919 G47.0 0 We've discussed the use of melatonin. Do not take days naps. [id number] JANICE Mancia [place] [address] [place] [address] 12/22/2024 13:50:27 12/22/2024 14:39:22 Anemia 891536798 D64.9 Hx of taking iron, in need of refills. Administra tion of viral vaccine 70786537 Z23 Hypoglycem ia due to type 2 diabetes mellitus 3291475457 29187 E11.649 Will try and get him a monitor as he reports levels down to 50. Influenza vaccine needed 8703455025 106 Z23 [id number] JANICE Mancia [place] [address] [place] [address] 06/13/2025 14:58:44 06/13/2025 15:39:40 Hypoglycemia due to type 2 diabetes mellitus 3914884529 97582 E11.649 hgba1c 6.8 in hospital Moderate depression 3104 80784 F32.A 74791459 Fatigue 27065215 R53.83 25955861 Renewal of prescription 149356176 Z76.0 Chronic os teomyelitis of right tibia 1519115001 660826 M86.661 [id number] followed by ID [id number] JANICE Mancia [place] [address] [address] [place] [address] 07/17/2025 14:14:30 07/17/2025 14:42:02 Moderate depression 486168952 F32.A 16907394 Improved on Wellbutrin . Restless l egs syndrome 95674032 G25.81 chronic/co ntrolled.I n need of refill. Congestive heart failure 25019277 I50.9 Stable.Not in exacerbati on.In need of refills. Tobacco user 774890846 Z 72.0 Body mass index 30+ - obesity 710567970 Z68.31 588552 Iron overload 56122568 E 83.19 9884 He has been holding his iron.Will recheck labs in 2 months. Requires v aricella vaccination 375218615 Z23 298793 He is interested in taking.He knows this is given at the pharmacy. [id number] JANICE Manciajeremías [facility] [address] [place] [address] 10/24/2025 12:45:04 10/24/2025 13:31:43 Bronchitis 49214423 J40 56764 Persistent cough 2053862 02 R05.3 596016 Long-term current use of antibiotic 117480749 Z79.2 053891 on doxycyclin e x 2 months for suppressiv e therapy.Wi ll start Probiotic. Iron overload 50892401 E 83.19 9884 Review of discharge summary did not provide any iron studies. He was anemic during his stay. He reports that he did not receive any PRBC's.Kendell l recheck labs today. Insomnia 162148368 G47.0 9 41024 We've discussed the use of melatonin. Do not take days naps. Vitamin D deficiency 347 53026 E55.9 60452 last level 26.9. On supplement . Will recheck today. Type 2 sugar betes mellitus 52550417 E11.69 35475054 Influenza vaccination declined 312514573 Z28.21 84698903 Reports that he was given this at . Health Concerns Section Related Observation LastModified by Organization Detai ls LastModified Time None Recorded Concern Status LastModified by Organization Details LastModified Time None Recorded Advance Directives Directive N: Payers Insurance Date Sequence Insurance Name Policy Number Policy Colindres Covered Member ID Colindres Member ID Guarantor Name 10/23/2025 1 [employer] (MEDICARE REPLACEMENT/AD VANTAGE - PPO) Guerrero Milian [id number] Guerrero Milian 12/09/2022 1 [employer] (PPO) Guerrero Milian [id number] Guerrero Milian 05/03/2024 2 [employer] [place]AC[place] - [place]MO) Guerrero Milian [id number] Guerrero Milian 10/23/2025 [place] [facility] WRAP BILLING (MEDICAID) [facility] Guerrero Milian [id number] Guerrero Milian 12/09/2022 2 [place] Guerrero Milian [id number] Guerrero Milian 12/09/2022 1 [employer] - [employer] (MEDICAID REPLACEMENT - HMO) MELVIN Milian [id number] Guerrero Milian 10/23/2025 [employer] (MEDICARE REPLACEMENT/AD VANTAGE - PPO) Guerrero Milian [id number] Guerrero Milian Notes Date Note Type Note Provider Name and Address Organization Details Recorded Time 07/06/2024 text/html Emergency Depart ment Follow-Up RecordReported by [facility] Cellulitis Rt Grt toe 58 year old male here for hospital follow up. Had cellulitis of right great toe and osteomyelitis of multiple sites. Cultures showed MRSA, Ecoli, and Klebsiella. Reports that he had I/D of great toe. Is getting wound care.On oral antibiotics of Linezolid and Levaquin x 21 days. Goes back to [place] tomorrow in [place].Has H.H. They had called me when he first came home as there was concern with some of his medications with Linezolid. He is currently off of his Cymbalta secondary to interaction.Had some dizziness, no nausea or vomiting.Gets 4 hours of sleep a night. Not taking Trazadone.Goes to Dr. Gilman the of this month. They monitor his digoxin levels.Has cataracts, due to see Dr. Mendez.His blood sugar has been as high as 110 and lowest was 70. Ate a candy bar once and post his got a reading of 130's. Emmy Houser, VIDEO [employer] MECH[employer]IC [address] [place], [address], [place] - [facility] 07/06/2024 10:19:10 12/22/2024 text/html Emergency Depart ment Follow-Up RecordReported by PatientEmergency Room Follow-Up RecordFor discharge information, patient reportsname of hospital/urgent care patient was seen: (),patient presented to hospital/urgent care on or around: actual date 12/09/24,treatment received by hospital/urgent care: (pt was admitted),patient's condition has: __, andhospital records available at the time of this visit: yes. Guerrero returns as a follow up. He was discharged this past Thursday. He was there from 12/09-12/18/24. He had presented for his scheduled surgery. He had application of cable transport frame w/ osteotomy for limb salvage. He was treated w/ prophylactic antibiotics, pain medications. He was kept on DVT prophylaxis w/ SCD's and Lovenox. He was recommended for rehab but his insurance declined. Arrangements were made for HH with [facility]. They called to make sure I would be willing to sign for their POC. Wound care is giving them orders for the wound. Does see Dr. Poncho DANIELS. Currently, not on any antibiotics. He saw Ortho yesterday. His oxycodone was refilled. He is to continue dry dressings. WBAT. He is to return to them in a week. Has been having low blood sugars. He's had it go to 50. Checks his blood sugar at least TID. If he feels it going too low, he checks. HH is trying to get him PT. Emmy Houser, VIDEO RECORDER MECHANIC [address], [place], [address], [place] - [facility] 12/22/2024 16:31:23 06/13/2025 text/html ROS as noted in the HPI Guerrero returns as hospital follow up. He was admitted to form 03/10-04/13 where he underwent repair of right tibia nonunion fracture 03/10/25 and subsequent ex-fix removal and tibial intramedullary nail placement 04/07/25. Post d/c he was followed by [facility] after he went to [facility].He was seen by ID on 05/25/25. He was treated w/ Dapto, Cefepime and flagyl for 6-8 weeks. His CRP trended down His PICC line was removed and he was placed on Levaquin and Doxy for 2-3 months. He's to see them again in a month.Sees Ortho July 10. Has not seen Dr. Gilman lately since he was in the hospital. While at his Valsartan was held in preparation for surgery. He was started on Entresto for GMDT but stopped as he was worried about cost. Also discussed SGLT2 but that was cost prohibited as well.Digoxin was d/c'd secondary to normal LV function. He's still taking. In review of cardiology notes from 10/16 he was on entresto. Was placed back on Valsartan. Feels tired all the time and can't sleep. Takes infrequent naps during the day. Is on Cymbalta. Emmy Fordoberts, VIDEO RECORDER MECHANIC [address], [place], [address], [place] - [facility] 06/13/2025 16:44:35 07/17/2025 text/html Guerrero is here for f/u of depression. He was started on Wellbutrin at last visit. Feels a little better on this. Has noticed more energy.Unsure of medications he is on and what he needs refills on. He will call us back. Continues to follow closely w/ ID. Remains on Levaquin 750 mg daily and Doxycycline 100 mg po bid. Will see them again 07/27/25. HH no longer coming. Forgot to ask cardiology about the digoxin. Sees them again this Thursday. Had recent stress test. Will get results on Thursday. Emmy Fordoberts, VIDEO RECORDER MECHANIC [address], [place], [address], [place] - [facility] 07/17/2025 17:21:22 10/24/2025 text/html ROS as noted in the HPI Patient is here after being discharged from [facility] 10/13/25. He was in there for rehab due to his right leg having rods replaced. He states that is he doing better now.He was discharged from on 09/09/25 for ongoing issues with osteomyelitis. He reports that he's been of IV antibiotics x 2 weeks. PICC line has been removed. Is on doxycycline for suppression x 2 months.Saw infectious disease on 10/12/25. He states that he has been getting dizzy since being released. Reports chest congestion. Has only a dry cough. Coughs so hard that he gets dizzy. B/P is never over 130/75-[address]. [address] Gilman in January. He states that he feels like he has to cough and nothing comes up and that's when he loses his breath.Not using anything over the counter for cough.No fever or chills. Has had a slight headache.Has insomnia. Reports zoloft made him crazy .BS are running 140's or lower. Will recheck hgba1c today. Emmy Houser, VIDEO RECORDER MECHANIC [address], [place], [address], [facility] - [facility] 10/24/2025 16:01:29
--- OUTSIDE RECORDS SUMMARY | 2025-11-21 14:27 | XMS_ITS | Encounter Summary ---
Author Organization Healthcare Address [address] [place] [address] Care Team Providers Care Managed Care Provider Name Role Phone Aleksandr Lee MD Unavailable [phone] Emmy Houser APRN Primary Care Provider + Reason for Visit * Reason Onset Date Comments HCN - Patient Message 09/11/2025 Encounter Details Date Type Department Care Team (Late st Contact Info) Description 09/11/2025 Telephone [facility] Orthopaedic Surgery & Sports Medicine [address] [place] [address] Eliazar Simmons MD [address] [place] [address] HCN - Patient Message Social History Tobacco Use Types Packs/Day Years [...] and Family Not on file 03/15/2025 Attends [employer] Not on file 03/15 Active Member [...] any time in the past [address] [facility], were you homeless or living in a long-term (including now)? 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) to steady your nerves or to [...] encounter Miscellaneous Notes * Telephone Encounter - Lopez Kauffman RN - 09/18/2025 2:30 PM EDT Called to confirm dressing change daily * Telephone Encounter - Lopez Kauffman RN - 09/15/2025 2:30 PM EDT Waited on hold for 5 mins * Telephone Encounter - Pennie Thomas Phyllis - 09/11/2025 1:56 PM EDT Clinical Concern/Question Reason for Call: Baljit Fabio is calling from [facility] is requesting call back regarding wound dressing please call to advise Best contact number: [phone] ask for [facility] Optimal time of day to reach caller: ANYTIME Additional comments/information from caller: None Note: Please do not reply to this message. Follow-up communication and further actions as a result of this message need to be communicated with the patient directly, if the patient is not active onMyChart. If the patient is active on MyChart, they will receive notification of the communication/outcome via [employer]. documented in this encounter Plan of Treatment Upcoming Encounters Date Type Department Care Team (Late st Contact Info) Description 12/14/2025 2:30 PM EST Office Visit [facility] [address] [place] [address] Aleksandr Lee MD [address] [facility] [address] [place] [address] 01/25/2026 9:50 AM EST Office Visit [facility] Orthopaedic Surgery & Sports Medicine [address] [place] [address] Eliazar Simmons MD [address] [place] [address] documented as of this encounter Goals Goal Patient Goal Type Associated Problems Recent Progress Patient-Stated? Author Autogenerat ed Goal Care Plan Autogenerated Problem No Ariana Marshall PA documented as of this encounter Visit Diagnoses Not on filedocumented in this encounter Additional Health Concerns Active Problems Noted Date Diagnosed Date Autogenerated Problem 08/24/2025 Infection Onset Date Last Indicated Resolved Time MRSA Comment:Positive wound culture 05/21/2020 03/10/2025 Assessment Noted Time PHQ-9 Depression Total Score: 3 01/27/20 10:59 AM EST A fall risk assessment has been complete d for the patient 08/24/2025 2:40 PM EDT A Body Mass Index follow-up plan has been documented for the patient 09/11/2025 8:39 AM EDT documented as of this encounter Care Teams Managed Care Provider Relationship Specialty Start Date End Date Emmy Houser APRN [address] [place] [id number] PCP - General 02/07/25 Aleksandr Lee MD [address] [place] [phone] Consulting Physician Infectious Diseases 01/06/24 documented as of this encounter
--- OUTSIDE RECORDS SUMMARY | 2025-11-21 14:27 | XMS_ITS | Encounter Summary ---
Author Organization Healthcare Address [address] [place] [address] Care Team Providers Care Dust Operator Name Role Phone Aleksandr Lee MD Unavailable [phone] Emmy Houser APRN Primary Care Provider + Encounter Details Date Type Department Care Team (Latest Contact Info) Description 10/26/2025 Travel Social History Tobacco Use Types Packs/Day [...] and Family Not on file 03/15/2025 Attends [employer] Not on file 03/15 Active Member [...] any time in the past 12 m [facility], were you homeless or living in a chcf (including now)? 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 No / Unsure 10/26/2025 9:16 AM Bonifacio Sharp Do you have any of the following new or worsening symptoms? None of these 10/26/2025 9:16 AM Jasmine Sharp * Travel Screening Question Answer Date of Assessment Author Have you traveled [place] or domestically in the last month? No 10/26/2025 9:16 AM Jasmine Sharp documented as of this encounter Mental Status * Communicable Disease Screening Question Answer Entry Date Author Have you been in contact wit h someone who was sick? No / Unsure 10/26/2025 9:16 AM Bonifacio Sharp Do you have any of the following new or worsening symptoms? None of these 10/26/2025 9:16 AM Jasmine Sharp * Travel Screening Question Answer Entry Date Author Have you traveled [place] or domestically in the last month? No 10/26/2025 9:16 AM Jasmine Sharp documented in this encounter Plan of Treatment Upcoming Encounters Date Type Department Care Team (Late st Contact Info) Description 12/14/2025 2:30 PM EST Office Visit [facility] [id number] [place] [address] Aleksandr Lee MD [address] [facility] [address] [place] [address] 01/25/2026 9:50 AM EST Office Visit [facility] Orthopaedic Surgery & Sports Medicine [address] [place] [address] Eliazar Simmons MD [address] [place] [address] documented as of this encounter [...] documented as of this encounter Care Teams Dust Operator Relationship Specialty Start Date End Date Emmy Houser APRN [address] [place] [id number] PCP - General 02/07/25 Aleksandr Lee MD [address] [place] [address] [address] [place] [address] Consulting Physician Infectious Diseases 01/06/24 documented as of this encounter
--- OUTSIDE RECORDS SUMMARY | 2025-11-21 14:27 | XMS_ITS | Continuity of Care Document ---
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 Assessment Encounter Date Assessment Date Assessment LastModified by Organization Details LastModified Time 10/24/2025 10/24/2025 -Medications were reviewed and any [...] JANIE [facility], [address], [address], [place], [address], 09:27:13 CBC w/ auto diff 2024 025 JANIE [facility], [address], [address] [address], [place], [address], 5 09:27:11 HbA1c (hemoglobin A1c), blood 2024 025 JANIE [facility], [address], [place] [address], [place], [address], 5 09:27:14 CMP, serum or plasma 2024 [facility], [address], [address] [address], [place], [address], 5 09:27:13 vitamin D, 25-hydroxy, total, serum 2024 JANIE [facility], [address], [address] [address], [place], [address], 09:27:15 Referral None recorded. Procedures None recorded. Surgeries None recorded. Imaging None recorded. Medication Orders benzonatate 200 mg capsule 2024 [facility], [address] [place], [address], 5 13:23:55 Bromfed DM 2 mg-30 mg-10 mg/5 mL oral syrup 2024 [facility], [address] [place], [address], 5 13:25:41 Medrol (Richard) 4 mg tablets in a dose pack 2024 [facility], [address] [place], [address], 5 05:01:16 Probiotic 10 billion cell capsule 2024 [facility], [address] [place], [address], 5 10:46:17 melatonin 10 mg tablet 2024 [facility], [address] [place], [address], 5 09:06:37 Patient TargetsNo targets recorded. Patient Instructions Encounter Date Encounter Id Patient Instructions Last Modified By Organization Details Last Modified Time 10/24/2025 [id number] bronchitis: care instructions Not available 10/24/2025 13:16:58 learning about type 2 diabetes Not available 10/24/2025 13:25:01 type 2 diabetes: care instructions Not available 10/24/2025 13:25:02 insomnia: care instructions Not available 10/24/2025 13:23:18 Will call with labs and further recommendations. RTC in 3 months or sooner as needed. [email or web address] Not available 10/24/2025 16:00:52 Reason for Referral None Reported. Results Created Date Observation Date Name Description Value Unit Range Abnormal Flag Note LastModifiedBy Organization Detail LastModifiedTime 10/24/2010/25/2025 CBC WITH DIFFE RENTI AL/PL ATELE T WBC 8.6 x10e3 /uL 3.4-10 .8 normal Not Available [facility] ([facility]) [address] [place], [address], 10/25/2025 09:27:11 10/24/20 25 10/25/2025 CBC WITH DIFFE RENTI AL/PL ATELE T RBC 4.33 x10e6 /uL 4.14-5 .80 normal Not Available [facility] ([facility]) [address] [place], [address], 10/25/2025 09:27:11 10/24/20 25 10/25/2025 CBC WITH DIFFE RENTI AL/PL ATELE T hemoglobin 12.8 g/dL 13.0-1 7.7 below low normal Not Available [facility] ([facility]) [address] [place], [address], 10/25/2025 09:27:11 10/24/20 25 10/25/2025 CBC WITH DIFFE RENTI AL/PL ATELE T hematocrit 40.5 % 37.5-5 1.0 normal Not Available [facility] ([facility]) [address] [place], [address], 10/25/2025 09:27:11 10/24/20 25 10/25/2025 CBC WITH DIFFE RENTI AL/PL ATELE T MCV 94 fL 79-97 normal Not Available [facility] ([facility]) [address] [facility], [place], [address], 10/25/2025 09:27:11 10/24/20 25 10/25/2025 CBC WITH DIFFE RENTI AL/PL ATELE T MCH 29.6 pg 26.6-3 3.0 normal Not Available [facility] ([facility]) [address] [facility], [place], [address], 10/25/2025 09:27:11 10/24/20 25 10/25/2025 CBC WITH DIFFE RENTI AL/PL ATELE T MCHC 31.6 g/dL 31.5-3 5.7 normal Not Available [facility] ([facility]) [address] [place], [address], 10/25/2025 09:27:11 10/24/20 25 10/25/2025 CBC WITH DIFFE RENTI AL/PL ATELE T RDW 14.0 % 11.6-1 5.4 Not Available [facility] ([facility]) [address] [facility], [place], [address], 10/25/2025 09:27:11 10/24/20 25 10/25/2025 CBC WITH DIFFE RENTI AL/PL ATELE T platelets 286 x10e3 /uL 150-45 0 normal Not Available [facility] ([facility]) [address] [place], [address], 10/25/2025 09:27:11 10/24/20 25 10/25/2025 CBC WITH DIFFE RENTI AL/PL ATELE T neutrophils 60 % not estab. normal Not Available [facility] ([facility]) [address] [place], [address], 10/25/2025 09:27:11 10/24/20 25 10/25/2025 CBC WITH DIFFE RENTI AL/PL ATELE T lymphs 25 % not estab. normal Not Available [facility] ([facility]) [address] [facility], [place], [address], 10/25/2025 09:27:11 10/24/20 25 10/25/2025 CBC WITH DIFFE RENTI AL/PL ATELE T monocytes 9 % not estab. normal Not Available [facility] ([facility]) [address] [facility], [place], [address], 10/25/2025 09:27:11 10/24/20 25 10/25/2025 CBC WITH DIFFE RENTI AL/PL ATELE T eos 4 % not estab. normal Not Available [facility] ([facility]) [address] [facility], [place], [address], 10/25/2025 09:27:11 10/24/20 25 10/25/2025 CBC WITH DIFFE RENTI AL/PL ATELE T basos 1 % not estab. normal Not Available [facility] ([facility]) [address] [place], [address], 10/25/2025 09:27:11 10/24/20 25 10/25/2025 CBC WITH DIFFE RENTI AL/PL ATELE T immature cells CLINICAL BIOSTATISTICS DIRECTOR Not Available [facility] ([facility]) [address] [facility], [place], [address], 10/25/2025 09:27:11 10/24/20 25 10/25/2025 CBC WITH DIFFE RENTI AL/PL ATELE T neutrophils (absolute) 5.3 x10e3 /uL 1.4-7. 0 normal Not Available [facility] ([facility]) [address] [facility], [place], [address], 10/25/2025 09:27:11 10/24/20 25 10/25/2025 CBC WITH DIFFE RENTI AL/PL ATELE T lymphs (absolute) 2.1 x10e3 /uL 0.7-3. 1 normal Not Available [facility] ([facility]) [address] [facility], [place], [address], 10/25/2025 09:27:11 10/24/20 25 10/25/2025 CBC WITH DIFFE RENTI AL/PL ATELE T monocytes(ab solute) 0.8 x10e3 /uL 0.1-0. 9 normal Not Available [facility] ([facility]) [address] [facility], [place], [address], 10/25/2025 09:27:11 10/24/20 25 10/25/2025 CBC WITH DIFFE RENTI AL/PL ATELE T eos (absolute) 0.3 x10e3 /uL 0.0-0. 4 normal Not Available [facility] ([facility]) [address] [facility], [place], [address], 10/25/2025 09:27:11 10/24/20 25 10/25/2025 CBC WITH DIFFE RENTI AL/PL ATELE T baso (absolute) 0.1 x10e3 /uL 0.0-0. 2 normal Not Available [facility] ([facility]) [address] [facility], [place], [address], 10/25/2025 09:27:11 10/24/20 25 10/25/2025 CBC WITH DIFFE RENTI AL/PL ATELE T immature granulocytes 1 % not estab. Not Available [facility] ([facility]) [address] [facility], [place], [address], 10/25/2025 09:27:11 10/24/20 25 10/25/2025 CBC WITH DIFFE RENTI AL/PL ATELE T immature grans (abs) 0.1 x10e3 /uL 0.0-0. 1 Not Available [facility] ([facility]) [address] [facility], [place], [address], 10/25/2025 09:27:11 10/24/20 25 10/25/2025 CBC WITH DIFFE RENTI AL/PL ATELE T NRBC CLINICAL BIOSTATISTICS DIRECTOR Not Available [facility] ([facility]) [address] [facility], [place], [address], 10/25/2025 09:27:11 10/24/20 25 10/25/2025 CBC WITH DIFFE RENTI AL/PL ATELE T hematology comments: CLINICAL BIOSTATISTICS DIRECTOR Not Available [facility] ([facility]) [address] [facility], [place], [address], 10/25/2025 09:27:11 10/24/20 25 10/25/2025 COMP. METAB OLIC PANEL (14) glucose 200 mg/dL 70-99 above high normal Not Available [facility] ([facility]) [address] [facility], [place], [address], 10/25/2025 09:27:12 10/24/20 25 10/25/2025 COMP. METAB OLIC PANEL (14) BUN 12 mg/dL 8-27 normal Not Available [facility] ([facility]) [address] [facility] [place], [address], 10/25/2025 09:27:12 10/24/20 25 10/25/2025 COMP. METAB OLIC PANEL (14) creatinine 1.13 mg/dL 0.76-1 .27 normal Not Available [facility] ([facility]) [address] [facility], [place], [address], 10/25/2025 09:27:12 10/24/20 25 10/25/2025 COMP. METAB OLIC PANEL (14) eGFR 74 mL/mi n/1.7 3 >59 normal Not Available [facility] ([facility]) [address] [facility] [place], [address], 10/25/2025 09:27:12 10/24/20 25 10/25/2025 COMP. METAB OLIC PANEL (14) BUN/creatini ne ratio 11 10-24 normal Not Available [facility] ([facility]) [address] [place], [address], 10/25/2025 09:27:12 10/24/20 25 10/25/2025 COMP. METAB OLIC PANEL (14) sodium 140 mmol/ L 134-14 4 normal Not Available [facility] ([facility]) [address] [place], [address], 10/25/2025 09:27:12 10/24/20 25 10/25/2025 COMP. METAB OLIC PANEL (14) potassium 4.9 mmol/ L 3.5-5. 2 normal Not Available [facility] ([facility]) [address] [place], [address], 10/25/2025 09:27:12 10/24/20 25 10/25/2025 COMP. METAB OLIC PANEL (14) chloride 101 mmol/ L 96-106 normal Not Available [facility] ([facility]) [address] [place], [address], 10/25/2025 09:27:12 10/24/20 25 10/25/2025 COMP. METAB OLIC PANEL (14) carbon dioxide, total 25 mmol/ L 20-29 normal Not Available [facility] ([facility]) [address] [facility] [place], [address], 10/25/2025 09:27:12 10/24/20 25 10/25/2025 COMP. METAB OLIC PANEL (14) calcium 9.7 mg/dL 8.6-10 .2 normal Not Available [facility] ([facility]) [address] [facility] [place], [address], 10/25/2025 09:27:12 10/24/20 25 10/25/2025 COMP. METAB OLIC PANEL (14) protein, total 7.3 g/dL 6.0-8. 5 normal Not Available [facility] ([facility]) [address] [facility] [place], [address], 10/25/2025 09:27:12 10/24/20 25 10/25/2025 COMP. METAB OLIC PANEL (14) albumin 4.2 g/dL 3.9-4. 9 normal Not Available [facility] ([facility]) [address] [place], [address], 10/25/2025 09:27:12 10/24/20 25 10/25/2025 COMP. METAB OLIC PANEL (14) globulin, total 3.1 g/dL 1.5-4. 5 Not Available [facility] ([facility]) [address] [place], [address], 10/25/2025 09:27:12 10/24/20 25 10/25/2025 COMP. METAB OLIC PANEL (14) bilirubin, total 0.2 mg/dL 0.0-1. 2 normal Not Available [facility] ([facility]) [address] [facility] [place], [address], 10/25/2025 09:27:12 10/24/20 25 10/25/2025 COMP. METAB OLIC PANEL (14) alkaline phosphatase 152 IU/L 47-123 above high normal Not Available [facility] [address] [facility] [place], [address], 10/25/2025 09:27:12 10/24/20 25 10/25/2025 COMP. METAB OLIC PANEL (14) AST (SGOT) 21 IU/L 0-40 normal Not Available [facility] ([facility] [address] [facility] [place], [address], 10/25/2025 09:27:12 10/24/20 25 10/25/2025 COMP. METAB OLIC PANEL (14) ALT (SGPT) 19 IU/L 0-44 normal Not Available [facility] ([facility]) [address] [facility] [place], [address], 10/25/2025 09:27:12 10/24/20 25 10/25/2025 IRON AND TIBC iron bind.cap.(TI BC) 383 ug/dL 250-45 0 normal Not Available [facility] ([facility]) [address] [facility], [place], [address], 10/25/2025 09:27:13 10/24/20 25 10/25/2025 IRON AND TIBC UIBC 269 ug/dL 111-34 3 normal Not Available [facility] ([facility]) [address] [facility], [place], [address], 10/25/2025 09:27:13 10/24/20 25 10/25/2025 IRON AND TIBC iron 114 ug/dL 38-169 normal Not Available [facility] ([facility]) [address] [place], [address], 10/25/2025 09:27:13 10/24/20 25 10/25/2025 IRON AND TIBC iron saturation 30 % 15-55 normal Not Available [facility] ([facility]) [address] [facility], [place], [address], 10/25/2025 09:27:13 10/24/20 25 10/25/2025 HEMOG LOBIN A1C hemoglobin A1C 7.3 % 4.8-5. 6 above high normal Predi abete s: 5.7 - 6.4 Diabe woodrow: >6.4 Glyce hi contr ol for adult s with diabe woodrow: <7.0 Not Available [facility] ([facility]) [address] [facility], [place], [address], 10/25/2025 09:27:14 10/24/20 25 10/25/2025 VITAM IN [...] um and D. Urmila rodriguez [place]: [facility] . 2. Ish law MF, Enrrique garcia [place], Bisch off-F errar i LOMELI, et al. Evalu ation , treat ment, and preve ntion of vitam in D defic iency : an Endoc rine Socie ty clini aleja pract ice guide line. JCEM. 2010; 96(7) :1911 -30. Not Available [facility] ([facility]) [address] [facility], [place], [address], 10/25/2025 09:27:15 Result Notes None recorded. Problems Name Problem SNOMED Code Status Onset Date Resolution Date Notes Provider Name and Address Organization Details Recorded Time Acute kidney injury 45646318 Active Esha Stone null, - [facility] 16:56:58 Acute congesti ve heart failure 48644577 Active Esha Stone null, - [facility] 16:56:58 Pneumoni a 556202114 Active Esha Stone null, - [facility] 16:56:58 Abscess of right lower limb 06699317146 848263 Active Esha Stone null, [place] - [facility] 16:56:58 Cellulit is of lower limb 592698072 Active Esha Stone null, - [facility] 16:56:58 Open wound of right lower leg 61089920544 671890 Active Esha Stone null, - [facility] 16:56:58 Acute nontraum atic kidney injury 81978361215 9103 Active Esha Stone null, [place] - [facility] 16:56:58 Sepsis 48478331 Active Esha [place], [place] [facility] 01/12/202 4 16:56:58 Osteomye litis of tibia 132711929 Active Esha Stone null, [place] - [facility] 4 16:56:58 Altered mental status 622226542 Active Esha Stone null, [place] - [facility] 4 16:56:58 Osteomye litis of right ankle 29910378034 31567 Active Esha Stone null, [place] - [facility] 4 16:56:58 Smoker 89457903 Active Not Available [facility] 3 07:11:38 Fissure in skin 55998966 Active Esha Stone null, [place] - [facility] 4 16:56:58 Peripher al neuropat hy due to type 2 diabetes mellitus 18465672659 07 Active Esha Stone [place] [facility] 4 16:56:58 Diabetes mellitus 14465574 Active 2016 Esha Stone [place] [facility] 4 16:56:58 Myocardi al infarcti on 05789530 Active 2016 Esha Stone [place] [facility] 4 16:56:58 Alcoholi sm 2399621 Active 2016 Esha Stone [place] [facility] 4 16:56:58 Congesti ve heart failure 45806582 Active 2016 systolic Esha Stone [place] - [facility] 4 16:56:58 Pulmonar y hyperten mad[place] 99389016 Active 2016 Esha Stone [place] [facility] 4 16:56:58 Diabetic foot ulcer 068288289 Completed 201702/04/2019 Ratna Samano RN [address], [place], [address] , [place] - [facility] 9 14:08:41 Hypovole hi shock 22843274 Active 2017 Esha Stone null, [place] - [facility] 4 16:56:58 Neuropat hy due to diabetes mellitus 867830053 Active 2019 Esha Stone null[place] - [facility] 4 16:56:58 Insomnia 844609960 Active 2019 Emmy Houser APRN [address], [place], [address] , [place] - [facility] 5 13:22:17 Diabetic peripher al neuropat hy 208948970 Active 2019 Esha Stone null, [place] [facility] 4 16:56:58 Hypomagn esemia 426670062 Active 2019 Esha [place] [facility] 4 16:56:58 Chronic obstruct samantha pulmonar y disease 09831329 Active 2019 Esha Stone null[place] [facility] 4 16:56:58 Rheumato id arthriti s 22042413 Active 2020 Esha Stone null[place] [facility] 4 16:56:58 Anemia 291439880 Active 2020 Esha Stone null[place] [facility] 4 16:56:58 Abnormal sexual function 83104346 Active 2023 Emmy Houser APRN [address], [place], [address] , [place] [facility] 4 08:24:37 Spasm of back muscles 408747977 Active 2023 Emmy Houser APRN [address], [place], [address] , [place] - [facility] 4 09:49:39 Cellulit is of toe 56997507 Active 2023 Emmy Houser APRN [address], [place], [address] , [place] [facility] 4 10:16:12 Hypoglyc emia due to type 2 diabetes mellitus 95878291515 9103 Active 2024 Emmy Houser APRN [address], [place], [address] , [place] [facility] 5 14:15:36 Dyslipid emia 062626607 Active 2024 Emmy Houser APRN [address], [place], [address] , [place] [facility] 5 10:20:37 Moderate depressi on 079616836 Active 2024 mEmy Houser, [employer] [address], [place], [address] , [place] [facility] 5 15:24:41 Fatigue 63367896 Active 2024 Emmy Houser, [employer]IV[employer] [address], [place], [address] , [place] [facility] 5 15:29:00 Chronic osteomye litis of right tibia 30766157955 56987 Active 2024 Emmy Houser, [employer]IV[employer] [address], [place], [address] , [place] - [facility] 5 16:43:48 Vitamin D deficien cy 67640651 Active 2024 Emmy Houser, [employer]IV[employer] [address], [place], [address] , [place] - [facility] 5 09:40:04 Iron overload 95724209 Active 2024 Emmy Houser, [employer]IV[employer] [address], [place], [address] , [place] [facility] 5 09:40:46 Cobalami n deficien cy 006050812 Active 2024 Emmy Houser, [employer]IV[employer] [address], [place], [address] , [place] - [facility] 5 09:41:25 Alkaline phosphat ase above referenc e range 230020851 Active 2024 Emmy Houser, [employer]IV[employer] [address], [place], [address] , [place] [facility] 5 09:42:42 Candidia sis of mouth 93039113 Active 2024 Emmy Houser, [employer]IV[employer] [address], [place], [address] , [place] [facility] 5 08:20:37 Restless legs syndrome 41443995 Active 2024 Emmy Houser, [employer] [address], [place], [address] , [place] [facility] 14:32:12 Coronary arterios clerosis 66743994 Active 2024 Mid LAD stent by Dr. Mukul Houser, [employer] [address], [place], [address] , [place] - [facility] 20:29:41 Bronchit is 07242491 Active 2024 Emmy Houser, [employer]IV[employer] [address], [place], [address] , [place] - [facility] 13:15:03 Persiste nt cough 444586475 Active 2024 Emmy Houser, [employer]IV[employer] [address], [place], [address] , [place] - [facility] 13:15:35 Type 2 diabetes mellitus 17496148 Active 2024 Emmy Houser, [employer]IV[employer] [address], [place], [address] , [place] - [facility] 13:24:46 Notes:Some problems listed i n Documents: #[id number], #[id number] could not be added to this patient's chart. Please review these documents and add these problems to the patient's chart manually as needed. Problem Notes None recorded. Procedures Surgical History Date Name Laterality Status Provider Name and Address Organization Details Recorded Time 10/24/20 Medication Reconcilliation completed Kamala Milian [place] - [facility] 10/24/2025 12:49:55 06/13/20 25 [...] 09/08/20 23 Functional Status Assessed completed Effie Cabral [place] - [facility] 09/08/2023 15:23:34 04/10/20 23 Medication Reconcilliation completed Effie Cabral [place] - [facility] 04/10/2023 10:39:46 03/09/20 23 Medication Reconcilliation completed Effie [place]ral [place] - [facility] 03/09/2023 14:30:22 03/20/20 22 Medication Reconcilliation completed Effie Cabral [place] - [facility] 03/20/2022 13:08:42 02/07/20 22 Unlisted px femur/knee completed Effie Cabral [place] - [facility] 03/20/2022 13:16:18 12/26/19 22 Advance Care Planning cancelled Karla Higginbotham [place] - [facility] 12/25/2021 10:34:24 12/26/19 22 Functional Status Assessed cancelled Karla Higginbotham [place] - [facility] 12/25/2021 10:34:24 12/10/19 22 Medication Reconcilliation completed Effie GL[place] - [facility] 12/10/2021 13:02:27 11/28/19 22 Medication Reconcilliation completed Effie Cabral [place] - [facility] 11/28/2021 11:08:08 09/26/20 21 colonoscopy completed Effie GLASS - [facility] 10/11/2021 09:43:07 05/23/20 20 leg repair completed Effie GLASS - [facility] 07/19/2020 15:49:35 03/27/20 20 Medication [...] B/P 80-89 mm Hg completed Elieser Small [place] - [facility] 05/11/2019 15:11:35 05/11/20 19 Medication Reconcilliation completed Elieser Small [facility] [place] 05/11/2019 15:07:39 03/18/20 19 Systolic B/P less than 130 mm Hg completed Elieser Small [facility] [place] 03/18/2019 09:56:36 03/18/20 19 Diastolic B/P less than 80 mm Hg completed Elieser Small [facility] [place] 03/18/2019 09:56:39 01/10/20 19 Medication Reconcilliation completed Elieser Small [facility] [place] 01/10/2019 09:53:17 12/30/19 19 Systolic B/P less than 130 mm Hg completed Karla Higginbotham [facility] [place] 12/30/2018 10:24:04 12/30/19 19 Diastolic B/P less than 80 mm Hg completed Karla Higginbotham [facility] [place] 12/30/2018 10:24:07 12/30/19 19 Medication Reconcilliation completed Karla Higginbotham [facility] [place] 12/30/2018 10:05:26 10/19/20 18 Medication Reconcilliation completed Effie Cabral [facility] [place] 10/19/2018 11:16:04 12/11/19 18 Pacemaker Placement completed Effie Cabral [facility] [place] 12/17/2017 08:26:16 10/17/20 17 Cardiac Cath completed Effie Cabral [facility] [place] 10/26/2017 09:55:59 replacement of pulse generator of automatic cardioverter/defibr illator completed Emmy Houser APRN [address], [place], [address], [facility] 05/03/2024 09:50:37 insertion of carotid artery stent completed Emmy Houser APRN [address], [place], [address], [facility] - [facility] 05/03/2024 09:50:57 Fragmenting of kidney stone completed Effie Marianna [facility] [place] 10/26/2017 09:55:35 excision of lesion of skin completed Micheline Dom [place] - [facility] 06/30/2019 15:40:25 Imaging Results None recorded. Procedure Notes None recorded. Medical Equipment None Reported. Allergies Allergen ID Allergen Name Allergen Category Reaction Reaction Severity Criticality Documentation Date Start Date Code Code System Note Provider Name and Address Organization Details Recorded Time 761443 No known allergy (situatio n) Not available Not available Not available Not available 12/04/2021 23896 6003 SNOMED Effie morel, [place] - [facility] 3 14:35:01 636079 trazodone medicatio n other Not available low 10/09/20252024 80743 RxNorm Dizzy drows y and sleep hango [...] mL every 4 hours by oral route. 2024 active Not Available [...] Available Not Available No t Available Medrol (Richard) 4 mg tablets in a [...] mg capsule 800 mg by oral route. 02/03 completed Not [...] tablet Take 750 mg by oral route. 07/22 /2025 completed Not Available Not Available Not Available [...] 20 mg tablet 1 PO QD per [facility] Dr. Hooper 11/12 completed Not Available [...] pine ER 200 mg capsule,e xtended release [id number] Take 200 mg by oral route. [...] Not Available Not Available Vitals Date Recorded Heart rate Oxygen saturation Provider Name and Address Organization Details Last Updated DateTime 10/24/2025 97 /min 98 % Emmy Fordoberts, [employer] [address], [place], [place], [address], [place] - [facility] 10/24/2025 15:51:36 Date Recorded Body height Body mass index (BMI) Body weight Body temperature Respiratory rate Pain severity - 0-10 verbal numeric rating [Score] - Reported Systolic And Diastolic Provider Name and Address Organization Details Last Updated DateTime 182.88 cm 32.7 kg/m2 648675. 76 g 98.7 [degF] 18 /min 0 128/68 mm[Hg] Kamala Milian [place] - [facility] 13:02:25 Social History Question Answer Notes LastModified by Organizat ion Details LastModified Time Tobacco Smoking Status Current Every Day Smoker Effie Marianna morel, [place] - [facility] 09/08/2023 15:37:01 Do You Have [...] Or The Highest Degree You Have Received? [id number] Information not available 05/11/2018 How Hard Is It For You To Pay For The Very Basics Like Food, Housing, Medical Care, And Heating? [id number] Information not available 05/11/2018 Hard Of Hearing [...] use any illicit or recreational drugs? No [email or web address] Information not available 05/03/2024 What is your [...] anxious, or unable to sleep at night)? [id number] Information not available 05/11/2018 Do you have [...] 50 mcg/0.25mL dose 021 completed Emmy Houser, INDEPENDENT LIVING ADVISOR [address], [place], [address], [place] - [facility] 12/22/2024 14:08:34 COVID-19, mRNA, LNP-S, PF, 100 mcg/0.5mL dose or 50 mcg/0.25mL dose 021 completed Emmy Houser, INDEPENDENT LIVING ADVISOR [address], [place], [address], [place] - [facility] 12/22/2024 14:08:34 Influenza, split virus, quadrivalent, PF 020 completed Emmy Houser, INDEPENDENT LIVING ADVISOR [address], [place], [address], [place] - [facility] 12/22/2024 14:08:34 Influenza, split virus, quadrivalent, preservative 021 completed Effie Cabral null, [place] - [facility] 10/11/2021 12:14:27 COVID-19, mRNA, LNP-S, PF, 100 mcg/0.5mL dose or 50 mcg/0.25mL dose 022 completed Zaria Quezada null[place] [facility] 03/20/2022 14:09:51 Influenza, split virus, quadrivalent, preservative 017 cancelled patient objection Not Available [facility] 12/10/2019 03:54:49 Influenza, split virus, quadrivalent, preservative 023 completed Effie Cabral null[place] [facility] 09/08/2023 16:22:20 Tdap 018 completed Not Available [facility] 12/10/2019 03:54:59 Pneumococcal conjugate PCV 13 018 completed Not Available [facility] 12/10/2019 03:55:00 Influenza, split virus, trivalent, preservative 025 completed Emmy Houser, INDEPENDENT LIVING ADVISOR [address], [place], [address], [place] - [facility] 12/22/2024 16:29:18 Influenza, split virus, quadrivalent, preservative 018 completed Not Available [facility] 12/10/2019 03:55:13 COVID-19, mRNA, LNP-S, PF, 100 mcg/0.5mL dose or 50 mcg/0.25mL dose 021 completed Emmy Houser, INDEPENDENT LIVING ADVISOR [address], [place], [address], [place] - [facility] 12/22/2024 14:08:34 COVID-19, mRNA, LNP-S, PF, 100 mcg/0.5mL dose or 50 mcg/0.25mL dose 021 completed Emmy Houser APRN [address], [place], [address], [place] [facility] 12/22/2024 14:08:34 pneumococcal polysaccharide PPV23 019 completed Not Available [facility] 12/10/2019 03:56:04 Influenza, split virus, quadrivalent, PF 019 completed Not Available [facility] 12/10/2019 03:56:04 Past Encounters Encounter ID Performer Location Encounter Start Date Encounter Closed Date Diagnosis/Indication Diagnosis SNOMED-CT Code Diagnosis ICD10 Code Diagnosis IMO Codes Diagnosis Note [id number] JANICE Mancia [facility] [address] [place] [address] 10/24/2025 12:45:04 10/24/2025 13:31:43 Bronchitis 42194044 J40 80629 Persistent cough 5624504 02 R05.3 360148 Long-term current use of antibiotic 329401357 Z79.2 989749 on doxycyclin e x 2 months for suppressiv e therapy.Wi ll start Probiotic. Iron overload 42724412 E 83.19 9884 Review of discharge summary did not provide any iron studies. He was anemic during his stay. He reports that he did not receive any PRBC's.Bebeto l recheck labs today. Insomnia 232151790 G47.0 9 60073 We've discussed the use of melatonin. Do not take days naps. Vitamin D deficiency 347 17471 E55.9 20757 last level 26.9. On supplement . Will recheck today. Type 2 sugar betes mellitus 82542954 E11.69 28766473 Influenza vaccination declined 287309233 Z28.21 56212543 Reports that he was given this at . Health Concerns Section Related Observation LastModified by Organization Detai ls LastModified Time None Recorded Concern Status LastModified by Organization Details LastModified Time None Recorded Payers Encounter Date Sequence Insurance Name Policy Number Policy Colindres Covered Member ID Colindres Member ID Guarantor Name 10/24/2025 1 [employer] (MEDICARE REPLACEMENT/ ADVANTAGE - PPO) Guerrero Milian [id number] Guerrero Milian Notes Date Note Type Note Provider Name and Address Organization Details Recorded Time 10/24/2025 text/html ROS as noted in the HPI Patient is here after being discharged from [facility] 10/13/25. He was in there for [...] lower. Will recheck [id number] today. Emmy Houser, INDEPENDENT LIVING ADVISOR [address], [place], [address], [place] - [facility] 10/24/2025 16:01:29
--- OUTSIDE RECORDS SUMMARY | 2025-11-21 14:27 | XMS_ITS | Encounter Summary ---
Author Organization Healthcare Address [address] [place] [address] Care Team Providers Care Golf Course Designer Name Role Phone Aleksandr Lee MD Unavailable [phone] Emmy Houser APRN Primary Care Provider + Encounter Details Date Type Department Care Team (Latest Contact Info) Description 09/25/2025 Travel Social History Tobacco Use Types Packs/Day [...] and Family Not on file 03/15/2025 Attends [employer] Not on file 03/15 Active Member [...] were you homeless or living in a correction (including now)? 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 No 09/25/2025 4:36 PM EST Mycha rt, Generic documented as of this encounter Mental Status * Travel Screening Question Answer Entry Date Author Have you traveled internatio candi or domestically in the last month? No 09/25/2025 4:36 PM EST Mycha rt, Generic documented in this encounter Plan of Treatment Upcoming Encounters Date Type Department Care Team (Late st Contact Info) Description 12/14/2025 2:30 PM EST Office Visit [facility] [address] [place] [address] Aleksandr Lee MD [address] [place] [address] [address] [place] [address] 01/25/2026 9:50 AM EST Office Visit [facility] [address] [place] [address] Eliazar Simmons MD [address] [place] [address] documented as of this encounter [...] plan has been documented for the patient 09/20/2025 10:55 AM EDT documented as of this encounter Care Teams Golf Course Designer Relationship Specialty Start Date End Date Emmy Houser APRN [address] [place] [address] PCP - General 02/07/25 Aleksandr Lee MD [address] [place] [address] [address] [place] [id number] Consulting Physician Infectious Diseases 01/06/24 documented as of this encounter
--- OUTSIDE RECORDS SUMMARY | 2025-11-21 14:27 | XMS_ITS | Clinical Summary ---
Author Organization [facility] Address [address] [place] [address] Care Team Providers Care Jacquard Twine Polisher Operator Name Role Phone Aleksandr Lee MD Unavailable [phone] Emmy Houser APRN Primary Care Provider + [...] represent a complete record from that organization. cyanocobalamin (Vitamin B-12) 1000 MCG tablet Take 1 tablet (1,000 mcg) by mouth 1 (one) time each day. 4 Active cyclobenzaprine (Flexeril) 10 MG tablet Take 1 tablet (10 mg) by mouth 2 (two) times a day if needed for muscle spasms. 4 Active glimepiride (Amaryl) 2 MG tablet Take 1 tablet (2 mg) by mouth 2 (two) times a day. 4 Active magnesium oxide (Mag-Ox) 400 (240 Mg) MG tablet Take 1 tablet (400 mg) by mouth 1 (one) time each day. 4 Active sildenafil (Viagra) 100 MG tablet Take 1 tablet (100 mg) by mouth 1 (one) time each day if needed for erectile dysfunction. 4 Active albuterol 108 (90 Base) MCG/ACT inhaler Inhale 2 puffs every 6 (six) hours if needed for wheezing or shortness of breath. 4 Active bisoprolol (Zebeta) 5 MG tablet Take 0.5 tablets (2.5 mg) by mouth 1 (one) time each day. 4 Active DULoxetine (Cymbalta) [address] capsule Take 1 capsule (60 mg) by mouth 1 (one) time each day. 4 Active famotidine (Pepcid) 40 MG tablet Take 1 tablet (40 mg) by mouth 2 (two) times a day. 4 Active multivitamin (Theragran-M) tablet Take 1 tablet by mouth 1 (one) time each day. 4 Active rOPINIRole (Requip) 1 MG tablet Take 1 tablet by mouth in the morning and 1 tablet at noon then take 2 tablets at bedtime 4 Active gabapentin (Neurontin) 800 MG tablet Take 1 tablet (800 mg) by mouth every 6 (six) hours. 42 tablet 5 Active HYDROcodone-aceta minophen (Tonawanda) 10-325 MG tablet Take 1 tablet by mouth every 4 hours as needed for severe pain. 30 tablet 5 Active clopidogrel (Plavix) 75 MG tabletIndications :Stenosis of right carotid artery without cerebral infarction Take 1 tablet by mouth daily. 5 Active ferrous sulfate 324 MG tablet delayed-release Take 1 tablet by mouth every other day. Do not crush, chew, or split. 5 Active valsartan (Diovan) 160 MG tablet Take 1 tablet by mouth daily. 5 Active aspirin (Dilip Aspirin EC Low Dose) 81 MG EC tablet Take 1 tablet by mouth daily. Active pantoprazole (Protonix) 40 MG EC tablet Take 1 tablet by mouth daily. Active pravastatin (Pravachol) 40 MG tablet Take 1 tablet by mouth nightly. Active empagliflozin (Jardiance) 10 MG Take 1 tablet by mouth daily. Active HYDROcodone-aceta minophen (Tonawanda) 10-325 MG tablet Take 1 tablet by mouth 4 times a day. Active cholecalciferol (Vitamin D3) 1.25 MG (56806 UT) capsule Take 1 capsule by mouth 1 time per week. Mondays Active buPROPion XL (Wellbutrin XL) 150 MG 24 hr tablet Take 1 tablet by mouth daily. Do not crush, chew, or split. Active furosemide (Lasix) 40 MG tablet Take 1 tablet by mouth daily as needed (edema). Active fluticasone-salme terol (Advair Diskus) 250-50 MCG/ACT diskus inhaler Inhale 1 puff daily. Rinse mouth with water after use to reduce aftertaste and incidence of candidiasis. Do not swallow. Active gabapentin (Neurontin) 400 MG capsule Take 2 capsules by mouth 4 times a day. 100 capsule Active HYDROcodone-aceta minophen (Tonawanda) 5-325 MG tablet Take 2 tablets by mouth every 4 hours as needed for severe pain. 30 tablet 5 Active doxycycline (Adoxa) 100 MG tabletIndications :Chronic osteomyelitis of right tibia (CMS/HCC) Take 1 tablet by mouth 2 times a day. 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, right 12/09/2024 Closed disp comminuted fract ure of shaft of right tibia with nonunion 12/01/2024 Open fracture of right tibia and fibula, type I or II, with nonunion, subsequent encounter 10/14/2024 Chronic osteomyelitis of right tibia with draini ng sinus 10/06/2024 Acute osteomyelitis of right lower leg Complication of toe amputation stump 07/13/2024 Cellulitis of toe 07/06/2024 Cellulitis of great toe of right foot 06/12/2024 Spasm of back muscles 05/03/2024 Restless legs 12/22/2023 Overview (12/22/2023): Continue home ropinorole HLD (hyperlipidemia) 12/22/2023 Overview (12/22/2023): Continue statin Follow up PCP Smoker 12/22/2023 Overview (12/22/2023): Admits to smoking 1 pack per 3 days Complicates all aspects of care and recovery Tobacco cessation education and counseling provided Anemia 12/22/2023 Overview (12/22/2023): H/H = Secondary [...] Overview (12/23/2023): (hx Alcoholic cardiomyopathy s/p AICD, [place], PCI x 2 in 2017) ECHO 11/2022 [...] 40 mg PO daily Follow up with pile driving technician CAD (coronary artery disease) 01/31/2022 Overview (12/23/2023): Hx CAD s/p coronary stent x2 in 11/2016, On ASA, plavix), (hx Alcoholic cardiomyopathy s/p AICD. last echo 11/2022 with EF 50%.), hyperlipidemia, pacemaker (Abbot AICD, placed 2017. No fires. Generator change 12/09/2023, last interrogated early 12/09/2023 at Cardiology office (in media).) and past [place]. ECHO 11/2022 (media): Biatrial enlargement, normal left ventricular size, estimated EF 50% with no regional wall motion abnormalities. Grade 1 diastolic dysfunction. Mild enlarged right ventricle with normal contractility. Trace mitral and tricuspid regurgitation. No pericardial effusion. Continue home bisoprolol 2.5 mg BID, continue home Entresto, continue home digoxin, continue home ASA and PLAVIX Resumed home furosemide 40 mg daily Follow up with pile driving technician Atrial fibrillation 01/31/2022 Overview (12/23/2023): Hx AFIB 100 % V paced this admission Continue home bisoprolol and follow up with home pile driving technician Pacemaker 01/31/2022 Overview (12/23/2023): (Abbot AICD, placed 2017. No fires. Generator change 12/09/2023, last interrogated early 12/09/2023 at Cardiology office (in media). HTN (hypertension) 01/31/2022 Overview (12/23/2023): SBP goal <140 s/p right TCAR Continue home bisoprolol 2.5 mg BID, continue home Entresto, continue home digoxin, continue home ASA and PLAVIX Resumed furosemide 40 mg daily (home dose) on POD 2 Follow up with pile driving technician [place] (myocardial infarction) 01/31/2022 Overview (12/22/2023): See CAD [...] Problem Noted Date Diagnosed Date Resolved Date Acute kidney injury 11/29/2024 08/13/20 Influenza A 12/23/2023 08/13/2025 Overview (12/23/2023): Positive for influenza A 12/23; POD 2 Symptoms include cough, low grade temp (100F max) Continue to monitor while inpatient Education regarding when to seek urgent/emergent care after discharge Abnormal cardiovascular stress test 12/22/2023 12/22/2023 Osteomyelitis of right ankle 12/22/2023 12/22/2023 Atrial flutter, paroxysmal 12/22/2023 0 12/22/2023 Postoperative pain 12/22/2023 Overview (12/22/2023): Continue oxycodone Hold home Tonawanda Continue acetaminophen 1 g q6h Continue methocarbamol 500 mg TID PRN Open fracture of shaft of fi bula [...] (01/15/2022): Added automatically from request for surgery [id number] Hardware complicating wound infection 10/31/2020 12/22/2023 Chronic [...] Encounters Date Type Department Care Team Description 10/26/2025 10:20 AM EST Office Visit [facility] Orthopaedic Surgery & Sports Medicine [address], [address] [place] [address] Eliazar Simmons MD Tibia/fibula fracture, left, closed, with nonunion, subsequent encounter (Primary Dx) 10/26/2025 9:16 AM EST - 10/26/2025 11:59 PM EST Hospital Encounter [facility] Radiology [address] [place] [address] Tibia/fibula fracture, left, closed, with nonunion, subsequent encounter Discharge Disposition: Home or Self Care 10/26/2025 Travel 10/13/2025 Results Follow-Up [facility] [address] [place] [address] Aleksandr Lee MD 10/12/2025 2:00 PM EST Office Visit [address] [address] Aleksandr Lee MD Chronic osteomyelitis of right tibia (CMS/HCC) (Primary Dx) 10/12/2025 Travel 10/03/[address] [address] Delma Hylton LPN 09/28/2025 1:00 PM EST Office Visit [address] [address] Aleksandr Lee MD Chronic osteomyelitis of right tibia (CMS/HCC) (Primary Dx) 09/25/2025 Travel 09/21/2025 Telephone [facility] Orthopaedic Surgery & Sports Medicine [address] [place] [address] Flor Ram PA HCN - Patient Message 09/20/2025 9:50 AM EDT Office Visit [facility] Orthopaedic Surgery & Sports Medicine [address], [address] [place] [address] Flor Ram PA Tibia/fibula fracture, left, closed, with nonunion, subsequent encounter (Primary Dx) 09/20/2025 Travel 09/11/2025 Orders Only [address] [address] Aleksandr Lee MD Encounter for central line care (Primary Dx); Therapeutic drug monitoring 09/11/2025 Telephone [facility] Orthopaedic Surgery & Sports Medicine [address] [place] [address] Eliazar Simmons MD HCN - Patient Message 09/11/2025 Clinical Support [address] [address] Ugo Santiago, PharmD 09/01/2025 11:31 AM EDT Anesthesia Event [facility] [address] [place] [address] Ivory Ibarra MD Ash, Emily L, CRNA, DNP 09/01/2025 10:30 AM EDT - 09/01/2025 1:00 PM EDT Surgery [facility] [address] [place] [address] Eliazar Simmons MD REMOVAL, HARDWARE [[id number] (CPT )] 09/01/2025 8:14 AM EDT - 09/08/2025 4:33 PM EDT Hospital Encounter [facility] [address] [place] [address] Eliazar Simmons MD Acute osteomyelitis of right lower leg (CMS/HCC) (Primary Dx); Tibia/fibula fracture, left, closed, with nonunion, subsequent encounter Discharge Disposition: Alf Facility 09/01/2025 Travel 08/31/2025 3:30 PM EDT Pre-Admission Testing [facility] [address] [place] [address] 08/31/2025 Travel 08/24/2025 2:46 PM EDT - 08/24/2025 11:59 PM EDT Hospital Encounter [facility] Radiology [address], [address] [place] [address] 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 Discharge Disposition: Home or Self Care 08/24/2025 2:30 PM EDT Office Visit [facility] Orthopaedic Surgery & Sports Medicine [address], [address] [place] [address] Eliazar Simmons MD Tibia/fibula fracture, left, closed, with nonunion, subsequent encounter (Primary Dx) 08/24/2025 Travel 08/22/2025 Travel from Last 3 Months Immunizations Immunization Administration [...] and Family Not on file 03/15/2025 Attends [employer] Not on file 03/15 Active Member [...] any time in the past 12 m [facility], were you homeless or living in a fpc (including now)? No 09/02/2025 [facility] Utilities Answer Date Recorded In the past 12 months has [facility] [employer], gas, oil, or water company threatened to [...] drink first t alyssa in the morning (EYE-WELDER GAS) to steady your nerves or to get [...] F) 10/26/2025 10:29 AM EST Respiratory Rate 16 09/08/2025 11:38 AM EDT Oxygen Saturation 97% 10/26/2025 10:29 AM EST Inhaled Oxygen Concentration - - Weight 105 kg (231 lb) 10/26/2025 10:29 AM EST Height 182.9 cm (6') 10/26/2025 10:29 AM EST Body Mass Index 31.33 10/26/2025 10:29 AM EST Plan of Treatment Upcoming Encounters Date Type Department Care Team (Late st Contact Info) Description 12/14/2025 2:30 PM EST Office Visit [facility] [address] [place] [address] Aleksandr Lee MD [address] [facility] [address] [place] [address] 01/25/2026 9:50 AM EST Office Visit [facility] [address], [address] [place] [address] Eliazar Simmons MD [address] [place] [address] Health Maintenance Due Date Last Done Comments [facility]-Medicare Annual Wellness (AWV) 1965 [facility]-/Child/Adol SDOH Screenings 1965 Diabetes: Dental Exam 1974 [facility]-RSV Vaccine: 60+ Years or (1 - Risk 50-74 years 1-dose series) 2014 [facility]-Zoster Vaccines (1 of 2) 2014 [facility]-Pneumococcal Vaccine: 50+ Years (3 of 3 - PCV20 or PCV21) 09/05/2024 09/05/2019, 03/02/2018 [id number] Vaccine ( - season) 2025 03/20/2022, 03/07/2021, 02/07/2021 [facility]-Diabetes: Hemoglobin A1C 09/25/2025 03/28/2025, 09/15/2024, 06/12/2024, Additional history exists [facility]- SDOH Screenings 03/03/2026 [facility]-Adult SDOH Screenings 03/03/2026 09/02/2025 [facility]-Depression Screening 10/12/2026 025, 10/12/2025, 04/20/2025, Additional history exists [facility]-DTaP,Tdap,and Td Vaccines (2 - Td or Tdap) 03/02/2028 03/02/2018 [facility]-HIV Screening Completed 06/11/2024 [facility]-Hepatitis C Screening Completed 06/11/2024 [facility]-Influenza Vaccine Completed 09/26/2025 , 12/22/2024, 09/08/2023, Additional history exists [facility]-Obesity Intervention Completed 025, 10/12/2025, 09/28/2025, Additional history exists HPV Vaccines (No Doses Required) Completed [facility]-HIB Vaccines Aged Out No longer e [...] on patient's age to complete this topic Goals Goal Patient Goal Type Associated Problems Recent Progress Patient-Stated? Author Autogenerat ed Goal Care Plan Autogenerated Problem No Ariana Marshall PA Medical Devices Implanted Type Area Director Of Volunteer Services Device Identifier Shelf Expiration Date Model / Serial / Lot Cable Iliamyrov 1.8 X 1200mm - [id number] Implanted:Qty: 1 on 12/09/2024 by Eliazar Simmons MD at [facility] Right: Tibia [employer]-[id number] 12/09/2025 [id number] / / Cement Bone Simplex - [id number] Implanted:Qty: 2 on 02/04/2022 by Bryon Kumar MD at [facility] Cement [employer] [place]-513775 05/22/2024 6191-1-010 / / [id number] Description:Given to sterile field with 160mg/4mL gentamycin, 2.4 g Tobramycin and 4 g Vancomycin methylene blue to make cement antibiotic beads and Given to sterile field with 160mg/4mL gentamycin, 2.4 g Tobramycin and 4 g Vancomycin and methylene blue to make an antibiotic coated jhon Cement Bone Simplex - [id number] Implanted:Qty: 3 on 02/04/2022 by Bryon Kumar MD at [facility] Cement [employer] [place]-[id number] 01/21/2024 6191-1-010 / / [id number] Description:Given to sterile field with 160mg/4mL gentamycin, 2.4 g Tobramycin and 4 g Vancomycin methylene blue to make cement antibiotic beads and Given to sterile field with 160mg/4mL gentamycin, 2.4 g Tobramycin and 4 g Vancomycin and methylene blue to make an antibiotic coated jhon Cement With Tobramycin - [id number] Implanted:Qty: 1 on 02/04/2022 by Bryon Kumar MD at [facility] Cement [facility] [employer] [facility]-[id number] 03/22/2023 [id number] / / [id number] Description:Given to sterile field with 160mg/4mL gentamycin, 2.4 g Tobramycin and 4 g Vancomycin methylene blue to make cement antibiotic beads and Given to sterile field with 160mg/4mL gentamycin, 2.4 g Tobramycin and 4 g Vancomycin and methylene blue to make an antibiotic coated jhon Cement With Tobramycin - [id number] Implanted:Qty: 1 on 02/04/2022 by Bryon Kumar MD at [facility] Cement [employer] [facility] [facility] [place]-479605 04/22/2023 [id number] / / [id number] Description:Given to sterile field with 160mg/4mL gentamycin, 2.4 g Tobramycin and 4 g Vancomycin methylene blue to make cement antibiotic beads AND Given to sterile field with 160mg/4mL gentamycin, 2.4 g Tobramycin and 4 g Vancomycin and methylene blue to make an antibiotic coated jhon Synthecure Synthetic Calcium Sulfate 10cc - S. - [id number] Implanted:Qty: 2 on 10/06/2023 by Bryon Kumar MD at [facility] Cement Right: Leg [employer] [facility]-494369 07/07/2025 50-010 / . / [id number] Synthecure Synthetic Calcium Sulfate 10cc - [id number] Implanted:Qty: 1 on 04/07/2025 by Eliazar Simmons MD at [facility] Cement Right: Tibia [employer] [facility]522158 10/31/2027 50-010 / / [id number] Synthecure Synthetic Calcium Sulfate 10cc - [id number] Implanted:Qty: 1 on 04/07/2025 by Eliazar Simmons MD at [facility] Cement Right: Tibia [employer] [facility]429715 12/28/2027 50-010 / / [id number] Synthecure Synthetic Calcium Sulfate 10cc - [id number] Implanted:Qty: 1 on 04/07/2025 by Eliazar Simmons MD at [facility] Cement Right: Tibia [employer]-[id number] 08/10/2026 50-010 / / [id number] Synthecure Synthetic Calcium Sulfate 10cc - Sn/A - [id number] Implanted:Qty: 3 on 09/01/2025 by Nba Almodovar MD at [facility] Cement Right: Tibia [employer]-033071 03/30/2027 50-010 / N/A / [id number] Pellets, 2 Bead 25cc - [id number] Implanted:Qty: 1 on 02/04/2022 by Bryon Kumar MD at [facility] Implant [address]-1 [address] 10/14/2029 0556-3062 / / [id number] Pellets, 2 Bead 25cc - [id number] Implanted:Qty: 1 on 02/04/2022 by Bryon Kumar MD at [facility] Implant [address]-1 [address] 02/25/2029 8738-3321 / / [id number] Pellets, 2 Bead 25cc - [id number] Implanted:Qty: 1 on 02/04/2022 by Bryon Kumar MD at [facility] Implantable Loop Recorder [address]-1 [address] 01/15/2029 9680-2739 / / [id number] Nail 10mm Ti Saul Tbl Ex W/Prx Bnd 360mm - [id number] Implanted:Qty: 1 on 02/25/2022 by Bryon Kumar MD at [facility] Nail Right: Tibia [employer] [facility]-217275 2030 04.034.452 S / / [id number] Nail Tibial [id number] - Sn/A - [id number] Implanted:Qty: 1 on 09/01/2025 by Nba Almodovar MD at [facility] Nail [employer] ([employer])-13 9168 03/22/2032 2341-1233S / N/A / [id number] Implanted:12/02 (Quantity not on file) Pacemaker Left: Chest Buzzero [id number] / / Description:Generator: [id number] 500Q (Implanted on 12/02/2023) RA Lead: [id number] (All leads implanted on 12/11/2017) RV Lead: [id number] LV Lead: [id number]-86 Per Rep - 1.5T Full Body Conditional Pin, Tip Threaded Guide - [id number] Implanted:Qty: 1 on 02/04/2022 by Bryon Kumar MD at [facility] Pin [employer]-693105 12/13/2031 [id number] / / [id number] Pin Twisted 65 X 150mm - [id number] Implanted:Qty: 1 on 03/10/2025 by Eliazar Simmons MD at [facility] Pin [employer]hew 06/18/2032 [id number] / / Pin Twisted 65 X 150mm - [id number] Implanted:Qty: 1 on 03/10/2025 by Eliazar Simmons MD at [facility] Pin Hancock [employer] Nephew 03/10/2026 [id number] / / Jhon X-Fix Circ Thrd 350mm - [id number] Implanted:Qty: 5 on 12/09/2024 by Eliazar Simmons MD at [facility] Jhon Right: Tibia [employer]-478218 12/09/2025 486196 / / Screw 5.0mm Ti T25 Star Lock For Im Nail 46mm - [id number] Implanted:Qty: 3 on 02/25/2022 by Bryon Kumar MD at [facility] Screw Right: Tibia [employer]-678634 02/25/2023 04.005.536 / / Screw 5.0mm Ti T25 Star Lock For Im Nail 50mm - [id number] Implanted:Qty: 1 on 02/25/2022 by Bryon Kumar MD at [facility] Screw Right: Tibia [employer] [place]-487898 02/25/2023 04.005.540 / / Screw 5.0mm Ti T25 Star Lock For Im Nail 62mm - [id number] Implanted:Qty: 1 on 02/25/2022 by Bryon Kumar MD at [facility] Screw Right: Tibia [employer] [place]-[id number] 02/25/2023 04.005.552 / / Screw 5.0mm Ti T25 Star Lock For Im Nail 54mm - [id number] Implanted:Qty: 1 on 02/25/2022 by Bryon Kumar MD at [facility] Screw Right: Tibia [employer] [place]-279641 02/25/2023 04.005.544 / / Screw 5.0mm Ti Dual Core Lock 75mm - [id number] Implanted:Qty: 2 on 02/25/2022 by Bryon Kumar MD at [facility] Screw Right: Tibia [employer]ynthes [facility]-804033 02/25/2023 04.015.565 / / Screw Trigen 5.0mm Internal Capture 35mm - [id number] Implanted:Qty: 1 on 12/09/2024 by Eliazar Simmons MD at [facility] Screw Right: Tibia [employer]-141635 09/15/2033 [id number] / / Screw Trigen 5.0mm Internal Capture 60mm - [id number] Implanted:Qty: 1 on 04/07/2025 by Eliazar Simmons MD at [facility] Screw Right: Tibia [employer]-492439 05/15/2034 [id number] / / [id number] Screw Trigen 5.0mm Internal Capture 60mm - [id number] Implanted:Qty: 1 on 04/07/2025 by Eliazar Simmons MD at [facility] Screw Right: Tibia [employer]-046425 10/20/2033 [id number] / / [id number] Screw Cortex 3.5mm 34mm Implanted:Qty: 1 on 04/07/2025 by Eliazar Simmons MD at [facility] Screw Right: Tibia [employer] 04/07/2026 204.034 / / Screw Trigen 5.0mm For Metanail 52.5mm - [id number] Implanted:Qty: 1 on 04/07/2025 by Eliazar Simmons MD at [facility] Screw Right: Tibia [employer]-895353 07/27/2032 [id number] / / [id number] Screw Trigen 5.0mm Internal Capture 70mm - [id number] Implanted:Qty: 1 on 04/07/2025 by Eliazar Simmons MD at [facility] Screw Right: Tibia [employer]-496444 07/03/2034 [id number] / / [id number] Screw Trigen 5.0mm Internal Capture 55mm - [id number] Implanted:Qty: 1 on 04/07/2025 by Eliazar Simmons MD at [facility] Screw Right: Tibia [employer]-678351 06/28/2034 [id number] / / [id number] Screw Locking T2 D5xl47.5 - Sn/A - [id number] Implanted:Qty: 1 on 09/01/2025 by Nba Almodovar MD at [facility] Screw Right: Tibia [employer] ([facility])-13 9168 04/22/2035 2360-5047S / N/A / [id number] Screw Locking T2 D5xl55 - Sn/A - [id number] Implanted:Qty: 1 on 09/01/2025 by Nba Almodovar MD at [facility] Screw Right: Tibia [employer] ([facility])-13 9168 09/22/2034 2360-5055S / N/A / [id number] Screw Locking T2 D5xl47.5 - Sn/A - [id number] Implanted:Qty: 1 on 09/01/2025 by Nba Almodovar MD at [facility] Screw Right: Tibia [employer] ([facility])-13 9168 04/22/2035 2360-5047S / N/A / [id number] Screw Locking T2 D5xl57.5 - Sn/A - [id number] Implanted:Qty: 1 on 09/01/2025 by Nba Almodovar MD at [facility] Screw Right: Tibia [employer] ([facility])-13 9168 2034 2360-5057S / N/A / [id number] Screw Locking T2 D5xl55 - Sn/A - [id number] Implanted:Qty: 1 on 09/01/2025 by Nba Almodovar MD at [facility] Screw Right: Tibia [employer] ([facility])-13 9168 09/22/2034 2360-5055S / N/A / [id number] Screw Locking T2 D5xl65 - Sn/A - [id number] Implanted:Qty: 1 on 09/01/2025 by Nba Almodovar MD at [facility] Screw Right: Tibia [employer] ([facility])-13 9168 11/22/2034 2360-5065S / N/A / [id number] Wire X-Fix Cmp 1.5mm X 300mm - [id number] Implanted:Qty: 4 on 04/07/2025 by Eliazar Simmons MD at [facility] Wire Right: Tibia [employer]-749580 04/07/2026 982609 / / Wire X-Fix Cmp With Stop 1.5mm X 300mm - [id number] Implanted:Qty: 2 on 04/07/2025 by Eliazar Simmons MD at [facility] Wire Right: Tibia [employer]-165372 04/07/2026 916362 / / Cement Bone Simplex - [id number] Implanted:Qty: 1 on 02/25/2022 by Bryon Kumar MD at [facility] Right: Tibia [facility] [place]-212292 04/22/2024 6191-1-010 / / [id number] Cement With Tobramycin - [id number] Implanted:Qty: 1 on 02/25/2022 by Bryon Kumar MD at [facility] Right: Tibia [facility] [place]-070794 05/22/2023 [id number] / / [id number] Cement With Tobramycin - [id number] Implanted:Qty: 1 on 02/25/2022 by Bryon Kumar MD at [facility] Right: Tibia [facility] [place]-281206 05/22/2023 [id number] / / [id number] Pin, Tip Threaded Guide - [id number] Implanted:Qty: 1 on 02/25/2022 by Bryon Kumar MD at [facility] Right: Tibia [employer]-434587 12/05/2031 [id number] / / [id number] Stent Transcarotid System 9mm X 40mm - [id number] Implanted:Qty: 1 on 12/21/2023 by Mio Covington MD at [facility]-609146 05/22/2026 -0940-CS / / [id number] Blunt - [id number] Implanted:Qty: 4 on 10/14/2024 by Eliazar Simmons MD at [facility]13 9168 5020-3-150 / / Synthecure Synthetic Calcium Sulfate 10cc - [id number] Implanted:Qty: 3 on 10/14/2024 by Eliazar Simmons MD at [facility] [employer] [id number] 08/10/2026 50-010 / / Cement With Tobramycin - [id number] Implanted:Qty: 1 on 10/14/2024 by Eliazar Simmons MD at [id number] 02/20/2025 [id number] / / [id number] Synthecure Synthetic Calcium Sulfate 10cc - [id number] Implanted:Qty: 1 on 12/09/2024 by Eliazar Simmons MD at [facility] Right: Tibia [employer] [facility]493631 08/10/2026 50-010 / / [id number] Cap Half Pin 6mm - [id number] Implanted:Qty: 12 on 12/09/2024 by Eliazar Simmons MD at [facility] Right: Tibia [employer]-[id number] / / Sponge Ilizarov - S. - [id number] Implanted:Qty: 60 on 12/09/2024 by Eliazar Simmons MD at [facility] Right: Tibia [employer]-[id number] / . / Pin Twisted 65 X 150mm - [id number] Implanted:Qty: 3 on 12/09/2024 by Eliazar Simmons MD at [facility] Right: Tibia [employer]-[id number] 07/13/2029 [id number] / / Jhon X-Fix Circ Thrd 400mm - [id number] Implanted:Qty: 2 on 12/09/2024 by Eliazar Simmons MD at [facility] Right: Tibia [employer]-[id number] / / Hinge X-Fix Cmp Hi Prof Circ - [id number] Implanted:Qty: 2 on 12/09/2024 by Eliazar Simmons MD at [facility] Right: Tibia [employer]-[id number] / / Plate Conn Sh 3h 45mm - [id number] Implanted:Qty: 2 on 12/09/2024 by Eliazar Simmons MD at [facility] Right: Tibia [employer]-[id number] / / Pully Ilizarov 20mm - [id number] Implanted:Qty: 2 on 12/09/2024 by Eliazar Simmons MD at [facility] Right: Tibia [employer]-[id number] 12/09/2025 [id number] / / Post Male 2 Hole - [id number] Implanted:Qty: 2 on 12/09/2024 by Eliazar Simmons MD at [facility] Right: Tibia [employer]-[id number] / / Ring 2/3 Smart Tsf 180mm Blue - [id number] Implanted:Qty: 1 on 12/09/2024 by Eliazar Simmons MD at [facility] Right: Tibia [employer]-[id number] 12/09/2025 [id number] / / Ring Full Smart Tsf 180mm Blue - [id number] Implanted:Qty: 3 on 12/09/2024 by Eliazar Simmons MD at [facility] Right: Tibia [employer]-[id number] / / Wire X-Fix Cmp 1.8mm X 370mm - [id number] Implanted:Qty: 4 on 12/09/2024 by Eliazar Simmons MD at [facility] [employer]-[id number] / / Wire With Stopper 1.8mm X 400mm - [id number] Implanted:Qty: 2 on 12/09/2024 by Eliazar Simmons MD at [facility]862633 [id number] / / Washer Slot 4mm - [id number] Implanted:Qty: 2 on 12/09/2024 by Eliazar Simmons MD at [facility]793644 [id number] / / Washer Fix Rector 2mm - [id number] Implanted:Qty: 2 on 12/09/2024 by Eliazar Simmons MD at [facility]451240 [id number] / / Strut Smart Tsf Long Transport 0-108mm - [id number] Implanted:Qty: 2 on 12/09/2024 by Eliazar Simmons MD at [facility]854721 [id number] / / Sleeve Centering 6mm - [id number] Implanted:Qty: 3 on 12/09/2024 by Eliazar Simmons MD at [facility]447667 [id number] / / Nut 6 X 10mm - [id number] Implanted:Qty: 50 on 12/09/2024 by Eliazar Simmons MD at [facility]820348 [id number] / / Cube Cmpnt Rancho Sys 3h - [id number] Implanted:Qty: 1 on 12/09/2024 by Eliazar Simmons MD at [facility]220747 [id number] / / Cube Cmpnt Rancho Sys 2h - [id number] Implanted:Qty: 3 on 12/09/2024 by Eliazar Simmons MD at [facility]928726 [id number] / / Rector X-Fix Wire Circ Slotted - [id number] Implanted:Qty: 7 on 12/09/2024 by Eliazar Simmons MD at [facility]417289 [id number] / / Rector X-Fix Conctn 20mm - [id number] Implanted:Qty: 4 on 12/09/2024 by Eliazar Simmons MD at [facility] [employer]-[id number] / / Rector X-Fix Circ 16mm - [id number] Implanted:Qty: 7 on 12/09/2024 by Eliazar Simmons MD at [facility] [employer] [facility]-799257 [id number] / / Rector Tsf Smart Wire Combi Slot/Saul 5/Pk - [id number] Implanted:Qty: 4 on 12/09/2024 by Eliazar Simmons MD at [facility] [employer] [facility]-489669 [id number] / / Rector Conctn 8mm - [id number] Implanted:Qty: 4 on 12/09/2024 by Eliazar Simmons MD at [facility] [employer] [facility]-436745 [id number] / / Ankle Foot Iliz Rector 30mm - [id number] Implanted:Qty: 4 on 12/09/2024 by Eliazar Simmons MD at [facility] [id number] / / Ankle Foot Iliz Rector 10mm Nylon Ins - [id number] Implanted:Qty: 2 on 12/09/2024 by Eliazar Simmons MD at [facility] [employer]-[id number] [id number] / / Washer Star Rector - [id number] Implanted:Qty: 2 on 12/09/2024 by Eliazar Simmons MD at [facility] Right: Tibia [employer]-[id number] / / Washer Split Lock 2mm - [id number] Implanted:Qty: 2 on 12/09/2024 by Eliazar Simmons MD at [facility] Right: Tibia [employer]-[id number] / / Pin Half Fixation Rector 6 Mm - [id number] Implanted:Qty: 1 on 12/09/2024 by Eliazar Simmons MD at [facility] Right: Tibia [employer]-[id number] 12/07/2025 [id number] / / Synthecure Synthetic Calcium Sulfate 10cc - [id number] Implanted:Qty: 1 on 03/10/2025 by Eliazar Simmons MD at [facility] [employer]-[id number] 10/31/2027 50-010 / / Pin Twisted 65 X 150mm - [id number] Implanted:Qty: 1 on 03/10/2025 by Eliazar Simmons MD at [facility] [employer] 08/21/2031 [id number] / / Nut 6 X 10mm - [id number] Implanted:Qty: 10 on 03/10/2025 by Eliazar Simmons MD at [facility] [employer] [facility]-127223 03/10/2026 [id number] / / Rector Conctn 8mm - [id number] Implanted:Qty: 3 on 03/10/2025 by Eliazar Simmons MD at [facility] [employer] [facility]-326283 03/10/2026 [id number] / / Rector X-Fix Wire Circ Slotted - [id number] Implanted:Qty: 4 on 03/10/2025 by Eliazar Simmons MD at [facility] [employer] [facility]-927894 03/10/2026 [id number] / / Wire X-Fix Cmp 1.8mm X 370mm - [id number] Implanted:Qty: 2 on 03/10/2025 by Eliazar Simmons MD at [facility] [employer] [facility]-627673 03/10/2026 [id number] / / Wire With Stopper 1.8mm X 400mm - [id number] Implanted:Qty: 1 on 03/10/2025 by Eliazar Simmons MD at [facility] [employer]-[id number] 03/10/2026 [id number] / / Cube Cmpnt Rancho Sys 3h - [id number] Implanted:Qty: 1 on 03/10/2025 by Eliazar Simmons MD at [facility] [employer]-[id number] 03/10/2026 [id number] / / Cube Twisted 1w 1hole - [id number] Implanted:Qty: 1 on 03/10/2025 by Eliazar Simmons MD at [facility] [employer]-266315 03/10/2026 [id number] / / Cube Twisted 2w 2hole - [id number] Implanted:Qty: 1 on 03/10/2025 by Eliazar Simmons MD at [facility] [employer] Inc-[id number] 03/10/2026 [id number] / / Cap Half Pin 6mm - [id number] Implanted:Qty: 12 on 03/10/2025 by Eliazar Simmons MD at [facility] [employer]-[id number] 03/10/2026 [id number] / / Sleeve Centering 6mm - [id number] Implanted:Qty: 3 on 03/10/2025 by Eliazar Simmons MD at [facility] [employer] Inc-[id number] 03/10/2026 [id number] / / Charlotte-Nail Tibial 10mm X 35cm - [id number] Implanted:Qty: 1 on 04/07/2025 by Eliazar Simmons MD at [facility] Right: Tibia [employer]ch[employer] Inc-[id number] 10/03/2032 [id number] / / [id number] Rector X-Fix Wire Circ Slotted - [id number] Implanted:Qty: 8 on 04/07/2025 by Eliazar Simmons MD at [facility] Right: Tibia [employer]-[id number] / / Rector Tsf Smart Wire Combi Slot/Saul 5/Pk - [id number] Implanted:Qty: 1 on 04/07/2025 by Eliazar Simmons MD at [facility] Right: Tibia [employer]ch[employer] Inc-[id number] / / Nut 6 X 10mm - [id number] Implanted:Qty: 8 on 04/07/2025 by Eliazar Simmons MD at [facility] Right: Tibia [employer]-[id number] / / Post Male 2 Hole - [id number] Implanted:Qty: 1 on 04/07/2025 by Eliazar Simmons MD at [facility] Right: Tibia [employer]-[id number] / / Pin Fixation Threaded Post X-Fix Cmp Circ 3h - [id number] Implanted:Qty: 1 on 04/07/2025 by Eliazar Simmons MD at [facility] Right: Tibia [employer]-[id number] / / Wire Spear Tip 58cm Length/4mm Diameter - [id number] Implanted:Qty: 1 on 09/01/2025 by Eliazar Simmons MD at [facility]-[id number] 09/01/2026 [id number] / / Wire Ball Tip 37cm Length/5mm Diameter - [id number] Implanted:Qty: 1 on 09/01/2025 by Eliazar Simmons MD at [facility]-[id number] / / Procedures Procedure Name Priority Date/Time Associated Diagnosis Comments XR TIBIA FIBULA RIGHT 2+ VIEWS Routine 10/26/2025 9:27 AM EST Tibia/fibula fracture, left, closed, with nonunion, subsequent encounter C-REACTIVE PROTEIN, PLASMA Routine 10/12/2025 2:50 PM EST Chronic osteomyelitis of right tibia (CMS/HCC) CK Routine 10/09/2025 CBC WITH AUTO DIFFERENTIAL Routine 10/09/2025 UREA NITROGEN, PLASMA Routine 10/09/2025 C-REACTIVE PROTEIN, PLASMA Routine 10/09/2025 CREATININE, PLASMA Routine 10/09/2025 HEPATIC FUNCTION PANEL Routine 10/09/2025 CK Routine 10/02/2025 CBC WITH AUTO DIFFERENTIAL Routine 10/02/2025 C-REACTIVE PROTEIN, PLASMA Routine 10/02/2025 UREA NITROGEN, PLASMA Routine 10/02/2025 CREATININE, PLASMA Routine 10/02/2025 HEPATIC FUNCTION PANEL Routine 10/02/2025 UREA NITROGEN, PLASMA Routine 09/25/2025 CK Routine 09/25/2025 CBC WITH AUTO DIFFERENTIAL Routine 09/25/2025 C-REACTIVE PROTEIN, PLASMA Routine 09/25/2025 COMPREHENSIVE METABOLIC PANEL, PLASMA Routine 09/25/2025 CK Routine 09/18/2025 CBC WITH AUTO DIFFERENTIAL Routine 09/18/2025 C-REACTIVE PROTEIN, PLASMA Routine 09/18/2025 UREA NITROGEN, PLASMA Routine 09/18/2025 CREATININE, PLASMA Routine 09/18/2025 HEPATIC FUNCTION PANEL Routine 09/18/2025 INSERT PICC LINE Routine 09/08/2025 1:55 PM EDT POCT GLUCOSE METER UNSOLICITED RESULTS Routine 09/08/2025 12:21 PM EDT POCT GLUCOSE METER UNSOLICITED RESULTS Routine 09/08/2025 7:57 AM EDT POCT GLUCOSE METER UNSOLICITED RESULTS Routine 09/07/2025 8:45 PM EDT POCT GLUCOSE METER UNSOLICITED RESULTS Routine 09/07/2025 4:54 PM EDT POCT GLUCOSE METER UNSOLICITED RESULTS Routine 09/07/2025 11:47 AM EDT POCT GLUCOSE METER UNSOLICITED RESULTS Routine 09/07/2025 7:58 AM EDT POCT GLUCOSE METER UNSOLICITED RESULTS Routine 09/07/2025 5:55 AM EDT SEDIMENTATION RATE, AUTOMATED Routine 09/07/2025 5:13 AM EDT CREATINE KINASE, TOTAL, PLASMA Routine 09/07/2025 5:13 AM EDT C-REACTIVE PROTEIN, PLASMA Routine 09/07/2025 5:13 AM EDT COMPREHENSIVE METABOLIC PANEL, PLASMA Routine 09/07/2025 5:13 AM EDT CBC WITH AUTO DIFFERENTIAL Routine 09/07/2025 5:13 AM EDT POCT GLUCOSE METER UNSOLICITED RESULTS Routine 09/06/2025 8:06 PM EDT POCT GLUCOSE METER UNSOLICITED RESULTS Routine 09/06/2025 5:28 PM EDT POCT GLUCOSE METER UNSOLICITED RESULTS Routine 09/06/2025 12:23 PM EDT POCT GLUCOSE METER UNSOLICITED RESULTS Routine 09/06/2025 8:03 AM EDT POCT GLUCOSE METER UNSOLICITED RESULTS Routine 09/05/2025 8:27 PM EDT CREATINE KINASE, TOTAL, PLASMA STAT 09/05/2025 5:59 PM EDT PROTHROMBIN TIME(PT) / INR Routine 09/05/2025 5:59 PM EDT C-REACTIVE PROTEIN, PLASMA STAT 09/05/2025 5:59 PM EDT COMPREHENSIVE METABOLIC PANEL, PLASMA STAT 09/05/2025 5:59 PM EDT VANCOMYCIN, PEAK, PLASMA Timed 09/05/2025 5:59 PM EDT BASIC METABOLIC PANEL, PLASMA Timed 09/05/2025 5:59 PM EDT POCT GLUCOSE METER UNSOLICITED RESULTS Routine 09/05/2025 5:16 PM EDT SEDIMENTATION RATE, AUTOMATED STAT 09/05/2025 12:58 PM EDT CBC WITH AUTO DIFFERENTIAL STAT 09/05/2025 12:58 PM EDT VANCOMYCIN, TROUGH, PLASMA Timed 09/05/2025 12:57 PM EDT POCT GLUCOSE METER UNSOLICITED RESULTS Routine 09/05/2025 11:51 AM EDT POCT GLUCOSE METER UNSOLICITED RESULTS Routine 09/05/2025 7:54 AM EDT POCT GLUCOSE METER UNSOLICITED RESULTS Routine 09/04/2025 8:02 PM EDT POCT GLUCOSE METER UNSOLICITED RESULTS Routine 09/04/2025 5:07 PM EDT POCT GLUCOSE METER UNSOLICITED RESULTS Routine 09/04/2025 11:35 AM EDT POCT GLUCOSE METER UNSOLICITED RESULTS Routine 09/04/2025 8:13 AM EDT POCT GLUCOSE METER UNSOLICITED RESULTS Routine 09/03/2025 8:31 PM EDT POCT GLUCOSE METER UNSOLICITED RESULTS Routine 09/03/2025 5:17 PM EDT POCT GLUCOSE METER UNSOLICITED RESULTS Routine 09/03/2025 12:08 PM EDT POCT GLUCOSE METER UNSOLICITED RESULTS Routine 09/03/2025 8:09 AM EDT POCT GLUCOSE METER UNSOLICITED RESULTS Routine 09/02/2025 8:34 PM EDT POCT GLUCOSE METER UNSOLICITED RESULTS Routine 09/02/2025 5:21 PM EDT POCT GLUCOSE METER UNSOLICITED RESULTS Routine 09/02/2025 12:11 PM EDT POCT GLUCOSE METER UNSOLICITED RESULTS Routine 09/02/2025 7:52 AM EDT POCT GLUCOSE METER UNSOLICITED RESULTS Routine 09/02/2025 4:22 AM EDT TROPONIN T, HIGH SENSITIVITY, 2 HOUR, PLASMA Timed 09/01/2025 10:29 PM EDT BASIC METABOLIC PANEL, PLASMA Routine 09/01/2025 10:29 PM EDT POCT GLUCOSE METER UNSOLICITED RESULTS Routine 09/01/2025 9:58 PM EDT XR CHEST 1 VIEW STAT 09/01/2025 8:42 PM EDT TROPONIN T, HIGH SENSITIVITY, 0 HOUR, PLASMA, REFLEX TO 2 HOUR STAT 09/01/2025 7:19 PM EDT CBC WITH AUTO DIFFERENTIAL Routine 09/01/2025 7:18 PM EDT BLOOD GAS PANEL, VENOUS Routine 09/01/20 7:18 PM EDT ECG ADULT Routine 09/01/2025 6:49 PM EDT XR TIBIA FIBULA RIGHT 2+ VIEWS Routine 09/01/2025 6:29 PM EDT TRANSFUSE RED BLOOD CELLS Routine 09/01/2025 6:24 PM EDT FIBRINOGEN,QUANTITATIVE (CLOTTABLE) Routine 09/01/2025 6:20 PM EDT APTT Routine 09/01/2025 6:20 PM EDT PROTHROMBIN TIME(PT) / INR Routine 09/01/2025 6:20 PM EDT POCT GLUCOSE METER UNSOLICITED RESULTS Routine 09/01/2025 5:39 PM EDT BLOOD GAS PANEL, VENOUS STAT 09/01/20 5:35 PM EDT FL LESS THAN 1 HOUR (NON-REPORTABLE) Routine 09/01/2025 4:41 PM EDT PREPARE RBC STAT 09/01/2025 4:32 PM EDT FUNGAL CULTURE, TISSUE AND SANDRA Routine 09/01/2025 1:05 PM EDT Tibia/fibula fracture, left, closed, with nonunion, subsequent encounter AFB CULTURE, NON RESPIRATORY SOURCE AND ACID FAST STAIN Routine 09/01/2025 1:05 PM EDT Tibia/fibula fracture, left, closed, with nonunion, subsequent encounter TISSUE CULTURE AND GRAM STAIN Routine 09/01/2025 1:05 PM EDT Tibia/fibula fracture, left, closed, with nonunion, subsequent encounter ANAEROBIC CULTURE Routine 09/01/2025 1:0 5 PM EDT Tibia/fibula fracture, left, closed, with nonunion, subsequent encounter BLOOD GAS PANEL, ARTERIAL STAT 09/01/2025 1:02 PM EDT PB ANESTHESIA NON-TIMED PROCEDURE PLACEHOLDER Routine 09/01/2025 11:53 AM EDT PB ANESTHESIA PLACEHOLDER Routine 09/01/2025 11:48 AM EDT ID AN ELECTIVE ENDOTRACHEAL AIRWAY Routine 09/01/2025 11:48 AM EDT ID TREAT TIBIAL SHAFT FX, INTRAMED IMPLANT 09/01/2025 11:18 AM EDT Tibia/fibula fracture, left, closed, with nonunion, subsequent encounter ID REINFORCE TIBIA 09/01/2025 11 :18 AM EDT Tibia/fibula fracture, left, closed, with nonunion, subsequent encounter ID REMOVAL DEEP IMPLANT 09/01/20 11:18 AM EDT Tibia/fibula fracture, left, closed, with nonunion, subsequent encounter TYPE AND SCREEN Routine 09/01/2025 9:42 AM EDT ECG ADULT STAT 09/01/2025 9:15 AM EDT POCT GLUCOSE METER UNSOLICITED RESULTS Routine 09/01/2025 9:00 AM EDT XR TIBIA FIBULA RIGHT 2+ VIEWS Routine 08/24/2025 2:59 PM EDT 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 HEMOGLOBIN A1C Routine 03/28/2025 2:28 AM EDT HEPATITIS C ANTIBODY - ED W/REFLEX TO HCV QUANT PCR STAT 06/11/2024 10:54 PM EDT ED HIV 1/2 ANTIBODY/ANTIGEN SCREEN WITH REFLEX TO HIV I/II DIFFERENTIATION STAT 06/11/2024 10:54 PM EDT from Last 3 Months or Most Recently Relevant to Health Maintenance Results * XR Tibia Fibula Right 2+ Views (10/26/2025 9:27 AM EST) Only the most recent of3 resultswithin the time period is included. Anatomical Region Laterality Modality Lower Extremities, Lower [...] Santos Monae MD on 10/26/2025 3:53 PM Flor AUGUSTE IMG XR PROCEDURES Final Resul t * C-reactive protein (10/12/2025 2:50 PM EST) Only the most recent of7 resultswithin the time period is included. Pathologist [facility] CRP, Plasma <3.0 <=8.0 mg/L 10/12/2025 7:09 PM EST [facility] Blood Venous blood specimen / Unknown Venipuncture / Unknown 10/12/2025 2:50 PM EST 10/12/2025 3:01 PM EST Narrative [facility] - 10/12/2025 7:09 PM EST This CRP test is appropriate for assessment of infection, systemic inflammation and/or tissue injury. To assess cardiovascular disease risk order high sensitivity CRP (CRPH). Aleksandr Aragon MD LAB BLOOD ORDERABLES Final Result [facility] [address] [place] [address] * Creatinine, Plasma (10/09/2025) Only the most recent of3 resultswithin the time period is included. Pathologist [facility] External Creatinine Blood 0.9 mg/dL Blood Venous blood specimen / Unknown 10/09/2025 Aleksandr Aragon MD LAB BLOOD ORDERABLES Final Result * (ABNORMAL) CBC and Differential (10/09/2025) Only the most recent of7 resultswithin the time period is included. External WBC 9.1 4.5 - 10.8 K/cmm External Red Blood Cell (RBC) 3.49 External Hemoglobin (Hgb) 10.40 External Platelet Count (Plt) 344 External Neutrophil Abs 7.10 External Lymphocyte-Abso lute 1.60 External Eos-Absolute 0.10(A) 0.20 - 0.80 K/uL Blood Venous blood specimen / Unknown 10/09/2025 Result [facility] Aleksandr Aragon MD LAB BLOOD ORDERABLES Final Result * Urea Nitrogen, Plasma (10/09/2025) Only the most recent of4 resultswithin the time period is included. External BUN 15 Blood Venous blood specimen / Unknown 10/09/2025 Result [facility] Aleksandr Aragon MD LAB BLOOD ORDERABLES Final Result * CK (10/09/2025) Only the most recent of4 resultswithin the time period is included. External Creatine Kinase 46 30 - 223 U/L Blood Venous blood specimen / Unknown 10/09/2025 Result [facility] Aleksandr Aragon MD LAB BLOOD ORDERABLES Final Result * Hepatic Function Panel (10/09/2025) Only the most recent of3 resultswithin the time period is included. External Alkaline Phosphatase 135 External Bilirubin Total 0.1 mg/dL External ALT (SGPT) 10 External AST (SGOT) 14 Blood Venous blood specimen / Unknown 10/09/2025 Result [facility] Aleksandr Aragon MD LAB BLOOD ORDERABLES Final Result * Comprehensive Metabolic Panel, Plasma (09/25/2025) Only the most recent of3 resultswithin the time period is included. External Creatinine Blood 1.0 mg/dL External UN/Creat Ratio (UC) 1.0 External AST (SGOT) 21 External ALT (SGPT) 14 External Alkaline Phosphatase 146 External Bilirubin Total 0.2 mg/dL Blood Venous blood specimen / Unknown 09/25/2025 Result [facility] LAB BLOOD ORDERABLES Edited Result - Final * PICC SINGLE LUMEN (SMARTFORM LINK) (09/08/2025 1:55 PM EDT) Narrative Karla Russo RN - 09/08/2025 1:55 PM EDT Karla Russo RN 09/08/2025 2:22 PM Insert PICC line Date/Time: 09/08/2025 1:55 PM Performed by: Karla Russo RN Authorized by: Eliazar Simmons MD [place] Protocol: Verbal consent obtained?: Yes Written consent obtained?: Yes Risks and benefits: Risks, benefits and alternatives were discussed Consent given by: Patient Patient states understanding of procedure being performed: Yes Patient's understanding of procedure matches consent: Yes Procedure consent matches procedure scheduled: Yes Relevant documents present and verified: Yes Test results available and properly labeled: Yes Site marked: Yes Imaging studies available: Yes Patient identity confirmed: Verbally with patient, arm band and provided demographic data Time out: Immediately prior to the procedure a time out was called Indications: Vascular access (half-way IV abx) Local anesthetic: Lidocaine 1% without epinephrine Sedation: Patient sedated: No Preparation: Skin prepped with 2% chlorhexidine Skin prep agent dried: Skin prep agent completely dried prior to procedure Sterile barriers: All five maximal sterile barriers used - gloves, gown, cap, mask and large sterile sheet Hand hygiene: Hand hygiene performed prior to catheter insertion Orientation: Right Location (Adult): Brachial vein Site selection rationale: Left pacer Catheter Lot #: [id number] Catheter off premise service representative: Moven Catheter placed: Single lumen Catheter size: 4 Fr Catheter trimmed length: 46 Catheter threaded length: 45 Vein placed in: SVC Catheter cm indwellin Catheter cm outside: 1 Placement confirmed by: [employer] 3CG technology Pre-procedure: Landmarks identified Ultrasound guidance: Yes Sterile ultrasound techniques: Sterile gel and sterile probe covers were used Number of attempts: 1 Post-procedure: Adhesive securement device and sterile access caps placed on each lumen Dressing applied: CHG tegaderm Assessment: Blood return through all ports Patient tolerated the procedure well with no immediate complications.: Yes PICC kit educational material was given to the patient.: Yes Comments: Image to PACS Limb precaution armband to right arm SL per ID recs us Eliazar Simmons MD IV THERAPY ORDERABLES Arelis l Result * (ABNORMAL) POCT glucose meter (09/08/2025 12:21 PM EDT) Only the most recent of31 resultswithin the time period is included. [facility] POCT Glucose 182(H) 74 - 99 mg/dL 09/08/2025 12:23 PM EDT [facility] Comment:Accuracy of a glucos e result obtained from a capillary whole blood specimen relies upon adequate, non-compromised capillary blood flow. If the capillary glucose result is not consistent with the patient's clinical signs and symptoms, glucose testing should be repeated with either an arterial or venous sample on the glucometer or sent to the main labortory for testing. Comment 09/08/2025 12:23 PM EDT [facility] Farm Operations Manager ID Karmen Lewis 12:23 PM EDT [facility] Device ID [id number] 09/08/2025 12:23 PM EDT [facility] Specimen Type POC Capillary 09/08/2025 12:23 PM EDT [facility] Blood Capillary blood specimen / Unknown 09/08/2025 12:21 PM EDT 09/08/2025 12:23 PM EDT Eliazar Simmons MD LAB POINT OF CARE TEST DOCKED DEVICE UNSOLICITED RESULTS Final Result Performing Organization Address City/[facility]/ZIP Co de Phone Number [facility] [address] [place] [address] * Creatine Kinase (CK), Total (09/07/2025 5:13 AM EDT) Only the most recent of2 resultswithin the time period is included. [facility] Creatine Kinase, Plasma 50 49 - 320 U/L 09/07/2025 5:54 AM EDT [facility] Blood Venous blood specimen / Unknown Venipuncture / Unknown 09/07/2025 5:13 AM EDT 09/07/2025 5:21 AM EDT us Eliazar Simmons MD LAB BLOOD ORDERABLES Final Result [facility] [address] [place] [address] * (ABNORMAL) Sedimentation Rate, Automated (09/07/2025 5:13 AM EDT) Only the most recent of2 resultswithin the time period is included. Sedimentation Rate 64(H) <20 mm/hr 2024 5:53 AM EDT [facility] Blood Venous blood specimen / Unknown Venipuncture / Unknown 09/07/2025 5:13 AM EDT 09/07/2025 5:22 AM EDT Eliazar Simmons MD LAB BLOOD ORDERABLES Final Result Performing Organization Address City/[facility]/ZIP Co de Phone Number [facility] [address] [place] [address] * Protime-INR (09/05/2025 5:59 PM EDT) Only the most recent of2 resultswithin the time period is included. Prothrombin Time 14.3 12.0 - 14.3 sec LAB COAGULATION METHOD 09/05/2025 7:57 PM EDT [facility] INR 1.1 0.9 - 1.1 LAB COAGULATION METHOD 09/05/2025 7:57 PM EDT [facility] Blood Venous blood specimen / Unknown Venipuncture / Unknown 09/05/2025 5:59 PM EDT 09/05/2025 6:34 PM EDT Narrative [facility] - 09/05/2025 7:57 PM EDT OPTIMAL INR RANGES FOR PATIENT ON ORAL ANTICOAGULANT THERAPY Prevention of venous thromboembolism INR 2.0 to 3.0 In patients with heart disease: Atrial fibrillation INR 2.0 to 3.0 Valvular heart disease INR 2.0 to 3.0 Tissue heart valves INR 2.0 to 3.0 Mechanical prosthetic valves INR 2.5 to 3.5 Prevention of recurrent [place] INR 2.5 to 3.5 us Eliazar Simmons MD LAB BLOOD ORDERABLES Final Result [facility] [address] [place] [address] * Vancomycin, Peak, Plasma Please draw ~2 hours after 1400 dose of vancomycin finishes infusing. Consider obtaining level via peripheral stick. If peripheral stick is not feasible, please ensure that line is flushed well prior to drawing level. Than... (09/05/2025 5:59 PM EDT) Vancomycin, Peak, Plasma 25.3 20.0 - 40.0 ug/mL 09/05/2025 7:19 PM EDT [facility] Blood Venous blood specimen / Unknown Venipuncture / Unknown 09/05/2025 5:59 PM EDT 09/05/2025 7:02 PM EDT Narrative [facility] - 09/05/2025 7:19 PM EDT Therapeutic Peak level: 20-40ug/mL Supra-therapeutic Peak level: >40 ug/mL Eliazar Simmons MD LAB BLOOD ORDERABLES Final Result [facility] [address] [place] [address] * (ABNORMAL) Basic metabolic panel (09/05/2025 5:59 PM EDT) Only the most recent of2 resultswithin the time period is included. Pathologist [facility] Glucose, Plasma 158(H) 74 - 99 mg/dL 09/05/2025 7:38 PM EDT [facility] BUN, Plasma 15 8 - 23 mg/dL 09/05/2025 7:38 PM EDT [facility] Creatinine, Plasma 0.59(L) 0.70 - 1.20 mg/dL 09/05/2025 7:38 PM EDT [facility] BUN/Creatinine Ratio 25 09/05/2025 7:38 PM EDT [facility] Sodium, Plasma 133(L) 136 - 145 mmol/L 09/05/2025 7:38 PM EDT [facility] Potassium, Plasma 4.1 3.6 - 4.9 mmol/L 09/05/2025 7:38 PM EDT [facility] Chloride, Plasma 100 97 - 107 mmol/L 09/05/2025 7:38 PM EDT [facility] CO2, Plasma 24 22 - 29 mmol/L 09/05/2025 7:38 PM EDT [facility] Anion Gap 9 6 - 16 mmol/L 09/05/2025 7:38 PM EDT [facility] Total Calcium, Plasma 8.9 8.9 - 10.2 mg/dL 09/05/2025 7:38 PM EDT [facility] eGFRcr 111.1 mL/min/1.7 3m*2 09/05/2025 7:38 PM EDT [facility] Comment:Reported eGFRcr in m L/min/1.73m2 is based the CKD-EPI 2020 equation that does not use a race coefficient. Blood Venous blood specimen / Unknown Venipuncture / Unknown 09/05/2025 5:59 PM EDT 09/05/2025 7:03 PM EDT us Eliazar Simmons MD LAB BLOOD ORDERABLES Final Result [facility] [address] [place] [address] * (ABNORMAL) Vancomycin, Trough, Plasma Please draw ~30 minutes prior to dose due at 1400 today. Please do NOT hold dose awaiting level to return. Consider obtaining level via peripheral stick. If peripheral stick is not feasible, please ensure that line is f... (09/05/2025 12:57 PM EDT) Vancomycin, Trough, Plasma 7.2(L) 10.0 - 20.0 ug/mL 09/05/2025 1:53 PM EDT [facility] Blood Venous blood specimen / Unknown Venipuncture / Unknown 09/05/2025 12:57 PM EDT 09/05/2025 1:23 PM EDT Narrative [facility] - 09/05/2025 1:53 PM EDT Therapeutic Trough level: 10-20ug/mL Supra-therapeutic Trough level: >20 ug/mL us Eliazar Simmons MD LAB BLOOD ORDERABLES Final Result [facility] [address] [place] [address] * (ABNORMAL) Troponin T, High Sensitivity, 2 Hour, Plasma (09/01/2025 10:29 PM EDT) Troponin T, High Sensitivity, 2 Hour 44(H) <19 ng/L 09/01/2025 11:01 PM EDT [facility] Troponin Delta 8 <10 ng/L 09/01/2025 11:01 PM EDT [facility] Troponin Delta Interpretation Not Significant 09/01/2025 11:01 PM EDT [facility] Comment:Not Significant. No acute change in troponin observed between the baseline and 2 hour samples. Blood Venous blood specimen / Unknown Venipuncture / Unknown 09/01/2025 10:29 PM EDT 09/01/2025 10:33 PM EDT Eliazar Simmons MD LAB BLOOD ORDERABLES Final Result [facility] [address] [place] [address] * XR Chest 1 View (09/01/2025 8:42 PM EDT) Anatomical Region Laterality Modality Chest Digital Radiogra phy Impressions 09/01/2025 11:58 PM EDT No acute pulmonary process. CRITICAL RESULT: No COMMUNICATION: Per this written report. Drafted by Joe Jones MD on 09/01/2025 11:58 PM Final report signed by Joe Jones MD on 09/01/2025 11:58 PM Narrative 09/01/2025 11:58 PM EDT CLINICAL INDICATION: postop hypotension with recent [place] TECHNIQUE: XR CHEST 1 VIEW COMPARISON: 04/10/2025 FINDINGS: The cardiomediastinal silhouette is stable. Left chest ICD with leads overlying the right atrium, right ventricle and coronary sinus. The lungs are clear focal consolidation or pleural effusion. No pneumothorax. The visualized osseous structures are intact. Degenerative change in the spine. Procedure Note Joe Jones MD - 09/01/2025 CLINICAL INDICATION: postop hypotension with recent [place] TECHNIQUE: XR CHEST 1 VIEW COMPARISON: 04/10/2025 FINDINGS: The cardiomediastinal silhouette is stable. Left chest ICD with leadsoverlying the right atrium, right ventricle and coronary sinus. The lungsare clear focal consolidation or pleural effusion. No pneumothorax. Thevisualized osseous structures are intact. Degenerative change in thespine. IMPRESSION: No acute pulmonary process. CRITICAL RESULT: No COMMUNICATION: Per this written report. Drafted by Joe Jones MD on 09/01/2025 11:58 PM Final report signed by Joe Jones MD on 09/01/2025 11:58 PM Eliazar Simmons MD IMG XR PROCEDURES Final Re sult * Transfuse RBC (09/01/2025 7:27 PM EDT) Ryan Laboy MD BLOOD TRANSFUSION ORDERABLES Final Result * (ABNORMAL) Troponin T, High Sensitivity, 0 Hour Plasma, Reflex to 2 Hour (09/01/2025 7:19 PM EDT) Pathologist [facility] Troponin T, High Sensitivity, 0 Hour 36(H) <19 ng/L 09/01/2025 8:01 PM EDT [facility] Blood Venous blood specimen / Unknown Venipuncture / Unknown 09/01/2025 7:19 PM EDT 09/01/2025 7:27 PM EDT Eliazar Simmons MD LAB BLOOD ORDERABLES Final Result [facility] [address] [place] [address] * (ABNORMAL) Blood gas, venous (09/01/2025 7:18 PM EDT) Only the most recent of2 resultswithin the time period is included. pH, Venous 7.29(L) 7.32 - 7.43 LAB HEMATOLOGY METHOD 09/01/2025 7:28 PM EDT [facility] pCO2, Venous 49 40 - 55 mmHg LAB HEMATOLOGY METHOD 09/01/2025 7:28 PM EDT [facility] pO2, Venous 59(H) 25 - 40 mmHg LAB HEMATOLOGY METHOD 09/01/2025 7:28 PM EDT [facility] SO2, Measured, Venous 89(H) 65 - 80 % LAB HEMATOLOGY METHOD 09/01/2025 7:28 PM EDT [facility] Base Excess, Venous -3.0(L) -2.0 - 3.0 mmol/L LAB HEMATOLOGY METHOD 09/01/2025 7:28 PM EDT [facility] Bicarbonate, Calculated, Venous 24 22 - 26 mmol/L LAB HEMATOLOGY METHOD 09/01/2025 7:28 PM EDT [facility] Hematocrit, Whole Blood 31.2(L) 40.0 - 51.0 % LAB HEMATOLOGY METHOD 09/01/2025 7:28 PM EDT [facility] Sodium, Whole Blood 138 136 - 145 mmol/L LAB HEMATOLOGY METHOD 09/01/2025 7:28 PM EDT [facility] Potassium, Whole Blood 5.1(H) 3.6 - 4.9 mmol/L LAB HEMATOLOGY METHOD 09/01/2025 7:28 PM EDT [facility] Chloride, Whole Blood 106 97 - 107 mmol/L LAB HEMATOLOGY METHOD 09/01/2025 7:28 PM EDT [facility] Glucose, Whole Blood 237(H) 74 - 99 mg/dL LAB HEMATOLOGY METHOD 09/01/2025 7:28 PM EDT [facility] Lactate, Venous, Whole Blood 2.5(H) 0.5 - 2.2 mmol/L LAB HEMATOLOGY METHOD 09/01/2025 7:28 PM EDT [facility] Ionized Calcium, Whole Blood 4.8 4.6 - 5.1 mg/dL LAB HEMATOLOGY METHOD 09/01/2025 7:28 PM EDT [facility] Blood Venous blood specimen / Unknown Venipuncture / Unknown 09/01/2025 7:18 PM EDT 09/01/2025 7:26 PM EDT us Ryan Laboy MD LAB BLOOD ORDERABLES Final R esult [facility] [address] [place] [address] * ECG Adult (09/01/2025 6:49 PM EDT) Only the most recent of2 resultswithin the time period is included. EKG DIAGNOSIS CLASS Abnormal MUSE ECG Ventricular Rate 93 BPM MUSE ECG Atrial Rate 93 BPM MUSE ECG ID Interval 154 ms MUSE ECG QRSD Interval 124 ms MUSE ECG QT Interval 398 ms MUSE ECG QTC Interval 494 ms MUSE ECG P Buford 53 degrees MUSE ECG R Buford -71 degrees MUSE ECG T Wave Buford 53 degrees MUSE ECG Diagnosis Atrial-sensed ventricular-pa patsy rhythm MUSE ECG Diagnosis More physiologic pacing noted. MUSE ECG Diagnosis Abnormal ECG MUSE ECG Diagnosis MUSE ECG Diagnosis Confirmed by Carter Patino ([id number]) on 09/02/2025 12:07:18 PM MUSE ECG 09/01/2025 6:49 PM EDT 09/02/2025 12:07 PM EDT us Eliazar Simmons MD ECG ORDERABLES Final Resu lt Performing Organization Address City/[facility]/ZIP Co de Phone Number MUSE ECG * APTT (09/01/2025 6:20 PM EDT) aPTT 30 25 - 35 sec LAB COAGULATION METHOD 09/01/2025 6:55 PM EDT [facility] Blood Venous blood specimen / Unknown Venipuncture / Unknown 09/01/2025 6:20 PM EDT 09/01/2025 6:36 PM EDT us Ryan Laboy MD LAB BLOOD ORDERABLES Final R esult [facility] [address] [place] [address] * Fibrinogen (09/01/2025 6:20 PM EDT) Fibrinogen, Quantitative (Clottable) 373 208 - 459 mg/dL LAB COAGULATION METHOD 09/01/2025 6:55 PM EDT [facility] Blood Venous blood specimen / Unknown Venipuncture / Unknown 09/01/2025 6:20 PM EDT 09/01/2025 6:36 PM EDT us Ryan Labyo MD LAB BLOOD ORDERABLES Final R esult Performing Organization Address City/[facility]/ZIP Co de Phone Number [facility] [address] [place] [address] * FL Less than 1 Hour Intraoperative (09/01/2025 4:41 PM EDT) Narrative IMAGING - 09/01/2025 4:42 PM EDT Images were obtained for surgical purposes. See Eliazar Simmons's surgical note in the patient's chart for the findings. us Eliazar Simmons MD IMG FLUOROSCOPY PROCEDURES Final Result Performing Organization Address City/[facility] Co de Phone Number IMAGING * Prepare Leukocyte Reduced RBC: 2 Units (09/01/2025 4:32 PM EDT) Product Code S2162Z12 CH BLOO D BANK Dispense Status Transfused BLOOD BANK Blood Expiration Date BLOOD BANK Unit Number [id number] CH B LOOD BANK Product Blood Type 5100 BLOOD BANK Blood Type O+ BLOOD BANK Crossmatch Compatible BLOOD BANK Product Code [id number] CH BLOO D BANK Dispense Status Released BLOOD BANK Blood Expiration Date BLOOD BANK Unit Number [id number] CH B LOOD BANK Product Blood Type 5100 BLOOD BANK Blood Type O+ BLOOD BANK Crossmatch Compatible BLOOD BANK Other us Ksenia Mora CRNA, DNP BLOOD BANK PRODUCT ORDERAB LES Final Result Performing Organization Address City/[facility] Co de Phone Number BLOOD BANK [address] [place] [address], [place] * Fungal Culture, Tissue and SANDRA (09/01/2025 1:05 PM EDT) Culture Reading Mycological 4 Weeks No Fungal Growth at 4 Weeks 09/29/2025 8:24 AM EST [facility] SANDRA No fungal elements seen 09/29/2025 8:24 AM EST [facility] Tissue Topography unknown / Unknown 09/01/2025 1:05 PM EDT 09/01/2025 2:00 PM EDT Comment:Pre-op diagnosis: Tibia/fibula fracture, left, closed, with nonunion, subsequent encounter [S82.202K, S82.402K] Eliazar Simmons MD LAB MICROBIOLOGY - GENERAL ORDERABLES Final Result Performing Organization Address [facility] de Phone Number [facility] [address] [place] [address] * AFB Culture, Non Respiratory Source and Acid Fast Stain (09/01/2025 1:05 PM EDT) AFB Culture No Mycobacterial Growth at 6 Weeks 10/15/2025 11:27 AM EST [facility] Acid Fast Stain No acid fast bacilli seen 10/15/2025 11:27 AM EST [facility] Tissue Topography unknown / Unknown 09/01/2025 1:05 PM EDT 09/01/2025 2:00 PM EDT Comment:Pre-op diagnosis: Tibia/fibula fracture, left, closed, with nonunion, subsequent encounter [S82.202K, S82.402K] Eliazar Simmons MD LAB MICROBIOLOGY - GENERAL ORDERABLES Final Result Performing Organization Address [facility] Co de Phone Number [facility] [address] [place] [address] * Tissue Culture and Gram Stain (09/01/2025 1:05 PM EDT) Culture No growth at day 4 2024 1:30 PM EDT [facility] Gram Stain Result No organisms seen 09/05/2025 1:30 PM EDT [facility] Gram Stain Result No polymorphonuclear leukocytes seen 09/05/2025 1:30 PM EDT [facility] Tissue Topography unknown / Unknown 09/01/2025 1:05 PM EDT 09/01/2025 2:00 PM EDT Comment:Pre-op diagnosis: Tibia/fibula fracture, left, closed, with nonunion, subsequent encounter [S82.202K, S82.402K] Eliazar Simmons MD LAB MICROBIOLOGY - GENERAL ORDERABLES Final Result Performing Organization Address [facility] Co de Phone Number [facility] [address] [place] [id number] * Anaerobic Culture (09/01/2025 1:05 PM EDT) Culture No growth at day 4 09/08/2025 1:01 PM EDT [facility] Tissue Topography unknown / Unknown 09/01/2025 1:05 PM EDT 09/01/2025 2:00 PM EDT Comment:Pre-op diagnosis: Tibia/fibula fracture, left, closed, with nonunion, subsequent encounter [S82.202K, S82.402K] Eliazar Simmons MD LAB MICROBIOLOGY - GENERAL ORDERABLES Final Result Performing Organization Address [facility] Co de Phone Number [facility] [address] [place] [address] * (ABNORMAL) Blood gas panel, arterial (09/01/2025 1:02 PM EDT) pH, Arterial 7.36 7.31 - 7.42 LAB HEMATOLOGY METHOD 09/01/2025 1:02 PM EDT [facility] pCO2, Arterial 47(H) 32 - 45 mmHg LAB HEMATOLOGY METHOD 09/01/2025 1:02 PM EDT [facility] pO2, Arterial 127 >80 mmHg LAB HEMATOLOGY METHOD 09/01/2025 1:02 PM EDT [facility] SO2, Measured, Arterial 100(H) 94 - 98 % LAB HEMATOLOGY METHOD 09/01/2025 1:02 PM EDT [facility] Base Excess, Arterial 0.6 -2.0 - 3.0 mmol/L LAB HEMATOLOGY METHOD 09/01/2025 1:02 PM EDT [facility] Bicarbonate, Calculated, Arterial 26 22 - 26 mmol/L LAB HEMATOLOGY METHOD 09/01/2025 1:02 PM EDT [facility] Hematocrit, Whole Blood 33.1(L) 40.0 - 51.0 % LAB HEMATOLOGY METHOD 09/01/2025 1:02 PM EDT [facility] Sodium, Whole Blood 139 136 - 145 mmol/L LAB HEMATOLOGY METHOD 09/01/2025 1:02 PM EDT [facility] Potassium, Whole Blood 3.5(L) 3.6 - 4.9 mmol/L LAB HEMATOLOGY METHOD 09/01/2025 1:02 PM EDT [facility] Chloride, Whole Blood 104 97 - 107 mmol/L LAB HEMATOLOGY METHOD 09/01/2025 1:02 PM EDT [facility] Glucose, Whole Blood 114(H) 74 - 99 mg/dL LAB HEMATOLOGY METHOD 09/01/2025 1:02 PM EDT [facility] Ionized Calcium, Whole Blood 4.3(L) 4.6 - 5.1 mg/dL LAB HEMATOLOGY METHOD 09/01/2025 1:02 PM EDT [facility] Lactate, Arterial, Whole Blood 0.9 0.5 - 1.6 mmol/L LAB HEMATOLOGY METHOD 09/01/2025 1:02 PM EDT [facility] Blood Arterial blood specimen / Unknown 09/01/2025 12:58 PM EDT us Ksenia Mora CRNA, DNP LAB BLOOD ORDERABLES Final Result [facility] [address] [place] [address] * PB ANESTHESIA NON-TIMED PROCEDURE PLACEHOLDER (09/01/2025 11:53 AM EDT) Narrative Ivory Ibarra MD - 09/01/2025 11:53 AM EDT Ivory Ibarra MD 09/01/2025 12:52 PM Arterial Line: Date/Time: 09/01/2025 11:53 AM An arterial line was placed. Procedure performed using ultrasound guidance in the pre-op for the following indication(s): continuous blood pressure monitoring and blood sampling needed. A 20 gauge (size), 1 and 3/4 inch (length), Arrow (type) catheter was placed into the Left radial artery and secured by tape. Seldinger technique used Additional notes: Smooth and uncomplicated placement of arterial line using aseptic sterile technique. No difficulty or complications. Distal capillary refill unchanged following procedure, confirmed via pulse-ox waveform. I placed the arterial line personally. Staffing Performed: Anesthesiologist Anesthesiologist: Ivory Ibarra MD Result [facility] us Ivory Ibarra MD ANESTHESIA ORDERABLES Final R esult * ID AN ELECTIVE ENDOTRACHEAL AIRWAY, PB ANESTHESIA PLACEHOLDER (09/01/2025 11:48 AM EDT) Narrative Ksenia Mora CRNA, DNP - 09/01/2025 11:48 AM EDT Ksenia Mora CRNA, DNP 09/01/2025 12:01 PM Airway Date/Time: 09/01/2025 11:48 AM Reason: elective Airway not difficult General Information and Staff Patient location during procedure: OR DISPENSING OPTICIAN: Ksenia Mora CRNA, DNP Performed: BRYAN Patient Condition Indications for airway management: anesthesia Patient position: sniffing Final Airway Details Final airway type: endotracheal airway Successful airway: ETT Cuffed: yes Successful intubation technique: direct laryngoscopy Adjuncts used in placement: intubating stylet Endotracheal tube insertion site: oral Blade: Montse Blade size: #3 ETT size (mm): 7.5 Cormack-Lehane Classification: grade I - full view of glottis Placement verified by: chest auscultation and capnometry Measured from: lips ETT to lips (cm): 22 Additional Comments Atraumatic. No change to dentition. us Ivory Ibarra MD ANESTHESIA ORDERABLES Final R esult * Type and Screen (09/01/2025 9:42 AM EDT) ABO/Rh O Positive 09/01/2025 9:49 AM EDT BLOOD BANK Antibody Screen Negative 09/01/2025 9:49 AM EDT BLO[facility]ANK Specimen Expiration 09/04/2025 23:59 09/01/2025 9:49 AM EDT [facility] Blood Venous blood specimen / Unknown Venipuncture / Unknown 09/01/2025 9:42 AM EDT 09/01/2025 9:49 AM EDT us Ivory Ibarra MD LAB BLOOD BANK TEST ORDERABLE S Final Result BLOOD BANK [address] * (ABNORMAL) Hemoglobin A1c (03/28/2025 2:28 AM EDT) Hemoglobin A1c 6.8(H) <5.7 % 03/28/2025 6:09 AM EDT [facility] Blood Venous blood specimen / Unknown Venipuncture / Unknown 03/28/2025 2:28 AM EDT 03/28/2025 2:45 AM EDT Narrative [facility] - 03/28/2025 6:09 AM EDT HA1C Interpretive Data: Diagnosis of Diabetes: Diabetic > or = 6.5% Pre-diabetic 5.7 to 6.4% Non-diabetic < or = 5.6% Glycemic Targets for Type I and Type II Diabetics: Non- Adults <7.0% Adults <6.0% Children and Adolescents <7.5% Source: [place] [employer]. Standards of medical care in diabetes,2017. Diabetes Care.2017:40 (suppl 1):S1-S135. Kandace Mckinley LAB BLOOD ORDERABLES Final Resul t [facility] [address] [place] [address] * ED HIV 1/2 Antibody/Antigen Screen w/Reflex to HIV 1/2 Differentiation (06/11/2024 10:54 PM EDT) HIV 1 & 2 Antibody/Antigen Screen Non Reactive Non Reactive 06/11/2024 11:36 PM EDT [facility] Comment:Screening for HIV 1 & 2 antibodies, and P24 antigen is NONREACTIVE. No confirmatory testing is required. Blood Venous blood specimen / Unknown Venipuncture / Unknown 06/11/2024 10:54 PM EDT 06/11/2024 11:00 PM EDT Chuy Ridley LAB BLOOD ORDERABLES Final Resul t [facility] [address] [place] [address] * Hepatitis C Antibody - ED (06/11/2024 10:54 PM EDT) Hepatitis C Antibody Negative Negative 06/11/2024 11:31 PM EDT [facility] Blood Venous blood specimen / Unknown Venipuncture / Unknown 06/11/2024 10:54 PM EDT 06/11/2024 10:59 PM EDT Ch[facility] Ridley LAB BLOOD ORDERABLES Final Resul t [facility] [address] [place] [address] from Last 3 Months or Most Recently Relevant to Health Maintenance Additional Health Concerns Active Problems Noted Date Diagnosed Date Autogenerated Problem 08/24/2025 Infection Onset 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 MEDICARE Advance Directives * Full Code (Latest Code Status on File) Date Activated Date Inactivated Comments 09/01/2025 5:30 PM 09/08/2025 6:34 PM Question Answer Comments I have reviewed the capacity from the link above and, if needed, have updated to appropriate status: Yes * Full Code Date Activated Date Inactivated Comments 04/07/2025 12:06 [...] Patient has decision-making capacity? Yes Care Teams Jacquard Twine Polisher Operator Relationship Specialty Start Date End Date Emmy Houser APRN [address] [place] [id number] PCP - General 02/07/25 Aleksandr Lee MD [address] [place] [phone] Consulting Physician Infectious Diseases 01/06/24
--- OUTSIDE RECORDS SUMMARY | 2025-11-21 14:28 | XMS_ITS | Encounter Summary ---
Author Organization Healthcare Address [address] [place] [address] Care Team Providers Care Painter Touch Up Name Role Phone Aleksandr Lee MD Unavailable [phone] Emmy Houser APRN Primary Care Provider + Encounter Details Date Type Department Care Team (Late st Contact Info) Description 10/13/2025 Results Follow-Up [facility] [address] [place] [address] Aleksandr Lee MD [address] [facility] [address] [place] [address] Social History Tobacco Use Types [...] and Family Not on file 03/15/2025 Attends [employer] Not on file 03/15 Active Member [...] any time in the past 12 m [facility], were you homeless or living in a residential (including now)? No 09/02/2025 [facility] Utilities Answer Date Recorded In [...] drink first t alyssa in the morning (EYE-REAL TIME OPERATOR) to steady your nerves or to [...] Description 12/14/2025 2:30 PM EST Office Visit [address] [phone] Aleksandr Lee MD [address] [place] [address] [address] [place] [address] 01/25/2026 9:50 AM EST Office Visit [facility] Orthopaedic Surgery & Sports Medicine [address] [place] [address] Eliazar Simmons MD [address] [place] [address] documented as of this encounter [...] documented as of this encounter Care Teams Painter Touch Up Relationship Specialty Start Date End Date Emmy Houser APRN [address] [place] [id number] PCP - General 02/07/25 Aleksandr Lee MD [address] [facility] [address] [place] [phone] Consulting Physician Infectious Diseases 01/06/24 documented as of this encounter
--- OUTSIDE RECORDS SUMMARY | 2025-11-21 14:28 | XMS_ITS | Encounter Summary ---
Author Organization Healthcare Address [address] [place] [address] Care Team Providers Care Government Program Manager Name Role Phone Aleksandr Lee MD Unavailable [phone] Emmy Houser APRN Primary Care Provider + Encounter Details Date Type Department Care Team (Late st Contact Info) Description 10/03/2025 Telephone [facility] [address] [place] [address] Delma Hylton LPN [facility] None Social History Tobacco Use Types Packs/Day Years [...] and Family Not on file 03/15/2025 Attends [employer] Services Not on file 03/15 Active Member [...] in the past 12 m [facility], were you homeless or living in a alf (including now)? No 09/02/2025 [facility] Utilities Answer Date Recorded In the [...] drink first t alyssa in the morning (EYE-PEGGER DOBBY LOOMS) to steady your nerves or to get [...] Description 12/14/2025 2:30 PM EST Office Visit [facility] [address] [place] [address] Aleksandr Lee MD [address] [facility] [address] [place] [address] 01/25/2026 9:50 AM EST Office Visit [facility] Orthopaedic Surgery & Sports Medicine [address] [place] [address] Eliazar Simmons MD [address] [place] [address] documented as of this encounter Goals Goal [...] documented as of this encounter Care Teams Government Program Manager Relationship Specialty Start Date End Date Emmy Houser APRN [address] [place] [id number] PCP - General 02/07/25 Aleksandr Lee MD [address] [place] [address] [address] [place] [address] Consulting Physician Infectious Diseases 01/06/24 documented as of this encounter
--- OUTSIDE RECORDS SUMMARY | 2025-11-21 14:28 | XMS_ITS | Encounter Summary ---
Author Organization Healthcare Address [address] [place] [address] Care Team Providers Care Screedman/Laborer Name Role Phone Aleksandr Lee MD Unavailable [phone] Emmy Houser APRN Primary Care Provider + Encounter Details Date Type Department Care Team (Latest Contact Info) Description 10/12/2025 Travel Social History Tobacco Use Types Packs/Day [...] and Family Not on file 03/15/2025 Attends Voodoo Services Not on file 03/15 Active Member [...] time in the past 12 m [facility], were you homeless or living in a prison (including now)? No 09/02/2025 [facility] Utilities Answer Date Recorded In the past 12 months has [facility] [employer], gas, oil, or water company threatened to [...] drink first t alyssa in the morning (EYE-MARKETING SYSTEMS ANALYST) to steady your nerves or to [...] someone who was sick? No / Unsure 10/12/2025 1:41 PM Mercedes Galan Do you have any of the following new or worsening symptoms? None of these 10/12/2025 1:41 PM Mercedes Galan * Travel Screening Question Answer Date of Assessment Author Have you traveled intern[place] or domestically in the last month? No 10/12/2025 1:41 PM Mercedes Mullins documented as of this encounter Mental Status * Communicable Disease Screening Question Answer Entry Date Author Have you been in contact wit h someone who was sick? No / Unsure 10/12/2025 1:41 PM Mercedes Galan Do you have any of the following new or worsening symptoms? None of these 10/12/2025 1:41 PM Mercedes Galan * Travel Screening Question Answer Entry Date Author Have you traveled internatio candi or domestically in the last month? No 10/12/2025 1:41 PM Mercedes Mullins documented in this encounter Plan of Treatment Upcoming Encounters Date Type Department Care Team (Late st Contact Info) Description 12/14/2025 2:30 PM EST Office Visit [facility] [address] [place] [address] Aleksandr Lee MD [address] [place] [address] [address] [place] [address] 01/25/2026 9:50 AM EST Office Visit [facility] Orthopaedic Surgery & Sports Medicine [address] [place] [address] Eliazar Simmons MD [address] [place] [address] documented as of this encounter [...] documented as of this encounter Care Teams Screedman/Laborer Relationship Specialty Start Date End Date Emmy Houser APRN [address] [place] [id number] PCP - General 02/07/25 Aleksandr Lee MD [address] [place] [address] [address] [place] [address] Consulting Physician Infectious Diseases 01/06/24 documented as of this encounter
--- OUTSIDE RECORDS SUMMARY | 2025-11-21 14:28 | XMS_ITS | Encounter Summary ---
Author Organization Healthcare Address [address] [place] [address] Care Team Providers Care Customer Advisor Specialist Name Role Phone Aleksandr Lee MD Unavailable [phone] Emmy Houser APRN Primary Care Provider + Encounter Details Date Type Department Care Team (Late st Contact Info) Description 07/28/2025 Results Follow-Up [facility] [address] [place] [address] Aleksandr Lee MD [address] [facility] [address] [place] [address] Social History Tobacco Use Types Packs/Day Years Used Date Smoking Tobacco: Some Days Cigarettes 0.3 30 Last attempted to quit: 11/23/2017 Passive Smoke Exposure: Past Smokeless Tobacco: Never Comments:1 pack every 4 days Alcohol Use Standard Drinks/Week Comments Yes 0 (1 standard drink = 0.6 oz pur e alcohol) 1-2 beers most nights. Social Connection and Isolation Panel Answer Date Recorded Frequency of Communication with Friends and Fami ly Not on file 03/15/2025 Frequency of Social Gatherings with Friends and Family Not on file 03/15/2025 Attends Hoahaoism Services Not on file 03/15 Active Member [...] time in the past 12 m [facility], were you homeless or living in a long term (including now)? No 09/02/2025 [facility] Utilities Answer Date Recorded In the [...] drink first t alyssa in the morning (EYE-MEDICAL STAFF SERVICES MANAGER) to steady your nerves or to get [...] Description 12/14/2025 2:30 PM EST Office Visit [address] [phone] [place] [address] [place] [address] [address] [place] [address] 01/25/2026 9:50 AM EST Office Visit [facility] Orthopaedic Surgery & Sports Medicine [address] [place] [address] Eliazar Simmons MD [address] [place] [address] documented as of this encounter [...] plan has been documented for the patient 07/27/2025 2:55 PM EDT documented as of this encounter Care Teams Customer Advisor Specialist Relationship Specialty Start Date End Date Emmy Houser APRN [address] [place] [address] PCP - General 02/07/25 Aleksandr Lee MD [address] [facility] [address] [place] [address] Consulting Physician Infectious Diseases 01/06/24 documented as of this encounter
[2025-11-21 14:56] LABS: Hematocrit 39.7 % (42.0-52.0); Hemoglobin 13.1 g/dL (14.1-18.0); Immature Granulocytes % 0.7 %; Mean Corpuscular HGB Conc 33.0 g/dL (31.8-35.4); Mean Corpuscular Hemoglobin 30.0 pg (27.0-31.2); Mean Corpuscular Volume 90.8 fl (80-94); Nucleated Red Blood Cells % 0 %; Platelet Count 255 K/mm3 (142-424); Red Blood Count 4.37 M/mm3 (4.60-6.20); Red Cell Distribution Width-SD 48.9 fL; White Blood Count 6.0 K/mm3 (4.8-10.8)
[2025-11-21 15:22] LABS: Alanine Aminotransferase 31 U/L (12-78); Albumin Level 4.4 g/dl (3.5-5.0); Alkaline Phosphatase 152 U/L (38-126); Anion Gap 11.8 mEq/L (5-15); Aspartate Amino Transferase 33 U/L (17-59); Bilirubin,Direct 0.3 mg/dl (0.0-0.4); Bilirubin,Indirect 0.1 mg/dL (0.0-0.9); Bilirubin,Total 0.4 mg/dl (0.2-1.3); Bilirubin,Unconjugated 0.1 mg/dL (0.0-1.1); Blood Urea Nitrogen 24 mg/dl (9-20); Calcium 9.3 mg/dl (8.4-10.2); Carbon Dioxide 26 mmol/L (22.0-30.0); Chloride 101 mmol/L (98-107); Cholesterol 132 mg/dl (140-200); Creatinine,Serum 0.90 mg/dl (0.66-1.25); Estimated Glomerular Filt Rate 86 ml/min (>60); GFR (African American) 104 ML/MIN (>60); Glucose 260 mg/dl (74-100); HDL Cholesterol 38 mg/dl (40-60); Magnesium 1.9 mg/dl (1.6-2.3); Potassium 3.8 mmoL/L (3.5-5.1); Sodium 135 mmol/L (136-145); Total Protein,Serum 7.0 g/dl (6.3-8.2); Triglycerides 199 mg/dl (30-150)
[2025-11-21 15:37] LABS: Free T4 (Free Thyroxine) 0.86 ng/dl (0.78-2.19)
[2025-11-21 15:54] LABS: Thyroid Stimulating Hormone 1.30 uIU/mL (0.465-4.68)
== END 2025-11-21 23:59 | disposition home or self-care (01) ==
LOC: LAB 14:15
PROVIDERS: PCP Nurse Practitioner Adult Health; Visit Provider Nurse Practitioner Family
DX: E78.2 Mixed hyperlipidemia (principal); I11.0 Hypertensive heart disease with heart failure; I50.32 Chronic diastolic (congestive) heart failure; I25.10 Atherosclerotic heart disease of native coronary artery without angina pectoris
CPT/HCPCS: 36415; 80048; 80061; 80076; 83735; 84439; 84443; 85025